=== PATIENT | female | born 1960 | race African-American/Black ===

== ENCOUNTER → 2017-01-06 | Emergency (ER) | payer BC, OTHER ==
[2017-01-06 11:16] VITALS: BP 112/57; PULSE 99; TEMP 98.8; BMI 37.4
== END | disposition left against medical advice (07) ==
LOC: JERFT 10:53
DX: Z53.21 Procedure and treatment not carried out due to patient leaving prior to being seen by health care provider (principal)
CPT/HCPCS: 99281-25

== ENCOUNTER 2017-05-09 23:44 | Observation (INO) | payer BC ==
--- NOTE | 2017-05-09 23:59 | PDOC ---
History of Present Illness - General Stated Complaint: CHEST PAIN Time Seen by Provider: 05/09/17 23:51 History Source: Patient - History of Present Illness Initial Comments: 05/10/17 00:03 Patient had previous stress tests 2 years ago which was positive. Patient was sent to [facility] for stenting but was informed she did not need it at the time. 05/10/17 00:04 56-year-old female biba complaining of left lateral upper arm pain. Patient states while she was sleeping, she was awoke by a 9/10 sore nonradiating discomfort. The pain subsided "when I rubbed my arm with hand" which caused her to fall back asleep. Patient states she was awoke by the pain again approximately one hour later and this seemed occurred when she would fall back to sleep once she rubs her left lateral upper arm until the pain completely subsided. Patient states this occurred approximately 5-6 times this evening. Approximately 2 hours ago, she felt left sided anterior chest discomfort described as 6/10 achy nonradiating intermittent discomfort which worsens on deep inspiration and alleviated at rest. Patient denies headache, dizziness, lightheadedness, facial pains, rhinorrhea, nasal congestion, earaches, sore throat, cough, neck stiffness, back pain, shortness of breath, abdominal pains, flank pains, urinary symptoms, extremity numbness or tingling sensation. The pain at this time is 2/10 achy nonradiating discomfort. Patient states she just has to rest for the pain to subside completely. Patient reports that similar symptoms which resolved at rest. Past History - Past Medical History Allergies/Adverse Reactions: Allergies Allergy/AdvReac Type Severity Reaction Status Date / Time No Known Allergies Allergy Verified 05/10/17 00:13 Home Medications: Ambulatory Orders NK [No Known Home Medication] 05/10/17 Asthma: Yes Cardiac Disorders: Yes COPD: No Diabetes: Yes - Surgical History Orthopedic Surgery: Yes (right foot/ankle broken ) - Immunization History Immunization Up to Date: Yes - Suicide/Smoking/Psychosocial Hx Smoking Status: Yes Smoking History: Unknown if ever smoked Have you smoked in the past 12 months: No Number of Cigarettes Smoked Daily: 2 If you are a former smoker, when did you quit?: 03/09/14 'Breaking Loose' booklet given: 08/21/14 Hx Alcohol Use: No Drug/Substance Use Hx: No Substance Use Type: None Hx Substance Use Treatment: Yes (detox, rehab, [facility]) Review of Systems - Review of Systems Able to Perform ROS?: Yes Comments:: 05/10/17 00:04 CONSTITUTIONAL: Absent: fever, chills, diaphoresis, generalized weakness, malaise, loss of appetite HEENT: Absent: rhinorrhea, nasal congestion, throat pain, throat swelling, difficulty swallowing, mouth swelling, ear pain, eye pain, visual Changes CARDIOVASCULAR: +chest pain Absent: loss of consciousness, palpitations, irregular heart rate, peripheral edema RESPIRATORY: Absent: cough, shortness of breath, dyspnea with exertion, orthopnea, wheezing, stridor, hemoptysis GASTROINTESTINAL: Absent: abdominal pain, abdominal distension, nausea, vomiting, diarrhea, constipation, melena, hematochezia GENITOURINARY: Absent: dysuria, frequency, urgency, hesitancy, hematuria, flank pain, genital pain MUSCULOSKELETAL: Absent: myalgia, arthralgia, joint swelling SKIN: Absent: rash, itching, pallor HEMATOLOGIC/IMMUNOLOGIC: Absent: easy bleeding, easy bruising, lymphadenopathy, frequent infections ENDOCRINE: Absent: unexplained weight gain, unexplained weight loss, heat intolerance, cold intolerance NEUROLOGIC: Absent: headache, focal weakness or paresthesias, dizziness, unsteady gait, seizure, mental status changes, bladder or bowel incontinence PSYCHIATRIC: Absent: anxiety, depression, suicidal or homicidal ideation, hallucinations. Is the patient limited Maltese proficient: No *Physical Exam - Vital Signs Last Vital Signs Temp Pulse Resp BP Pulse Ox 98.3 F 81 16 114/62 94 L 05/10/17 00:00 05/10/17 00:00 05/10/17 00:00 05/10/17 00:00 05/10/17 00:00 - Physical Exam Comments: 05/10/17 00:04 GENERAL: Well developed, well nourished. Awake and alert. No acute distress. HEENT: Normocephalic, atraumatic. PERRLA, EOMI. No conjunctival pallor. Sclera are non- icteric. Moist mucous membranes. Oropharynx is clear. NECK: Supple. Full ROM. No JVD. Carotid pulses 2+ and symmetric, without bruits. No thyromegaly. No lymphadenopathy. CARDIOVASCULAR: Regular rate and rhythm. No murmurs, rubs, or gallops. Distal pulses are 2+ and symmetric. PULMONARY: No evidence of respiratory distress. Lungs clear to auscultation bilaterally. No wheezing, rales or rhonchi. ABDOMINAL: Soft. Non-tender. Non-distended. No rebound or guarding. No organomegaly. Normoactive bowel sounds. MUSCULOSKELETAL Normal range of motion at all joints. No bony deformities or tenderness. No CVA tenderness. EXTREMITIES: No cyanosis. No clubbing. No edema. No calf tenderness. SKIN: Warm and dry. Normal capillary refill. No rashes. No jaundice. NEUROLOGICAL: Alert, awake, appropriate. Cranial nerves 2-12 intact. No deficits to light touch and temperature in face, upper extremities and lower extremities. No motor deficits in the in face, upper extremities and lower extremities. Normoreflexic in the upper and lower extremities. Normal speech. Toes are down- going bilaterally. Gait is normal without ataxia. PSYCHIATRIC: Cooperative. Good eye contact. Appropriate mood and affect. *DC/Admit/Observation/Transfer Diagnosis at time of Disposition: Chest pain Qualifiers: Chest pain type: chest pain due to myocardial ischemia Ischemic chest pain type : stable angina pectoris Qualified Code(s): I20.8 - Other forms of angina pectoris - Discharge Dispostion Admit: Yes - Referrals - Patient Instructions - Post Discharge Activity
--- NOTE | 2017-05-10 00:05 | PDOC ---
Medical Decision Making - Medical Decision Making 05/10/17 00:05 56 yo F who presents to the ER with a complaint of left arm pain Pt had labs sent Trop 0.18 Pt decided to leave against out medical advice Pt refused to sign consent for treatment OR AMA form Pt was called re: her concerning blood tests Pt was asked to come back to the ER Will place on observation Pt seen by Midlevel Provider under my direct supervision Pt interviewed and examined Ancillary studies reviewed I agree with plan as outlined by Midlevel Provider *DC/Admit/Observation/Transfer Diagnosis at time of Disposition: Chest pain Qualifiers: Chest pain type: chest pain due to myocardial ischemia Ischemic chest pain type : stable angina pectoris Qualified Code(s): I20.8 - Other forms of angina pectoris - Referrals - Patient Instructions - Post Discharge Activity
[2017-05-10 00:13] VITALS: BMI 37.8
--- NOTE | 2017-05-10 01:28 | HP ---
CHIEF COMPLAINT: left arm pain PCP: none currently, formerly Dr. Carrasco (on [address]) HISTORY OF PRESENT ILLNESS: 56F w/ hx of asthma, spinal stenosis, obesity, NEERU on CPAP, HLD, depression, anxiety, and chronic joint pain who presents with acute left arm pain. Pt states that it began while she was lying in bed in the morning. It developed on the lateral part of her upper arm, radiated down her arm and to her left chest, 9/10 pain, associated with lightheadedness and mild SOB. Pt states that rubbing her arm relieved some of the pain. She states that this pain has been intermittent for the past few months, but worst this most recent episode. She denies n/v/d/c, fevers, chills, recent travel, sick contacts. Per pt, she is non -adherent to her medications, and she does not know the names of them. Of note, pt reports that she came to [facility] about 2 years ago with similar symptoms, had a positive stress test, and was sent to [facility] for cath. Pt states that she left the hospital after an hour and never received the cath, but there is documentation stating that pt received a cath at some point showing <30% stenosis in pRCA and L Cx arteries. ER course was notable for: (1) leukocytosis (2) troponin (3) EKG Recent Travel: denies PAST MEDICAL HISTORY: asthma, spinal stenosis, obesity, NEERU on CPAP, HLD, depression, anxiety, and chronic joint pain PAST SURGICAL HISTORY: R foot R knee Social History: Smoking: currently 5 cigarettes a day x 35 years Alcohol: denies Drugs: former, currently on methadone Family History: mother- heart disease, DM Allergies No Known Allergies Allergy (Verified 05/10/17 00:13) HOME MEDICATIONS: Home Medications Medication Instructions Recorded NK [No Known Home Medication] 05/10/17 REVIEW OF SYSTEMS CONSTITUTIONAL: Absent: fever, chills, diaphoresis, generalized weakness, malaise, weight change present: loss of appetite HEENT: Absent: rhinorrhea, nasal congestion, throat pain, throat swelling, difficulty swallowing, mouth swelling, ear pain, eye pain, visual changes CARDIOVASCULAR: Absent: syncope, palpitations, irregular heart rate, peripheral edema present: chest pain, lightheadedness RESPIRATORY: Absent: cough, wheezing, stridor, hemoptysis present: SOB GASTROINTESTINAL: Absent: abdominal pain, abdominal distension, nausea, vomiting, diarrhea, constipation, melena, hematochezia GENITOURINARY: Absent: dysuria, frequency, urgency, hesitancy, hematuria, flank pain, genital pain MUSCULOSKELETAL: Absent: myalgia, arthralgia, joint swelling, back pain, neck pain SKIN: Absent: rash, itching, pallor HEMATOLOGIC/IMMUNOLOGIC: Absent: easy bleeding, easy bruising, lymphadenopathy, frequent infections ENDOCRINE: Absent: unexplained weight gain, unexplained weight loss, heat intolerance, cold intolerance NEUROLOGIC: Absent: headache, focal weakness or paresthesias, dizziness, unsteady gait, seizure, mental status changes, bladder or bowel incontinence PSYCHIATRIC: Absent: suicidal or homicidal ideation, hallucinations present: anxiety, depression PHYSICAL EXAMINATION Vital Signs - 24 hr 05/10/17 00:00 Temperature 98.3 F Pulse Rate 81 Respiratory 16 Rate Blood Pressure 114/62 O2 Sat by Pulse 94 L Oximetry (%) GENERAL: obese middle aged female, awake, alert, and fully oriented, in no acute distress. HEENT: NC, AT LUNGS: Breath sounds equal, clear to auscultation bilaterally. No wheezes, and no crackles. No accessory muscle use. HEART: Regular rate and rhythm, normal S1 and S2 without murmur, rub or gallop. ABDOMEN: obese, soft, normoactive BS, mildly tender in RUQ and LLQ MUSCULOSKELETAL: no LE edema NEUROLOGICAL: Cranial nerves II-XII intact. Normal speech. PSYCHIATRIC: Cooperative. Good eye contact. Appropriate mood and affect. SKIN: Warm, dry, normal turgor, no rashes or lesions noted, normal capillary refill. ASSESSMENT/PLAN: 56F w/ hx of smoking, asthma, spinal stenosis, obesity, NEERU on CPAP, HLD, depression, anxiety, and chronic joint pain who presents with acute left arm pain. #left arm pain -possibly 2/2 NSTEMI -trop of 0.14 -EKG: NSR, QTc of 447, Q waves in lead 3, TWI in leads V1 and V2, no ST elevations or depressions -cardio consult, f/u recs -serial trops q6h -repeat EKG q6h -f/u echo -pain control with SL nitro and morphine PRN -supplemental O2 -ASA 325, plavix load, lovenox 100mg, high potency statin #polysubstance use -methadone 70mg -confirm with program at [facility] -f/u Utox -nicotine patch #NEERU -CPAP 20 HS #asthma -duonebs PRN #FEN/ppx -po fluids -electrolytes wnl -diabetic diet -no GI ppx indicated -lovenox Case discussed with attending. -Nii Srinivasan MD PGY1 Visit type - Emergency Visit Emergency Visit: Yes Care time: The patient presented to the Emergency Department on the above date and was hospitalized for further evaluation of their emergent condition. - New Patient This patient is new to me today: Yes Date on this admission: 05/10/17 - Critical Care Critical Care patient: No Hospitalist Screening - Colonoscopy Questionnaire Colonoscopy Questionnaire: Colonoscopy Questionnaire - Patient: 50 - 75 years old and never had a screening colonoscopy: Unknown History of colon or rectal polyps, or CA: Unknown History of IBD, Crohn's disease or UC: Unknown History of abdominal radiation therapy as a child: Unknown - Relative: 1 with colon or rectal CA, or polyps at age 60 or younger: Unknown Colon or rectal CA diagnosed at age 45 or younger: Unknown Multiple relatives with colon or rectal CA: Unknown - Outcome: Screening Result: Negative Screen
[2017-05-10] MEDS ORDERED: MORPHINE SULFATE 10 MG/1 ML *VIAL IVPUSH PRN (01:40)
[2017-05-10] MEDS ORDERED: CLOPIDOGREL BISULFATE 300 MG TABLET PO ONE (01:40)
[2017-05-10] MEDS ORDERED: NITROGLYCERIN SUBLINGUAL 1/150 0.4 MG TAB SL PRN (01:40)
[2017-05-10] MEDS ORDERED: ACETAMINOPHEN 325 MG TABLET (FP) PO PRN (01:40)
--- NOTE | 2017-05-10 01:44 | PN ---
Teaching Attending Note Name of Resident: Nii Srinivasan ATTENDING PHYSICIAN STATEMENT I saw and evaluated the patient. I reviewed the resident's note and discussed the case with the resident. I agree with the resident's findings and plan as documented. SUBJECTIVE: 56F pmh NEERU ?DM, HLD, smoking, NEERU, former opiate use now on methadone program comes in for chest pain, substernal, tightness, started at rest at 430pm and was worse with minimal exertion. She is currently having chest pain. possibly had cath previously at [facility] OBJECTIVE: obese, not in acute distress CV: RRR no m/r/g Lungs: CTA abdomen, soft NTND Ext: no edema EKG: sinus rhythm 07/2015 Nuclear negative troponin 0.16 ASSESSMENT AND PLAN: 56F with typpical chest pain, elevated troponi, no ekg changes, treat for NSTEMI Cardiology consult trend troponins and EKGs aspirin 325 mg followed by 81mg daily plavix 300mg followed by 75mg daily lovenox 1mg/kg ECHO SL Nitro x3 now, if no effect morphine admit to telemetry CPAP at 20mmhg confirm methadone dose (70mg) at program prior to restarting check A1C, lipid profile
[2017-05-10] MEDS ORDERED: ATORVASTATIN CA 80 MG TABLET (FP) PO SCH (01:45)
[2017-05-10] MEDS ORDERED: ASPIRIN 325 MG ENTERIC COATED TABLET (FP) PO SCH (01:45)
[2017-05-10] MEDS ORDERED: ALBUTEROL SO4 2.5/IPRATROPIUM 0.5 INH SOL 3 ML VIAL.NEB. NEB PRN (01:59)
[2017-05-10] MEDS ORDERED: ENOXAPARIN NA (PORCINE) 100 MG/1 ML DISP.SYRIN SQ ONE (02:15)
[2017-05-10] MEDS ORDERED: ASPIRIN 325 MG ENTERIC COATED TABLET (FP) PO ONE (02:22)
[2017-05-10] MEDS ORDERED: ATORVASTATIN CA 80 MG TABLET (FP) PO ONE (02:29)
[2017-05-10 08:27] LABS: BASO % 1.1 % (0-2.0); EOS % 6.1 % (0-4.5); HEMATOCRIT 41.1 % (32.4-45.2); HEMOGLOBIN 13.6 GM/dL (10.7-15.3); LYMPH % 38.7 % (8-40); MCH 30.3 pg (25.7-33.7); MCHC 33.1 g/dl (32.0-36.0); MEAN CELL VOLUME 91.6 fl (80-96); MEAN PLT VOLUME 8.3 fl (7.5-11.1); MONO % 6.9 % (3.8-10.2); NEUT % 47.2 % (42.8-82.8); PLATELET COUNT 185 K/MM3 (134-434); RBC 4.49 M/mm3 (3.60-5.2); RDW 13.8 % (11.6-15.6); WHITE BLOOD COUNT 8.3 K/mm3 (4.0-10.0)
[2017-05-10 08:57] LABS: CHLORIDE 103 mmol/L (98-107); POTASSIUM 3.8 mmol/L (3.5-5.1); SODIUM 140 mmol/L (136-145)
[2017-05-10 09:09] LABS: ALBUMIN 3.5 g/dl (3.4-5.0); ALK PHOS 103 U/L (45-117); ANION GAP 8 (8-16); BILIRUBIN,TOTAL 0.6 mg/dL (0.2-1.0); BLOOD UREA NITROGEN 11 mg/dL (7-18); CALCIUM 8.7 mg/dL (8.5-10.1); CHOLESTEROL 212 mg/dL (50-200); CO2 29 mmol/L (21-32); CREATININE 0.5 mg/dL (0.55-1.02); GLUCOSE,RANDOM 83 mg/dL (74-106); HDL CHOLESTEROL 34 mg/dL (40-60); LDL CHOLESTEROL (ONLY SJRH) 148 mg/dL (5-100); MAGNESIUM 2.1 mg/dL (1.8-2.4); PHOSPHOROUS 2.8 mg/dL (2.5-4.9); SGOT/AST 13 U/L (15-37); SGPT/ALT 15 U/L (12-78); TOT PROT 6.6 g/dl (6.4-8.2); TRIGLYCERIDES 160 mg/dL (35-160)
[2017-05-10] MEDS ORDERED: ENOXAPARIN NA (PORCINE) 100 MG/1 ML DISP.SYRIN SQ SCH (10:00)
[2017-05-10] MEDS: NICOTINE 7 MG/24 HOURS TOPICAL PATCH TD SCH (11:05)
[2017-05-10] MEDS: ENOXAPARIN NA (PORCINE) 100 MG/1 ML DISP.SYRIN SQ SCH ×2 (11:05→21:08)
[2017-05-10] MEDS ORDERED: METHADONE HCL 10 MG TABLET PO ONE (13:00)
--- NOTE | 2017-05-10 13:00 | CON.CARD ---
Consult Consult Specialty:: Cardiology Referred by:: Hospitalist Reason for Consultation:: Chest pain, elevated troponin - History of Present Illness Chief Complaint: L arm pain, L chest pain History of Present Illness: 56 year old woman with a history of NEERU, Asthma, spinal stenosis, RA, HLD, heavy smoking, prior admission in 2013 for chest pain at which time nuclear stress test showed inferior ischemia, cardiac cath was done at [facility] during that admission and showed minimal non-obstructive CAD, admitted with L arm pain , L chest pain. Pt states that L arm pain is chronic for several months on and off, L chest pain has been more recent. When discussed the cardiac cath in 2013 pt states that it was never done, and that they just discharged her however this seems to be incorrect as there is a report of it. denies any other complaints. - History Source History Provided By: Patient, Medical Record Limitations to Obtaining History: No Limitations - Past Medical History Cardio/Vascular: Yes: CAD, Hyperlipdemia Pulmonary: Yes: Asthma, COPD, Sleep Apnea - Alcohol/Substance Use Hx Alcohol Use: No - Smoking History Smoking history: Unknown if ever smoked Have you smoked in the past 12 months: No Aproximately how many cigarettes per day: 2 If you are a former smoker, when did you quit?: 03/09/14 - Social History Usual Living Arrangement: With Child ADL: Independent History of Recent Travel: No Home Medications - Allergies Allergies/Adverse Reactions: Allergies Allergy/AdvReac Type Severity Reaction Status Date / Time No Known Allergies Allergy Verified 05/10/17 00:13 - Home Medications Home Medications: Ambulatory Orders Alprazolam [Xanax] 2 mg PO BID 05/10/17 Aspirin [ASA -] 81 mg PO DAILY 05/10/17 Ezetimibe [Zetia] 10 mg PO DAILY 05/10/17 Family Disease History - Family Disease History Family Disease History: Diabetes: Mother, Heart Disease: Father Review of Systems - Review of Systems Constitutional: denies: No Symptoms, Chills, Diaphoresis, Fever, Lethargy, Loss of Appetite, Malaise, Night Sweats, Unintentional Wgt. Loss, Weakness, Other Eyes: denies: No Symptoms, Blind Spots, Blurred Vision, Double Vision, Eye Pain , Floaters, Photophobia, Recent Change in Vision, Other HENT: denies: No Symptoms, Difficult Swallowing, Ear Discharge, Ear Pain, Epistaxis, Gingival Bleeding, Hearing Loss, Mouth Swelling, Nasal Congestion, Ocular Prosthesis, Throat Pain, Toothache, Ringing in Ears, Other Neck: denies: No Symptoms, Decreased ROM, Lumps, Pain on Movement, Stiffness, Swollen Glands, Tenderness, Other Cardiovascular: reports: Chest Pain. denies: No Symptoms, Edema, Palpitations, Shortness of Breath, Other Respiratory: denies: No Symptoms, Cough, Exercise Intolerance, Hemoptysis, Orthopnea, PND, Snoring, SOB, SOB on Exertion, Wheezing, Other Gastrointestinal: denies: No Symptoms, Abdominal Pain, Bloating, Constipation, Diarrhea, Dysphagia, Indigestion, Melena, Nausea, Rectal Bleeding, Vomiting, Vomiting Blood, Other Genitourinary: denies: No Symptoms, Burning, Discharge, Dysuria, Flank Pain, Frequency, Hematuria, Incontinence, Lesions, Menses, Pain, Testicular Mass, Testicular Pain, Testicular Swelling, Urgency, Vaginal Bleeding, Other Breasts: denies: No Symptoms Reported, See HPI, Breast Implants, Discharge from Nipple, Lumps, Pain, Skin Changes, Other Musculoskeletal: reports: Extremity Pain. denies: No Symptoms, Back Pain, Crepitus, Decreased ROM, Joint Pain, Joint Swelling, Muscle Pain, Muscle Cramps , Muscle Weakness, Other Integumentary: denies: No Symptoms, Blister, Bruising, Change in Color, Eczema, Erythema, Incision, Lesions, Lump, Pallor, Pruritis, Rash, Wound, Other Neurological: denies: No Symptoms, Change in LOC, Change in Speech, Confusion, Dizziness, Headache, Incoordination, Numbness, Parasthesia, Pre-Existing Deficit , Seizure, Syncope, Tremors, Unsteady Gait, Weakness, Other Endocrine: denies: No Symptoms, Excessive Sweating, Flushing, Increased Hunger, Increased Thirst, Intolerance to Cold, Intolerance to Heat, Unexplained Weight Gain, Unexplained Weight Loss, Other Hematology/Lymphatic: denies: No Symptoms, Easily Bruised, Excessive Bleeding, Swollen Glands, Other Psychiatric: denies: No Symptoms, Altered Sleep Pattern, Anxiety, Depression, Hallucinations, Panic, Paranoia, Suicidal, Other - Risk Factors Known Risk Factors: Yes: Hypercholesterolemia, Hypertension, Smoking Vital Signs: Vital Signs Temperature 98.3 F 05/10/17 05:00 Pulse Rate 71 05/10/17 05:00 Respiratory Rate 16 05/10/17 05:00 Blood Pressure 124/59 05/10/17 05:00 O2 Sat by Pulse Oximetry (%) 94 L 05/10/17 11:49 Constitutional: Yes: Well Nourished, No Distress, Calm Eyes: Yes: WNL, Conjunctiva Clear, EOM Intact, PERRL HENT: Yes: WNL, Atraumatic, Normocephalic Neck: Yes: WNL, Supple, Trachea Midline Respiratory: Yes: Regular, Wheezes. No: Rales, Rhonchi Gastrointestinal: Yes: WNL, Normal Bowel Sounds, Soft. No: Distention, Tenderness Renal/: Yes: WNL Cardiovascular: Yes: WNL, Regular Rate and Rhythm. No: Bradycardia, Tachycardia , Pulse Irregular, Gallop, Rub, Varicosities JVD: No Carotid Bruit: No PMI: Non-Displaced Heart Sounds: Yes: S1, S2. No: Split S2, S3, S4, Clicks, Gallop, Rub, Bruit Murmur: No: Systolic Murmur, Diastolic Murmur Musculoskeletal: Yes: WNL Extremities: Yes: WNL Edema: No Peripheral Pulses WNL: Yes Peripheral Pulses: 2+ Left Doralis Pedis, 2+ Right Dorsalis Pedis Integumentary: Yes: WNL Neurological: Yes: Alert, Oriented Psychiatric: Yes: Alert, Oriented - Other Data Labs, Other Data: CBC, BMP 05/10/17 07:50 05/10/17 07:50 Troponin, BNP 05/10/17 05/10/17 05/10/17 03:00 07:50 08:14 Troponin I 0.14 H 0.09 H Cancelled Troponin, BNP 05/10/17 05/10/17 05/10/17 03:00 07:50 08:14 Troponin I 0.14 H 0.09 H Cancelled ekg-NSR 70bpm, nonspecific ST abnl Echo: Report Reviewed Prior Cardiac Procedures: Cardiac Catheterization Imaging - Results Chest X-ray: Report Reviewed, Image Reviewed EKG: Report Reviewed, Image Reviewed Other: Report Reviewed, Image Reviewed (tele-nsr, no arrhythmias) Assessment/Plan 56 year old woman with a history of NEERU, Asthma, spinal stenosis, RA, HLD, heavy smoking, prior admission in 2013 for chest pain at which time nuclear stress test showed inferior ischemia, cardiac cath was done at [facility] during that admission and showed minimal non-obstructive CAD, admitted with L arm pain , L chest pain. Pt states that L arm pain is chronic for several months on and off, L chest pain has been more recent. When discussed the cardiac cath in 2014 pt states that it was never done, and that they just discharged her however this seems to be incorrect as there is a report of it. Chest pain-atypical, unlikely ACS -troponin is minimally above upper limit of normal, with normal CK level, and troponin did not trend up -chest pain is atypical -no sig ekg abnl -no arrhythmias on telemetry -as per report cardiac cath showed very minimal non-obs cad in 2013 -will monitor on telemetry overnight -plan for nuclear stress test and echo tomorrow -cont ASA, Plavix, statin, Lovenox tomorrow -of note pt is a smoker and is currently wheezing, may be acute bronchitis leading to chest pain, denies sig sob.
[2017-05-10 13:08] LABS: COCAINE, UR NEGATIVE ng/ml (CUTOFF=300); PHENCYCLIDINE,URINE NEGATIVE ng/ml (CUTOFF=25); URINE AMPHETAMINES NEGATIVE ng/ml (CUTOFF=500); URINE BARBITURATES NEGATIVE ng/ml (CUTOFF=200)
[2017-05-10 13:09] LABS: METHADONE, UR POSITIVE ng/ml (CUTOFF=300); OPIATES, URI POSITIVE ng/ml (CUTOFF=300); URINE BENZODIAZEPINES POSITIVE ng/ml (CUTOFF=200)
--- NOTE | 2017-05-10 14:21 | EKG ---
Test Reason : Blood Pressure : / mmHG Vent. Rate : 072 BPM Atrial Rate : 072 BPM P-R Int : 148 ms QRS Dur : 086 ms QT Int : 396 ms P-R-T Axes : 063 045 059 degrees QTc Int : 433 ms NORMAL SINUS RHYTHM NONSPECIFIC T WAVE ABNORMALITY Confirmed by MD ALICJA, MARIMAR ([id number]) on 05/10/2017 2:20:44 PM Referred By: Confirmed By:MARIMAR HELM MD
--- NOTE | 2017-05-10 15:22 | PN ---
Teaching Attending Note Name of Resident: Milly Morillo Time of evaluation: 8:45 AM SUBJECTIVE: Patient seen and examined, sleeping comfortably, when woken up started reporting right groin pain and then stated 'its chronic, oh that's not what I'm here for'. Denied any chest pain currently. OBJECTIVE: Vital Signs Period Temp Pulse Resp BP Sys/Jones Pulse Ox Last 24 Hr 98.2 F-98.3 F 71-97 16-19 114-124/59-82 94-99 Intake & Output 05/07/17 05/08/17 05/09/17 05/10/17 23:59 23:59 23:59 23:59 Intake Total 440 Balance 440 Weight 220 lb General: sleeping comfortably CVS;S1S2 regular Chest: No rales or wheezing abdomen: soft, obese, NT extremities: no edema Home Medication List Medication Instructions Recorded Confirmed Type Alprazolam [Xanax] 2 mg PO BID 05/10/17 05/10/17 History Aspirin [ASA -] 81 mg PO DAILY 05/10/17 05/10/17 History Ezetimibe [Zetia] 10 mg PO DAILY 05/10/17 05/10/17 History Active Medications Generic Name Dose Route Start Last Admin Trade Name Freq PRN Reason Stop Dose Admin Acetaminophen 650 mg 05/10/17 01:40 Tylenol - PO Q4H PRN pain 1-6 Albuterol/Ipratropium 1 amp 05/10/17 01:59 Duoneb - NEB Q6H PRN SHORT OF BREATH/WHEEZING Aspirin 81 mg 05/11/17 10:00 Asa - PO DAILY RE[facility] Atorvastatin Calcium 80 mg 05/10/17 22:00 Lipitor - PO HS REGI Clopidogrel Bisulfate 75 mg 05/11/17 10:00 Plavix - PO DAILY REGI Ezetimibe 10 mg 05/11/17 10:00 Zetia - PO DAILY RE[facility] Enoxaparin Sodium 100 mg 05/10/17 10:00 05/10/17 11:05 Lovenox - SQ 100 mg BID REGI Administration Nicotine 7 mg 05/10/17 10:00 05/10/17 11:05 Nicoderm Patch - TD Not Given DAILY [facility] Nitroglycerin 0.4 mg 05/10/17 01:40 Nitrostat - SL Q5M PRN FOR CHEST PAIN Laboratory Results - last 24 hr 05/10/17 05/10/17 05/10/17 03:00 07:50 07:50 WBC 8.3 RBC 4.49 Hgb 13.6 Hct 41.1 MCV 91.6 MCH 30.3 MCHC 33.1 RDW 13.8 Plt Count 185 MPV 8.3 Neutrophils % 47.2 Lymphocytes % 38.7 D Monocytes % 6.9 Eosinophils % 6.1 H D Basophils % 1.1 Sodium 140 Potassium 3.8 Chloride 103 Carbon Dioxide 29 Anion Gap 8 BUN 11 Creatinine 0.5 L Creat Clearance w eGFR > 60 Random Glucose 83 Hemoglobin A1c % Calcium 8.7 Phosphorus 2.8 Magnesium 2.1 Total Bilirubin 0.6 D AST 13 L ALT 15 Alkaline Phosphatase 103 Troponin I 0.14 H 0.09 H Total Protein 6.6 Albumin 3.5 Triglycerides 160 Cholesterol 212 H Total LDL Cholesterol 148 H HDL Cholesterol 34 L Opiates Screen Methadone Screen Barbiturate Screen Phencyclidine Screen Ur Amphetamines Screen MDMA (Ecstasy) Screen Benzodiazepines Screen Cocaine Screen U Marijuana (THC) Screen 05/10/17 05/10/17 05/10/17 07:50 08:14 11:25 WBC RBC Hgb Hct MCV MCH MCHC RDW Plt Count MPV Neutrophils % Lymphocytes % Monocytes % Eosinophils % Basophils % Sodium Potassium Chloride Carbon Dioxide Anion Gap BUN Creatinine Creat Clearance w eGFR Random Glucose Hemoglobin A1c % 5.5 Calcium Phosphorus Magnesium Total Bilirubin AST ALT Alkaline Phosphatase Troponin I Cancelled Total Protein Albumin Triglycerides Cholesterol Total LDL Cholesterol HDL Cholesterol Opiates Screen Positive Methadone Screen Positive Barbiturate Screen Negative Phencyclidine Screen Negative Ur Amphetamines Screen Negative MDMA (Ecstasy) Screen Negative Benzodiazepines Screen Positive Cocaine Screen Negative U Marijuana (THC) Screen Negative ASSESSMENT AND PLAN: 56F w/ hx of asthma, spinal stenosis, obesity, NEERU on CPAP, HLD, depression, anxiety, and chronic joint pain admitted with atypical chest pain and mild troponin elevation. -Atypical chest pain -Mild troponin elevation, low suspicion for NSTEMi -Opioid dependence -Asthma/COPD, smoker -Obesity -HLD -Depression/anxiety -Chronic pains Plan: cardiology input appreciated. Continue ASA/plavix/statin/lovenox. Plan for stress test/echo in AM. Telemetry. Troponin trended down. [facility] closed today. Will call in AM, methadone 70 mg X1 for now. D/c morphine, avoid additional opioids. Dispo pending cardiology testing tomorrow and clinical course. Plan discussed with patient in detail, all questions answered.
[2017-05-10] MEDS ORDERED: ALPRAZolam 2 MG TABLET PO ONE (18:53)
[2017-05-10] MEDS: ATORVASTATIN CA 80 MG TABLET (FP) PO SCH (21:08)
[2017-05-11 07:05] LABS: BASO % 1.3 % (0-2.0); EOS % 8.2 % (0-4.5); HEMATOCRIT 38.9 % (32.4-45.2); HEMOGLOBIN 13.2 GM/dL (10.7-15.3); LYMPH % 43.3 % (8-40); MCHC 33.8 g/dl (32.0-36.0); MEAN CELL VOLUME 91.5 fl (80-96); MEAN PLT VOLUME 8.2 fl (7.5-11.1); NEUT % 39.2 % (42.8-82.8); PLATELET COUNT 170 K/MM3 (134-434); RBC 4.25 M/mm3 (3.60-5.2); RDW 13.7 % (11.6-15.6)
[2017-05-11] MEDS ORDERED: ALPRAZolam 2 MG TABLET PO PRN (07:29)
[2017-05-11 07:45] LABS: ANION GAP 9 (8-16); BLOOD UREA NITROGEN 14 mg/dL (7-18); CALCIUM 8.6 mg/dL (8.5-10.1); CHLORIDE 103 mmol/L (98-107); CO2 30 mmol/L (21-32); CREATININE 0.6 mg/dL (0.55-1.02); GLUCOSE,RANDOM 87 mg/dL (74-106); MAGNESIUM 2.2 mg/dL (1.8-2.4); PHOSPHOROUS 4.4 mg/dL (2.5-4.9); SODIUM 142 mmol/L (136-145)
[2017-05-11] MEDS ORDERED: METHADONE HCL 10 MG TABLET PO SCH (08:45)
--- NOTE | 2017-05-11 08:51 | PN ---
Teaching Attending Note Name of Resident: Nii Srinivasan ATTENDING PHYSICIAN STATEMENT I saw and evaluated the patient. I reviewed the resident's note and discussed the case with the resident. I agree with the resident's findings and plan as documented with exceptions mentioned below. SUBJECTIVE: Patient seen and examined. no chest pain currently, got back from stress test. OBJECTIVE: Vital Signs Period Temp Pulse Resp BP Sys/Jones Pulse Ox Last 24 Hr 97.5 F-98.6 F 67-97 18-20 99-119/54-82 93-97 Intake & Output 05/08/17 05/09/17 05/10/17 05/11/17 23:59 23:59 23:59 23:59 Intake Total 800 0 Balance 800 0 Weight 220 lb General: sitting in bed in no acute distress CVS: S1S2 regular Chest: CTAB, no rales or wheezing Abdomen: soft, obese, NT extremities: no edema Home Medication List Medication Instructions Recorded Confirmed Type Alprazolam [Xanax] 2 mg PO BID 05/10/17 05/10/17 History Aspirin [ASA -] 81 mg PO DAILY 05/10/17 05/10/17 History Ezetimibe [Zetia] 10 mg PO DAILY 05/10/17 05/10/17 History Active Medications Generic Name Dose Route Start Last Admin Trade Name Freq PRN Reason Stop Dose Admin Acetaminophen 650 mg 05/10/17 01:40 Tylenol - PO Q4H PRN pain 1-6 Albuterol/Ipratropium 1 amp 05/10/17 01:59 Duoneb - NEB Q6H PRN SHORT OF BREATH/WHEEZING Alprazolam 2 mg 05/11/17 07:29 Xanax - PO Q12H PRN ANXIETY Aspirin 81 mg 05/11/17 10:00 Asa - PO DAILY REGI Atorvastatin Calcium 80 mg 05/10/17 22:00 05/10/17 21:08 Lipitor - PO 80 mg HS REGI Administration Clopidogrel Bisulfate 75 mg 05/11/17 10:00 Plavix - PO DAILY REGI Enoxaparin Sodium 100 mg 05/10/17 10:00 05/10/17 21:08 Lovenox - SQ 100 mg BID REGI Administration Methadone HCl 40 mg/ Methadone 70 mg 05/11/17 09:00 HCl 30 mg PO DAILY@0600 REGI Nicotine 7 mg 05/10/17 10:00 05/10/17 11:05 Nicoderm Patch - TD Not Given DAILY REGI Laboratory Results - last 24 hr 05/10/17 05/10/17 05/10/17 07:50 07:50 08:14 WBC RBC Hgb Hct MCV MCH MCHC RDW Plt Count MPV Neutrophils % Lymphocytes % Monocytes % Eosinophils % Basophils % Sodium 140 Potassium 3.8 Chloride 103 Carbon Dioxide 29 Anion Gap 8 BUN 11 Creatinine 0.5 L Creat Clearance w eGFR > 60 Random Glucose 83 Hemoglobin A1c % 5.5 Calcium 8.7 Phosphorus 2.8 Magnesium 2.1 Total Bilirubin 0.6 D AST 13 L ALT 15 Alkaline Phosphatase 103 Troponin I 0.09 H Cancelled Total Protein 6.6 Albumin 3.5 Triglycerides 160 Cholesterol 212 H Total LDL Cholesterol 148 H HDL Cholesterol 34 L Opiates Screen Methadone Screen Barbiturate Screen Phencyclidine Screen Ur Amphetamines Screen MDMA (Ecstasy) Screen Benzodiazepines Screen Cocaine Screen U Marijuana (THC) Screen 05/10/17 05/11/17 05/11/17 11:25 06:45 06:45 WBC 7.0 RBC 4.25 Hgb 13.2 Hct 38.9 MCV 91.5 MCH 31.0 MCHC 33.8 RDW 13.7 Plt Count 170 MPV 8.2 Neutrophils % 39.2 L Lymphocytes % 43.3 H Monocytes % 8.0 Eosinophils % 8.2 H Basophils % 1.3 Sodium 142 Potassium 4.0 Chloride 103 Carbon Dioxide 30 Anion Gap 9 BUN 14 Creatinine 0.6 Creat Clearance w eGFR Random Glucose 87 Hemoglobin A1c % Calcium 8.6 Phosphorus 4.4 Magnesium 2.2 Total Bilirubin AST ALT Alkaline Phosphatase Troponin I Total Protein Albumin Triglycerides Cholesterol Total LDL Cholesterol HDL Cholesterol Opiates Screen Positive Methadone Screen Positive Barbiturate Screen Negative Phencyclidine Screen Negative Ur Amphetamines Screen Negative MDMA (Ecstasy) Screen Negative Benzodiazepines Screen Positive Cocaine Screen Negative U Marijuana (THC) Screen Negative ASSESSMENT AND PLAN: 56F w/ hx of asthma, spinal stenosis, obesity, NEERU on CPAP, HLD, depression, anxiety, and chronic joint pain admitted with atypical chest pain and mild troponin elevation. -Atypical chest pain -Mild troponin elevation, low suspicion for NSTEMi -Opioid dependence -Asthma/COPD, smoker -Obesity -HLD -Depression/anxiety -Chronic pains Plan: cardiology input appreciated. 2D echo reviewed. Stress test positive. Discussed with Dr. Summers, plan transfer for cardiac cath tomorrow. Continue ASA/statin/plavix. Telemetry. Troponin trended down. [facility] reivewed (reference# [id number]), patient on standing xanax 2 mg prescriptions ( 60 tablets every 30 days). resume. Resume methadone Dispo plan for transfer tomorrow for cardiac cath. Plan discussed with patient in detail, all questions answered.
[2017-05-11] MEDS ORDERED: CLOPIDOGREL BISULFATE 75 MG TABLET (FP) PO ONE (10:00)
[2017-05-11] MEDS ORDERED: EZETIMIBE 10 MG TABLET (FP) PO SCH (10:00)
[2017-05-11] MEDS ORDERED: REGADENOSON 0.4 MG/5 ML PRE-FILLED SYRINGE IVPUSH ONE ×2 (10:20→10:45)
--- NOTE | 2017-05-11 10:53 | PN ---
Progress Note, Physician History of Present Illness: seen and examined today in nad. wheezing this am. no overnight events. no further chest pain. - Current Medication List Current Medications: Active Medications Acetaminophen (Tylenol -) 650 mg PO Q4H PRN PRN Reason: pain 1-6 Albuterol/Ipratropium (Duoneb -) 1 amp NEB Q6H PRN PRN Reason: SHORT OF BREATH/WHEEZING Alprazolam (Xanax -) 2 mg PO Q12H PRN PRN Reason: ANXIETY Aspirin (Asa -) 81 mg PO DAILY [facility] Atorvastatin Calcium (Lipitor -) 80 mg PO HS [facility] Last Admin: 05/10/17 21:08 Dose: 80 mg Clopidogrel Bisulfate (Plavix -) 75 mg PO DAILY [facility] Enoxaparin Sodium (Lovenox -) 100 mg SQ BID [facility] Last Admin: 05/10/17 21:08 Dose: 100 mg Methadone HCl 40 mg/ Methadone (HCl 30 mg) 70 mg PO DAILY@0600 [facility] Nicotine (Nicoderm Patch -) 7 mg TD DAILY [facility] Last Admin: 05/10/17 11:05 Dose: Not Given - Objective Vital Signs: Vital Signs Temperature 97.8 F 05/11/17 08:57 Pulse Rate 66 05/11/17 08:57 Respiratory Rate 18 05/11/17 08:57 Blood Pressure 112/78 05/11/17 08:57 O2 Sat by Pulse Oximetry (%) 95 05/11/17 08:51 Constitutional: Yes: No Distress, Calm Eyes: Yes: Conjunctiva Clear, EOM Intact, PERRL HENT: Yes: Atraumatic, Normocephalic Neck: Yes: Supple, Trachea Midline Cardiovascular: Yes: Regular Rate and Rhythm, S1, S2. No: Bradycardia, Tachycardia, Pulse Irregular, Bruit, JVD, Gallop, Murmur, Rub, S3, S4, Varicosities, Other Respiratory: Yes: Regular, Diminished, Wheezes. No: Rales, Rhonchi, SOB Gastrointestinal: Yes: Normal Bowel Sounds, Soft. No: Distention, Tenderness Musculoskeletal: Yes: WNL Extremities: Yes: WNL Edema: No Peripheral Pulses WNL: Yes Peripheral Pulses: Left Doralis Pedis: 2+, Right Dorsalis Pedis: 2+ Neurological: Yes: Alert, Oriented Psychiatric: Yes: Alert, Oriented Labs: CBC, BMP 05/11/17 06:45 05/11/17 06:45 - ....Imaging Chest X-ray: Report Reviewed, Image Reviewed EKG: Report Reviewed, Image Reviewed Other: Report Reviewed, Image Reviewed (tele-NSR, no arrhythmias) Assessment/Plan 56 year old woman with a history of NEERU, Asthma, spinal stenosis, RA, HLD, heavy smoking, prior admission in 2013 for chest pain at which time nuclear stress test showed inferior ischemia, cardiac cath was done at [facility] during that admission and showed minimal non-obstructive CAD, admitted with L arm pain , L chest pain. Pt states that L arm pain is chronic for several months on and off, L chest pain has been more recent. When discussed the cardiac cath in 2013 pt states that it was never done, and that they just discharged her however this seems to be incorrect as there is a report of it. Chest pain-atypical, unlikely ACS -troponin did not trend up significantly -chest pain is atypical -no sig ekg abnl -no arrhythmias on telemetry -as per report cardiac cath showed very minimal non-obs cad in 2013 -no events on telemetry -plan for nuclear stress test and echo tomorrow -cont ASA, Plavix, statin for now -can stop full dose Lovenox today -if nuclear stress test shows no significant ischemia and echo shows no sig structural heart disease, pt would be acceptable for discharge from a cardiac standpoint. If significant ischemia will need to be transferred for cardiac cath. -if no sig ischemia can stop Plavix and cont ASA 81mg daily
[2017-05-11] MEDS ORDERED: METHADONE HCL 40 MG DISPERSABLE TABLET ONE (13:45)
[2017-05-11] MEDS ORDERED: METHADONE HCL 10 MG TABLET ONE (13:45)
[2017-05-11] MEDS: METHADONE 40 MG, METHADONE 30 MG PO SCH (14:05)
[2017-05-11] MEDS: ASPIRIN 81 MG CHEWABLE TABLETS PO SCH (14:08)
[2017-05-11] MEDS: CLOPIDOGREL BISULFATE 75 MG TABLET (FP) PO SCH (14:09)
[2017-05-11] MEDS: NICOTINE 7 MG/24 HOURS TOPICAL PATCH TD SCH (14:09)
--- NOTE | 2017-05-11 16:49 | PN ---
Physical Exam: SUBJECTIVE: Patient seen and examined No acute events overnight. Pt complaining of similar chest discomfort. She denies SOB, diaphoresis, nausea, and lightheadedness. OBJECTIVE: Vital Signs Period Temp Pulse Resp BP Sys/Jones Pulse Ox Last 24 Hr 97.5 F-98.5 F 66-82 18-20 99-127/54-84 94-97 GENERAL: obese middle aged female, awake, alert, and fully oriented, in no acute distress. HEENT: NC, AT LUNGS: Breath sounds equal, clear to auscultation bilaterally. No wheezes, and no crackles. No accessory muscle use. HEART: Regular rate and rhythm, normal S1 and S2 without murmur, rub or gallop. ABDOMEN: obese, soft, normoactive BS, mildly tender in RUQ and LLQ MUSCULOSKELETAL: no LE edema NEUROLOGICAL: Cranial nerves II-XII intact. Normal speech. Laboratory Results - last 24 hr 05/11/17 05/11/17 05/11/17 06:45 06:45 10:56 WBC 7.0 RBC 4.25 Hgb 13.2 Hct 38.9 MCV 91.5 MCH 31.0 MCHC 33.8 RDW 13.7 Plt Count 170 MPV 8.2 Neutrophils % 39.2 L Lymphocytes % 43.3 H Monocytes % 8.0 Eosinophils % 8.2 H Basophils % 1.3 Sodium 142 Potassium 4.0 Chloride 103 Carbon Dioxide 30 Anion Gap 9 BUN 14 Creatinine 0.6 POC Glucometer 100 Random Glucose 87 Calcium 8.6 Phosphorus 4.4 Magnesium 2.2 Active Medications Generic Name Dose Route Start Last Admin Trade Name Freq PRN Reason Stop Dose Admin Acetaminophen 650 mg 05/10/17 01:40 Tylenol - PO Q4H PRN pain 1-6 Albuterol/Ipratropium 1 amp 05/10/17 01:59 05/11/17 15:49 Duoneb - NEB 1 amp Q6H PRN Administration SHORT OF BREATH/WHEEZING Alprazolam 2 mg 05/11/17 16:27 Xanax - PO Q12H PRN ANXIETY Aspirin 81 mg 05/11/17 10:00 05/11/17 14:08 Asa - PO 81 mg DAILY REGI Administration Atorvastatin Calcium 80 mg 05/10/17 22:00 05/10/17 21:08 Lipitor - PO 80 mg HS REGI Administration Clopidogrel Bisulfate 75 mg 05/11/17 10:00 05/11/17 14:09 Plavix - PO 75 mg DAILY REGI Administration Enoxaparin Sodium 40 mg 05/12/17 10:00 Lovenox - SQ DAILY REGI Methadone HCl 40 mg/ Methadone 70 mg 05/11/17 09:00 05/11/17 14:05 HCl 30 mg PO 70 mg DAILY@0600 REGI Administration Nicotine 7 mg 05/10/17 10:00 05/11/17 14:09 Nicoderm Patch - TD Not Given DAILY [facility] ASSESSMENT/PLAN: 56F w/ hx of smoking, asthma, spinal stenosis, obesity, NEERU on CPAP, HLD, depression, anxiety, and chronic joint pain who presented with acute left arm pain. #left arm pain -unlikely 2/2 NSTEMI. trops peaked at 0.14 -EKG: NSR, QTc of 447, Q waves in lead 3, TWI in leads V1 and V2, no ST elevations or depressions -echo: EF of greater than 70%, no significant change from prior echo -pain control with APAP -supplemental O2 -nuclear scan: mild intensity ischemia in inferior and anteroapical areas -cardio consult, recs appreciated. pt to be transferred [facility] for cath #polysubstance use -methadone 70mg, confirmed -Utox: positive for opiates and benzos -nicotine patch #NEERU -CPAP 20 HS #asthma -duonebs PRN #FEN/ppx -po fluids -electrolytes wnl -diabetic diet -no GI ppx indicated -lovenox #Dispo -will transfer [facility] for cath Case discussed with attending, Dr. Morillo. -Nii Srinivasan MD PGY1 Visit type - Emergency Visit Emergency Visit: Yes ED Registration Date: 05/10/17 Care time: The patient presented to the Emergency Department on the above date and was hospitalized for further evaluation of their emergent condition. - New Patient This patient is new to me today: No - Critical Care Critical Care patient: No
[2017-05-11] MEDS: ALPRAZolam 2 MG TABLET PO PRN (21:24)
[2017-05-11] MEDS: ATORVASTATIN CA 80 MG TABLET (FP) PO SCH (21:26)
[2017-05-12] MEDS ORDERED: METHADONE HCL 10 MG TABLET ONE (05:20)
[2017-05-12] MEDS ORDERED: METHADONE HCL 40 MG DISPERSABLE TABLET ONE (05:20)
[2017-05-12] MEDS: METHADONE 40 MG, METHADONE 30 MG PO SCH (05:35)
[2017-05-12 07:14] LABS: BASO % 0.6 % (0-2.0); HEMATOCRIT 39.5 % (32.4-45.2); HEMOGLOBIN 13.2 GM/dL (10.7-15.3); LYMPH % 35.9 % (8-40); MCH 30.5 pg (25.7-33.7); MCHC 33.4 g/dl (32.0-36.0); MEAN CELL VOLUME 91.6 fl (80-96); MEAN PLT VOLUME 8.2 fl (7.5-11.1); NEUT % 50.5 % (42.8-82.8); PLATELET COUNT 180 K/MM3 (134-434); RBC 4.32 M/mm3 (3.60-5.2); RDW 13.6 % (11.6-15.6); WHITE BLOOD COUNT 7.7 K/mm3 (4.0-10.0)
[2017-05-12 07:35] LABS: ALBUMIN 3.1 g/dl (3.4-5.0); ANION GAP 10 (8-16); BLOOD UREA NITROGEN 14 mg/dL (7-18); CALCIUM 8.6 mg/dL (8.5-10.1); CHLORIDE 103 mmol/L (98-107); CO2 29 mmol/L (21-32); CREATININE 0.6 mg/dL (0.55-1.02); GLUCOSE,RANDOM 83 mg/dL (74-106); POTASSIUM 4.3 mmol/L (3.5-5.1); SGOT/AST 12 U/L (15-37); SGPT/ALT 15 U/L (12-78); SODIUM 142 mmol/L (136-145)
[2017-05-12 07:36] LABS: ALK PHOS 92 U/L (45-117); BILIRUBIN,TOTAL 0.3 mg/dL (0.2-1.0); TOT PROT 6.4 g/dl (6.4-8.2)
[2017-05-12 08:14] VITALS: BP 128/85; PULSE 69; TEMP 98.1
[2017-05-12] MEDS: ASPIRIN 81 MG CHEWABLE TABLETS PO SCH (09:15)
[2017-05-12] MEDS: NICOTINE 7 MG/24 HOURS TOPICAL PATCH TD SCH ×2 (09:15→09:30)
[2017-05-12] MEDS: CLOPIDOGREL BISULFATE 75 MG TABLET (FP) PO SCH (09:15)
[2017-05-12] MEDS: ALPRAZolam 2 MG TABLET PO PRN (09:21)
--- NOTE | 2017-05-12 09:32 | PN ---
Progress Note, Physician Chief Complaint: Nuclear stress reviewed, 2 territories of ischemia - Current Medication List Current Medications: Active Medications Acetaminophen (Tylenol -) 650 mg PO Q4H PRN PRN Reason: pain 1-6 Albuterol/Ipratropium (Duoneb -) 1 amp NEB Q6H PRN PRN Reason: SHORT OF BREATH/WHEEZING Last Admin: 05/11/17 15:49 Dose: 1 amp Alprazolam (Xanax -) 2 mg PO Q12H PRN PRN Reason: ANXIETY Last Admin: 05/12/17 09:21 Dose: 2 mg Aspirin (Asa -) 81 mg PO DAILY [facility] Last Admin: 05/12/17 09:15 Dose: 81 mg Atorvastatin Calcium (Lipitor -) 80 mg PO HS [facility] Last Admin: 05/11/17 21:26 Dose: 80 mg Clopidogrel Bisulfate (Plavix -) 75 mg PO DAILY [facility] Last Admin: 05/12/17 09:15 Dose: 75 mg Enoxaparin Sodium (Lovenox -) 40 mg SQ DAILY [facility] Last Admin: 05/12/17 09:15 Dose: 40 mg Methadone HCl 40 mg/ Methadone (HCl 30 mg) 70 mg PO DAILY@0600 [facility] Last Admin: 05/12/17 05:35 Dose: 70 mg Nicotine (Nicoderm Patch -) 7 mg TD DAILY [facility] Last Admin: 05/12/17 09:30 Dose: Not Given - Objective Vital Signs: Vital Signs Temperature 98.1 F 05/12/17 08:13 Pulse Rate 69 05/12/17 08:13 Respiratory Rate 18 05/12/17 08:13 Blood Pressure 128/85 05/12/17 08:13 O2 Sat by Pulse Oximetry (%) 98 05/11/17 23:00 Constitutional: Yes: No Distress, Calm Eyes: Yes: Conjunctiva Clear Cardiovascular: Yes: Regular Rate and Rhythm Respiratory: Yes: CTA Bilaterally Gastrointestinal: Yes: Soft Edema: No Neurological: Yes: Alert, Oriented Labs: CBC, BMP 05/12/17 06:30 05/12/17 06:30 Laboratory Tests 05/10/17 05/12/17 05/12/17 11:25 06:30 06:30 WBC 7.7 Hgb 13.2 Plt Count 180 Sodium 142 Potassium 4.3 BUN 14 Creatinine 0.6 Opiates Screen Positive Methadone Screen Positive Benzodiazepines Screen Positive - ....Imaging EKG: Image Reviewed Other: Other (Echo: normal LV function) Assessment/Plan Assessment/Plan 56 year old woman with a history of NEERU, Asthma, spinal stenosis, RA, HLD, heavy smoking, prior admission in 2013 for chest pain at which time nuclear stress test showed inferior ischemia. Repeat stress now showing multi-territory ischemia. She states she never actually had a cardiac cath, but describes scan which is c/ w Cor CTA several years ago REC: Recommended cardiac cath for definitive assessment of presence and extent of CAD with possible revasc if indicated. Alternatives (rpt cta or med rx) discussed. Risks and benefits of all approaches reviewed. Patient has agreed to cardiac cath which we will arrange. Transfer planned to [facility].
[2017-05-12] MEDS ORDERED: ENOXAPARIN NA (PORCINE) 40 MG/0.4 ML DISP.SYRIN SQ SCH (10:00)
--- NOTE | 2017-05-12 14:00 | DS ---
Physical Exam: SUBJECTIVE: Patient seen and examined No acute events overnight. Pt complaining of mild chest discomfort. She denies SOB, diaphoresis, nausea, and lightheadedness. She endorses chronic back pain. OBJECTIVE: Vital Signs Period Temp Pulse Resp BP Sys/Jones Pulse Ox Last 24 Hr 98.0 F-98.6 F 65-76 16-20 119-128/67-85 93-98 PHYSICAL EXAM GENERAL: obese middle aged female, awake, alert, and fully oriented, in no acute distress. HEENT: NC, AT LUNGS: good air flow, scattered wheezing HEART: Regular rate and rhythm, normal S1 and S2 without murmur, rub or gallop. ABDOMEN: obese, soft, normoactive BS, mildly tender in RUQ and LLQ MUSCULOSKELETAL: no LE edema NEUROLOGICAL: Cranial nerves II-XII intact. Normal speech. LABS Laboratory Results - last 24 hr 05/12/17 05/12/17 06:30 06:30 WBC 7.7 RBC 4.32 Hgb 13.2 Hct 39.5 MCV 91.6 MCH 30.5 MCHC 33.4 RDW 13.6 Plt Count 180 MPV 8.2 Neutrophils % 50.5 D Lymphocytes % 35.9 Monocytes % 7.0 Eosinophils % 6.0 H Basophils % 0.6 Sodium 142 Potassium 4.3 Chloride 103 Carbon Dioxide 29 Anion Gap 10 BUN 14 Creatinine 0.6 Creat Clearance w eGFR > 60 Random Glucose 83 Calcium 8.6 Total Bilirubin 0.3 D AST 12 L ALT 15 Alkaline Phosphatase 92 Total Protein 6.4 Albumin 3.1 L EKG: NSR, non-specific T-wave abnormality, QTc of 433 CXR: mild congestive findings Echo: EF > 70%, no significant change from prior echo Nuclear Scan: mild intensity ischemia in inferior and anteroapical areas HOSPITAL COURSE: Date of Admission:05/10/17 Date of Discharge: 05/12/17 56F w/ hx of smoking, asthma, spinal stenosis, obesity, NEERU on CPAP, HLD, depression, anxiety, and chronic joint pain who presented with acute left arm pain, found to have a troponinemia that peaked at 0.14. Pt seen by cardiology and underwent a nuclear scan which showed multi-territory ischemia. Cardiology recommended cardiac cath for definitive assessment of presence and extent of CAD with possible revascularization if indicated. Alternatives (rpt cta or med rx) were discussed, and risks and benefits of all approaches reviewed with patient. The patient agreed to undergo cardiac cath at [facility]. Today, pt has normal vitals, a benign physical exam, normal labs, and is stable for discharge to [facility] for cardiac cath. Dr. Tate is the accepting physician. Pt instructed to f/u with PCP and cardiology upon discharge. -Nii Srinivasan MD PGY1 Minutes to complete discharge: 36 Discharge Summary Reason For Visit: CHEST PAIN Current Active Problems Chest pain (Acute) Condition: Stable - Instructions Diet, Activity, Other Instructions: You presented with left arm pain and were found to have evidence of ischemia in your heart. You are being transferred to [facility] for a cardiac catheterization. Medications: as per your physicians at [facility] Follow-ups: 1. Please visit your PCP within one week of discharge. If you don't have one, we have referred you to Dr. Melvin. 2. Please visit cardiology, Dr. Summers, within one week of discharge. If you develop any chest pain, shortness of breath, or any other concerning symptoms, return to the ED. Referrals: Roel Melvin MD [Staff Physician] - Reese Summers MD [Staff Physician] - Disposition: TRANSFER ACUTE CARE/OTHER HOSP - Home Medications Comprehensive Discharge Medication List: Ambulatory Orders Alprazolam [Xanax] 2 mg PO BID PRN 05/11/17 Methadone [Dolophine -] 70 mg PO DAILY 05/11/17 Albuterol 2.5/Ipratropium 0.5 [Duoneb -] 1 amp NEB Q6H PRN amp 05/12/17 Aspirin [ASA -] 81 mg PO DAILY tab.chew 05/12/17 Atorvastatin Ca [Lipitor] 80 mg PO HS tablet 05/12/17 Clopidogrel Bisulfate [Plavix -] 75 mg PO DAILY tablet 05/12/17 Ezetimibe [Zetia -] 10 mg PO DAILY tablet 05/12/17 This patient is new to me today: No Emergency Visit: Yes ED Registration Date: 05/10/17 Care time: The patient presented to the Emergency Department on the above date and was hospitalized for further evaluation of their emergent condition. Critical Care patient: No - Discharge Referral Referred to [facility] Med P.C.: No
--- NOTE | 2017-05-12 16:03 | PN ---
Teaching Attending Note Name of Resident: Nii Srinivasan ATTENDING PHYSICIAN STATEMENT I saw and evaluated the patient. I reviewed the resident's note and discussed the case with the resident. I agree with the resident's findings and plan as documented. SUBJECTIVE:no more episodes of CP. deneis Cp, SOB< fever, chills, N/V/C?D OBJECTIVE: Last Vital Signs Temp Pulse Resp BP Pulse Ox 98.1 F 69 18 128/85 96 05/12/17 08:13 05/12/17 08:13 05/12/17 08:13 05/12/17 08:13 05/12/17 08:00 General NAD CV S1 S2 RRR no murmur/rub/gallop no chest wall tenderness Lungs CTA B/L no wheezing/rales/rhonchi ASSESSMENT AND PLAN: 56yo F wtih PMH ashtma, spinal stenosis, hx of IVDA on methadone presented to the ER wtih Cp 1. CP- pain now resolved. +stress test with anteroapical ischemia. plan is for transfer to [facility] for cardiac cath encouraged pt to f/u with PMD 1 week after discharge
== END 2017-05-12 15:00 | disposition short-term general hospital (02) ==
LOC: JER 23:44 → JERBED 05-10 01:41 → INTOOBSV 05-10 02:18 → UNDOADMOB 05-10 02:18 → JERBED 05-10 02:18 → J4W 05-10 07:23 → JERBED 05-10 07:23
PROVIDERS: ADMIT Internal Medicine; ATTEND Internal Medicine
PROC: 3E033GC Introduction of Other Therapeutic Substance into Peripheral Vein, Percutaneous Approach (ICD-10-PCS; principal; 2017-05-10)
PROC: 3E013GC Introduction of Other Therapeutic Substance into Subcutaneous Tissue, Percutaneous Approach (ICD-10-PCS; 2017-05-10)
PROC: 3E0F7GC Introduction of Other Therapeutic Substance into Respiratory Tract, Via Natural or Artificial Opening (ICD-10-PCS; 2017-05-10)
DX: R07.89 Other chest pain (principal); R77.8 Other specified abnormalities of plasma proteins; F11.20 Opioid dependence, uncomplicated; J45.909 Unspecified asthma, uncomplicated; E87.5 Hyperkalemia; E66.9 Obesity, unspecified; Z68.37 Body mass index [BMI] 37.0-37.9, adult; F17.210 Nicotine dependence, cigarettes, uncomplicated; G47.33 Obstructive sleep apnea (adult) (pediatric); Z99.89 Dependence on other enabling machines and devices; F32.9 Major depressive disorder, single episode, unspecified; F41.9 Anxiety disorder, unspecified; M25.50 Pain in unspecified joint; G89.29 Other chronic pain; Z79.82 Long term (current) use of aspirin
CPT/HCPCS: 36415; 71045-TC-FY; 78452-TC; 80048; 80053; 80061; 80307; 82962; 83036; 83721; 83735; 84100; 84484; 85025; 93005; 93010; 93017; 93306-TC; 94640; 94660; 99284-25; A9502; G0378; J2785

== ENCOUNTER → 2017-05-09 | Emergency (ER) | payer BC ==
[~2017-05-09] MED LIST: ASPIRIN 325 MG ENTERIC COATED TABLET (FP) ONE; ATORVASTATIN CA 80 MG TABLET (FP) ONE; CLOPIDOGREL BISULFATE 300 MG TABLET ONE; ENOXAPARIN NA (PORCINE) 100 MG/1 ML DISP.SYRIN SQ ONE; SODIUM CHLORIDE 1,000 ML IV STA
[2017-05-09 20:41] VITALS: BP 128/84; PULSE 93; TEMP 98.1; BMI 36.6
--- NOTE | 2017-05-09 20:43 | PDOC ---
History of Present Illness - General Chief Complaint: Chest Pain Stated Complaint: CHEST PAIN Time Seen by Provider: 05/09/17 20:42 History Source: Patient, EMS - History of Present Illness Initial Comments: 05/09/17 21:01 Best Contact: Pmhx: Sleep apnea, asthma Pshx: 2016: Right TKR Allergies: NKDA 56-year-old female biba complaining of left lateral upper arm pain. Patient states while she was sleeping, she was awoke by a 9/10 sore nonradiating discomfort. The pain subsided "when I rubbed my arm with hand" which caused her to fall back asleep. Patient states she was awoke by the pain again approximately one hour later and this seemed occurred when she would fall back to sleep once she rubs her left lateral upper arm until the pain completely subsided. Patient states this occurred approximately 5-6 times this evening. Approximately 2 hours ago, she felt left sided anterior chest discomfort described as 6/10 achy nonradiating intermittent discomfort which worsens on deep inspiration and alleviated at rest. Patient denies headache, dizziness, lightheadedness, facial pains, rhinorrhea, nasal congestion, earaches, sore throat, cough, neck stiffness, back pain, shortness of breath, abdominal pains, flank pains, urinary symptoms, extremity numbness or tingling sensation. The pain at this time is 2/10 achy nonradiating discomfort. Patient states she just has to rest for the pain to subside completely. Patient reports that similar symptoms which resolved at rest. Past History - Past Medical History Allergies/Adverse Reactions: Allergies Allergy/AdvReac Type Severity Reaction Status Date / Time No Known Allergies Allergy Verified 05/09/17 20:41 Home Medications: Ambulatory Orders Diclofenac Sodium [Voltaren] 300 gm TP BID PRN 01/03/14 Ergocalciferol [Vitamin D2] 50,000 unit PO WEEKLY 01/03/14 Methadone [Dolophine -] 80 mg PO DAILY 01/03/14 Methocarbamol [Robaxin -] 750 mg PO BID PRN 01/03/14 Oxycodone HCl/Acetaminophen [Percocet 10-325 mg Tablet] 1 tab PO TID PRN Albuterol 0.083% Nebulizer Mariya [Ventolin 0.083% Nebulizer Soln -] 1 neb NEB Q4H 02/15/14 Canagliflozin [Invokana] 300 mg PO DAILY 09/18/14 Asthma: Yes Cardiac Disorders: Yes COPD: No Diabetes: Yes - Surgical History Orthopedic Surgery: Yes (right foot/ankle broken ) - Immunization History Immunization Up to Date: Yes - Suicide/Smoking/Psychosocial Hx Smoking Status: Yes Smoking History: Unknown if ever smoked Have you smoked in the past 12 months: No Number of Cigarettes Smoked Daily: 2 If you are a former smoker, when did you quit?: 03/09/14 Information on smoking cessation initiated: No 'Breaking Loose' booklet given: 08/21/14 Hx Alcohol Use: No Drug/Substance Use Hx: No Substance Use Type: None Hx Substance Use Treatment: Yes (detox, rehab, [facility]) Review of Systems - Review of Systems Able to Perform ROS?: Yes Comments:: 05/09/17 22:00 CONSTITUTIONAL: Absent: fever, chills, diaphoresis, generalized weakness, malaise, loss of appetite HEENT: Absent: rhinorrhea, nasal congestion, throat pain, throat swelling, difficulty swallowing, mouth swelling, ear pain, eye pain, visual Changes CARDIOVASCULAR: +left ant chest Absent: loss of consciousness, palpitations, irregular heart rate, peripheral edema RESPIRATORY: Absent: cough, shortness of breath, dyspnea with exertion, orthopnea, wheezing, stridor, hemoptysis GASTROINTESTINAL: Absent: abdominal pain, abdominal distension, nausea, vomiting, diarrhea, constipation, melena, hematochezia GENITOURINARY: Absent: dysuria, frequency, urgency, hesitancy, hematuria, flank pain, genital pain MUSCULOSKELETAL: Absent: myalgia, arthralgia, joint swelling SKIN: Absent: rash, itching, pallor HEMATOLOGIC/IMMUNOLOGIC: Absent: easy bleeding, easy bruising, lymphadenopathy, frequent infections ENDOCRINE: Absent: unexplained weight gain, unexplained weight loss, heat intolerance, cold intolerance NEUROLOGIC: Absent: headache, focal weakness or paresthesias, dizziness, unsteady gait, seizure, mental status changes, bladder or bowel incontinence Is the patient limited Welsh proficient: No *Physical Exam - Vital Signs Last Vital Signs Temp Pulse Resp BP Pulse Ox 98.1 F 93 H 16 128/84 100 05/09/17 20:38 05/09/17 20:38 05/09/17 20:38 05/09/17 20:38 05/09/17 20:38 - Physical Exam Comments: 05/09/17 22:01 GENERAL: Well developed, well nourished. Awake and alert. No acute distress. HEENT: Normocephalic, atraumatic. PERRLA, EOMI. No conjunctival pallor. Sclera are non- icteric. Moist mucous membranes. Oropharynx is clear. NECK: Supple. Full ROM. No JVD. Carotid pulses 2+ and symmetric, without bruits. No thyromegaly. No lymphadenopathy. CARDIOVASCULAR: Regular rate and rhythm. No murmurs, rubs, or gallops. Distal pulses are 2+ and symmetric. PULMONARY: No evidence of respiratory distress. Lungs clear to auscultation bilaterally. No wheezing, rales or rhonchi. ABDOMINAL: Soft. Non-tender. Non-distended. No rebound or guarding. No organomegaly. Normoactive bowel sounds. MUSCULOSKELETAL Normal range of motion at all joints. No bony deformities or tenderness. No CVA tenderness. EXTREMITIES: No cyanosis. No clubbing. No edema. No calf tenderness. SKIN: Warm and dry. Normal capillary refill. No rashes. No jaundice. NEUROLOGICAL: Alert, awake, appropriate. Cranial nerves 2-12 intact. No deficits to light touch and temperature in face, upper extremities and lower extremities. No motor deficits in the in face, upper extremities and lower extremities. Normoreflexic in the upper and lower extremities. Normal speech. Toes are down- going bilaterally. Gait is normal without ataxia. PSYCHIATRIC: Cooperative. Good eye contact. Appropriate mood and affect. ED Treatment Course - LABORATORY CBC & Chemistry Diagram: 05/09/17 21:00 05/09/17 21:00 - ADDITIONAL ORDERS Additional order review: Laboratory Results 05/09/17 05/09/17 21:00 21:00 Sodium 141 Potassium 4.0 Chloride 104 Carbon Dioxide 31 Anion Gap 6 L BUN 10 Creatinine 0.6 Creat Clearance w eGFR > 60 Random Glucose 96 Calcium 8.2 L Total Bilirubin 0.4 AST 10 L ALT 17 Alkaline Phosphatase 109 Creatine Kinase 96 Troponin I 0.14 H Total Protein 6.9 Albumin 3.6 Urine Color Yellow Urine Appearance Slcloudy Urine pH 5.0 Ur Specific Cornish 1.013 Urine Protein Negative Urine Glucose (UA) Negative Urine Ketones Negative Urine Blood Negative Urine Nitrite Negative Urine Bilirubin Negative Urine Urobilinogen Negative Ur Leukocyte Esterase 1+ H Urine WBC (Auto) 14 Urine RBC (Auto) 2 Ur Epithelial Cells Rare Urine Bacteria Few Hyaline Casts 7 Urine Mucus Many 05/09/17 21:00 RBC 4.65 MCV 91.9 MCHC 33.0 RDW 13.8 MPV 8.3 Neutrophils % 58.2 D Lymphocytes % 29.7 D Monocytes % 9.1 Eosinophils % 2.4 Basophils % 0.6 - RADIOLOGY Radiology Studies Ordered: Category Date Time Status CHEST PA & LAT [RAD] Stat Radiology 05/09/17 20:46 Ordered - Medications Given in the ED: ED Medications Discontinued Medications Generic Name Dose Route Start Last Admin Trade Name Freq PRN Reason Stop Dose Admin Sodium Chloride 1,000 mls @ 1,000 mls/hr 05/09/17 20:44 05/09/17 21:16 Normal Saline - IV 05/09/17 21:43 1,000 mls/hr ASDIR STA Administration Progress Note - Progress Note Progress Note: 2132hrs: Patient woke up from her sleep and insists on leaving the emergency department. Patient states she feels better and refuses to answer anymore questions or sign any paperwork. Patient became loud and boisterous and states she refuses to answer anymore questions about her chest pain. *DC/Admit/Observation/Transfer Diagnosis at time of Disposition: Chest pain - Discharge Dispostion Disposition: ELOPED - Referrals - Patient Instructions - Post Discharge Activity
[2017-05-09 21:03] LABS: BASO % 0.6 % (0-2.0); EOS % 2.4 % (0-4.5); HEMATOCRIT 42.7 % (32.4-45.2); HEMOGLOBIN 14.1 GM/dL (10.7-15.3); LYMPH % 29.7 % (8-40); MCH 30.3 pg (25.7-33.7); MEAN CELL VOLUME 91.9 fl (80-96); MEAN PLT VOLUME 8.3 fl (7.5-11.1); MONO % 9.1 % (3.8-10.2); NEUT % 58.2 % (42.8-82.8); PLATELET COUNT 197 K/MM3 (134-434); RBC 4.65 M/mm3 (3.60-5.2); RDW 13.8 % (11.6-15.6); WHITE BLOOD COUNT 11.7 K/mm3 (4.0-10.0)
[2017-05-09 21:12] LABS: URINE APPEARANCE SLCLOUDY; URINE BILIRUBIN NEGATIVE (NEGATIVE); URINE BLOOD NEGATIVE (NEGATIVE); URINE COLOR YELLOW; URINE GLUCOSE (UA) NEGATIVE (NEGATIVE); URINE KETONE NEGATIVE (NEGATIVE); URINE NITRITE NEGATIVE (NEGATIVE); URINE PROTEIN NEGATIVE (NEGATIVE); URINE UROBILINOGEN NEGATIVE mg/dL (0.2-1.0)
[2017-05-09 21:13] LABS: URINE LEUK ESTERASE 1+ (NEGATIVE)
[2017-05-09 21:15] LABS: EPI CELLS RARE /HPF (FEW); URINE BACTERIA FEW /hpf (NONE SEEN); URINE HYALINE CAST 7 /lpf; URINE MUCUS MANY
--- NOTE | 2017-05-09 21:35 | PDOC ---
*Physical Exam - Vital Signs Last Vital Signs Temp Pulse Resp BP Pulse Ox 98.1 F 93 H 16 128/84 100 05/09/17 20:38 05/09/17 20:38 05/09/17 20:38 05/09/17 20:38 05/09/17 20:38 ED Treatment Course - LABORATORY CBC & Chemistry Diagram: 05/09/17 21:00 05/09/17 21:00 - ADDITIONAL ORDERS Additional order review: Laboratory Results 05/09/17 21:00 Urine Color Yellow Urine Appearance Slcloudy Urine pH 5.0 Ur Specific Lamar 1.013 Urine Protein Negative Urine Glucose (UA) Negative Urine Ketones Negative Urine Blood Negative Urine Nitrite Negative Urine Bilirubin Negative Urine Urobilinogen Negative Ur Leukocyte Esterase 1+ H Urine WBC (Auto) 14 Urine RBC (Auto) 2 Ur Epithelial Cells Rare Urine Bacteria Few Hyaline Casts 7 Urine Mucus Many 05/09/17 21:00 RBC 4.65 MCV 91.9 MCHC 33.0 RDW 13.8 MPV 8.3 Neutrophils % 58.2 D Lymphocytes % 29.7 D Monocytes % 9.1 Eosinophils % 2.4 Basophils % 0.6 Medical Decision Making - Medical Decision Making 05/09/17 21:39 Ms Garber is a 56 yo F with a history of Asthma, Spinal stenosis, She presents to the ER with a complaint of left arm pain pt states she has had shortness of breath and intermittent left arm pain which improves either when she rubs her arm or if she falls asleep No pain in the chest Pt is very upset about being in the ER She repeatedly calls staff stupid, she states she always has normal EKGs Pt had an admission to this hospital in 2013 Stress test (+) Pt sent to [facility] for Cardiac cath Found to have minimal non-obstructive CAD with only a <30% stenosis of the pRCA and LCx, otherwise normal coronary arteries. No known family hx of cad. +smoking history Pt is refusing to stay in the hospital, refusing labs, demanding that IV be removed Refusing to sign paperwork for permission to treat, refusing to sign ama form Pt will be leaving AMA Note: The patient insists on leaving the emergency dept and is signing out against medical advice. The patient understands the risks and complications that may result from the refusal of medical care and admission which includes and permanent disability. The patient has the mental capacity of understanding the risks of refusing care and is capable of making an informed decision. The patient was instructed to return to the emergency department should she change her mind regarding medical care or should her condition worsen. The patient refused to sign the Against Medical Advice form. *DC/Admit/Observation/Transfer Diagnosis at time of Disposition: Chest pain - Discharge Dispostion Disposition: ELOPED - Referrals - Patient Instructions - Post Discharge Activity
[2017-05-09 21:39] LABS: ALBUMIN 3.6 g/dl (3.4-5.0); ANION GAP 6 (8-16); BILIRUBIN,TOTAL 0.4 mg/dL (0.2-1.0); BLOOD UREA NITROGEN 10 mg/dL (7-18); CALCIUM 8.2 mg/dL (8.5-10.1); CHLORIDE 104 mmol/L (98-107); CO2 31 mmol/L (21-32); CREATININE 0.6 mg/dL (0.55-1.02); GLUCOSE,RANDOM 96 mg/dL (74-106); SGOT/AST 10 U/L (15-37); SGPT/ALT 17 U/L (12-78); SODIUM 141 mmol/L (136-145); TOT PROT 6.9 g/dl (6.4-8.2)
[2017-05-09 21:42] LABS: ALK PHOS 109 U/L (45-117)
[2017-05-09 22:05] LABS: INR 1.08 (0.82-1.09); PROTHROMBIN TIME (PATIENT) 12.2 SEC (9.98-11.88)
--- NOTE | 2017-05-10 14:23 | EKG ---
Test Reason : Blood Pressure : / mmHG Vent. Rate : 088 BPM Atrial Rate : 088 BPM P-R Int : 142 ms QRS Dur : 080 ms QT Int : 370 ms P-R-T Axes : 066 010 055 degrees QTc Int : 447 ms NORMAL SINUS RHYTHM SEPTAL INFARCT , AGE UNDETERMINED NONSPECIFIC ST ABNORMALITY ABNORMAL ECG Confirmed by MD ALICJA, MARIMAR ([id number]) on 05/10/2017 2:22:58 PM Referred By: Confirmed By:MARIMAR HELM MD
== END | disposition left against medical advice (07) ==
LOC: JER 20:34
PROC: 3E0337Z Introduction of Electrolytic and Water Balance Substance into Peripheral Vein, Percutaneous Approach (ICD-10-PCS; principal; 2017-05-09)
DX: R07.9 Chest pain, unspecified (principal); M79.602 Pain in left arm; J45.909 Unspecified asthma, uncomplicated
CPT/HCPCS: 36415; 80053; 81003; 81015; 82550; 84484; 85025; 85610; 93005; 93010; 99282-25

== ENCOUNTER 2017-11-05 13:30 | Observation (INO) | payer OTHER ==
[2017-11-05 13:34] VITALS: BMI 41.9
[2017-11-05] MEDS ORDERED: ASPIRIN 81 MG CHEWABLE TABLETS PO ONE (14:40)
[2017-11-05] MEDS ORDERED: ASPIRIN 81 MG CHEWABLE TABLETS ONE (14:49)
--- NOTE | 2017-11-05 15:05 | PDOC ---
History of Present Illness <Darrell Rodarte - Last Filed: 11/05/17 16:40> - General History Source: Patient, Old Records Exam Limitations: No Limitations - History of Present Illness Initial Comments: 11/05/17 15:28 The patient is a 57 year old female with past medical history of hypertension, CAD s/p stenting x1 in 05/2017 who presents to the ED with complaints of chest pain and left arm pain that began yesterday. The patient reports a cramping pain in her left arm similar to her cardiac episode in May. She also reports that early this morning she woke up from sleep with a left sided chest pain that has been constant since. She also endorses mild shortness of breath and dizziness when ambulating. She denies any palpitations, lower extremity swelling or syncope. Denies any fevers or chills. PCP: Parth Wilks Stripper Cutter Machine: Dr. Lukasz Fragoso <Yoon Silva - Last Filed: 11/05/17 16:44> - General Chief Complaint: Chest Pain Stated Complaint: CHEST PAIN Time Seen by Provider: 11/05/17 14:40 Past History - Past Medical History Asthma: Yes Cardiac Disorders: Yes COPD: No Diabetes: Yes Hypercholesterolemia: Yes - Surgical History Orthopedic Surgery: Yes (right foot/ankle broken ) - Immunization History Immunization Up to Date: Yes - Suicide/Smoking/Psychosocial Hx Smoking Status: Yes Smoking History: Unknown if ever smoked Have you smoked in the past 12 months: No Number of Cigarettes Smoked Daily: 4 If you are a former smoker, when did you quit?: 03/09/14 Information on smoking cessation initiated: No 'Breaking Loose' booklet given: 08/21/14 Hx Alcohol Use: No Drug/Substance Use Hx: No Substance Use Type: None Hx Substance Use Treatment: Yes (detox, rehab, [facility]) <Darrell Rodarte - Last Filed: 11/05/17 16:40> <Yoon Silva - Last Filed: 11/05/17 16:44> - Past Medical History Allergies/Adverse Reactions: Allergies Allergy/AdvReac Type Severity Reaction Status Date / Time No Known Allergies Allergy Verified 11/05/17 13:33 Home Medications: Ambulatory Orders Alprazolam [Xanax] 2 mg PO BID PRN 05/11/17 Methadone [Dolophine -] 70 mg PO DAILY 05/11/17 Albuterol 2.5/Ipratropium 0.5 [Duoneb -] 1 amp NEB Q6H PRN amp 05/12/17 Aspirin [ASA -] 81 mg PO DAILY tab.chew 05/12/17 Atorvastatin Ca [Lipitor] 80 mg PO HS tablet 05/12/17 Clopidogrel Bisulfate [Plavix -] 75 mg PO DAILY tablet 05/12/17 Ezetimibe [Zetia -] 10 mg PO DAILY tablet 05/12/17 Review of Systems - Review of Systems Constitutional: No: Chills, Fever Respiratory: Yes: Shortness of Breath. No: Cough Cardiac (ROS): Yes: Chest Pain, Lightheadedness ABD/GI: No: Nausea, Vomiting Neurological: No: Headache All Other Systems: Reviewed and Negative <Darrell Rodarte - Last Filed: 11/05/17 16:40> *Physical Exam - Vital Signs Last Vital Signs Temp Pulse Resp BP Pulse Ox 98.3 F 59 L 20 130/80 99 11/05/17 13:31 11/05/17 13:31 11/05/17 13:31 11/05/17 13:31 11/05/17 13:31 <Darrell Rodarte - Last Filed: 11/05/17 16:40> - Vital Signs Last Vital Signs Temp Pulse Resp BP Pulse Ox 98.3 F 59 L 20 130/80 99 11/05/17 13:31 11/05/17 13:31 11/05/17 13:31 11/05/17 13:31 11/05/17 13:31 - Physical Exam Comments: 11/05/17 15:28 GENERAL: The patient is awake, alert, and fully oriented, in no acute distress. HEAD: Normal with no signs of trauma. EYES: Pupils equal, round and reactive to light, extraocular movements intact, sclera anicteric, conjunctiva clear with no pallor. ENT: Ears normal, nares patent, oropharynx clear without exudates. Moist mucous membranes. NECK: Normal range of motion, supple without lymphadenopathy, JVD, or masses. LUNGS: Breath sounds equal, clear to auscultation bilaterally. No wheeze/ crackles. HEART: Regular rate and rhythm, normal S1 and S2 without murmur or rub. ABDOMEN: Soft, obese, lower abdominal discomfort in superpubic region. BS wnl. No guarding or rebound. No palpable masses. No hepatosplenomegaly. EXTREMITIES: Normal range of motion, no edema. No clubbing or cyanosis. No cords, erythema, or tenderness. NEUROLOGICAL: Cranial nerves II through XII grossly intact. Normal speech, normal gait. PSYCH: Normal mood, normal affect. SKIN: Warm, Dry, normal turgor, no rashes or lesions noted. <Yoon Silva - Last Filed: 11/05/17 16:44> Heart Score/ECG Review #1 ECG reviewed & interpreted by me at: 13:30 General ECG Interpretation: Sinus Rhythm, Normal Rate (61), Normal Intervals ( qtc 412), No acute ischemic changes (q wave V1V2) Compared to previous ECG there are: No significant change (05/24) <Darrell Rodarte - Last Filed: 11/05/17 16:40> ED Treatment Course - LABORATORY CBC & Chemistry Diagram: 11/05/17 15:00 11/05/17 15:00 - RADIOLOGY Radiology Studies Ordered: Category Date Time Status CHEST PA & LAT [RAD] Stat Radiology 11/05/17 14:40 Ordered <Darrell Rodarte - Last Filed: 11/05/17 16:40> - LABORATORY CBC & Chemistry Diagram: 11/05/17 15:00 11/05/17 15:00 - Medications Given in the ED: ED Medications Discontinued Medications Generic Name Dose Route Start Last Admin Trade Name Freq PRN Reason Stop Dose Admin Aspirin 162 mg 11/05/17 14:40 11/05/17 15:15 Asa - PO 11/05/17 14:41 162 mg ONCE ONE Administration <[email or web address] - Last Filed: 11/05/17 16:44> Medical Decision Making - Medical Decision Making 11/05/17 15:03 57-year-old female with history of morbid obesity, obstructive sleep apnea, CAD with stents 2 most recently in May after presenting with left chest and arm pain presents now with left chest and arm pain since last night associated with lightheadedness and some shortness of breath. Nonexertional, occurred while she was lying in bed. Reports compliance with her medications, denies any cough or fevers or chills. No preceding exertional symptoms. Vital signs as noted. Well-appearing, obese Heart is regular, lungs are clear No edema or calf tenderness 57-year-old female with known CAD and recent stents presents with left chest and arm pain similar to her past anginal equivalent. EKG shows no acute ST or T- wave changes. Labs, EKG Chest x-ray Aspirin, already her Plavix Will need observation telemetry given moderate to high risk 11/05/17 16:27 Labs within normal limits including negative troponin. Slightly hemolyzed potassium of 5.3 without evidence of EKG changes. We'll proceed with admission, Dr. Fragoso consulted, PCP armed security professional contacted. 11/05/17 16:41 Dr. Isabel, admitting for Dr. Wilks, accepts for obs tele. <Darrell Rodarte - Last Filed: 11/05/17 16:40> - Medical Decision Making 11/05/17 16:31 Phone call placed to Dr. Fragoso, awaiting call back. 11/05/17 16:[address] Fragoso, case was discussed. Call placed to Dr. Isabel, case was discussed and patient will be admitted on behalf of Dr. Wilks. <Yoon Silva - Last Filed: 11/05/17 16:44> *DC/Admit/Observation/Transfer - Discharge Dispostion Decision to Admit order: Yes <Darrell Rodarte - Last Filed: 11/05/17 16:40> - Attestations Scribe Attestion: 11/05/17 15:31 Documentation prepared by Yoon Silva, acting as medical practice assistant for Darrell Rodarte MD. <Yoon Silva - Last Filed: 11/05/17 16:44> Diagnosis at time of Disposition: Chest pain Qualifiers: Chest pain type: unspecified Qualified Code(s): R07.9 - Chest pain, unspecified - Discharge Dispostion Condition at time of disposition: Fair - Referrals Referrals: Parth Wilks [Primary Care Provider] - - Patient Instructions - Post Discharge Activity
[2017-11-05 15:30] LABS: BASO % 0.7 % (0-2.0); EOS % 3.1 % (0-4.5); HEMATOCRIT 42.6 % (32.4-45.2); HEMOGLOBIN 14.2 GM/dL (10.7-15.3); LYMPH % 28.3 % (8-40); MCH 30.3 pg (25.7-33.7); MCHC 33.4 g/dl (32.0-36.0); MEAN CELL VOLUME 90.6 fl (80-96); MONO % 7.6 % (3.8-10.2); NEUT % 60.3 % (42.8-82.8); PLATELET COUNT 241 K/MM3 (134-434); WHITE BLOOD COUNT 8.3 K/mm3 (4.0-10.0)
[2017-11-05 15:59] LABS: ALBUMIN 3.6 g/dl (3.4-5.0); ANION GAP 7 MMOL/L (8-16); BILIRUBIN,TOTAL 0.7 mg/dL (0.2-1.0); BLOOD UREA NITROGEN 9 mg/dL (7-18); CALCIUM 8.9 mg/dL (8.5-10.1); CHLORIDE 105 mmol/L (98-107); CO2 29 mmol/L (21-32); CREATININE 0.5 mg/dL (0.55-1.02); GLUCOSE,RANDOM 68 mg/dL (74-106); SGPT/ALT 25 U/L (12-78); SODIUM 141 mmol/L (136-145); TOT PROT 7.4 g/dl (6.4-8.2)
[2017-11-05 16:02] LABS: ALK PHOS 119 U/L (45-117)
[2017-11-05 16:04] LABS: MAGNESIUM 2.2 mg/dL (1.8-2.4); POTASSIUM 5.3 mmol/L (3.5-5.1); SGOT/AST 36 U/L (15-37)
[2017-11-06 06:42] LABS: BASO % 0.7 % (0-2.0); EOS % 6.8 % (0-4.5); HEMATOCRIT 40.7 % (32.4-45.2); HEMOGLOBIN 13.5 GM/dL (10.7-15.3); LYMPH % 33.7 % (8-40); MCH 30.1 pg (25.7-33.7); MCHC 33.1 g/dl (32.0-36.0); MEAN CELL VOLUME 90.9 fl (80-96); MEAN PLT VOLUME 8.3 fl (7.5-11.1); MONO % 7.8 % (3.8-10.2); PLATELET COUNT 182 K/MM3 (134-434); RBC 4.48 M/mm3 (3.60-5.2); RDW 14.2 % (11.6-15.6); WHITE BLOOD COUNT 7.9 K/mm3 (4.0-10.0)
[2017-11-06 07:25] LABS: ANION GAP 7 MMOL/L (8-16); BLOOD UREA NITROGEN 12 mg/dL (7-18); CALCIUM 8.4 mg/dL (8.5-10.1); CHLORIDE 105 mmol/L (98-107); CO2 30 mmol/L (21-32); CREATININE 0.6 mg/dL (0.55-1.02); GLUCOSE,RANDOM 85 mg/dL (74-106); MAGNESIUM 2.2 mg/dL (1.8-2.4); POTASSIUM 4.1 mmol/L (3.5-5.1); SODIUM 142 mmol/L (136-145)
[2017-11-06 07:29] LABS: ALBUMIN 3.3 g/dl (3.4-5.0); BILIRUBIN,DIRECT < 0.2 mg/dL (0.0-0.2); SGOT/AST 18 U/L (15-37)
[2017-11-06 07:31] LABS: ALK PHOS 109 U/L (45-117); BILIRUBIN,TOTAL 0.5 mg/dL (0.2-1.0); SGPT/ALT 18 U/L (12-78); TOT PROT 6.7 g/dl (6.4-8.2)
--- NOTE | 2017-11-06 08:33 | CON.CARD ---
Consult Consult Specialty:: Cardiology Referred by:: Dr. Isabel Reason for Consultation:: chest pain - History of Present Illness Chief Complaint: chest pain History of Present Illness: 57F with CAD s/p PCI ramus at [facility] several months ago, anxiety presented to ER with left arm tingling/pain that involved left substernal area. No associated N/V or diaphoresis. Denies palpitations. Denies edema. No PND/orthopnea/no fevers or chills. On exertion, she has chronic exertional dyspnea (over last 2 months) but denies chest pain. She has had no prolonged air or car travel. Her cath revealed essentially single vessel disease (ramus) s/p JONATHAN- no sig dz elsewhere. - History Source History Provided By: Patient - Past Medical History Cardio/Vascular: Yes: CAD, Hyperlipdemia Pulmonary: Yes: COPD, Sleep Apnea Gastrointestinal: No: Ascites, Cancer, Constipation, Crohn's Disease, Diverticulitis, Diverticulosis, Esophageal Varices, Gastritis, GERD, GI Bleed, Hemorrhoids, Hiatal Hernia, Inflamatory Bowel Disease, Irritable Bowel Disease, Pancreatitis, Peptic Ulcer Disease, Ulcerative Colitis, Other Hepatobiliary: No: Cirrhosis, Cholelithiasis, Cholecystitis, Choledocholithiasis , Hepatitis A, Hepatitis B, Hepatitis C, Other Renal/: No: Renal Failure, Renal Inusuff, BPH, Cancer, Hematuria, Hemodialysis , Neurogenic Bladder, Renal Calculi, UTI, Other Reproductive: No: Ectopic , Endometriosis, Fibroids, PID, Polycystic Ovary Syndrome, Postmenopausal, Other ...: No Heme/Onc: No: Anemia, B12 Deficiency, Bleeding Disorder, Cancer, Current Chemotherapy, Current Radiation Therapy, Hemochromatosis, Hypercoaguable State, Myeloproliferative Synd, Sickle Cell Disease, Sickle Cell Trait, Thrombocytopenia, Other Infectious Disease: No: AIDS, C-Diff, Herpes Zoster, HIV, MRSA, STD's, Tuberculosis, VREF, Other Psych: No: Addictions, Anxiety, Bipolar, Depression, Panic, Psychosis, Schizophrenia, Other Musculoskeletal: No: Bursitis, Chronic low back pain, Hemiparesis, Hemiplegia, Osteoarthritis, Paraplegia, Other Rheumatology: No: Fibromyalgia, Gout, Lupus, Rheumatoid Arthritis, Sarcoidosis, Vasculitis, Other ENT: No: Allergic Rhinitis, Sinusitis, Other - Alcohol/Substance Use Hx Alcohol Use: No - Smoking History Smoking history: Current some day smoker Have you smoked in the past 12 months: No Aproximately how many cigarettes per day: 4 If you are a former smoker, when did you quit?: 03/09/14 - Social History Usual Living Arrangement: With Child ADL: Independent History of Recent Travel: No Home Medications - Allergies Allergies/Adverse Reactions: Allergies Allergy/AdvReac Type Severity Reaction Status Date / Time No Known Allergies Allergy Verified 11/05/17 13:33 - Home Medications Home Medications: Ambulatory Orders Alprazolam [Xanax] 2 mg PO BID PRN 05/11/17 Methadone [Dolophine -] 70 mg PO DAILY 05/11/17 Albuterol 2.5/Ipratropium 0.5 [Duoneb -] 1 amp NEB Q6H PRN amp 05/12/17 Aspirin [ASA -] 81 mg PO DAILY tab.chew 05/12/17 Atorvastatin Ca [Lipitor] 80 mg PO HS tablet 05/12/17 Clopidogrel Bisulfate [Plavix -] 75 mg PO DAILY tablet 05/12/17 Ezetimibe [Zetia -] 10 mg PO DAILY tablet 05/12/17 Oxycodone HCl/Acetaminophen [Endocet 10-325 mg Tablet] 1 each PO TID PRN Family Disease History - Family Disease History Family Disease History: Diabetes: Mother, Heart Disease: Father Review of Systems Findings/Remarks: see HPI - Review of Systems Constitutional: reports: No Symptoms Eyes: reports: No Symptoms HENT: reports: No Symptoms Neck: reports: No Symptoms Cardiovascular: reports: Chest Pain, Shortness of Breath Respiratory: reports: SOB on Exertion Gastrointestinal: denies: No Symptoms, Abdominal Pain, Bloating, Constipation, Diarrhea, Dysphagia, Indigestion, Melena, Nausea, Rectal Bleeding, Vomiting, Vomiting Blood, Other Genitourinary: denies: No Symptoms, Burning, Discharge, Dysuria, Flank Pain, Frequency, Hematuria, Incontinence, Lesions, Menses, Pain, Testicular Mass, Testicular Pain, Testicular Swelling, Urgency, Vaginal Bleeding, Other Breasts: denies: No Symptoms Reported, See HPI, Breast Implants, Discharge from Nipple, Lumps, Pain, Skin Changes, Other Musculoskeletal: denies: No Symptoms, Back Pain, Crepitus, Decreased ROM, Extremity Pain, Joint Pain, Joint Swelling, Muscle Pain, Muscle Cramps, Muscle Weakness, Other Integumentary: denies: No Symptoms, Blister, Bruising, Change in Color, Eczema, Erythema, Incision, Lesions, Lump, Pallor, Pruritis, Rash, Wound, Other Neurological: denies: No Symptoms, Change in LOC, Change in Speech, Confusion, Dizziness, Headache, Incoordination, Numbness, Parasthesia, Pre-Existing Deficit , Seizure, Syncope, Tremors, Unsteady Gait, Weakness, Other Endocrine: denies: No Symptoms, Excessive Sweating, Flushing, Increased Hunger, Increased Thirst, Intolerance to Cold, Intolerance to Heat, Unexplained Weight Gain, Unexplained Weight Loss, Other Psychiatric: denies: No Symptoms, Altered Sleep Pattern, Anxiety, Depression, Hallucinations, Panic, Paranoia, Suicidal, Other - Risk Factors Known Risk Factors: Yes: Smoking, Other (known CAD) Vital Signs: Vital Signs Temperature 98.2 F 11/06/17 06:00 Pulse Rate 71 11/06/17 06:00 Respiratory Rate 18 11/06/17 06:00 Blood Pressure 127/62 11/06/17 06:00 O2 Sat by Pulse Oximetry (%) 95 11/05/17 23:00 Constitutional: Yes: No Distress Eyes: Yes: Conjunctiva Clear HENT: Yes: Normocephalic Neck: Yes: Trachea Midline Respiratory: Yes: CTA Bilaterally Gastrointestinal: Yes: Soft, Abdomen, Obese (mild diffuse tenderness, no rebound or guarding.) Cardiovascular: Yes: Regular Rate and Rhythm JVD: No Carotid Bruit: No PMI: Non-Displaced Heart Sounds: Yes: S1, S2 (RRR, no m/r/g) Edema: No Neurological: Yes: Alert, Oriented ...Motor Strength: WNL Psychiatric: Yes: WNL - Other Data Labs, Other Data: CBC, BMP 11/06/17 06:05 11/06/17 06:05 INR, PTT INR Cancelled 11/05/17 15:00 Troponin, BNP 11/05/17 11/05/17 11/06/17 15:00 21:20 03:15 Troponin I < 0.02 < 0.02 < 0.02 Troponin, BNP 11/05/17 11/05/17 11/06/17 15:00 21:20 03:15 Troponin I < 0.02 < 0.02 < 0.02 Echo: Pending Ejection Fraction %: LVEF > or = 40 % Imaging - Results Chest X-ray: Report Reviewed, Image Reviewed EKG: Image Reviewed (NSR, cannot r/o old septal MN vs attenuated signal seconday to body habitus vs lead placement (small qs V1,2)) Problem List - Problems (1) CAD (coronary artery disease) Code(s): I25.10 - ATHSCL HEART DISEASE OF [place] CORONARY ARTERY W/O ANG PCTRS Qualifiers: Coronary Disease-Associated Artery/Lesion type: [place] artery [place] vs. transplanted heart: [place] heart Associated angina: with other forms of angina Qualified Code(s): I25.118 - Atherosclerotic heart disease of [place] coronary artery with other forms of angina pectoris (2) Stented coronary artery Assessment/Plan: ramus 05/2017, JONATHAN Code(s): Z95.5 - PRESENCE OF CORONARY ANGIOPLASTY IMPLANT AND GRAFT (3) Atypical chest pain Code(s): R07.89 - OTHER CHEST PAIN (4) Nicotine dependence Code(s): F17.200 - NICOTINE DEPENDENCE, UNSPECIFIED, UNCOMPLICATED Qualifiers: Nicotine product type: cigarettes (5) Patient on methadone maintenance therapy Code(s): F11.20 - OPIOID DEPENDENCE, UNCOMPLICATED Assessment/Plan IMP: Known CAD s/p JONATHAN Ramus approx 5 months ago Atypical CP with negative cardiac enzymes and no acute ECg changes. REC: Plan is for echo today to assess LVEF and r/o pericardial dz followed by stress MPI Further reccs pending above.
[2017-11-06] MEDS ORDERED: REGADENOSON 0.4 MG/5 ML PRE-FILLED SYRINGE IVPUSH ONE ×2 (09:30→11:42)
[2017-11-06] MEDS ORDERED: CLOPIDOGREL BISULFATE 75 MG TABLET (FP) PO SCH (10:00)
--- NOTE | 2017-11-06 10:01 | HP ---
Admitting History and Physical - Admission History of Present Illness: 57F with CAD s/p PCI ramus at [facility] several months ago, anxiety presented to ER with left arm tingling/pain that involved left substernal area. No associated N/V or diaphoresis. Denies palpitations. Denies edema. No PND/orthopnea/no fevers or chills. On exertion, she has chronic exertional dyspnea (over last 2 months) but denies chest pain. She has had no prolonged air or car travel. Her cath revealed essentially single vessel disease (ramus) s/p JONATHAN- no sig dz elsewhere. - Past Medical History Cardiovascular: Yes: CAD, Hyperlipdemia Pulmonary: Yes: COPD, Sleep Apnea Gastrointestinal: No: Ascites, Cancer, Constipation, Crohn's Disease, Diverticulitis, Diverticulosis, Esophageal Varices, Gastritis, GERD, GI Bleed, Hemorrhoids, Hiatal Hernia, Inflamatory Bowel Disease, Irritable Bowel Disease, Pancreatitis, Peptic Ulcer Disease, Ulcerative Colitis, Other Hepatobiliary: No: Cirrhosis, Cholelithiasis, Cholecystitis, Choledocholithiasis , Hepatitis A, Hepatitis B, Hepatitis C, Other Renal/: No: Renal Failure, Renal Inusuff, BPH, Cancer, Hematuria, Hemodialysis , Neurogenic Bladder, Renal Calculi, UTI, Other ...: No Heme/Onc: No: Anemia, B12 Deficiency, Bleeding Disorder, Cancer, Current Chemotherapy, Current Radiation Therapy, Hemochromatosis, Hypercoaguable State, Myeloproliferative Synd, Sickle Cell Disease, Sickle Cell Trait, Thrombocytopenia, Other Infectious Disease: No: AIDS, C-Diff, Herpes Zoster, HIV, MRSA, STD's, Tuberculosis, VREF, Other Psych: No: Addictions, Anxiety, Bipolar, Depression, Panic, Psychosis, Schizophrenia, Other Musculoskeletal: No: Bursitis, Chronic low back pain, Hemiparesis, Hemiplegia, Osteoarthritis, Paraplegia, Other Rheumatology: No: Fibromyalgia, Gout, Lupus, Rheumatoid Arthritis, Sarcoidosis, Vasculitis, Other ENT: No: Allergic Rhinitis, Sinusitis, Other - Smoking History Smoking history: Current some day smoker Have you smoked in the past 12 months: No Aproximately how many cigarettes per day: 4 If you are a former smoker, when did you quit?: 03/09/14 - Alcohol/Substance Use Hx Alcohol Use: No - Social History ADL: Independent History of Recent Travel: No Home Medications - Allergies Allergies/Adverse Reactions: Allergies Allergy/AdvReac Type Severity Reaction Status Date / Time No Known Allergies Allergy Verified 11/05/17 13:33 - Home Medications Home Medications: Ambulatory Orders Alprazolam [Xanax] 2 mg PO BID PRN 05/11/17 Methadone [Dolophine -] 70 mg PO DAILY 05/11/17 Albuterol 2.5/Ipratropium 0.5 [Duoneb -] 1 amp NEB Q6H PRN amp 05/12/17 Aspirin [ASA -] 81 mg PO DAILY tab.chew 05/12/17 Atorvastatin Ca [Lipitor] 80 mg PO HS tablet 05/12/17 Clopidogrel Bisulfate [Plavix -] 75 mg PO DAILY tablet 05/12/17 Ezetimibe [Zetia -] 10 mg PO DAILY tablet 05/12/17 Oxycodone HCl/Acetaminophen [Endocet 10-325 mg Tablet] 1 each PO TID PRN Family Disease History - Family Disease History Family Disease History: Diabetes: Mother, Heart Disease: Father Review of Systems - Review of Systems Cardiovascular: reports: Chest Pain, Shortness of Breath Respiratory: reports: SOB on Exertion Gastrointestinal: reports: Abdominal Pain. denies: Nausea, Vomiting Neurological: reports: No Symptoms Physical Examination Vital Signs: Vital Signs Temperature 98.5 F 11/06/17 08:45 Pulse Rate 61 11/06/17 08:45 Respiratory Rate 18 11/06/17 08:45 Blood Pressure 137/79 11/06/17 08:45 O2 Sat by Pulse Oximetry (%) 95 11/05/17 23:00 Cardiovascular: Yes: Regular Rate and Rhythm Respiratory: Yes: Regular, CTA Bilaterally Gastrointestinal: Yes: Normal Bowel Sounds, Soft, Tenderness Edema: No Neurological: Yes: Alert, Oriented, Cran Nerves II-XII Intact Labs: CBC, BMP 11/06/17 06:05 11/06/17 06:05 Problem List - Problems (1) Abdominal pain Assessment/Plan: -ua and uc -ct abd/pelvis -gi consult Code(s): R10.9 - UNSPECIFIED ABDOMINAL PAIN (2) Atypical chest pain Assessment/Plan: -follow ce -resume meds --cardio Code(s): R07.89 - OTHER CHEST PAIN (3) CAD (coronary artery disease) Assessment/Plan: -as above Code(s): I25.10 - ATHSCL HEART DISEASE OF [place] CORONARY ARTERY W/O ANG PCTRS Qualifiers: Coronary Disease-Associated Artery/Lesion type: [place] artery [place] vs. transplanted heart: [place] heart Associated angina: with other forms of angina Qualified Code(s): I25.118 - Atherosclerotic heart disease of [place] coronary artery with other forms of angina pectoris (4) Patient on methadone maintenance therapy Assessment/Plan: -methadone 70 mg Code(s): F11.20 - OPIOID DEPENDENCE, UNCOMPLICATED
--- NOTE | 2017-11-06 10:22 | CON.GI ---
Consult Consult Specialty:: Gi Reason for Consultation:: abdominal pain - History of Present Illness History of Present Illness: Chart reviewed. Cardiology evalautaion noted. per initial intake: 11/05/17 15:28 The patient is a 57 year old female with past medical history of hypertension, CAD s/p stenting x1 in 05/2017 who presents to the ED with complaints of chest pain and left arm pain that began yesterday. The patient reports a cramping pain in her left arm similar to her cardiac episode in May. She also reports that early this morning she woke up from sleep with a left sided chest pain that has been constant since. She also endorses mild shortness of breath and dizziness when ambulating. She denies any palpitations, lower extremity swelling or syncope. Denies any fevers or chills. Normal CBC, liver chemistry, bili, ALP Per cardiology: "Known CAD s/p JONATHAN Ramus approx 5 months ago. Echo mild to moderate chronic AR, normal EF. No effusion. Nuclear stress w/ diaphragm attenuation, no ischemia. There is borderline TID, but we know from the recent cath that she had only single vessel disease. The TID is likely a processing issue. No further cardiac work up planned at this time." On ASA/Plavix at home. [id number] CT/ABDOMEN & PELVIS CT WITH CONTR HISTORY PROVIDED: Right lower quadrant pain. Sequential axial images were obtained from the domes of the diaphragms through the symphysis pubis following the administration of both oral and intravenous contrast material. The lung bases are clear. The liver, spleen, pancreas, adrenal glands and kidneys demonstrate no significant abnormalities. 3.2 cm right renal cyst. The gallbladder is somewhat distended and does contain a 3 cm calculus. There is dilatation of the common bile duct which measures approximately 13 mm. No obvious obstruction is identified. If clinically indicated, a follow-up MRCP examination may be warranted. There is no evidence of intra-abdominal or retroperitoneal lymphadenopathy or fluid collections. There is a small fat-containing umbilical hernia. There is no evidence of pneumoperitoneum, bowel obstruction or intra-abdominal abscess. There is no CT evidence of acute appendicitis or diverticulitis. Examination of the pelvis demonstrates no evidence of pelvic masses, fluid collections or lymphadenopathy. There is a moderate amount of retained fecal material within the colon. There is no evidence of acute bony abnormalities. Degenerative arthritic changes are most marked at L4-5 and L5-S1. IMPRESSION: 1. Distended gallbladder with 3 cm gallstone and dilated CBD. Clinical correlation and MRCP follow-up recommended. 2. No evidence of appendicitis or acute pathology within the abdomen or pelvis. Please see above discussion. At the time of this encounter, the pt appeared comfortable, not in distress. Reported no melena, hmatochezia, hematemesis, dysphagia, odynophagia, jaundice, weight loss, diarrhea. No history og GERD, PUD, liver, or pancreas involvement. C/o generalized abdominal and r. flank pain. On exam, generalized tenderness appeared to be limited to the abdominal wall. Had colonoscopy 1 y ago (Dr. Godinez's office) with 2 polyps removed. Never had EGD. Has a referral from PCP to see Dr. Godinez. 2 siblings had gastric cancer. - History Source History Provided By: Patient, Medical Record - Past Medical History Cardio/Vascular: Yes: CAD, Hyperlipdemia Pulmonary: Yes: COPD, Sleep Apnea Gastrointestinal: No: Ascites, Cancer, Constipation, Crohn's Disease, Diverticulitis, Diverticulosis, Esophageal Varices, Gastritis, GERD, GI Bleed, Hemorrhoids, Hiatal Hernia, Inflamatory Bowel Disease, Irritable Bowel Disease, Pancreatitis, Peptic Ulcer Disease, Ulcerative Colitis, Other Hepatobiliary: No: Cirrhosis, Cholelithiasis, Cholecystitis, Choledocholithiasis , Hepatitis A, Hepatitis B, Hepatitis C, Other Renal/: No: Renal Failure, Renal Inusuff, BPH, Cancer, Hematuria, Hemodialysis , Neurogenic Bladder, Renal Calculi, UTI, Other ...: No Infectious Disease: No: AIDS, C-Diff, Herpes Zoster, HIV, MRSA, STD's, Tuberculosis, VREF, Other Psych: No: Addictions, Anxiety, Bipolar, Depression, Panic, Psychosis, Schizophrenia, Other Musculoskeletal: No: Bursitis, Chronic low back pain, Hemiparesis, Hemiplegia, Osteoarthritis, Paraplegia, Other Rheumatology: No: Fibromyalgia, Gout, Lupus, Rheumatoid Arthritis, Sarcoidosis, Vasculitis, Other ENT: No: Allergic Rhinitis, Sinusitis, Other - Alcohol/Substance Use Hx Alcohol Use: No - Smoking History Smoking history: Current some day smoker Have you smoked in the past 12 months: No Aproximately how many cigarettes per day: 4 If you are a former smoker, when did you quit?: 03/09/14 - Social History Usual Living Arrangement: With Child ADL: Independent History of Recent Travel: No Home Medications - Allergies Allergies/Adverse Reactions: Allergies Allergy/AdvReac Type Severity Reaction Status Date / Time No Known Allergies Allergy Verified 11/05/17 13:33 - Home Medications Home Medications: Ambulatory Orders Alprazolam [Xanax] 2 mg PO BID PRN 05/11/17 Methadone [Dolophine -] 70 mg PO DAILY 05/11/17 Albuterol 2.5/Ipratropium 0.5 [Duoneb -] 1 amp NEB Q6H PRN amp 05/12/17 Aspirin [ASA -] 81 mg PO DAILY tab.chew 05/12/17 Atorvastatin Ca [Lipitor] 80 mg PO HS tablet 05/12/17 Clopidogrel Bisulfate [Plavix -] 75 mg PO DAILY tablet 05/12/17 Ezetimibe [Zetia -] 10 mg PO DAILY tablet 05/12/17 Oxycodone HCl/Acetaminophen [Endocet 10-325 mg Tablet] 1 each PO TID PRN Family Disease History - Family Disease History Family Disease History: Diabetes: Mother, Heart Disease: Father Review of Systems Findings/Remarks: as per HPI, ED, H&P Physical Exam-GI Vital Signs: Vital Signs Temperature 98.5 F 11/06/17 08:45 Pulse Rate 61 11/06/17 08:45 Respiratory Rate 18 11/06/17 08:45 Blood Pressure 137/79 11/06/17 08:45 O2 Sat by Pulse Oximetry (%) 95 11/05/17 23:00 Constitutional: Yes: Well Nourished, No Distress, Calm Eyes: Yes: Conjunctiva Clear HENT: Yes: Atraumatic Neck: Yes: Supple Cardiovascular: Yes: Regular Rate and Rhythm Respiratory: Yes: Regular Gastrointestinal Inspection: No: Ascites, Distention ...Auscultate: Yes: Normoactive Bowel Sounds ...Palpate: Yes: Guarding, Soft, Tenderness (generalized tenderness on minima pressure, tenderness pesisted with both strait, legs off the bed.). No: Firm/ Rigid, Mass Neurological: Yes: Alert, Oriented Labs: CBC, BMP 11/06/17 06:05 11/06/17 06:05 INR, PTT INR Cancelled 11/05/17 15:00 Laboratory Last Values WBC 7.9 K/mm3 (4.0-10.0) 11/06/17 06:05 RBC 4.48 M/mm3 (3.60-5.2) 11/06/17 06:05 Hgb 13.5 GM/dL (10.7-15.3) 11/06/17 06:05 Hct 40.7 % (32.4-45.2) 11/06/17 06:05 MCV 90.9 fl (80-96) 11/06/17 06:05 MCH 30.1 pg (25.7-33.7) 11/06/17 06:05 MCHC 33.1 g/dl (32.0-36.0) 11/06/17 06:05 RDW 14.2 % (11.6-15.6) 11/06/17 06:05 Plt Count 182 K/MM3 (134-434) D 11/06/17 06:05 MPV 8.3 fl (7.5-11.1) 11/06/17 06:05 Absolute Neuts (auto) 4.0 K/mm3 (1.5-8.0) 11/06/17 06:05 Neutrophils % 51.0 % (42.8-82.8) 11/06/17 06:05 Lymphocytes % 33.7 % (8-40) 11/06/17 06:05 Monocytes % 7.8 % (3.8-10.2) 11/06/17 06:05 Eosinophils % 6.8 % (0-4.5) H D 11/06/17 06:05 Basophils % 0.7 % (0-2.0) 11/06/17 06:05 Nucleated RBC % 0 % (0-0) 11/06/17 06:05 PT with INR Cancelled 11/05/17 15:00 INR Cancelled 11/05/17 15:00 Sodium 142 mmol/L (136-145) 11/06/17 06:05 Potassium 4.1 mmol/L (3.5-5.1) 11/06/17 06:05 Chloride 105 mmol/L (98-107) 11/06/17 06:05 Carbon Dioxide 30 mmol/L (21-32) 11/06/17 06:05 Anion Gap 7 MMOL/L (8-16) L 11/06/17 06:05 BUN 12 mg/dL (7-18) 11/06/17 06:05 Creatinine 0.6 mg/dL (0.55-1.02) 11/06/17 06:05 Creat Clearance w eGFR > 60 (>60) 11/06/17 06:05 Random Glucose 85 mg/dL (74-106) 11/06/17 06:05 Calcium 8.4 mg/dL (8.5-10.1) L 11/06/17 06:05 Magnesium 2.2 mg/dL (1.8-2.4) 11/06/17 06:05 Total Bilirubin 0.5 mg/dL (0.2-1.0) 11/06/17 06:05 Direct Bilirubin < 0.2 mg/dL (0.0-0.2) 11/06/17 06:05 AST 18 U/L (15-37) 11/06/17 06:05 ALT 18 U/L (12-78) 11/06/17 06:05 Alkaline Phosphatase 109 U/L (45-117) D 11/06/17 06:05 Creatine Kinase 100 IU/L (26-192) 11/06/17 03:15 Creatine Kinase Index 0.8 % (0.0-5.0) 11/05/17 15:00 CK-MB (CK-2) 1.64 ng/mL (0.5-3.6) 11/05/17 15:00 Troponin I < 0.02 ng/ml (0.00-0.05) 11/06/17 03:15 Total Protein 6.7 g/dl (6.4-8.2) 11/06/17 06:05 Albumin 3.3 g/dl (3.4-5.0) L 11/06/17 06:05 Imaging - Results Cat Scan: Report Reviewed Problem List - Problems (1) Abdominal pain Code(s): R10.9 - UNSPECIFIED ABDOMINAL PAIN (2) CAD (coronary artery disease) Code(s): I25.10 - ATHSCL HEART DISEASE OF [place] CORONARY ARTERY W/O ANG PCTRS Qualifiers: Coronary Disease-Associated Artery/Lesion type: [place] artery [place] vs. transplanted heart: [place] heart Associated angina: with other forms of angina Qualified Code(s): I25.118 - Atherosclerotic heart disease of [place] coronary artery with other forms of angina pectoris Assessment/Plan A 57F with mild generalized abdominal tenderness, which appears to be localized to the abdominal wall/muscles. Normal blood work including CBC, and liver chem thus far. CT of the A&P with contrast, however, revealed cholelithiais and dilated CBD. MRCP Sx eval Maintain NPO/IVF intil eval by sx daily CMP, direct bili Lipase
--- NOTE | 2017-11-06 12:16 | ECHO ---
Name: DOUG MYERS Exam:Adult Echocardiogram Study Date: 11/06/2017 09:23 AM Age: 57 yrs Reason For Study: cad Height: 65 in Weight: 252 lb BSA: 2.2 m2 MMode/2D Measurements & Calculations IVSd: 0.96 cm Ao root diam: 3.3 cm LVIDd: 5.5 cm LA dimension: 3.6 cm LVIDs: 3.5 cm LVPWd: 0.81 cm LVPWs: 1.8 cm EDV(Teich): 150.3 ml ESV(Teich): 51.5 ml Doppler Measurements & Calculations MV E max titi: 75.0 cm/sec Ao V2 max: 137.9 cm/sec MV A max titi: 79.9 cm/sec Ao max P.7 mmHg MV E/A: 0.94 AI P1/2t: 680.6 msec MV dec time: 0.19 sec AI max titi: 404.7 cm/sec LV V1 max P.9 mmHg AI max P.8 mmHg LV V1 max: 98.2 cm/sec AI dec slope: 174.2 cm/sec2 PA V2 max: 111.3 cm/sec Med Peak E' Titi: 6.8 cm/sec PA max P.0 mmHg Med E/e': 11.0 Lat Peak E' Titi: 11.7 cm/sec Lat E/e': 6.4 Procedure A two-dimensional transthoracic echocardiogram with color flow and Doppler was performed. The study w as technically difficult with many images being suboptimal in quality. Left Ventricle The left ventricular size, thickness and function are normal. The left ventricular ejection fraction is normal. E/A reversal consistent with but not diagnostic of poor LV compliance. Regional wall motion abnormalities cannot be excluded due to limited visualization. Right Ventricle The right ventricle is not well visualized. Atria Normal left and right atrial size and function. Mitral Valve There is mild mitral valve thickening. There is no mitral valve stenosis. There is trace mitral regur gitation. Tricuspid Valve The tricuspid valve is not well visualized. There is no tricuspid stenosis. There was insufficient TR detected to calculate RV systolic pressure. Aortic Valve The aortic valve is not well visualized. No hemodynamically significant valvular aortic stenosis. Mod erate aortic regurgitation. Pulmonic Valve The pulmonic valve is not well visualized. There is no pulmonic valvular stenosis. There is no pulmon ic valvular regurgitation. Great Vessels The aortic root is normal size. Pericardium/Pleura There is no pericardial effusion. Interpretation Summary The left ventricular size, thickness and function are normal The left ventricular ejection fraction is normal. The study was technically difficult with many images being suboptimal in quality. E/A reversal consistent with but not diagnostic of poor LV compliance The right ventricle is not well visualized. Regional wall motion abnormalities cannot be excluded due to limited visualization. Moderate aortic regurgitation. There is trace mitral regurgitation. There was insufficient TR detected to calculate RV systolic pressure. MD Torito Murphy 11/06/2017 11:47 AM
[2017-11-06] MEDS: CLOPIDOGREL BISULFATE 75 MG TABLET (FP) PO SCH (12:37)
[2017-11-06] MEDS: ASPIRIN 81 MG CHEWABLE TABLETS PO SCH (12:38)
[2017-11-06] MEDS: EZETIMIBE 10 MG TABLET (FP) PO SCH (12:38)
[2017-11-06] MEDS: METHADONE HCL 40 MG DISPERSABLE TABLET PO SCH (12:38)
[2017-11-06] MEDS: ALPRAZolam 2 MG TABLET PO PRN (12:39)
[2017-11-06] MEDS: ALBUTEROL SO4 2.5/IPRATROPIUM 0.5 INH SOL 3 ML VIAL.NEB. NEB PRN (13:20)
--- NOTE | 2017-11-06 13:23 | PN ---
Progress Note (short form) - Note Progress Note: Echo mild to moderate chronic AR, normal EF. No effusion. Nuclear stress w/ diaphragm attenuation, no ischemia There is borderline TID, but we know from the recent cath that she had only single vessel disease. The TID is likely a processing issue. No further cardiac work up planned at this time. Ongoing w/u for abdominal pain noted. Problem List - Problems (1) CAD (coronary artery disease) Code(s): I25.10 - ATHSCL HEART DISEASE OF [place] CORONARY ARTERY W/O ANG PCTRS Qualifiers: Coronary Disease-Associated Artery/Lesion type: [place] artery [place] vs. transplanted heart: [place] heart Associated angina: with other forms of angina Qualified Code(s): I25.118 - Atherosclerotic heart disease of [place] coronary artery with other forms of angina pectoris (2) Stented coronary artery Code(s): Z95.5 - PRESENCE OF CORONARY ANGIOPLASTY IMPLANT AND GRAFT (3) Atypical chest pain Code(s): R07.89 - OTHER CHEST PAIN (4) Nicotine dependence Code(s): F17.200 - NICOTINE DEPENDENCE, UNSPECIFIED, UNCOMPLICATED Qualifiers: Nicotine product type: cigarettes (5) Patient on methadone maintenance therapy Code(s): F11.20 - OPIOID DEPENDENCE, UNCOMPLICATED
[2017-11-06 15:59] LABS: URINE APPEARANCE CLOUDY; URINE BILIRUBIN NEGATIVE (<2.0 mg/dL); URINE COLOR AMBER; URINE GLUCOSE (UA) NEGATIVE (NEGATIVE); URINE KETONE NEGATIVE (NEGATIVE); URINE LEUK ESTERASE TRACE (NEGATIVE); URINE NITRITE NEGATIVE (NEGATIVE); URINE PROTEIN NEGATIVE (NEGATIVE); URINE UROBILINOGEN 4.0 E.U/dl mg/dL (0.2-1.0)
[2017-11-06 16:20] LABS: EPI CELLS FEW /HPF (FEW); URINE BACTERIA RARE /hpf (NONE SEEN); URINE MUCUS MODERATE
[2017-11-06 17:18] LABS: BASO % 0.6 % (0-2.0); EOS % 3.3 % (0-4.5); HEMATOCRIT 41.9 % (32.4-45.2); LYMPH % 29.4 % (8-40); MCH 30.2 pg (25.7-33.7); MCHC 33.4 g/dl (32.0-36.0); MEAN CELL VOLUME 90.3 fl (80-96); MEAN PLT VOLUME 8.2 fl (7.5-11.1); NEUT % 59.7 % (42.8-82.8); PLATELET COUNT 189 K/MM3 (134-434); RBC 4.64 M/mm3 (3.60-5.2); RDW 14.3 % (11.6-15.6); WHITE BLOOD COUNT 9.9 K/mm3 (4.0-10.0)
--- NOTE | 2017-11-06 19:23 | CONSULT ---
Consult - text type - Consultation Consultation Note: attempted to see pt - she is off floor for MRI/MRCP will see in am
[2017-11-06] MEDS: POLYETHYLENE GLYCOL 3350 119 GM BTL PO SCH (21:15)
[2017-11-06] MEDS: ATORVASTATIN CA 80 MG TABLET (FP) PO SCH (21:15)
[2017-11-07] MEDS: ALPRAZolam 2 MG TABLET PO PRN ×2 (00:30→11:32)
[2017-11-07] MEDS: METHADONE HCL 40 MG DISPERSABLE TABLET PO SCH (05:16)
[2017-11-07 08:15] LABS: ALBUMIN 3.5 g/dl (3.4-5.0); ANION GAP 5 MMOL/L (8-16); BLOOD UREA NITROGEN 11 mg/dL (7-18); CALCIUM 8.6 mg/dL (8.5-10.1); CHLORIDE 103 mmol/L (98-107); CO2 33 mmol/L (21-32); POTASSIUM 4.2 mmol/L (3.5-5.1); SODIUM 141 mmol/L (136-145)
[2017-11-07 08:21] LABS: ALK PHOS 116 U/L (45-117); BILIRUBIN,DIRECT 0.2 mg/dL (0.0-0.2); BILIRUBIN,TOTAL 0.7 mg/dL (0.2-1.0); CREATININE 0.7 mg/dL (0.55-1.02); GLUCOSE,RANDOM 79 mg/dL (74-106); SGOT/AST 15 U/L (15-37); SGPT/ALT 20 U/L (12-78); TOT PROT 6.9 g/dl (6.4-8.2)
--- NOTE | 2017-11-07 09:29 | PN ---
Progress Note, Physician Chief Complaint: Pt A&Ox3; still with intermittent abdominal tenderness. History of Present Illness: The patient is a 57 year old black female with past medical history of hypertension, CAD s/p stenting x1 in 05/2017, hyperlipidemia, obesity (weighed > 300 lbs; now 259 lbs by changing diet, increasing exercise), former cigarette smoker (quit at time of stent 05/24), who presents to the ED with complaints of chest pain and left arm pain that began yesterday. The patient reports a cramping pain in her left arm similar to her cardiac episode in May. She also reports that early this morning she woke up from sleep with a left sided chest pain and abdominal pain that has been constant since. She also endorses mild shortness of breath and dizziness when ambulating. She denies any palpitations, lower extremity swelling or syncope. Denies any fevers or chills. PCP: Parth Wilks Swing Grinder: Dr. Lukasz Fragoso - Current Medication List Current Medications: Active Medications Albuterol/Ipratropium (Duoneb -) 1 amp NEB Q6H PRN PRN Reason: SHORT OF BREATH/WHEEZING Last Admin: 11/06/17 13:20 Dose: 1 amp Alprazolam (Xanax -) 2 mg PO BID PRN PRN Reason: ANXIETY Last Admin: 11/07/17 00:30 Dose: 2 mg Aspirin (Asa -) 81 mg PO DAILY [facility] Last Admin: 11/06/17 12:38 Dose: 81 mg Atorvastatin Calcium (Lipitor -) 80 mg PO HS [facility] Last Admin: 11/06/17 21:15 Dose: 80 mg Clopidogrel Bisulfate (Plavix -) 75 mg PO DAILY [facility] Last Admin: 11/06/17 12:37 Dose: 75 mg Ezetimibe (Zetia -) 10 mg PO DAILY [facility] Last Admin: 11/06/17 12:38 Dose: 10 mg Methadone HCl (Dolophine -) 70 mg PO DAILY@0600 [facility] Last Admin: 11/07/17 05:16 Dose: 70 mg Polyethylene Glycol (Miralax (For Daily Use) -) 17 gm PO BID [facility] Last Admin: 11/06/17 21:15 Dose: Not Given - Objective Vital Signs: Vital Signs Temperature 98.2 F 11/07/17 06:00 Pulse Rate 65 11/07/17 06:00 Respiratory Rate 20 11/07/17 06:00 Blood Pressure 102/52 11/07/17 06:00 O2 Sat by Pulse Oximetry (%) 96 11/07/17 04:00 Constitutional: Yes: Calm Eyes: Yes: WNL HENT: Yes: WNL Neck: Yes: WNL Cardiovascular: Yes: WNL Respiratory: Yes: WNL Gastrointestinal: Yes: Soft, Tenderness ...Rectal Exam: Yes: Deferred Genitourinary: No: Anuria Musculoskeletal: Yes: WNL Extremities: Yes: WNL Edema: No Peripheral Pulses WNL: Yes Integumentary: Yes: WNL Neurological: Yes: WNL Psychiatric: Yes: WNL Labs: CBC, BMP 11/06/17 15:45 11/07/17 06:15 INR, PTT INR Cancelled 11/05/17 15:00 Abnormal Lab Results 11/06/17 11/07/17 15:00 06:15 Carbon Dioxide 33 H Anion Gap 5 L Urine Urobilinogen 4.0 e.u/dl H Problem List - Problems (1) Abdominal pain Assessment/Plan: gallbladder stone; f/u with surgeon. Pt tends to chew multiple doses of vitamin C "like candy". Code(s): R10.9 - UNSPECIFIED ABDOMINAL PAIN (2) Chest pain Assessment/Plan: TNI < 0.02 x 4. Stress MIBI negative for ischemia. Pt has been working hard to lower cardiac risks: Stopped smoking since 05/24. Decreased significant amount of weight through change in diet: no more junk food. Attended 3 months of cardiac rehab post-stent. She was encouraged to increase daily exercise. On statin and Zetia. Code(s): R07.9 - CHEST PAIN, UNSPECIFIED Qualifiers: Chest pain type: unspecified Qualified Code(s): R07.9 - Chest pain, unspecified (3) Stented coronary artery Code(s): Z95.5 - PRESENCE OF CORONARY ANGIOPLASTY IMPLANT AND GRAFT (4) Depression Code(s): F32.9 - MAJOR DEPRESSIVE DISORDER, SINGLE EPISODE, UNSPECIFIED (5) Nicotine dependence Code(s): F17.200 - NICOTINE DEPENDENCE, UNSPECIFIED, UNCOMPLICATED Qualifiers: Nicotine product type: cigarettes
--- NOTE | 2017-11-07 10:53 | PN ---
Progress Note, Physician Chief Complaint: chest pain, Nausea, abdominal pain History of Present Illness: NAD Abd/pel CT reviewed MRCP done-results pending Seen by Cardiology - Current Medication List Current Medications: Active Medications Albuterol/Ipratropium (Duoneb -) 1 amp NEB Q6H PRN PRN Reason: SHORT OF BREATH/WHEEZING Last Admin: 11/06/17 13:20 Dose: 1 amp Alprazolam (Xanax -) 2 mg PO BID PRN PRN Reason: ANXIETY Last Admin: 11/07/17 00:30 Dose: 2 mg Aspirin (Asa -) 81 mg PO DAILY [facility] Last Admin: 11/06/17 12:38 Dose: 81 mg Atorvastatin Calcium (Lipitor -) 80 mg PO HS [facility] Last Admin: 11/06/17 21:15 Dose: 80 mg Clopidogrel Bisulfate (Plavix -) 75 mg PO DAILY [facility] Last Admin: 11/06/17 12:37 Dose: 75 mg Ezetimibe (Zetia -) 10 mg PO DAILY [facility] Last Admin: 11/06/17 12:38 Dose: 10 mg Methadone HCl (Dolophine -) 70 mg PO DAILY@0600 [facility] Last Admin: 11/07/17 05:16 Dose: 70 mg Polyethylene Glycol (Miralax (For Daily Use) -) 17 gm PO BID [facility] Last Admin: 11/06/17 21:15 Dose: Not Given - Objective Vital Signs: Vital Signs Temperature 98.2 F 11/07/17 09:58 Pulse Rate 56 L 11/07/17 09:58 Respiratory Rate 18 11/07/17 09:58 Blood Pressure 116/58 11/07/17 09:58 O2 Sat by Pulse Oximetry (%) 96 11/07/17 04:00 Constitutional: Yes: Well Nourished, No Distress, Calm Cardiovascular: Yes: Regular Rate and Rhythm Respiratory: Yes: Regular Gastrointestinal: Yes: Normal Bowel Sounds, Soft Labs: CBC, BMP 11/06/17 15:45 11/07/17 06:15 INR, PTT INR Cancelled 11/05/17 15:00 Problem List - Problems (1) Abdominal pain Code(s): R10.9 - UNSPECIFIED ABDOMINAL PAIN (2) Atypical chest pain Code(s): R07.89 - OTHER CHEST PAIN (3) CAD (coronary artery disease) Code(s): I25.10 - ATHSCL HEART DISEASE OF [place] CORONARY ARTERY W/O ANG PCTRS Qualifiers: Coronary Disease-Associated Artery/Lesion type: [place] artery [place] vs. transplanted heart: [place] heart Associated angina: with other forms of angina Qualified Code(s): I25.118 - Atherosclerotic heart disease of [place] coronary artery with other forms of angina pectoris (4) Patient on methadone maintenance therapy Code(s): F11.20 - OPIOID DEPENDENCE, UNCOMPLICATED Assessment/Plan see problem list
--- NOTE | 2017-11-07 10:57 | PN ---
Progress Note (short form) - Note Progress Note: MRCP reviewed, chart reviewed, pt examined at bedside. I do not see any evidence of CBD calculus on MRI. No reading yet from radiologist, however. On exam she has poorly localized abdominal wall tenderness. There is no rebound tenderness, and when distracted, her tenderness is less. She states she has had abdominal pain "for months" without vomiting or fever and now she wants to eat. Will begin low calorie diet.
[2017-11-07] MEDS: CLOPIDOGREL BISULFATE 75 MG TABLET (FP) PO SCH (11:00)
[2017-11-07] MEDS: ASPIRIN 81 MG CHEWABLE TABLETS PO SCH (11:00)
[2017-11-07] MEDS: POLYETHYLENE GLYCOL 3350 119 GM BTL PO SCH ×2 (11:00→21:29)
[2017-11-07] MEDS: EZETIMIBE 10 MG TABLET (FP) PO SCH (11:00)
[2017-11-07] MEDS ORDERED: PT OWN MED DRAWER 7, Y5N ONE (11:24)
[2017-11-07 15:09] LABS: LIPASE 94 U/L (73-393)
--- NOTE | 2017-11-07 17:04 | CONSULT ---
Consult Consult Specialty:: General Surgery Referred by:: Glenn Norris Reason for Consultation:: cholelithiasis - History of Present Illness Chief Complaint: chest pain/L arm pain, tingling (now resolved); abdominal pain and tenderness - upper and lower History of Present Illness: 57yo obese F with HLD, CAD s/p JONATHAN 05/09/17 on ASA, Plavix, presented to ER with chest and left arm pain similar to previous angina, and was admitted to medicine /telemetry for workup. She states when they started pressing on her abdomen, she realized it was tender as well. She does report some abdominal pain on/off over at least a week, but thought maybe she was constipated. Last normal (soft, formed) BM yesterday. No N/V, no F/C. Cardiology workup including EKG and nuclear stress test has ruled out acute coronary event. CT revealed a large (3cm ) gallstone and dilated cbd at 13mm, and MRCP was done yesterday evening. Labs are normal, including LFTs and lipase, though coags have not been checked. MRI confirms cholelithiasis, but shows no ductal dilation or choledocholithiasis, no signs cholecystitis. She has tolerated a diet today. She hurts in both upper and lower abdomen, but it is more tenderness than pain. "It doesn't hurt if you' re not touching me." She also reports chronic low back pain with sciatica and pain a little to the right in her low back. She had a colonoscopy with Dr. Rankin about 8 months ago, and he found a few polyps, but said her prep was not adequate, and they plan to repeat it. She does not think she has had upper endoscopy. Surgery is asked to evaluate. She is seen and examined in bed. She has intentionally lost about 50 pounds with changes in diet and activity level. She cut down smoking in May, but has not completely quit yet. She does not associate her intermittent abdominal pain with any particular food intake or timing. It sometimes happens with no provocation. She states she does not eat fatty/greasy foods in general. - History Source History Provided By: Patient Limitations to Obtaining History: No Limitations - Past Medical History Cardio/Vascular: Yes: CAD, Hyperlipdemia Pulmonary: Yes: COPD, Sleep Apnea (uses CPAP at night) ...: No Psych: Yes: Anxiety, Depression Musculoskeletal: Yes: Chronic low back pain ENT: Yes: Allergic Rhinitis - Past Surgical History Past Surgical History: Yes: Colonoscopy (~8m ago, incomplete prep, plans repeat w/Dr. Rankin), Joint Replacement (right knee), Tubal Ligation (laparoscopic) Additional Surgical History: bilateral foot surgeries - Alcohol/Substance Use Hx Alcohol Use: No History of Substance Use: reports: None - Smoking History Smoking history: Current every day smoker Have you smoked in the past 12 months: No Aproximately how many cigarettes per day: 6 (only 1-2/day in last wk) If you are a former smoker, when did you quit?: cut down May 2017 - Social History Usual Living Arrangement: With Child ADL: Independent History of Recent Travel: No Home Medications - Allergies Allergies/Adverse Reactions: Allergies Allergy/AdvReac Type Severity Reaction Status Date / Time No Known Allergies Allergy Verified 11/05/17 13:33 - Home Medications Home Medications: Ambulatory Orders Alprazolam [Xanax] 2 mg PO BID PRN 05/11/17 Methadone [Dolophine -] 70 mg PO DAILY 05/11/17 Albuterol 2.5/Ipratropium 0.5 [Duoneb -] 1 amp NEB Q6H PRN amp 05/12/17 Aspirin [ASA -] 81 mg PO DAILY tab.chew 05/12/17 Atorvastatin Ca [Lipitor] 80 mg PO HS tablet 05/12/17 Clopidogrel Bisulfate [Plavix -] 75 mg PO DAILY tablet 05/12/17 Ezetimibe [Zetia -] 10 mg PO DAILY tablet 05/12/17 Oxycodone HCl/Acetaminophen [Endocet 10-325 mg Tablet] 1 each PO TID PRN Polyethylene Glycol 3350 [Miralax 119 gm Btl -] 17 gm PO BID #1 bottle 11/07/17 Family Disease History - Family Disease History Family Disease History: Diabetes: Mother (alive at 94), Heart Disease: Father, CA: Brother (1 bro of CA), Sister (3 sisters of CA) Other Family History: 2 stomach, 1 lung, 1 unknown CA in siblings, 3 siblings are alive Review of Systems - Review of Systems Constitutional: denies: Chills, Fever Eyes: reports: Other (reading glasses). denies: Recent Change in Vision HENT: denies: Difficult Swallowing, Throat Pain Neck: denies: Swollen Glands, Tenderness Cardiovascular: reports: Chest Pain. denies: Palpitations Respiratory: reports: Cough (smoker's cough chronic), SOB on Exertion (walking or walking up stairs, winded easily) Gastrointestinal: reports: Abdominal Pain. denies: Constipation, Diarrhea, Nausea, Vomiting Genitourinary: denies: Burning, Dysuria Musculoskeletal: reports: Back Pain (chronic w/sciatica). denies: Joint Pain, Muscle Pain Integumentary: denies: Change in Color, Rash Neurological: reports: Dizziness. denies: Headache Psychiatric: reports: Anxiety, Depression Physical Exam Vital Signs: Vital Signs Temperature 98.3 F 11/07/17 15:37 Pulse Rate 60 11/07/17 15:37 Respiratory Rate 20 11/07/17 15:37 Blood Pressure 114/56 11/07/17 15:37 O2 Sat by Pulse Oximetry (%) 95 11/07/17 12:00 Constitutional: Yes: No Distress, Calm, Obese Eyes: Yes: Conjunctiva Clear, EOM Intact. No: Sclera Icterus HENT: Yes: Atraumatic, Normocephalic Neck: Yes: Supple, Trachea Midline Cardiovascular: Yes: Regular Rate and Rhythm. No: Murmur Respiratory: Yes: Regular, CTA Bilaterally, Rhonchi (few, clears with cough) Gastrointestinal: Yes: Normal Bowel Sounds, Soft, Abdomen, Obese, Hernia (small umbilical palpable), Tenderness (mild diffuse, distractible with no significant tenderness while talking about other things). No: Distention, Tenderness, Rebound (no R/G) ...Rectal Exam: Yes: Deferred Renal/: Yes: CVA Tenderness - Right. No: CVA Tenderness - Left Musculoskeletal: Yes: Back Pain (mild tenderness lower lumbar). No: Joint Stiffness, Joint Swelling Extremities: Yes: Deformity (right first metatarsal with bump/underlying hardware per pt). No: Cool, Cyanosis Edema: No Peripheral Pulses WNL: Yes Integumentary: No: Jaundice, Rash Neurological: Yes: Alert, Oriented Psychiatric: Yes: Alert, Oriented Labs: CBC, BMP 11/06/17 15:45 11/07/17 06:15 CMP Sodium 141 mmol/L (136-145) 11/07/17 06:15 Potassium 4.2 mmol/L (3.5-5.1) 11/07/17 06:15 Chloride 103 mmol/L (98-107) 11/07/17 06:15 Carbon Dioxide 33 mmol/L (21-32) H 11/07/17 06:15 Anion Gap 5 MMOL/L (8-16) L 11/07/17 06:15 BUN 11 mg/dL (7-18) 11/07/17 06:15 Creatinine 0.7 mg/dL (0.55-1.02) 11/07/17 06:15 Creat Clearance w eGFR > 60 (>60) 11/07/17 06:15 Random Glucose 79 mg/dL (74-106) 11/07/17 06:15 Calcium 8.6 mg/dL (8.5-10.1) 11/07/17 06:15 Magnesium 2.2 mg/dL (1.8-2.4) 11/06/17 06:05 Total Bilirubin 0.7 mg/dL (0.2-1.0) 11/07/17 06:15 Direct Bilirubin 0.2 mg/dL (0.0-0.2) 11/07/17 06:15 AST 15 U/L (15-37) 11/07/17 06:15 ALT 20 U/L (12-78) 11/07/17 06:15 Alkaline Phosphatase 116 U/L (45-117) 11/07/17 06:15 Creatine Kinase 100 IU/L (26-192) 11/06/17 03:15 Creatine Kinase Index 0.8 % (0.0-5.0) 11/05/17 15:00 CK-MB (CK-2) 1.64 ng/mL (0.5-3.6) 11/05/17 15:00 Troponin I < 0.02 ng/ml (0.00-0.05) 11/06/17 03:15 Total Protein 6.9 g/dl (6.4-8.2) 11/07/17 06:15 Albumin 3.5 g/dl (3.4-5.0) 11/07/17 06:15 Lipase 94 U/L (73-393) 11/07/17 06:15 INR, PTT INR Cancelled 11/05/17 15:00 not repeated Urine Test Results Urine Color Pam 11/06/17 15:00 Urine Appearance Cloudy 11/06/17 15:00 Urine pH 7.0 (5.0-8.0) D 11/06/17 15:00 Ur Specific [place] 1.026 (1.001-1.035) 11/06/17 15:00 Urine Protein Negative (NEGATIVE) 11/06/17 15:00 Urine Glucose (UA) Negative (NEGATIVE) 11/06/17 15:00 Urine Ketones Negative (NEGATIVE) 11/06/17 15:00 Urine Blood Negative (NEGATIVE) 11/06/17 15:00 Urine Nitrite Negative (NEGATIVE) 11/06/17 15:00 Urine Bilirubin Negative (<2.0 mg/dL) 11/06/17 15:00 Ur Leukocyte Esterase Trace (NEGATIVE) 11/06/17 15:00 Ur Epithelial Cells Few /HPF (FEW) 11/06/17 15:00 Urine Bacteria Rare /hpf (NONE SEEN) 11/06/17 15:00 Urine Mucus Moderate 11/06/17 15:00 Imaging - Results Cat Scan: Report Reviewed, Image Reviewed (images personally reviewed - 3cm gallstone, dilated CBD, no surrounding fluid or inflammatory changes) MRI: Report Reviewed (no ductal dilation or intraductal stones noted, large gallstone confirmed, no s/s cholecystitis), Image Reviewed Problem List - Problems (1) Calculus of gallbladder without cholecystitis without obstruction Assessment/Plan: large gallstone, but no signs cholecystitis no choledocholithiasis or ductal dilation noted by MRCP abdominal tenderness minimal on distraction and diffuse, not localized to RUQ/ epigastric only also tender to percussion over R CVA with c/o pain in that region tolerating diet, no n/v given <6 mos from coronary stenting on asa, plavix - would not pursue elective cholecystectomy at this time symptoms may or may not be related to presence of gallstone advised pt that once cardiology allows her to be off asa/plavix for at least a week, would follow up with GI (known to Dr. Rankin outpt) first for EGD and repeat colonoscopy to r/o PUD or other lesions gave her my card to f/u in office if she wants to discuss elective cholecystectomy after that counseled regarding complete smoking cessation and importance of doing so prior to any elective operation pt understands and agrees with plan Thank you for the opportunity to participate in the care of this patient. Code(s): K80.20 - CALCULUS OF GALLBLADDER W/O CHOLECYSTITIS W/O OBSTRUCTION (2) CAD S/P percutaneous coronary angioplasty Code(s): I25.10 - ATHSCL HEART DISEASE OF [place] CORONARY ARTERY W/O ANG PCTRS; Z98.61 - CORONARY ANGIOPLASTY STATUS (3) S/P drug eluting coronary stent placement Assessment/Plan: on asa/plavix sees Dr. Fragoso Code(s): Z95.5 - PRESENCE OF CORONARY ANGIOPLASTY IMPLANT AND GRAFT (4) Morbid (severe) obesity with alveolar hypoventilation Code(s): E66.2 - MORBID (SEVERE) OBESITY WITH ALVEOLAR HYPOVENTILATION (5) Sleep related hypoventilation in conditions classified elsewhere Assessment/Plan: uses CPAP at night Code(s): G47.36 - SLEEP RELATED HYPOVENTILATION IN CONDITIONS CLASSD ELSWHR (6) Tobacco dependence due to cigarettes Assessment/Plan: counseled on cessation pt to discuss with PMD Dr. Wilks Code(s): F17.210 - NICOTINE DEPENDENCE, CIGARETTES, UNCOMPLICATED
[2017-11-07] MEDS: HEPARIN NA (PORCINE) 5,000 UNITS/ML 1ML VIAL SQ SCH (21:29)
[2017-11-07] MEDS: ATORVASTATIN CA 80 MG TABLET (FP) PO SCH (21:29)
[2017-11-08] MEDS: ALPRAZolam 2 MG TABLET PO PRN ×2 (04:29→20:19)
[2017-11-08] MEDS: METHADONE HCL 40 MG DISPERSABLE TABLET PO SCH (05:08)
[2017-11-08 08:39] LABS: ALBUMIN 3.4 g/dl (3.4-5.0); ANION GAP 9 MMOL/L (8-16); BILIRUBIN,DIRECT 0.2 mg/dL (0.0-0.2); BLOOD UREA NITROGEN 16 mg/dL (7-18); CALCIUM 8.5 mg/dL (8.5-10.1); CHLORIDE 104 mmol/L (98-107); CO2 29 mmol/L (21-32); CREATININE 0.6 mg/dL (0.55-1.02); GLUCOSE,RANDOM 94 mg/dL (74-106); POTASSIUM 4.3 mmol/L (3.5-5.1); SGOT/AST 16 U/L (15-37); SGPT/ALT 19 U/L (12-78); SODIUM 142 mmol/L (136-145)
[2017-11-08 08:41] LABS: ALK PHOS 111 U/L (45-117); BILIRUBIN,TOTAL 0.5 mg/dL (0.2-1.0); TOT PROT 6.6 g/dl (6.4-8.2)
[2017-11-08] MEDS ORDERED: PT OWN MED DRAWER 7, Y5N ONE (08:44)
[2017-11-08] MEDS: EZETIMIBE 10 MG TABLET (FP) PO SCH (09:03)
[2017-11-08] MEDS: HEPARIN NA (PORCINE) 5,000 UNITS/ML 1ML VIAL SQ SCH ×2 (09:04→22:30)
[2017-11-08] MEDS: ASPIRIN 81 MG CHEWABLE TABLETS PO SCH (09:04)
[2017-11-08] MEDS: CLOPIDOGREL BISULFATE 75 MG TABLET (FP) PO SCH (09:04)
[2017-11-08] MEDS: POLYETHYLENE GLYCOL 3350 119 GM BTL PO SCH (09:17)
--- NOTE | 2017-11-08 11:27 | DS ---
Physical Examination Vital Signs: Vital Signs Temperature 98.3 F 11/08/17 10:00 Pulse Rate 72 11/08/17 10:00 Respiratory Rate 20 11/08/17 10:00 Blood Pressure 118/67 11/08/17 10:00 O2 Sat by Pulse Oximetry (%) 96 11/07/17 20:15 Findings/Remarks: 57F with CAD s/p PCI ramus at [facility] several months ago, anxiety presented to ER with left arm tingling/pain that involved left substernal area. No associated N/V or diaphoresis. Denies palpitations. Denies edema. No PND/orthopnea/no fevers or chills. On exertion, she has chronic exertional dyspnea (over last 2 months) but denies chest pain. She has had no prolonged air or car travel. Her cath revealed essentially single vessel disease (ramus) s/p JONATHAN- no sig dz elsewhere. Constitutional: Yes: Well Nourished, No Distress, Calm Cardiovascular: Yes: Regular Rate and Rhythm Respiratory: Yes: Regular Gastrointestinal: Yes: Normal Bowel Sounds, Soft, Abdomen, Obese Neurological: Yes: Alert, Oriented Psychiatric: Yes: Alert, Oriented Labs: CBC, BMP 11/06/17 15:45 11/08/17 06:15 Discharge Summary Reason For Visit: CHEST PAIN Current Active Problems Abdominal pain (Acute) Atypical chest pain (Acute) CAD (coronary artery disease) (Acute) CAD S/P percutaneous coronary angioplasty (Acute) Calculus of gallbladder without cholecystitis without obstruction (Acute) Chest pain (Acute) Morbid (severe) obesity with alveolar hypoventilation (Acute) S/P drug eluting coronary stent placement (Acute) Sleep related hypoventilation in conditions classified elsewhere (Acute) Stented coronary artery (Acute) Tobacco dependence due to cigarettes (Acute) Condition: Stable - Instructions Referrals: Parth Wilks [Primary Care Provider] - Disposition: HOME - Home Medications Comprehensive Discharge Medication List: Ambulatory Orders Alprazolam [Xanax] 2 mg PO BID PRN 05/11/17 Methadone [Dolophine -] 70 mg PO DAILY 05/11/17 Albuterol 2.5/Ipratropium 0.5 [Duoneb -] 1 amp NEB Q6H PRN amp 05/12/17 Aspirin [ASA -] 81 mg PO DAILY tab.chew 05/12/17 Atorvastatin Ca [Lipitor] 80 mg PO HS tablet 05/12/17 Clopidogrel Bisulfate [Plavix -] 75 mg PO DAILY tablet 05/12/17 Ezetimibe [Zetia -] 10 mg PO DAILY tablet 05/12/17 Oxycodone HCl/Acetaminophen [Endocet 10-325 mg Tablet] 1 each PO TID PRN Polyethylene Glycol 3350 [Miralax 119 gm Btl -] 17 gm PO BID #1 bottle 11/07/17
--- NOTE | 2017-11-08 20:11 | PN ---
Progress Note, Physician Chief Complaint: Pt A&Ox3; no abdominal pain. History of Present Illness: The patient is a 57 year old black female with past medical history of hypertension, CAD s/p stenting x1 in 05/2017, hyperlipidemia, obesity (weighed > 300 lbs; now 259 lbs by changing diet, increasing exercise), former cigarette smoker (quit at time of stent 05/24), who presents to the ED with complaints of chest pain and left arm pain that began yesterday. The patient reports a cramping pain in her left arm similar to her cardiac episode in May. She also reports that early this morning she woke up from sleep with a left sided chest pain and abdominal pain that has been constant since. She also endorses mild shortness of breath and dizziness when ambulating. She denies any palpitations, lower extremity swelling or syncope. Denies any fevers or chills. PCP: Parth Wilks Behavioral Analyst: Dr. Lukasz Fragoso - Current Medication List Current Medications: Active Medications Albuterol/Ipratropium (Duoneb -) 1 amp NEB Q6H PRN PRN Reason: SHORT OF BREATH/WHEEZING Last Admin: 11/06/17 13:20 Dose: 1 amp Alprazolam (Xanax -) 2 mg PO BID PRN PRN Reason: ANXIETY Last Admin: 11/08/17 04:29 Dose: 2 mg Aspirin (Asa -) 81 mg PO DAILY [facility] Last Admin: 11/08/17 09:04 Dose: 81 mg Atorvastatin Calcium (Lipitor -) 80 mg PO HS [facility] Last Admin: 11/07/17 21:29 Dose: 80 mg Clopidogrel Bisulfate (Plavix -) 75 mg PO DAILY [facility] Last Admin: 11/08/17 09:04 Dose: 75 mg Ezetimibe (Zetia -) 10 mg PO DAILY [facility] Last Admin: 11/08/17 09:03 Dose: 10 mg Heparin Sodium (Porcine) (Heparin -) 5,000 unit SQ BID [facility] Last Admin: 11/08/17 09:04 Dose: 5,000 unit Methadone HCl (Dolophine -) 70 mg PO DAILY@0600 [facility] Last Admin: 11/08/17 05:08 Dose: 70 mg Polyethylene Glycol (Miralax (For Daily Use) -) 17 gm PO BID [facility] Last Admin: 11/08/17 09:17 Dose: 17 gm - Objective Vital Signs: Vital Signs Temperature 97.6 F 11/08/17 17:44 Pulse Rate 113 H 11/08/17 17:44 Respiratory Rate 20 11/08/17 17:44 Blood Pressure 134/77 11/08/17 17:44 O2 Sat by Pulse Oximetry (%) 96 11/07/17 20:15 Labs: CBC, BMP 11/06/17 15:45 11/08/17 06:15 INR, PTT INR Cancelled 11/05/17 15:00 Problem List - Problems (1) Abdominal pain Assessment/Plan: gallbladder stone; f/u with surgeon. Pt tends to chew multiple doses of vitamin C "like candy". Code(s): R10.9 - UNSPECIFIED ABDOMINAL PAIN (2) Chest pain Assessment/Plan: TNI < 0.02 x 4. Stress MIBI negative for ischemia. Pt has been working hard to lower cardiac risks: Stopped smoking since 05/24. Decreased significant amount of weight through change in diet: no more junk food. Attended 3 months of cardiac rehab post-stent. She was encouraged to increase daily exercise. On statin and Zetia. Code(s): R07.9 - CHEST PAIN, UNSPECIFIED Qualifiers: Chest pain type: unspecified Qualified Code(s): R07.9 - Chest pain, unspecified (3) Stented coronary artery Code(s): Z95.5 - PRESENCE OF CORONARY ANGIOPLASTY IMPLANT AND GRAFT (4) Depression Code(s): F32.9 - MAJOR DEPRESSIVE DISORDER, SINGLE EPISODE, UNSPECIFIED (5) Nicotine dependence Code(s): F17.200 - NICOTINE DEPENDENCE, UNSPECIFIED, UNCOMPLICATED Qualifiers: Nicotine product type: cigarettes
[2017-11-08] MEDS: ATORVASTATIN CA 80 MG TABLET (FP) PO SCH (22:26)
[2017-11-09] MEDS: POLYETHYLENE GLYCOL 3350 119 GM BTL PO SCH ×2 (02:31→09:29)
[2017-11-09 05:28] VITALS: PULSE 51; TEMP 98
[2017-11-09] MEDS: METHADONE HCL 40 MG DISPERSABLE TABLET PO SCH (05:59)
[2017-11-09 07:02] LABS: ALBUMIN 3.3 g/dl (3.4-5.0); ALK PHOS 111 U/L (45-117); ANION GAP 7 MMOL/L (8-16); BILIRUBIN,DIRECT < 0.2 mg/dL (0.0-0.2); BILIRUBIN,TOTAL 0.6 mg/dL (0.2-1.0); BLOOD UREA NITROGEN 13 mg/dL (7-18); CALCIUM 8.5 mg/dL (8.5-10.1); CHLORIDE 104 mmol/L (98-107); CO2 31 mmol/L (21-32); CREATININE 0.5 mg/dL (0.55-1.02); GLUCOSE,RANDOM 84 mg/dL (74-106); POTASSIUM 4.3 mmol/L (3.5-5.1); SGOT/AST 14 U/L (15-37); SGPT/ALT 18 U/L (12-78); SODIUM 142 mmol/L (136-145); TOT PROT 6.3 g/dl (6.4-8.2)
[2017-11-09 08:48] VITALS: BP 115/72
[2017-11-09] MEDS: ASPIRIN 81 MG CHEWABLE TABLETS PO SCH (09:29)
[2017-11-09] MEDS: CLOPIDOGREL BISULFATE 75 MG TABLET (FP) PO SCH (09:29)
[2017-11-09] MEDS: ALPRAZolam 2 MG TABLET PO PRN (09:29)
[2017-11-09] MEDS: HEPARIN NA (PORCINE) 5,000 UNITS/ML 1ML VIAL SQ SCH (09:30)
[2017-11-09] MEDS: EZETIMIBE 10 MG TABLET (FP) PO SCH (09:30)
[2017-11-09] MEDS: ALBUTEROL SO4 2.5/IPRATROPIUM 0.5 INH SOL 3 ML VIAL.NEB. NEB PRN (09:55)
--- NOTE | 2017-11-09 14:12 | EKG ---
Test Reason : Blood Pressure : / mmHG Vent. Rate : 061 BPM Atrial Rate : 061 BPM P-R Int : 168 ms QRS Dur : 084 ms QT Int : 410 ms P-R-T Axes : 002 025 052 degrees QTc Int : 412 ms NORMAL SINUS RHYTHM SEPTAL INFARCT , AGE UNDETERMINED ABNORMAL ECG WHEN COMPARED WITH ECG OF 10-MAY-2017 02:42, SEPTAL INFARCT IS NOW PRESENT Confirmed by CHRISTINA HARDY MD ([id number]) on 11/09/2017 2:11:48 PM Referred By: Confirmed By:CHRISTINA HARDY MD
== END 2017-11-09 13:00 | disposition home or self-care (01) ==
LOC: JER 13:30 → JERBED 16:41 → J4S 19:12
PROVIDERS: ADMIT Family Medicine; ATTEND Family Medicine
PROC: 3E033GC Introduction of Other Therapeutic Substance into Peripheral Vein, Percutaneous Approach (ICD-10-PCS; principal; 2017-11-05)
PROC: 3E0F7GC Introduction of Other Therapeutic Substance into Respiratory Tract, Via Natural or Artificial Opening (ICD-10-PCS; 2017-11-05)
DX: R07.89 Other chest pain (principal); I25.118 Atherosclerotic heart disease of native coronary artery with other forms of angina pectoris; F17.210 Nicotine dependence, cigarettes, uncomplicated; I10 Essential (primary) hypertension; I25.10 Atherosclerotic heart disease of native coronary artery without angina pectoris; E11.9 Type 2 diabetes mellitus without complications; E78.5 Hyperlipidemia, unspecified; F11.20 Opioid dependence, uncomplicated; F41.9 Anxiety disorder, unspecified; F32.9 Major depressive disorder, single episode, unspecified; J45.909 Unspecified asthma, uncomplicated; R10.9 Unspecified abdominal pain; G47.30 Sleep apnea, unspecified; G47.36 Sleep related hypoventilation in conditions classified elsewhere; K80.20 Calculus of gallbladder without cholecystitis without obstruction; E66.2 Morbid (severe) obesity with alveolar hypoventilation; Z68.41 Body mass index [BMI] 40.0-44.9, adult; Z79.82 Long term (current) use of aspirin; Z95.5 Presence of coronary angioplasty implant and graft; Z99.89 Dependence on other enabling machines and devices; Z79.01 Long term (current) use of anticoagulants
CPT/HCPCS: 36415; 71046-TC-FY; 74177-TC; 74182-TC; 78452-TC; 80048; 80053; 80076; 81003; 81015; 82248; 82550; 82553; 83690; 83735; 84484; 85025; 87086; 93005; 93010; 93017; 93306-TC; 94640; 94660; 96374; 99281-25; A9502; G0378; J1644; J2785; J7620

== ENCOUNTER 2018-01-08 14:44 | Inpatient (IN) | payer OTHER ==
[2018-01-08] MEDS ORDERED: ASPIRIN 81 MG CHEWABLE TABLETS PO ONE (15:41)
--- NOTE | 2018-01-08 15:42 | PDOC ---
Rapid Medical Evaluation Chief Complaint: Chest Pain Time Seen by Provider: 01/08/18 15:38 Medical Evaluation: Allergies Allergy/AdvReac Type Severity Reaction Status Date / Time No Known Allergies Allergy Verified 11/05/17 13:33 01/08/18 15:38 c/o shortness of breath, dizziness and chest pain x 2 days. s/p cardiac stent placement in [facility] on 05/2017 PE; patient alert ox3. breath sounds clear A: chest pain labs, chest xray ekg doen in triage patient to the ER for further management of care Discharge Disposition - Diagnosis Chest pain Qualifiers: Chest pain type: unspecified Qualified Code(s): R07.9 - Chest pain, unspecified - Referrals Referrals: Yvon Isabel MD [Primary Care Provider] - - Patient Instructions - Post Discharge Activity
[2018-01-08 15:43] VITALS: BMI 39.2
[2018-01-08] MEDS ORDERED: ASPIRIN 81 MG CHEWABLE TABLETS ONE (16:13)
[2018-01-08 16:37] LABS: BASO % 0.5 % (0-2.0); EOS % 0.8 % (0-4.5); HEMATOCRIT 45.2 % (32.4-45.2); HEMOGLOBIN 15.1 GM/dL (10.7-15.3); LYMPH % 22.3 % (8-40); MCH 30.3 pg (25.7-33.7); MCHC 33.5 g/dl (32.0-36.0); MEAN CELL VOLUME 90.4 fl (80-96); MEAN PLT VOLUME 8.5 fl (7.5-11.1); MONO % 6.8 % (3.8-10.2); NEUT % 69.6 % (42.8-82.8); PLATELET COUNT 224 K/MM3 (134-434); RDW 13.4 % (11.6-15.6); WHITE BLOOD COUNT 11.7 K/mm3 (4.0-10.0)
--- NOTE | 2018-01-08 16:37 | PDOC ---
*Physical Exam - Vital Signs Last Vital Signs Temp Pulse Resp BP Pulse Ox 99.1 F 69 16 117/71 99 01/08/18 15:40 01/08/18 15:40 01/08/18 15:40 01/08/18 15:40 01/08/18 15:40 - Physical Exam Comments: 01/08/18 18:09 The patient was examined by MARIAMA Serrano[] under my direct supervision. I personally evaluated the patient. I concur with the above findings and the plan of care. ED Treatment Course - LABORATORY CBC & Chemistry Diagram: 01/08/18 16:09 01/08/18 16:09 - Medications Given in the ED: ED Medications Discontinued Medications Generic Name Dose Route Start Last Admin Trade Name Freq PRN Reason Stop Dose Admin Aspirin 162 mg 01/08/18 15:41 01/08/18 16:15 Asa - PO 01/08/18 15:42 162 mg ONCE ONE Administration *DC/Admit/Observation/Transfer Diagnosis at time of Disposition: Abnormal EKG Chest pain Qualifiers: Chest pain type: unspecified Qualified Code(s): R07.9 - Chest pain, unspecified - Discharge Dispostion Condition at time of disposition: Fair - Referrals Referrals: Yvon Isabel MD [Primary Care Provider] - - Patient Instructions - Post Discharge Activity
--- NOTE | 2018-01-08 16:40 | PDOC ---
History of Present Illness - General Chief Complaint: Chest Pain Stated Complaint: CHEST PAIN Time Seen by Provider: 01/08/18 15:38 History Source: Patient - History of Present Illness Presenting Symptoms: Chest Pain Timing/Duration: reports: other (yesterday) Past History - Past Medical History Allergies/Adverse Reactions: Allergies Allergy/AdvReac Type Severity Reaction Status Date / Time No Known Allergies Allergy Verified 01/08/18 15:40 Home Medications: Ambulatory Orders Alprazolam [Xanax] 2 mg PO BID PRN 05/11/17 Methadone [Dolophine -] 70 mg PO DAILY 05/11/17 Albuterol 2.5/Ipratropium 0.5 [Duoneb -] 1 amp NEB Q6H PRN amp 05/12/17 Aspirin [ASA -] 81 mg PO DAILY tab.chew 05/12/17 Atorvastatin Ca [Lipitor] 80 mg PO HS tablet 05/12/17 Clopidogrel Bisulfate [Plavix -] 75 mg PO DAILY tablet 05/12/17 Oxycodone HCl/Acetaminophen [Endocet 10-325 mg Tablet] 1 each PO TID PRN Polyethylene Glycol 3350 [Miralax 119 gm Btl -] 17 gm PO BID #1 bottle 11/07/17 Anemia: No Asthma: Yes Cancer: No Cardiac Disorders: Yes CVA: No COPD: No CHF: No Dementia: No Diabetes: Yes GI Disorders: No Disorders: No HTN: No Hypercholesterolemia: Yes Liver Disease: No Seizures: No Thyroid Disease: No - Surgical History Abdominal Surgery: No Appendectomy: No Cardiac Surgery: No Cholecystectomy: No Lung Surgery: No Neurologic Surgery: No Orthopedic Surgery: Yes (right foot/ankle broken ) - Immunization History Immunization Up to Date: Yes - Suicide/Smoking/Psychosocial Hx Smoking Status: Yes Smoking History: Current some day smoker Have you smoked in the past 12 months: No Number of Cigarettes Smoked Daily: 6 (only 1-2/day in last wk) If you are a former smoker, when did you quit?: 12/30/2017 Information on smoking cessation initiated: No 'Breaking Loose' booklet given: 08/21/14 Hx Alcohol Use: No Drug/Substance Use Hx: No Substance Use Type: None Hx Substance Use Treatment: Yes (detox, rehab, [facility]) Cardiac Specific PMH - Complaint Specific PMHX Pacemaker: No Review of Systems - Review of Systems Constitutional: No: Chills, Fever Respiratory: No: Shortness of Breath Cardiac (ROS): Yes: Chest Pain. No: Lightheadedness, Palpitations, Syncope *Physical Exam - Vital Signs Last Vital Signs Temp Pulse Resp BP Pulse Ox 98.6 F 69 16 150/99 98 01/08/18 17:42 01/08/18 17:42 01/08/18 17:42 01/08/18 17:42 01/08/18 17:42 - Physical Exam General Appearance: Yes: Appropriately Dressed. No: Apparent Distress HEENT: positive: Normal Voice Neck: positive: Supple Respiratory/Chest: positive: Chest Tender (to L chest), Lungs Clear, Normal Breath Sounds. negative: Respiratory Distress Cardiovascular: positive: Regular Rate, S1, S2 Gastrointestinal/Abdominal: positive: Soft. negative: Tender Integumentary: positive: Dry, Warm Neurologic: positive: Fully Oriented, Alert, Normal Mood/Affect Heart Score/ECG Review - History History: Slightly suspicious - Electrocardiogram EKG: Non specific repolarization disturbance - Age Age: 45-65 - Risk Factors Risk Factors Heart Score: Yes Hx Hypercholesterolemia, Yes Smoking History Based on the list above the patient has:: >/=3 risk factors or Hx atherosclerotic disease - Troponin Troponin: </= normal limit - Score Heart Score - Total: 4 ED Treatment Course - LABORATORY CBC & Chemistry Diagram: 01/08/18 16:09 01/08/18 16:09 - ADDITIONAL ORDERS Additional order review: Laboratory Results 01/08/18 01/08/18 01/08/18 16:09 16:09 16:09 PT with INR 12.60 INR 1.07 Sodium 139 Potassium 3.6 Chloride 104 Carbon Dioxide 26 Anion Gap 9 BUN 13 Creatinine 0.6 Creat Clearance w eGFR > 60 Random Glucose 101 Calcium 9.4 Magnesium 2.4 Total Bilirubin 0.5 AST 22 ALT 27 Alkaline Phosphatase 122 H Creatine Kinase 338 H Troponin I < 0.02 B-Natriuretic Peptide 35.6 Total Protein 7.6 Albumin 4.0 01/08/18 16:09 RBC 5.00 MCV 90.4 MCHC 33.5 RDW 13.4 MPV 8.5 Neutrophils % 69.6 Lymphocytes % 22.3 D Monocytes % 6.8 Eosinophils % 0.8 Basophils % 0.5 - Medications Given in the ED: ED Medications Discontinued Medications Generic Name Dose Route Start Last Admin Trade Name Paula PRN Reason Stop Dose Admin Aspirin 162 mg 01/08/18 15:41 01/08/18 16:15 Asa - PO 01/08/18 15:42 162 mg ONCE ONE Administration Nitroglycerin 1 inch 01/08/18 17:34 01/08/18 17:48 Nitro-Bid 2% Paste - TD 01/08/18 17:35 1 inch ONCE ONE Administration Medical Decision Making - Medical Decision Making 01/08/18 16:34 57-year-old female, history of asthma, HLD, smoker, opiod dependence, anxiety, CAD s/p stent x 1 placed 05/24 at [facility], f/u with Dr Fragoso of cards at [facility], here w/ CP. Patient reporting non-radiating left-sided chest pain that started yesterday morning, mostly sharp, intermittent, lasts for seconds to minutes with no exacerbating or alleviating factors. ? SOB. No diaphoresis, n/v, palpitations, leg pain/swelling. States current pain similar tp pain prior to cath. Took 2 baby asa this am and has since been given 2 additional asa in ED. Of note, patient was admitted about 3 months ago for chest pain and had negative stress and echo. See exam Atypical CP Similar to pain prior to cath Neg stress and echo 10/24 Stable w/ reproducible ttp on exam R/o ACS , less likely PE or dissection Given asa in ED -ekg -cards -labs -cards c/s -anticipate admission 01/08/18 17:13 EKG w/ TWI in lateral leads, new since EKG 10/24. Trop neg. Nitropaste and a dose of plavix in progress. Will admit at this time and consult w/ cards *DC/Admit/Observation/Transfer Diagnosis at time of Disposition: Abnormal EKG Chest pain Qualifiers: Chest pain type: unspecified Qualified Code(s): R07.9 - Chest pain, unspecified - Discharge Dispostion Condition at time of disposition: Fair Decision to Admit order: Yes Decision to Admit order Date/Time: Decision to Admit Order Category Date Time Status Decision to Admit to Hospital Routine Admission 01/08/18 17:21 Active - Referrals Referrals: Yvon Isabel MD [Primary Care Provider] - - Patient Instructions - Post Discharge Activity
[2018-01-08 17:13] LABS: ALK PHOS 122 U/L (45-117); ANION GAP 9 MMOL/L (8-16); BILIRUBIN,TOTAL 0.5 mg/dL (0.2-1); BLOOD UREA NITROGEN 13 mg/dL (7-18); CALCIUM 9.4 mg/dL (8.5-10.1); CHLORIDE 104 mmol/L (98-107); CO2 26 mmol/L (21-32); CREATININE 0.6 mg/dL (0.55-1.3); GLUCOSE,RANDOM 101 mg/dL (74-106); MAGNESIUM 2.4 mg/dL (1.8-2.4); POTASSIUM 3.6 mmol/L (3.5-5.1); SGOT/AST 22 U/L (15-37); SGPT/ALT 27 U/L (13-61); SODIUM 139 mmol/L (136-145); TOT PROT 7.6 g/dl (6.4-8.2)
[2018-01-08 17:28] LABS: INR 1.07 (0.83-1.09); PROTHROMBIN TIME (PATIENT) 12.6 SEC (9.7-13.0)
[2018-01-08] MEDS ORDERED: NITROGLYCERIN 2% OINTMENT - 1GM PACKET TD ONE ×2 (17:34→17:44)
[2018-01-08] MEDS ORDERED: CLOPIDOGREL BISULFATE 75 MG TABLET (FP) PO ONE (18:05)
[2018-01-08] MEDS ORDERED: CLOPIDOGREL BISULFATE 75 MG TABLET (FP) ONE (18:12)
[2018-01-08] MEDS ORDERED: ALBUTEROL SO4 2.5/IPRATROPIUM 0.5 INH SOL 3 ML VIAL.NEB. NEB PRN (18:32)
--- NOTE | 2018-01-08 18:46 | HP ---
CHIEF COMPLAINT: Chest pain PCP: Dr. Isabel HISTORY OF PRESENT ILLNESS: 57 year old female with a PMH significant for CAD s/p stent, asthma, HLD, smoker , opiod dependence, anxiety presented to the ED today with chest pain. She reports chest pain started last night as a sharp pulsating pain in her heart, it would sometimes radiate up the left side of her neck. Over the past few days she has noticed SOB when walking. Patient was admitted to [facility] 3 months ago for chest pain, but stress test and echo were negative. She had a cardiac stent placed at [facility] in May. She is followed by shovel operator Dr. Fragoso whom she last saw in October. She has also been having upper stomach pain after she eats. She was told by her PCP Dr. Isabel that she has a large gallstone. She has been trying not to eat too much over the past few weeks because of this pain. Denies fever, chills, syncope, palpitations SOB at rest, no diaphoresis, edema, no n/v/d. Upon admission to the ED, VSS, Labs notible for slightly elevated WBC of 11.7, Alk phos 122, Cr Kinase 338. EKG with new T-wave changes inversions in lateral leads. She was given Nitro paste x 1, ASA, and Plavix to good effect. She reports her chest pain is improved since admission, but still present. Recent Travel: [place] in October PAST MEDICAL HISTORY: Spinal stenosis NEERU on CPAP asthma HLD anxiety CAD s/p stent PAST SURGICAL HISTORY: stent x 1 placed 05/24 at [facility] 2 foot surgeries Social History: Smoking: former, quit in october, smoked for 40 years Alcohol: Denies Drugs: Denies Family History: Mother: Alive, age 94, DM Pacemaker Brother: Lung cancer, age 59 Brother: Colon cancer, age 61 2 sisters: of cancer, unknown kind Allergies No Known Allergies Allergy (Verified 01/08/18 15:40) HOME MEDICATIONS: Home Medications Medication Instructions Recorded Alprazolam [Xanax] 2 mg PO BID PRN 05/11/17 Methadone [Dolophine -] 70 mg PO DAILY 05/11/17 Albuterol 2.5/Ipratropium 0.5 1 amp NEB Q6H PRN amp 05/12/17 [Duoneb -] Aspirin [ASA -] 81 mg PO DAILY tab.chew 05/12/17 Atorvastatin Ca [Lipitor] 80 mg PO HS tablet 05/12/17 Clopidogrel Bisulfate [Plavix -] 75 mg PO DAILY tablet 05/12/17 Oxycodone HCl/Acetaminophen 1 each PO TID PRN 11/05/17 [Endocet 10-325 mg Tablet] Polyethylene Glycol 3350 [Miralax 17 gm PO BID #1 bottle 11/07/17 119 gm Btl -] REVIEW OF SYSTEMS CONSTITUTIONAL: Absent: fever, chills, diaphoresis, generalized weakness, malaise, loss of appetite, weight change HEENT: Absent: rhinorrhea, nasal congestion, throat pain, throat swelling, difficulty swallowing, mouth swelling, ear pain, eye pain, visual changes CARDIOVASCULAR: (+) chest pain, (+) lightheadedness Absent: syncope, palpitations, irregular heart rate, peripheral edema RESPIRATORY: (+) Intermittent shortness of breath, dyspnea with exertion Absent: cough, orthopnea, wheezing, stridor, hemoptysis GASTROINTESTINAL: (+) abdominal pain Absent: abdominal distension, nausea, vomiting, diarrhea, constipation, melena, hematochezia GENITOURINARY: Absent: dysuria, frequency, urgency, hesitancy, hematuria, flank pain, genital pain MUSCULOSKELETAL: Absent: myalgia, arthralgia, joint swelling, back pain, neck pain SKIN: Absent: rash, itching, pallor HEMATOLOGIC/IMMUNOLOGIC: Absent: easy bleeding, easy bruising, lymphadenopathy, frequent infections ENDOCRINE: Absent: unexplained weight gain, unexplained weight loss, heat intolerance, cold intolerance NEUROLOGIC: Absent: headache, focal weakness or paresthesias, dizziness, unsteady gait, seizure, mental status changes, bladder or bowel incontinence PSYCHIATRIC: (+) Anxiety Absent: depression, suicidal or homicidal ideation, hallucinations. PHYSICAL EXAMINATION Vital Signs - 24 hr 01/08/18 01/08/18 01/08/18 15:40 16:52 17:42 Temperature 99.1 F 98.6 F Pulse Rate 69 Pulse Rate [ 63 69 Left Apical] Respiratory 16 16 16 Rate Blood Pressure 117/71 Blood Pressure 115/67 150/99 [Left Arm] O2 Sat by Pulse 99 98 98 Oximetry (%) GENERAL: Awake, alert, and fully oriented, in no acute distress. Just finished full dinner. HEAD: Normal with no signs of trauma. EYES: injected conjunctiva, pupils equal, round and reactive to light, extraocular movements intact, sclera anicteric. No lid lag. EARS, NOSE, THROAT: Nares patent, oropharynx clear without exudates. Moist mucous membranes. NECK: Normal range of motion, supple without lymphadenopathy, JVD, or masses. LUNGS: Breath sounds equal, clear to auscultation bilaterally. No wheezes, and no crackles. No accessory muscle use. HEART: pain to palpation on left chest, regular rate and rhythm, normal S1 and S2 without murmur, rub or gallop. ABDOMEN: Obese, soft, tenderness to substernal area, normoactive bowel sounds, no guarding, no rebound, no masses. No hepatomegaly or splenomegaly. MUSCULOSKELETAL: Normal range of motion at all joints. bony prominence on mid dorsal surface of right foot, no CVA tenderness. UPPER EXTREMITIES: 2+ pulses, warm, well-perfused. No cyanosis. No clubbing. No peripheral edema. LOWER EXTREMITIES: 2+ pulses, warm, well-perfused. No calf tenderness. No peripheral edema. NEUROLOGICAL: No facial droop, tongue midline. Normal speech. Gait not observed. PSYCHIATRIC: Cooperative. Good eye contact. Appropriate mood and affect. SKIN: Warm, dry, normal turgor, no rashes or lesions noted, normal capillary refill. Laboratory Results - last 24 hr 01/08/18 01/08/18 01/08/18 16:09 16:09 16:09 WBC 11.7 H RBC 5.00 Hgb 15.1 Hct 45.2 MCV 90.4 MCH 30.3 MCHC 33.5 RDW 13.4 Plt Count 224 MPV 8.5 Absolute Neuts (auto) 8.1 H Neutrophils % 69.6 Lymphocytes % 22.3 D Monocytes % 6.8 Eosinophils % 0.8 Basophils % 0.5 Nucleated RBC % 0 PT with INR 12.60 INR 1.07 Sodium 139 Potassium 3.6 Chloride 104 Carbon Dioxide 26 Anion Gap 9 BUN 13 Creatinine 0.6 Creat Clearance w eGFR > 60 Random Glucose 101 Calcium 9.4 Magnesium 2.4 Total Bilirubin 0.5 AST 22 ALT 27 Alkaline Phosphatase 122 H Creatine Kinase 338 H Creatine Kinase Index 1.0 CK-MB (CK-2) 3.5 Troponin I < 0.02 B-Natriuretic Peptide Total Protein 7.6 Albumin 4.0 01/08/18 16:09 WBC RBC Hgb Hct MCV MCH MCHC RDW Plt Count MPV Absolute Neuts (auto) Neutrophils % Lymphocytes % Monocytes % Eosinophils % Basophils % Nucleated RBC % PT with INR INR Sodium Potassium Chloride Carbon Dioxide Anion Gap BUN Creatinine Creat Clearance w eGFR Random Glucose Calcium Magnesium Total Bilirubin AST ALT Alkaline Phosphatase Creatine Kinase Creatine Kinase Index CK-MB (CK-2) Troponin I B-Natriuretic Peptide 35.6 Total Protein Albumin EKG Vent rate 68 bmp QTc 399 T wave inversions in lateral leads, new since 10/24 EKG CXR Final read pending ASSESSMENT/PLAN: 57 year old female with a PMH significant for CAD s/p stent, asthma, HLD, smoker , opiod dependence, anxiety presented to the ED today with chest pain. EKG with new T-wave changes, admitted to the telemetry floor for cardiac monitoring. CAD -New t-wave inversions in lateral leads, new since October -Troponin #1 negative, #2 and #3 pending -On ASA 81 mg -Plavix 75 mg qday -Telemetry monitoring -Cardiology consult ordered with Dr. Fragoso Opiod Dependence -Methadone 60 mg qday ?Gallstones -Amylase level ordered Asthma -Nebs PRN NEERU -On C-PAP HLD -Atorvastatin 80 mg QHS Anxiety -Xanax 2 mg BID FEN -PO intake adequate -Replete electrolytes as indicated -Low cholesterol diet DVT Prophylaxis -On Plavix and ASA Dispo: pt currently requires further inpatient care. FULL CODE Visit type - Emergency Visit Emergency Visit: Yes Care time: The patient presented to the Emergency Department on the above date and was hospitalized for further evaluation of their emergent condition. - New Patient This patient is new to me today: Yes Date on this admission: 01/08/18 - Critical Care Critical Care patient: No
[2018-01-08] MEDS ORDERED: ALPRAZolam 2 MG TABLET ONE (21:54)
[2018-01-08] MEDS: ALPRAZolam 2 MG TABLET PO PRN (22:00)
[2018-01-08] MEDS: ATORVASTATIN CA 80 MG TABLET (FP) PO SCH (22:14)
[2018-01-09] MEDS ORDERED: METHADONE HCL 40 MG DISPERSABLE TABLET ONE (08:33)
[2018-01-09] MEDS ORDERED: METHADONE HCL 10 MG TABLET ONE (08:33)
[2018-01-09] MEDS ORDERED: ASPIRIN 81 MG CHEWABLE TABLETS ONE (08:34)
[2018-01-09] MEDS ORDERED: CLOPIDOGREL BISULFATE 75 MG TABLET (FP) ONE (08:34)
[2018-01-09] MEDS: METHADONE 20 MG, METHADONE 40 MG PO SCH ×2 (08:36→08:45)
--- NOTE | 2018-01-09 08:51 | CON.CARD ---
Cardiology Consult (text) - Consultation Consultation Note: Cardiology consult dictated IMP: CAD s/p PCI Atypical CP and concomitant abdominal pain: musculoskeletal, r/o cholecystitis, Doubt ischemic REC: 1. Serial cardiac enzymes 2. Echo 3. Telemetry 4. Abd US 5. To consider repeat stress test prior to D/c pending clinical course and abd US
[2018-01-09 09:20] LABS: BASO % 0.9 % (0-2.0); EOS % 2.4 % (0-4.5); HEMATOCRIT 42.8 % (32.4-45.2); HEMOGLOBIN 14.8 GM/dL (10.7-15.3); LYMPH % 25.9 % (8-40); MCH 31.4 pg (25.7-33.7); MCHC 34.5 g/dl (32.0-36.0); MEAN CELL VOLUME 90.8 fl (80-96); MEAN PLT VOLUME 8.1 fl (7.5-11.1); MONO % 6.9 % (3.8-10.2); NEUT % 63.9 % (42.8-82.8); PLATELET COUNT 192 K/MM3 (134-434); RBC 4.72 M/mm3 (3.60-5.2); RDW 13.6 % (11.6-15.6); WHITE BLOOD COUNT 8.3 K/mm3 (4.0-10.0)
--- NOTE | 2018-01-09 09:28 | CONS ---
CARDIOLOGY CONSULTATION DATE OF CONSULTATION: 01/09/2018 REASON FOR CONSULTATION: The consultation is requested by Yvon Isabel MD, for chest pain. HISTORY OF PRESENT ILLNESS: The patient is a 57-year-old female with a past medical history of coronary artery disease, status post PCI several months ago at [facility], chronic asthma, on methadone. She presented to the emergency room for evaluation of left-sided, positional chest discomfort which began Thursday. She describes sharp chest pain in and round the shoulder, worse with positional change. She does have chronic exertional dyspnea which she attributes to her asthma. She is also complaining of chronic abdominal discomfort, particularly after eating, and generalized tenderness in the epigastrium and in the right upper quadrant. She denies nausea, vomiting or diarrhea. No edema, PND, orthopnea. PAST MEDICAL HISTORY: Is as above and includes: 1. Coronary artery disease with a PCI procedure performed several months ago at [facility]. 2. Chronic asthma. 3. Methadone dependence. 4. Chronic anxiety. ALLERGIES: None. HOME MEDICATIONS: Include methadone 70 mg p.o. daily, Plavix 75 mg p.o. daily, atorvastatin 80 mg p.o. nightly, aspirin 81 mg p.o. daily, albuterol nebulizers, Endocet 1 tablet p.o. t.i.d. p.r.n., and Xanax 2 mg p.o. b.i.d. p.r.n. FAMILY HISTORY: No early CAD or sudden cardiac . SOCIAL HISTORY: She is in a detox/methadone maintenance program. She continues to smoke less than 1 pack per day. PHYSICAL EXAMINATION: Vital signs: Afebrile, temperature 98.3, pulse 76, blood pressure 117/67, O2 saturation is 98 on room air. Eyes: She is anicteric. Neck: There are no carotid bruits, no JVD. Heart: Regular. No murmurs. Chest: Clear bilaterally. Abdomen: With mild tenderness in the right upper quadrant and in the epigastrium. No rebound or guarding. Extremities: No edema. Her ECG showed normal sinus rhythm, at 68 beats per minute, with no acute ST changes. White count was mildly elevated at 11.7. CBC was otherwise normal. INR was normal. Basic metabolic panel was normal. LFTs were significant for an alkaline phosphatase of 122. Cardiac enzymes are now negative x2 sets. Chest x-ray showed no acute pathology. IMPRESSION: 1. Coronary disease, status post percutaneous coronary intervention. 2. Atypical chest pain and concomitant abdominal pain: Musculoskeletal, rule out cholecystitis - doubt ischemic. RECOMMENDATIONS: 1. Serial cardiac enzymes to be completed. 2. Echocardiogram for evaluation of LV function, rule out pericardial disease. 3. Telemetry. 4. Abdominal ultrasound to evaluate the gallbladder. 5. Consider a repeat stress prior to discharge, pending her clinical course and abdominal ultrasound findings. VIRI MCQUEEN M.D. [id number]
[2018-01-09 09:39] LABS: ANION GAP 9 MMOL/L (8-16); BLOOD UREA NITROGEN 14 mg/dL (7-18); CALCIUM 8.8 mg/dL (8.5-10.1); CHLORIDE 103 mmol/L (98-107); CO2 28 mmol/L (21-32); CREATININE 0.7 mg/dL (0.55-1.3); GLUCOSE,RANDOM 139 mg/dL (74-106); MAGNESIUM 2.2 mg/dL (1.8-2.4); POTASSIUM 3.8 mmol/L (3.5-5.1); SODIUM 140 mmol/L (136-145)
[2018-01-09 09:40] LABS: CHOLESTEROL 129 mg/dL (50-200); HDL CHOLESTEROL 35 mg/dL (40-60); TRIGLYCERIDES 87 mg/dL (0-150)
[2018-01-09 09:44] LABS: AMYLASE 36 U/L (25-115)
[2018-01-09] MEDS: ASPIRIN 81 MG CHEWABLE TABLETS PO SCH (09:59)
[2018-01-09] MEDS: CLOPIDOGREL BISULFATE 75 MG TABLET (FP) PO SCH (09:59)
[2018-01-09] MEDS ORDERED: METHADONE HCL 40 MG DISPERSABLE TABLET PO SCH (10:00)
--- NOTE | 2018-01-09 10:02 | PN ---
Progress Note, Physician - Current Medication List Current Medications: Active Medications Albuterol/Ipratropium (Duoneb -) 1 amp NEB Q6H PRN PRN Reason: SHORT OF BREATH/WHEEZING Alprazolam (Xanax -) 2 mg PO Q12H PRN PRN Reason: ANXIETY Last Admin: 01/08/18 22:00 Dose: 2 mg Aspirin (Asa -) 81 mg PO DAILY [facility] Last Admin: 01/09/18 09:59 Dose: 81 mg Atorvastatin Calcium (Lipitor -) 80 mg PO HS [facility] Last Admin: 01/08/18 22:14 Dose: 80 mg Clopidogrel Bisulfate (Plavix -) 75 mg PO DAILY [facility] Last Admin: 01/09/18 09:59 Dose: 75 mg Methadone HCl 20 mg/ Methadone (HCl 40 mg) 60 mg PO DAILY@0600 [facility] Last Admin: 01/09/18 08:45 Dose: Not Given - Objective Vital Signs: Vital Signs Temperature 98.7 F 01/09/18 09:26 Pulse Rate 73 01/09/18 09:26 Respiratory Rate 18 01/09/18 09:26 Blood Pressure 127/87 01/09/18 09:26 O2 Sat by Pulse Oximetry (%) 98 01/09/18 09:26 Cardiovascular: Yes: S1, S2 Respiratory: Yes: Regular, CTA Bilaterally Gastrointestinal: Yes: Normal Bowel Sounds, Soft Labs: CBC, BMP 01/09/18 09:00 01/09/18 09:00 INR, PTT INR 1.07 (0.83-1.09) 01/08/18 16:09 Problem List - Problems (1) Chest pain Assessment/Plan: -New t-wave inversions in lateral leads, new since October -Troponin #1 negative, #2 and #3 pending -On ASA 81 mg -Plavix 75 mg qday -Telemetry monitoring -Cardiology consult ordered with Dr. Fragoso Code(s): R07.9 - CHEST PAIN, UNSPECIFIED Qualifiers: Chest pain type: unspecified Qualified Code(s): R07.9 - Chest pain, unspecified (2) Abnormal EKG Assessment/Plan: ABOVE Code(s): R94.31 - ABNORMAL ELECTROCARDIOGRAM [ECG] [EKG] (3) CAD (coronary artery disease) Code(s): I25.10 - ATHSCL HEART DISEASE OF [place] CORONARY ARTERY W/O ANG PCTRS Qualifiers: Coronary Disease-Associated Artery/Lesion type: [place] artery [place] vs. transplanted heart: [place] heart Associated angina: with other forms of angina Qualified Code(s): I25.118 - Atherosclerotic heart disease of [place] coronary artery with other forms of angina pectoris
[2018-01-09] MEDS ORDERED: ALPRAZolam 2 MG TABLET ONE (10:11)
[2018-01-09] MEDS: ALPRAZolam 2 MG TABLET PO PRN ×2 (10:17→21:58)
--- NOTE | 2018-01-09 12:43 | EKG ---
Test Reason : Blood Pressure : / mmHG Vent. Rate : 068 BPM Atrial Rate : 068 BPM P-R Int : 142 ms QRS Dur : 088 ms QT Int : 376 ms P-R-T Axes : 068 031 094 degrees QTc Int : 399 ms NORMAL SINUS RHYTHM NONSPECIFIC ST AND T WAVE ABNORMALITY ABNORMAL ECG WHEN COMPARED WITH ECG OF 05-NOV-2017 13:30, NONSPECIFIC T WAVE ABNORMALITY NOW EVIDENT IN INFERIOR LEADS NONSPECIFIC T WAVE ABNORMALITY NOW EVIDENT IN LATERAL LEADS Confirmed by VIRI MCQUEEN MD ([id number]) on 01/09/2018 12:43:30 PM Referred By: Confirmed By:VIRI MCQUEEN MD
[2018-01-09] MEDS: oxyCODONE HCL 5 MG TABLET PO PRN (16:17)
[2018-01-09] MEDS: ATORVASTATIN CA 80 MG TABLET (FP) PO SCH (21:57)
[2018-01-10] MEDS ORDERED: METHADONE HCL 40 MG DISPERSABLE TABLET ONE (06:44)
[2018-01-10] MEDS ORDERED: METHADONE HCL 10 MG TABLET ONE (06:45)
[2018-01-10] MEDS: METHADONE 20 MG, METHADONE 40 MG PO SCH (06:59)
[2018-01-10] MEDS: ASPIRIN 81 MG CHEWABLE TABLETS PO SCH (09:49)
[2018-01-10] MEDS: oxyCODONE HCL 5 MG TABLET PO PRN ×2 (09:49→16:58)
[2018-01-10] MEDS: CLOPIDOGREL BISULFATE 75 MG TABLET (FP) PO SCH (09:49)
[2018-01-10] MEDS: ACETAMINOPHEN 325 MG TABLET (FP) PO PRN ×2 (09:50→16:59)
--- NOTE | 2018-01-10 09:51 | PN ---
Progress Note, Physician Chief Complaint: Abd US with gallstone, but no evidence acute cholecystitis. TELE: NSR - Current Medication List Current Medications: Active Medications Acetaminophen (Tylenol -) 325 mg PO Q6H PRN PRN Reason: PAIN LEVEL 6-10 Last Admin: 01/10/18 09:50 Dose: 325 mg Albuterol/Ipratropium (Duoneb -) 1 amp NEB Q6H PRN PRN Reason: SHORT OF BREATH/WHEEZING Alprazolam (Xanax -) 2 mg PO Q12H PRN PRN Reason: ANXIETY Last Admin: 01/09/18 21:58 Dose: 2 mg Aspirin (Asa -) 81 mg PO DAILY [facility] Last Admin: 01/10/18 09:49 Dose: 81 mg Atorvastatin Calcium (Lipitor -) 80 mg PO HS [facility] Last Admin: 01/09/18 21:57 Dose: 80 mg Clopidogrel Bisulfate (Plavix -) 75 mg PO DAILY [facility] Last Admin: 01/10/18 09:49 Dose: 75 mg Methadone HCl 20 mg/ Methadone (HCl 40 mg) 60 mg PO DAILY@0600 [facility] Last Admin: 01/10/18 06:59 Dose: 60 mg Oxycodone HCl (Roxicodone -) 10 mg PO Q6H PRN PRN Reason: PAIN LEVEL 6-10 Last Admin: 01/10/18 09:49 Dose: 10 mg - Objective Vital Signs: Vital Signs Temperature 97.4 F L 01/10/18 01:00 EDT Pulse Rate 60 01/10/18 05:00 Respiratory Rate 20 01/10/18 05:00 Blood Pressure 111/62 01/10/18 05:00 O2 Sat by Pulse Oximetry (%) 94 L 01/09/18 21:00 Constitutional: Yes: No Distress, Calm Cardiovascular: Yes: Regular Rate and Rhythm Respiratory: Yes: CTA Bilaterally Gastrointestinal: Yes: Soft Edema: No Neurological: Yes: Alert, Oriented Labs: CBC, BMP 01/09/18 09:00 01/09/18 09:00 INR, PTT INR 1.07 (0.83-1.09) 01/08/18 16:09 - ....Imaging EKG: Image Reviewed Assessment/Plan IMP: CAD s/p PCI Atypical CP REC: 1. Serial cardiac enzymes negatie 2. Echo 3. Telemetry 4. Abd US without evidence of acute cholecystitis. 5. Stress MPI prior in AM: Lexiscan as patient cannot walk on treadmill.
[2018-01-10] MEDS: ALPRAZolam 2 MG TABLET PO PRN ×2 (09:57→22:11)
--- NOTE | 2018-01-10 12:37 | PN ---
Progress Note, Physician - Current Medication List Current Medications: Active Medications Acetaminophen (Tylenol -) 325 mg PO Q6H PRN PRN Reason: PAIN LEVEL 6-10 Last Admin: 01/10/18 09:50 Dose: 325 mg Albuterol/Ipratropium (Duoneb -) 1 amp NEB Q6H PRN PRN Reason: SHORT OF BREATH/WHEEZING Alprazolam (Xanax -) 2 mg PO Q12H PRN PRN Reason: ANXIETY Last Admin: 01/10/18 09:57 Dose: 2 mg Aspirin (Asa -) 81 mg PO DAILY [facility] Last Admin: 01/10/18 09:49 Dose: 81 mg Atorvastatin Calcium (Lipitor -) 80 mg PO HS [facility] Last Admin: 01/09/18 21:57 Dose: 80 mg Clopidogrel Bisulfate (Plavix -) 75 mg PO DAILY [facility] Last Admin: 01/10/18 09:49 Dose: 75 mg Methadone HCl 20 mg/ Methadone (HCl 40 mg) 60 mg PO DAILY@0600 [facility] Last Admin: 01/10/18 06:59 Dose: 60 mg Oxycodone HCl (Roxicodone -) 10 mg PO Q6H PRN PRN Reason: PAIN LEVEL 6-10 Last Admin: 01/10/18 09:49 Dose: 10 mg - Objective Vital Signs: Vital Signs Temperature 97.1 F L 01/10/18 10:00 Pulse Rate 69 01/10/18 10:00 Respiratory Rate 20 01/10/18 10:00 Blood Pressure 127/71 01/10/18 10:00 O2 Sat by Pulse Oximetry (%) 96 01/10/18 09:00 Cardiovascular: Yes: S1, S2 Respiratory: Yes: Regular, CTA Bilaterally Gastrointestinal: Yes: Normal Bowel Sounds, Soft, Tenderness Labs: CBC, BMP 01/09/18 09:00 01/09/18 09:00 INR, PTT INR 1.07 (0.83-1.09) 01/08/18 16:09 Problem List - Problems (1) Chest pain Assessment/Plan: -New t-wave inversions in lateral leads, new since October -Troponin #1 negative, #2 and #3 Neg -On ASA 81 mg -Plavix 75 mg qday -Telemetry monitoring -Cardiology consult Dr. Fragoso --Stress Test AM Code(s): R07.9 - CHEST PAIN, UNSPECIFIED Qualifiers: Chest pain type: unspecified Qualified Code(s): R07.9 - Chest pain, unspecified (2) Abnormal EKG Assessment/Plan: ABOVE Code(s): R94.31 - ABNORMAL ELECTROCARDIOGRAM [ECG] [EKG] (3) CAD (coronary artery disease) Code(s): I25.10 - ATHSCL HEART DISEASE OF [place] CORONARY ARTERY W/O ANG PCTRS Qualifiers: Coronary Disease-Associated Artery/Lesion type: [place] artery [place] vs. transplanted heart: [place] heart Associated angina: with other forms of angina Qualified Code(s): I25.118 - Atherosclerotic heart disease of [place] coronary artery with other forms of angina pectoris (4) Abdominal pain Assessment/Plan: -US NOTED -GI CONSULT Hepatic Panel Total Bilirubin 0.5 mg/dL (0.2-1) 01/08/18 16:09 AST 22 U/L (15-37) 01/08/18 16:09 ALT 27 U/L (13-61) 01/08/18 16:09 Alkaline Phosphatase 122 U/L (45-117) H 01/08/18 16:09 Albumin 4.0 g/dl (3.4-5.0) 01/08/18 16:09 Code(s): R10.9 - UNSPECIFIED ABDOMINAL PAIN
--- NOTE | 2018-01-10 13:36 | CON.GI ---
Consult Consult Specialty:: Gastroenterology ( covering Dr Elder) Referred by:: Dr Fuchs covering Dr Isabel Reason for Consultation:: Abdominal pain - History of Present Illness Chief Complaint: Chest pain and upper abdominal pain History of Present Illness: 57F is admitted for chest pain and awaits an EST. She had a JONATHAN placed at [facility] in 05/24. She also had a recurring epigastric pain aggravated by eating greasy food. She was seen by Dr. Norris for this pain on 11/06/17 when a gallstone was found. MRCP did not reveal CBD stones. She has never had a EGD but did have a colonoscopy with Dr. Rankin who removed stones earlier this year and advised a repeat colonoscopy due to a suboptimal prep. His office no longer accepted her insurance so she never had this done. Her half-brother developed colon cancer in his 50s and of it at age 61. The pain is sharp and associated with nausea and vomiting but does not radiate. She does get occasional heartburn as well. - History Source History Provided By: Patient Limitations to Obtaining History: No Limitations - Past Medical History Cardio/Vascular: Yes: CAD (05/19 JONATHAN placed [facility]), Hyperlipdemia Pulmonary: Yes: COPD, Sleep Apnea (uses CPAP at night) Gastrointestinal: Yes: Constipation, Other (colon polyps removed 2018 Dr Rankin ) Hepatobiliary: Yes: Cholelithiasis ...: No Psych: Yes: Anxiety, Depression Musculoskeletal: Yes: Chronic low back pain ENT: Yes: Allergic Rhinitis - Past Surgical History Past Surgical History: Yes: Colonoscopy (~8m ago, incomplete prep, plans repeat w/Dr. Rankin), Joint Replacement (right knee), Tubal Ligation (laparoscopic) Additional Surgical History: right foot escalator injury required multiple surgeries and led to one inadvertant right foot surgery - Alcohol/Substance Use Hx Alcohol Use: No History of Substance Use: reports: None - Smoking History Smoking history: Current some day smoker Have you smoked in the past 12 months: No Aproximately how many cigarettes per day: 6 If you are a former smoker, when did you quit?: 12/30/2017 - Social History Usual Living Arrangement: With Child ADL: Independent Occupation: disabled by right foor escalator injury Place of : [facility] History of Recent Travel: No Home Medications - Allergies Allergies/Adverse Reactions: Allergies Allergy/AdvReac Type Severity Reaction Status Date / Time No Known Allergies Allergy Verified 01/08/18 15:40 - Home Medications Home Medications: Ambulatory Orders Alprazolam [Xanax] 2 mg PO BID PRN 05/11/17 Methadone [Dolophine -] 70 mg PO DAILY 05/11/17 Albuterol 2.5/Ipratropium 0.5 [Duoneb -] 1 amp NEB Q6H PRN amp 05/12/17 Aspirin [ASA -] 81 mg PO DAILY tab.chew 05/12/17 Atorvastatin Ca [Lipitor] 80 mg PO HS tablet 05/12/17 Clopidogrel Bisulfate [Plavix -] 75 mg PO DAILY tablet 05/12/17 Oxycodone HCl/Acetaminophen [Endocet 10-325 mg Tablet] 1 each PO TID PRN Polyethylene Glycol 3350 [Miralax 119 gm Btl -] 17 gm PO BID #1 bottle 11/07/17 Family Disease History - Family Disease History Family Disease History: Diabetes: Mother (alive at 94), Heart Disease: Father ( young), CA: Brother (1 bro of colon cancer, 2 have lung cancer), Sister (3 sisters of CA) Review of Systems - Review of Systems Constitutional: reports: Malaise Eyes: reports: No Symptoms HENT: reports: No Symptoms Neck: reports: No Symptoms Cardiovascular: reports: Chest Pain, Palpitations, Shortness of Breath Respiratory: reports: Exercise Intolerance, SOB on Exertion Gastrointestinal: reports: Abdominal Pain, Constipation, Nausea, Vomiting Genitourinary: reports: No Symptoms Musculoskeletal: reports: Joint Pain Physical Exam-GI Vital Signs: Vital Signs Temperature 97.1 F L 01/10/18 10:00 Pulse Rate 69 01/10/18 10:00 Respiratory Rate 20 01/10/18 10:00 Blood Pressure 127/71 01/10/18 10:00 O2 Sat by Pulse Oximetry (%) 96 01/10/18 09:00 CBC,CMP WBC 8.3 K/mm3 (4.0-10.0) 01/09/18 09:00 RBC 4.72 M/mm3 (3.60-5.2) 01/09/18 09:00 Hgb 14.8 GM/dL (10.7-15.3) 01/09/18 09:00 Hct 42.8 % (32.4-45.2) 01/09/18 09:00 MCV 90.8 fl (80-96) 01/09/18 09:00 MCH 31.4 pg (25.7-33.7) 01/09/18 09:00 MCHC 34.5 g/dl (32.0-36.0) 01/09/18 09:00 RDW 13.6 % (11.6-15.6) 01/09/18 09:00 Plt Count 192 K/MM3 (134-434) 01/09/18 09:00 MPV 8.1 fl (7.5-11.1) 01/09/18 09:00 Absolute Neuts (auto) 5.3 K/mm3 (1.5-8.0) 01/09/18 09:00 Neutrophils % 63.9 % (42.8-82.8) 01/09/18 09:00 Lymphocytes % 25.9 % (8-40) 01/09/18 09:00 Monocytes % 6.9 % (3.8-10.2) 01/09/18 09:00 Eosinophils % 2.4 % (0-4.5) D 01/09/18 09:00 Basophils % 0.9 % (0-2.0) 01/09/18 09:00 Nucleated RBC % 0 % (0-0) 01/09/18 09:00 Sodium 140 mmol/L (136-145) 01/09/18 09:00 Potassium 3.8 mmol/L (3.5-5.1) 01/09/18 09:00 Chloride 103 mmol/L (98-107) 01/09/18 09:00 Carbon Dioxide 28 mmol/L (21-32) 01/09/18 09:00 Anion Gap 9 MMOL/L (8-16) 01/09/18 09:00 BUN 14 mg/dL (7-18) 01/09/18 09:00 Creatinine 0.7 mg/dL (0.55-1.3) 01/09/18 09:00 Creat Clearance w eGFR > 60 (>60) 01/09/18 09:00 Random Glucose 139 mg/dL (74-106) H 01/09/18 09:00 Calcium 8.8 mg/dL (8.5-10.1) 01/09/18 09:00 Magnesium 2.2 mg/dL (1.8-2.4) 01/09/18 09:00 Total Bilirubin 0.5 mg/dL (0.2-1) 01/08/18 16:09 AST 22 U/L (15-37) 01/08/18 16:09 ALT 27 U/L (13-61) 01/08/18 16:09 Alkaline Phosphatase 122 U/L (45-117) H 01/08/18 16:09 Creatine Kinase 233 IU/L (26-192) H 01/09/18 09:00 Creatine Kinase Index 0.9 % (0.0-5.0) 01/09/18 09:00 CK-MB (CK-2) 2.3 ng/mL (0.5-3.6) 01/09/18 09:00 Troponin I < 0.02 ng/ml (0.00-0.05) 01/09/18 09:00 B-Natriuretic Peptide 35.6 pg/ml (5-125) 01/08/18 16:09 Total Protein 7.6 g/dl (6.4-8.2) 01/08/18 16:09 Albumin 4.0 g/dl (3.4-5.0) 01/08/18 16:09 Triglycerides 87 mg/dL (0-150) 01/09/18 09:00 Cholesterol 129 mg/dL (50-200) 01/09/18 09:00 Total LDL Cholesterol 81 mg/dL (5-100) 01/09/18 09:00 HDL Cholesterol 35 mg/dL (40-60) L 01/09/18 09:00 Total Amylase 36 U/L (25-115) 01/09/18 09:00 Current Medications Generic Name Dose Route Start Last Admin Trade Name Freq PRN Reason Stop Dose Admin Acetaminophen 325 mg 01/09/18 16:14 01/10/18 09:50 Tylenol - PO 325 mg Q6H PRN Administration PAIN LEVEL 6-10 Albuterol/Ipratropium 1 amp 01/08/18 18:32 Duoneb - NEB Q6H PRN SHORT OF BREATH/WHEEZING Alprazolam 2 mg 01/08/18 18:32 01/10/18 09:57 Xanax - PO 2 mg Q12H PRN Administration ANXIETY Aspirin 81 mg 01/09/18 10:00 01/10/18 09:49 Asa - PO 81 mg DAILY [facility] Administration Atorvastatin Calcium 80 mg 01/08/18 22:00 01/09/18 21:57 Lipitor - PO 80 mg HS [facility] Administration Clopidogrel Bisulfate 75 mg 01/09/18 10:00 01/10/18 09:49 Plavix - PO 75 mg DAILY [facility] Administration Methadone HCl 20 mg/ Methadone 60 mg 01/09/18 08:45 01/10/18 06:59 HCl 40 mg PO 60 mg DAILY@0600 [facility] Administration Oxycodone HCl 10 mg 01/09/18 16:13 01/10/18 09:49 Roxicodone - PO 10 mg Q6H PRN Administration PAIN LEVEL 6-10 Constitutional: Yes: Calm Eyes: Yes: Conjunctiva Clear HENT: Yes: Atraumatic Neck: Yes: Supple Cardiovascular: Yes: Regular Rate and Rhythm Respiratory: Yes: CTA Bilaterally Gastrointestinal Inspection: Yes: Distention (obesity), Scars (laparoscopic BTL) ...Auscultate: Yes: Normoactive Bowel Sounds ...Palpate: Yes: Soft, Other (nontender) ...Rectal Exam: Yes: Guaiac Negative (no masss, brown g neg stool) Edema: No Labs: CBC, BMP 01/09/18 09:00 01/09/18 09:00 INR, PTT INR 1.07 (0.83-1.09) 01/08/18 16:09 Imaging - Results Ultrasound: Image Reviewed (large gallstone and 11mm CBD but no GB wall thickening) Problem List - Problems (1) Abdominal pain Assessment/Plan: Given her normal LFTs and the imaging I do not believe that this pain is due to biliary colic. I have advised an EGD tp exclude an ulcer, gastritis or large hiatal hernia with GERD among other possibilities. I have discussed EGD in detail including it's potential complications including perforation and hemorrhage so that she is in a position to make an informed consent. This cannot be done until she is cardiologically cleared. Dr Winston will be back tomorrow. Continue PPI in the interim. Code(s): R10.9 - UNSPECIFIED ABDOMINAL PAIN Qualifiers: Abdominal location: epigastric Qualified Code(s): R10.13 - Epigastric pain (2) Constipation Code(s): K59.00 - CONSTIPATION, UNSPECIFIED (3) Colon polyps Assessment/Plan: Will need to defer repeat colonoscopy until plavix can be interrupted Code(s): K63.5 - POLYP OF COLON (4) Family history of malignant neoplasm of colon in first degree relative diagnosed when younger than 60 years of age Code(s): Z80.0 - FAMILY HISTORY OF MALIGNANT NEOPLASM OF DIGESTIVE ORGANS (5) Calculus of gallbladder without cholecystitis without obstruction Code(s): K80.20 - CALCULUS OF GALLBLADDER W/O CHOLECYSTITIS W/O OBSTRUCTION (6) Morbid (severe) obesity with alveolar hypoventilation Code(s): E66.2 - MORBID (SEVERE) OBESITY WITH ALVEOLAR HYPOVENTILATION (7) S/P drug eluting coronary stent placement Code(s): Z95.5 - PRESENCE OF CORONARY ANGIOPLASTY IMPLANT AND GRAFT Assessment/Plan Epigastric pain does not appear to be related to gallstone EGD if cardiologically cleared Dr. Winston will return tomorrow. PPI empirically
[2018-01-10] MEDS ORDERED: MAG HYDROX/AL HYDROX/SIMETH 30 ML UNIT-DOSE CUP PO PRN (13:55)
[2018-01-10] MEDS ORDERED: POLYETHYLENE GLYCOL 3350 119 GM BTL PO ONE (22:06)
[2018-01-10] MEDS: ATORVASTATIN CA 80 MG TABLET (FP) PO SCH (22:08)
[2018-01-10] MEDS: PANTOPRAZOLE 40 MG TABLET (FP) PO SCH (22:08)
[2018-01-11] MEDS ORDERED: METHADONE HCL 40 MG DISPERSABLE TABLET ONE (05:39)
[2018-01-11] MEDS ORDERED: METHADONE HCL 10 MG TABLET ONE (05:40)
[2018-01-11] MEDS: METHADONE 20 MG, METHADONE 40 MG PO SCH (05:43)
[2018-01-11 06:25] LABS: EOS % 5.6 % (0-4.5); HEMATOCRIT 41.8 % (32.4-45.2); HEMOGLOBIN 14.4 GM/dL (10.7-15.3); LYMPH % 44.6 % (8-40); MCH 31.3 pg (25.7-33.7); MCHC 34.4 g/dl (32.0-36.0); MEAN PLT VOLUME 8.2 fl (7.5-11.1); MONO % 7.8 % (3.8-10.2); PLATELET COUNT 179 K/MM3 (134-434); RBC 4.59 M/mm3 (3.60-5.2); RDW 13.4 % (11.6-15.6); WHITE BLOOD COUNT 7.8 K/mm3 (4.0-10.0)
[2018-01-11 07:12] LABS: ALBUMIN 3.5 g/dl (3.4-5.0); ALK PHOS 123 U/L (45-117); ANION GAP 6 MMOL/L (8-16); BILIRUBIN,TOTAL 0.3 mg/dL (0.2-1); BLOOD UREA NITROGEN 14 mg/dL (7-18); CALCIUM 8.4 mg/dL (8.5-10.1); CHLORIDE 104 mmol/L (98-107); CO2 32 mmol/L (21-32); CREATININE 0.6 mg/dL (0.55-1.3); GLUCOSE,RANDOM 88 mg/dL (74-106); POTASSIUM 4.9 mmol/L (3.5-5.1); SGOT/AST 15 U/L (15-37); SGPT/ALT 29 U/L (13-61); SODIUM 142 mmol/L (136-145); TOT PROT 6.5 g/dl (6.4-8.2)
[2018-01-11] MEDS: oxyCODONE HCL 5 MG TABLET PO PRN ×2 (08:46→19:53)
--- NOTE | 2018-01-11 09:17 | PN ---
Progress Note, Physician Chief Complaint: ate this morning, will try to have nuclear stress later in day TELE: NSR. Appreciate GI input. - Current Medication List Current Medications: Active Medications Acetaminophen (Tylenol -) 325 mg PO Q6H PRN PRN Reason: PAIN LEVEL 6-10 Last Admin: 01/10/18 16:59 Dose: 325 mg Al Hydroxide/Mg Hydroxide (Mylanta Oral Suspension -) 30 ml PO Q6H PRN PRN Reason: DYSPEPSIA Albuterol/Ipratropium (Duoneb -) 1 amp NEB Q6H PRN PRN Reason: SHORT OF BREATH/WHEEZING Alprazolam (Xanax -) 2 mg PO Q12H PRN PRN Reason: ANXIETY Last Admin: 01/10/18 22:11 Dose: 2 mg Aspirin (Asa -) 81 mg PO DAILY [facility] Last Admin: 01/10/18 09:49 Dose: 81 mg Atorvastatin Calcium (Lipitor -) 80 mg PO HS [facility] Last Admin: 01/10/18 22:08 Dose: 80 mg Clopidogrel Bisulfate (Plavix -) 75 mg PO DAILY [facility] Last Admin: 01/10/18 09:49 Dose: 75 mg Methadone HCl 20 mg/ Methadone (HCl 40 mg) 60 mg PO DAILY@0600 [facility] Last Admin: 01/11/18 05:43 Dose: 60 mg Oxycodone HCl (Roxicodone -) 10 mg PO Q6H PRN PRN Reason: PAIN LEVEL 6-10 Last Admin: 01/11/18 08:46 Dose: 10 mg Pantoprazole Sodium (Protonix -) 40 mg PO BID [facility] Last Admin: 01/10/18 22:08 Dose: 40 mg - Objective Vital Signs: Vital Signs Temperature 98.5 F 01/11/18 05:00 Pulse Rate 61 01/11/18 05:00 Respiratory Rate 18 01/11/18 05:00 Blood Pressure 104/63 01/11/18 05:00 O2 Sat by Pulse Oximetry (%) 98 01/10/18 21:00 Constitutional: Yes: No Distress, Calm Cardiovascular: Yes: Regular Rate and Rhythm Respiratory: Yes: CTA Bilaterally Gastrointestinal: Yes: Soft (no acute rebound or guarding) Edema: No Neurological: Yes: Alert, Oriented Labs: CBC, BMP 01/11/18 05:30 01/11/18 05:30 INR, PTT INR 1.07 (0.83-1.09) 01/08/18 16:09 Selected Entries 11/05/17 13:31 O2 Sat by Pulse 99 Oximetry (%) Laboratory Tests 11/05/17 11/05/17 11/06/17 15:00 21:20 03:15 WBC Hgb Hct Plt Count Sodium Potassium BUN Creatinine Magnesium Creatine Kinase 188 121 100 Troponin I < 0.02 < 0.02 < 0.02 TSH 11/06/17 11/06/17 01/09/18 06:05 06:05 09:00 WBC 7.9 Hgb 13.5 Hct Plt Count 182 D Sodium Potassium 4.1 BUN Creatinine Magnesium 2.2 Creatine Kinase Troponin I < 0.02 TSH 01/09/18 01/11/18 01/11/18 09:00 05:30 05:30 WBC 7.8 Hgb 14.4 Hct 41.8 Plt Count 179 Sodium 142 Potassium 4.9 BUN 14 Creatinine 0.6 Magnesium Creatine Kinase 233 H Troponin I < 0.02 < 0.02 TSH 0.90 - ....Imaging EKG: Image Reviewed Assessment/Plan IMP: CAD s/p PCI Atypical CP REC: 1. Serial cardiac enzymes negative 2. Echo today 3. Telemetry 4. Abd US without evidence of acute cholecystitis. 5. Stress MPI prior in AM: Lexiscan as patient cannot walk on treadmill- planned for later in morning. Further CV reccs pending above.
[2018-01-11] MEDS: ALPRAZolam 2 MG TABLET PO PRN ×2 (09:35→21:17)
[2018-01-11] MEDS ORDERED: REGADENOSON 0.4 MG/5 ML PRE-FILLED SYRINGE IVPUSH ONE ×2 (10:43→14:15)
--- NOTE | 2018-01-11 11:51 | PN ---
Progress Note, Physician Chief Complaint: Atypical chest pain History of Present Illness: NAD Seen by Cardiology for chest pain Seen by GI to r/o biliary colic Stress test pending - Current Medication List Current Medications: Active Medications Acetaminophen (Tylenol -) 325 mg PO Q6H PRN PRN Reason: PAIN LEVEL 6-10 Last Admin: 01/10/18 16:59 Dose: 325 mg Al Hydroxide/Mg Hydroxide ([place] Oral Suspension -) 30 ml PO Q6H PRN PRN Reason: DYSPEPSIA Albuterol/Ipratropium (Duoneb -) 1 amp NEB Q6H PRN PRN Reason: SHORT OF BREATH/WHEEZING Alprazolam (Xanax -) 2 mg PO Q12H PRN PRN Reason: ANXIETY Last Admin: 01/11/18 09:35 Dose: 2 mg Aspirin (Asa -) 81 mg PO DAILY [facility] Last Admin: 01/10/18 09:49 Dose: 81 mg Atorvastatin Calcium (Lipitor -) 80 mg PO HS [facility] Last Admin: 01/10/18 22:08 Dose: 80 mg Clopidogrel Bisulfate (Plavix -) 75 mg PO DAILY [facility] Last Admin: 01/10/18 09:49 Dose: 75 mg Methadone HCl 20 mg/ Methadone (HCl 40 mg) 60 mg PO DAILY@0600 [facility] Last Admin: 01/11/18 05:43 Dose: 60 mg Oxycodone HCl (Roxicodone -) 10 mg PO Q6H PRN PRN Reason: PAIN LEVEL 6-10 Last Admin: 01/11/18 08:46 Dose: 10 mg Pantoprazole Sodium (Protonix -) 40 mg PO BID [facility] Last Admin: 01/10/18 22:08 Dose: 40 mg - Objective Vital Signs: Vital Signs Temperature 98.5 F 01/11/18 05:00 Pulse Rate 61 01/11/18 05:00 Respiratory Rate 18 01/11/18 05:00 Blood Pressure 104/63 01/11/18 05:00 O2 Sat by Pulse Oximetry (%) 98 01/10/18 21:00 Constitutional: Yes: Well Nourished, No Distress, Calm, Obese Cardiovascular: Yes: Regular Rate and Rhythm Respiratory: Yes: Regular Gastrointestinal: Yes: Normal Bowel Sounds, Soft, Abdomen, Obese Musculoskeletal: Yes: WNL Extremities: Yes: WNL Edema: No Peripheral Pulses WNL: Yes Neurological: Yes: Alert, Oriented Psychiatric: Yes: Alert, Oriented Labs: CBC, BMP 01/11/18 05:30 01/11/18 05:30 INR, PTT INR 1.07 (0.83-1.09) 01/08/18 16:09 Problem List - Problems (1) Chest pain Assessment/Plan: -Cardiology on board -Serial trops x 3 negative -Telemonitor-NSR on monitor -Last echo in 10/2017-with normal LVEF -Stress test pending Code(s): R07.9 - CHEST PAIN, UNSPECIFIED Qualifiers: Chest pain type: unspecified Qualified Code(s): R07.9 - Chest pain, unspecified (2) Family history of malignant neoplasm of colon in first degree relative diagnosed when younger than 60 years of age Assessment/Plan: -Seen by GI -U/S abdomen unremarkable -May be EGD if cleared by cardiology -PPI BID Code(s): Z80.0 - FAMILY HISTORY OF MALIGNANT NEOPLASM OF DIGESTIVE ORGANS (3) CAD S/P percutaneous coronary angioplasty Assessment/Plan: -cardiology on board -On Plavix and high intensity statin Code(s): I25.10 - ATHSCL HEART DISEASE OF [place] CORONARY ARTERY W/O ANG PCTRS; Z98.61 - CORONARY ANGIOPLASTY STATUS Assessment/Plan see problem list Physical therapy
--- NOTE | 2018-01-11 12:39 | ECHO ---
Name: DOUG MYERS Exam:Adult Echocardiogram Study Date: 01/11/2018 10:57 AM Age: 57 yrs Reason For Study: chest pain Height: 65 in Weight: 236 lb BSA: 2.1 m2 MMode/2D Measurements & Calculations IVSd: 0.78 cm Ao root diam: 3.4 cm LVIDd: 5.4 cm LA dimension: 4.1 cm LVIDs: 4.1 cm LVPWd: 0.81 cm EDV(Teich): 141.6 ml LVOT diam: 2.3 cm ESV(Teich): 74.6 ml TAPSE: 2.1 cm RV S Titi: 9.5 cm/sec Doppler Measurements & Calculations AI P1/2t: 530.1 msec AI max titi: 279.1 cm/sec AI max P.2 mmHg AI dec slope: 154.2 cm/sec2 Med Peak E' Titi: 3.0 cm/sec Lat Peak E' Titi: 3.6 cm/sec Procedure A complete two-dimensional transthoracic echocardiogram was performed (2D, M-mode, Doppler and color flow Doppler). Technically limited study. Left Ventricle The left ventricle is normal in size. Left ventricular systolic function is low normal. Ejection Frac tion = 50-55%. No regional wall motion abnormalities noted. Right Ventricle The right ventricle is normal size. The right ventricular systolic function is normal. Atria The left atrial size is normal. Right atrial size is normal. Mitral Valve The mitral valve is normal in structure and function. There is no mitral regurgitation noted. Tricuspid Valve The tricuspid valve is normal in structure and function. No tricuspid regurgitation. Aortic Valve The aortic valve is normal in structure and function. Mild to moderate aortic regurgitation. Pulmonic Valve The pulmonic valve is not well visualized. Great Vessels The aortic root is normal size. Pericardium/Pleura There is no pericardial effusion. Interpretation Summary Technically limited study The left ventricle is normal in size. Left ventricular systolic function is low normal. No regional wall motion abnormalities noted. Ejection Fraction = 50-55%. The right ventricular systolic function is normal. The left atrial size is normal. Right atrial size is normal. Mild to moderate aortic regurgitation. There is no pericardial effusion. When compared to study dated 11/06/17, likely no significant changes Spencer Garcia MD 01/11/2018 12:39 PM
[2018-01-11] MEDS: HEPARIN NA (PORCINE) 5,000 UNITS/ML 1ML VIAL SQ SCH ×2 (14:10→21:15)
[2018-01-11] MEDS: PANTOPRAZOLE 40 MG TABLET (FP) PO SCH ×2 (14:10→21:16)
[2018-01-11] MEDS: ASPIRIN 81 MG CHEWABLE TABLETS PO SCH (14:10)
[2018-01-11] MEDS: CLOPIDOGREL BISULFATE 75 MG TABLET (FP) PO SCH (14:10)
--- NOTE | 2018-01-11 16:56 | PN ---
GI Progress Note Subjective: Had stress test today States abdomen "just sore" Describes her pain at home as occurring 15 minutes after eating - Objective Vital Signs: Vital Signs Temperature 97.7 F 01/11/18 13:00 Pulse Rate 89 01/11/18 13:00 Respiratory Rate 20 01/11/18 13:00 Blood Pressure 117/51 L 01/11/18 13:00 O2 Sat by Pulse Oximetry (%) 97 01/11/18 09:00 Constitutional: Calm Eyes: No: Sclera Icterus Cardiovascular: Yes: Regular Rate and Rhythm Respiratory: Yes: CTA Bilaterally Gastrointestinal Inspection: No: Distention ...Auscultate: Yes: Normoactive Bowel Sounds ...Palpate: Yes: Soft, Tenderness (tenderness diffusely). No: Guarding, Tenderness, Rebound ...Percussion: No: Tympanitic Neurological: Yes: Alert, Oriented Labs: CBC, BMP 01/11/18 05:30 01/11/18 05:30 INR, PTT INR 1.07 (0.83-1.09) 01/08/18 16:09 Hepatic Panel Total Bilirubin 0.3 mg/dL (0.2-1) 01/11/18 05:30 AST 15 U/L (15-37) 01/11/18 05:30 ALT 29 U/L (13-61) 01/11/18 05:30 Alkaline Phosphatase 123 U/L (45-117) H 01/11/18 05:30 Albumin 3.5 g/dl (3.4-5.0) 01/11/18 05:30 Problem List - Problems (1) Abdominal pain Assessment/Plan: Seems to have a few patterns of pain. Post prandial pain as well as her current complaint of upper abdominal pain and more diffuse abdominal pain Suspect that she may have episodes of biliary colic. Current Abd US reveals a dilated CBD. The radiologist suggested correlating with prior MRI findings that failed to reveal dilated ducts. Repeat MRCP to evaluatye CBD Surgical evaluation however I suspect that elective interventions will need to wait given recent stent placement Discussed diagnostic EGD to exclude alternate pathology. Discussed potential risks of the procedure like but not limited to bleeding, perforation requiring surgery to repair, infection and sedation medication effects all of which could be potentially life threatening. She has agreed to the procedure. NPO after midnight Code(s): R10.9 - UNSPECIFIED ABDOMINAL PAIN Qualifiers: Abdominal location: epigastric Qualified Code(s): R10.13 - Epigastric pain
[2018-01-11] MEDS: ATORVASTATIN CA 80 MG TABLET (FP) PO SCH (21:17)
[2018-01-12] MEDS ORDERED: METHADONE HCL 40 MG DISPERSABLE TABLET ONE (06:08)
[2018-01-12] MEDS ORDERED: METHADONE HCL 10 MG TABLET ONE (06:08)
[2018-01-12] MEDS: METHADONE 20 MG, METHADONE 40 MG PO SCH (06:32)
[2018-01-12] MEDS: oxyCODONE HCL 5 MG TABLET PO PRN ×2 (07:21→17:42)
--- NOTE | 2018-01-12 09:15 | PN ---
Progress Note, Physician Chief Complaint: feels better Chest discomfort now resolved Ambulating TELE:NSR - Current Medication List Current Medications: Active Medications Acetaminophen (Tylenol -) 325 mg PO Q6H PRN PRN Reason: PAIN LEVEL 6-10 Last Admin: 01/10/18 16:59 Dose: 325 mg Al Hydroxide/Mg Hydroxide (Mylanta Oral Suspension -) 30 ml PO Q6H PRN PRN Reason: DYSPEPSIA Albuterol/Ipratropium (Duoneb -) 1 amp NEB Q6H PRN PRN Reason: SHORT OF BREATH/WHEEZING Alprazolam (Xanax -) 2 mg PO Q12H PRN PRN Reason: ANXIETY Last Admin: 01/11/18 21:17 Dose: 2 mg Aspirin (Asa -) 81 mg PO DAILY [facility] Last Admin: 01/11/18 14:10 Dose: 81 mg Atorvastatin Calcium (Lipitor -) 80 mg PO HS [facility] Last Admin: 01/11/18 21:17 Dose: 80 mg Clopidogrel Bisulfate (Plavix -) 75 mg PO DAILY [facility] Last Admin: 01/11/18 14:10 Dose: 75 mg Heparin Sodium (Porcine) (Heparin -) 5,000 unit SQ BID [facility] Last Admin: 01/11/18 21:15 Dose: 5,000 unit Methadone HCl 20 mg/ Methadone (HCl 40 mg) 60 mg PO DAILY@0600 [facility] Last Admin: 01/12/18 06:32 Dose: 60 mg Oxycodone HCl (Roxicodone -) 10 mg PO Q6H PRN PRN Reason: PAIN LEVEL 6-10 Last Admin: 01/12/18 07:21 Dose: 10 mg Pantoprazole Sodium (Protonix -) 40 mg PO BID [facility] Last Admin: 01/11/18 21:16 Dose: 40 mg - Objective Vital Signs: Vital Signs Temperature 98.3 F 01/12/18 05:00 Pulse Rate 64 01/12/18 05:00 Respiratory Rate 18 01/12/18 05:00 Blood Pressure 93/55 L 01/12/18 05:00 O2 Sat by Pulse Oximetry (%) 97 01/11/18 21:00 Constitutional: Yes: Calm Cardiovascular: Yes: Regular Rate and Rhythm Respiratory: Yes: CTA Bilaterally Gastrointestinal: Yes: Soft Edema: No Neurological: Yes: Alert, Oriented ...Motor Strength: WNL Labs: CBC, BMP 01/11/18 05:30 01/11/18 05:30 INR, PTT INR 1.07 (0.83-1.09) 01/08/18 16:09 - ....Imaging EKG: Image Reviewed Assessment/Plan IMP: CAD s/p PCI Atypical CP REC: 1. Serial cardiac enzymes negative, stress MPI w/out ischemia 2. Echo overall preserved LV fx with mild AR 3. Telemetry unremarkable 4. Abd US without evidence of acute cholecystitis. 5. No cardiac contraindication to diagnostic endoscopy. D/C telemetry. No further cardiac work up planned.
[2018-01-12] MEDS: HEPARIN NA (PORCINE) 5,000 UNITS/ML 1ML VIAL SQ SCH ×2 (10:08→21:29)
[2018-01-12] MEDS: CLOPIDOGREL BISULFATE 75 MG TABLET (FP) PO SCH (10:09)
[2018-01-12] MEDS: PANTOPRAZOLE 40 MG TABLET (FP) PO SCH (10:09)
[2018-01-12] MEDS: ASPIRIN 81 MG CHEWABLE TABLETS PO SCH (10:09)
[2018-01-12] MEDS: ALPRAZolam 2 MG TABLET PO PRN ×2 (10:10→21:29)
--- NOTE | 2018-01-12 10:51 | PN ---
Progress Note, Physician Chief Complaint: Atypical chest pain Biliary colic History of Present Illness: NAD Seen by Cardiology for chest pain Seen by GI for biliary colic Stress test reviewed in OR for EGD - Current Medication List Current Medications: Active Medications Acetaminophen (Tylenol -) 325 mg PO Q6H PRN PRN Reason: PAIN LEVEL 6-10 Last Admin: 01/10/18 16:59 Dose: 325 mg Al Hydroxide/Mg Hydroxide (Mylanta Oral Suspension -) 30 ml PO Q6H PRN PRN Reason: DYSPEPSIA Albuterol/Ipratropium (Duoneb -) 1 amp NEB Q6H PRN PRN Reason: SHORT OF BREATH/WHEEZING Alprazolam (Xanax -) 2 mg PO Q12H PRN PRN Reason: ANXIETY Last Admin: 01/12/18 10:10 Dose: 2 mg Aspirin (Asa -) 81 mg PO DAILY [facility] Last Admin: 01/12/18 10:09 Dose: 81 mg Atorvastatin Calcium (Lipitor -) 80 mg PO HS [facility] Last Admin: 01/11/18 21:17 Dose: 80 mg Clopidogrel Bisulfate (Plavix -) 75 mg PO DAILY [facility] Last Admin: 01/12/18 10:09 Dose: 75 mg Heparin Sodium (Porcine) (Heparin -) 5,000 unit SQ BID [facility] Last Admin: 01/12/18 10:08 Dose: 5,000 unit Methadone HCl 20 mg/ Methadone (HCl 40 mg) 60 mg PO DAILY@0600 [facility] Last Admin: 01/12/18 06:32 Dose: 60 mg Oxycodone HCl (Roxicodone -) 10 mg PO Q6H PRN PRN Reason: PAIN LEVEL 6-10 Last Admin: 01/12/18 07:21 Dose: 10 mg Pantoprazole Sodium (Protonix -) 40 mg PO BID [facility] Last Admin: 01/12/18 10:09 Dose: 40 mg - Objective Vital Signs: Vital Signs Temperature 97.6 F 01/12/18 09:00 Pulse Rate 64 01/12/18 09:00 Respiratory Rate 18 01/12/18 09:00 Blood Pressure 116/66 01/12/18 09:00 O2 Sat by Pulse Oximetry (%) 96 01/12/18 09:00 Labs: CBC, BMP 01/11/18 05:30 01/11/18 05:30 INR, PTT INR 1.07 (0.83-1.09) 01/08/18 16:09 Problem List - Problems (1) Chest pain Code(s): R07.9 - CHEST PAIN, UNSPECIFIED Qualifiers: Chest pain type: unspecified Qualified Code(s): R07.9 - Chest pain, unspecified (2) Family history of malignant neoplasm of colon in first degree relative diagnosed when younger than 60 years of age Code(s): Z80.0 - FAMILY HISTORY OF MALIGNANT NEOPLASM OF DIGESTIVE ORGANS (3) CAD S/P percutaneous coronary angioplasty Code(s): I25.10 - ATHSCL HEART DISEASE OF [place] CORONARY ARTERY W/O ANG PCTRS; Z98.61 - CORONARY ANGIOPLASTY STATUS
--- NOTE | 2018-01-12 11:44 | PN ---
Progress Note (short form) - Note Progress Note: EGD complete. Procedure report left in procedural section of physical chart and to be scanned into [employer] Problem List - Problems (1) Abdominal pain Code(s): R10.9 - UNSPECIFIED ABDOMINAL PAIN Qualifiers: Abdominal location: epigastric Qualified Code(s): R10.13 - Epigastric pain
[2018-01-12] MEDS: ATORVASTATIN CA 80 MG TABLET (FP) PO SCH (21:29)
[2018-01-13] MEDS ORDERED: METHADONE HCL 10 MG TABLET ONE (05:53)
[2018-01-13] MEDS ORDERED: METHADONE HCL 40 MG DISPERSABLE TABLET ONE (05:53)
[2018-01-13] MEDS: METHADONE 20 MG, METHADONE 40 MG PO SCH (05:58)
[2018-01-13] MEDS: ALPRAZolam 2 MG TABLET PO PRN (08:56)
--- NOTE | 2018-01-13 08:58 | CONSULT ---
- Consultation REQUESTING PROVIDER: CONSULT REQUEST: We have been asked to surgically evaluate this patient for ( specify). PCP:Yvon Isabel HISTORY OF PRESENT ILLNESS: PMHx: PSHx: Home Medications Medication Instructions Recorded Alprazolam [Xanax] 2 mg PO BID PRN 05/11/17 Methadone [Dolophine -] 70 mg PO DAILY 05/11/17 Albuterol 2.5/Ipratropium 0.5 1 amp NEB Q6H PRN amp 05/12/17 [Duoneb -] Aspirin [ASA -] 81 mg PO DAILY tab.chew 05/12/17 Atorvastatin Ca [Lipitor] 80 mg PO HS tablet 05/12/17 Clopidogrel Bisulfate [Plavix -] 75 mg PO DAILY tablet 05/12/17 Oxycodone HCl/Acetaminophen 1 each PO TID PRN 11/05/17 [Endocet 10-325 mg Tablet] Polyethylene Glycol 3350 [Miralax 17 gm PO BID #1 bottle 11/07/17 119 gm Btl -] Allergies Allergy/AdvReac Type Severity Reaction Status Date / Time No Known Allergies Allergy Verified 01/08/18 15:40 REVIEW OF SYSTEMS: CONSTITUTIONAL: Absent: fever, chills, diaphoresis, generalized weakness, malaise, loss of appetite, weight change CARDIOVASCULAR: Absent: chest pain, syncope, palpitations, irregular heart rate, lightheadedness , peripheral edema RESPIRATORY: Absent: cough, shortness of breath, dyspnea with exertion, wheezing, stridor, hemoptysis GASTROINTESTINAL: Absent: abdominal pain, abdominal distension, nausea, vomiting, diarrhea, constipation, melena, hematochezia GENITOURINARY: Absent: dysuria, frequency, urgency, hesitancy, hematuria, flank pain, genital pain MUSCULOSKELETAL: Absent: myalgia, arthralgia, joint swelling, back pain, neck pain SKIN: Absent: rash, itching, pallor HEMATOLOGIC/IMMUNOLOGIC: Absent: easy bleeding, easy bruising, lymphadenopathy NEUROLOGIC: Absent: headache, focal weakness, paresthesias, dizziness, unsteady gait, seizure, mental status changes, bladder or bowel incontinence PSYCHIATRIC: Absent: anxiety, depression, suicidal or homicidal ideation, hallucinations. PHYSICAL EXAM: GENERAL: Awake, alert, and fully oriented, in no acute distress. HEAD: Normal with no signs of trauma. EYES: PERRL, sclera anicteric, conjunctiva clear. NECK: Normal ROM, supple without lymphadenopathy, JVD, or masses. LUNGS: Clear to auscultation bilat anteriorly. No wheezes, and no crackles. No accessory muscle use. HEART: Regular rate and rhythm. No murmurs ABDOMEN: Soft, nontender, not distended, normoactive bowel sounds, no guarding, no rebound, no masses. No organomegaly. MUSCULOSKELETAL: Normal ROM at all joints. No bony deformities or tenderness. No CVA tenderness. UPPER EXTREMITIES: 2+ pulses, warm, well-perfused. No cyanosis. Cap refill <2 seconds. No peripheral edema. LOWER EXTREMITIES: 2+ pulses, warm, well-perfused. No calf tenderness. No peripheral edema. NEUROLOGICAL: Normal speech, gait not observed. PSYCH: Cooperative. Good eye contact. Appropriate mood and affect. SKIN: Warm, dry, normal turgor, no rashes or lesions noted. Vital Signs Temperature 98.1 F 01/13/18 05:00 Pulse Rate 73 01/13/18 05:00 Respiratory Rate 18 01/13/18 05:00 Blood Pressure 99/64 01/13/18 05:00 O2 Sat by Pulse Oximetry (%) 95 01/12/18 21:00 Lab Results WBC 7.8 K/mm3 (4.0-10.0) 01/11/18 05:30 RBC 4.59 M/mm3 (3.60-5.2) 01/11/18 05:30 Hgb 14.4 GM/dL (10.7-15.3) 01/11/18 05:30 Hct 41.8 % (32.4-45.2) 01/11/18 05:30 MCV 91.0 fl (80-96) 01/11/18 05:30 MCHC 34.4 g/dl (32.0-36.0) 01/11/18 05:30 RDW 13.4 % (11.6-15.6) 01/11/18 05:30 Plt Count 179 K/MM3 (134-434) 01/11/18 05:30 Sodium 142 mmol/L (136-145) 01/11/18 05:30 Potassium 4.9 mmol/L (3.5-5.1) 01/11/18 05:30 Chloride 104 mmol/L (98-107) 01/11/18 05:30 Carbon Dioxide 32 mmol/L (21-32) 01/11/18 05:30 Anion Gap 6 MMOL/L (8-16) L 01/11/18 05:30 BUN 14 mg/dL (7-18) 01/11/18 05:30 Creatinine 0.6 mg/dL (0.55-1.3) 01/11/18 05:30 Random Glucose 88 mg/dL (74-106) 01/11/18 05:30 Calcium 8.4 mg/dL (8.5-10.1) L 01/11/18 05:30 IMPINR 1.07 (0.83-1.09) 01/08/18 16:09 IMP: biliary colic w/o evidenece of acute cholecystitis PLAN: Elective lap erin once patient can be off ASA and Plavix; we discussed the s's and s's of acute cholecystitis and what to do should that occur prior to any elective procedure
--- NOTE | 2018-01-13 09:01 | PN ---
Progress Note, Physician Chief Complaint: EGD- mild inflammation gastric antrum TELE: NSR History of Present Illness: feeling better, no further CP Ambulating - Current Medication List Current Medications: Active Medications Acetaminophen (Tylenol -) 325 mg PO Q6H PRN PRN Reason: PAIN LEVEL 6-10 Last Admin: 01/10/18 16:59 Dose: 325 mg Al Hydroxide/Mg Hydroxide (Mylanta Oral Suspension -) 30 ml PO Q6H PRN PRN Reason: DYSPEPSIA Albuterol/Ipratropium (Duoneb -) 1 amp NEB Q6H PRN PRN Reason: SHORT OF BREATH/WHEEZING Alprazolam (Xanax -) 2 mg PO Q12H PRN PRN Reason: ANXIETY Last Admin: 01/13/18 08:56 Dose: 2 mg Aspirin (Asa -) 81 mg PO DAILY [facility] Last Admin: 01/12/18 10:09 Dose: 81 mg Atorvastatin Calcium (Lipitor -) 80 mg PO HS [facility] Last Admin: 01/12/18 21:29 Dose: 80 mg Clopidogrel Bisulfate (Plavix -) 75 mg PO DAILY [facility] Last Admin: 01/12/18 10:09 Dose: 75 mg Heparin Sodium (Porcine) (Heparin -) 5,000 unit SQ BID [facility] Last Admin: 01/12/18 21:29 Dose: 5,000 unit Methadone HCl 20 mg/ Methadone (HCl 40 mg) 60 mg PO DAILY@0600 [facility] Last Admin: 01/13/18 05:58 Dose: 60 mg Oxycodone HCl (Roxicodone -) 10 mg PO Q6H PRN PRN Reason: PAIN LEVEL 6-10 Last Admin: 01/12/18 17:42 Dose: 10 mg Pantoprazole Sodium (Protonix -) 20 mg PO DAILY [facility] - Objective Vital Signs: Vital Signs Temperature 98.1 F 01/13/18 05:00 Pulse Rate 73 01/13/18 05:00 Respiratory Rate 18 01/13/18 05:00 Blood Pressure 99/64 01/13/18 05:00 O2 Sat by Pulse Oximetry (%) 95 01/12/18 21:00 Constitutional: Yes: No Distress, Calm Eyes: Yes: Conjunctiva Clear Cardiovascular: Yes: Regular Rate and Rhythm Respiratory: Yes: CTA Bilaterally Gastrointestinal: Yes: Soft Neurological: Yes: Alert ...Motor Strength: WNL Labs: CBC, BMP 01/11/18 05:30 01/11/18 05:30 INR, PTT INR 1.07 (0.83-1.09) 01/08/18 16:09 - ....Imaging EKG: Image Reviewed Assessment/Plan IMP: CAD s/p PCI Atypical CP REC: 1. Serial cardiac enzymes negative, stress MPI w/out ischemia 2. Echo overall preserved LV fx with mild AR 3. Telemetry unremarkable 4. Abd US without evidence of acute cholecystitis. EGD no sig findings, F/u GI 5. Would hold on elective cholecystectomy until 1 year post PCI at which time Plavix can be d/c'd
--- NOTE | 2018-01-13 09:04 | DS ---
Physical Examination Vital Signs: Vital Signs Temperature 98.1 F 01/13/18 05:00 Pulse Rate 73 01/13/18 05:00 Respiratory Rate 18 01/13/18 05:00 Blood Pressure 99/64 01/13/18 05:00 O2 Sat by Pulse Oximetry (%) 95 01/12/18 21:00 Findings/Remarks: feels better no cp wants to go home Cardiovascular: Yes: Regular Rate and Rhythm Respiratory: Yes: Regular, CTA Bilaterally Gastrointestinal: Yes: Normal Bowel Sounds, Soft Labs: CBC, BMP 01/11/18 05:30 01/11/18 05:30 Discharge Summary Reason For Visit: CHEST PAIN Current Active Problems Abnormal EKG (Acute) Chest pain (Acute) Colon polyps (Acute) Constipation (Acute) Family history of malignant neoplasm of colon in first degree relative diagnosed when younger than 60 years of age (Acute) Hospital Course: - Problems (1) Chest pain Assessment/Plan: -Cardiology on board -Serial trops x 3 negative -Telemonitor-NSR on monitor -Last echo in 10/2017-with normal LVEF -Stress test no ischemia--cleared by cardio Code(s): R07.9 - CHEST PAIN, UNSPECIFIED Qualifiers: Chest pain type: unspecified Qualified Code(s): R07.9 - Chest pain, unspecified (2) Family history of malignant neoplasm of colon in first degree relative diagnosed when younger than 60 years of age Assessment/Plan: -Seen by GI -U/S abdomen unremarkable -EGD --Gastritis--Gi follow up as outpatient -PPI BID Code(s): Z80.0 - FAMILY HISTORY OF MALIGNANT NEOPLASM OF DIGESTIVE ORGANS (3) CAD S/P percutaneous coronary angioplasty Assessment/Plan: -cardiology on board -On Plavix and high intensity statin Code(s): I25.10 - ATHSCL HEART DISEASE OF [place] CORONARY ARTERY W/O ANG PCTRS; Z98.61 - CORONARY ANGIOPLASTY STATUS Condition: Improved - Instructions Referrals: Yvon Isabel MD [Primary Care Provider] - 1 Week Juan Miguel Winston DO [Staff Physician] - 2 Weeks Disposition: HOME - Home Medications Comprehensive Discharge Medication List: Ambulatory Orders Alprazolam [Xanax] 2 mg PO BID PRN 05/11/17 Methadone [Dolophine -] 70 mg PO DAILY 05/11/17 Albuterol 2.5/Ipratropium 0.5 [Duoneb -] 1 amp NEB Q6H PRN amp 05/12/17 Aspirin [ASA -] 81 mg PO DAILY tab.chew 05/12/17 Atorvastatin Ca [Lipitor] 80 mg PO HS tablet 05/12/17 Clopidogrel Bisulfate [Plavix -] 75 mg PO DAILY tablet 05/12/17 Oxycodone HCl/Acetaminophen [Endocet 10-325 mg Tablet] 1 each PO TID PRN Polyethylene Glycol 3350 [Miralax 119 gm Btl -] 17 gm PO BID #1 bottle 11/07/17 Pantoprazole Sodium [Protonix -] 40 mg PO BID #60 tablet.ec 01/13/18
[2018-01-13 09:21] VITALS: BP 114/73; PULSE 81; TEMP 98.3
[2018-01-13] MEDS: ASPIRIN 81 MG CHEWABLE TABLETS PO SCH (09:35)
[2018-01-13] MEDS: CLOPIDOGREL BISULFATE 75 MG TABLET (FP) PO SCH (09:35)
[2018-01-13] MEDS: HEPARIN NA (PORCINE) 5,000 UNITS/ML 1ML VIAL SQ SCH (09:37)
[2018-01-13] MEDS ORDERED: PANTOPRAZOLE 20 MG TABLET (FP) PO SCH (10:00)
== END 2018-01-13 09:54 | disposition home or self-care (01) | DRG 445 ==
LOC: JER 14:44 → JERBED 17:21 → J4W 01-09 15:32
PROVIDERS: ADMIT Internal Medicine; ATTEND Family Medicine
PROC: 0DJ08ZZ Inspection of Upper Intestinal Tract, Via Natural or Artificial Opening Endoscopic (ICD-10-PCS; principal; 2018-01-12 10:00)
DX: K80.50 Calculus of bile duct without cholangitis or cholecystitis without obstruction (principal); F11.20 Opioid dependence, uncomplicated; R07.89 Other chest pain; I25.10 Atherosclerotic heart disease of native coronary artery without angina pectoris; J45.909 Unspecified asthma, uncomplicated; K29.70 Gastritis, unspecified, without bleeding; E78.5 Hyperlipidemia, unspecified; G47.33 Obstructive sleep apnea (adult) (pediatric); M48.00 Spinal stenosis, site unspecified; R94.31 Abnormal electrocardiogram [ECG] [EKG]; R10.13 Epigastric pain; J44.9 Chronic obstructive pulmonary disease, unspecified; F41.8 Other specified anxiety disorders; K59.00 Constipation, unspecified; M54.5 Low back pain; J30.9 Allergic rhinitis, unspecified; F17.210 Nicotine dependence, cigarettes, uncomplicated; E66.9 Obesity, unspecified; Z68.39 Body mass index [BMI] 39.0-39.9, adult; K80.80 Other cholelithiasis without obstruction; K63.5 Polyp of colon; Z95.5 Presence of coronary angioplasty implant and graft; Z96.651 Presence of right artificial knee joint; Z80.0 Family history of malignant neoplasm of digestive organs
CPT/HCPCS: 36415; 71046-TC-FY; 76705-TC; 78452-TC; 80048; 80053; 80061; 82150; 82550; 82553; 83036; 83721; 83735; 83880; 84443; 84484; 85025; 85610; 93005; 93010; 93017; 93306-TC; 99285-25; A9502; J1644; J2785

== ENCOUNTER 2018-04-30 02:15 | Inpatient (IN) | payer OTHER ==
[2018-04-30] MEDS ORDERED: ASPIRIN 81 MG CHEWABLE TABLETS PO ONE ×2 (02:48→03:53)
[2018-04-30] MEDS ORDERED: ASPIRIN 81 MG CHEWABLE TABLETS ONE (02:53)
--- NOTE | 2018-04-30 03:23 | PDOC ---
History of Present Illness - General Chief Complaint: Chest Pain Stated Complaint: CHEST PAIN Time Seen by Provider: 04/30/18 02:47 - History of Present Illness Initial Comments: 57 year old female with PMH of HTN, HLD, anxiety, and CAD (s/p stent placement 12/2017) presenting with sudden onset right sided chest pain at 16:30 which gradually worsened. She describes the pain as exertional, non-radiating, non- pleuritic and did not co-present with nausea, vomiting, and diarrhea. She originally believed that it was due to some indigestion but did not improve so she came to the ED to be evaluated. She took her aspirin 81 MG. 04/30/18 05:33 Past History - Past Medical History Allergies/Adverse Reactions: Allergies Allergy/AdvReac Type Severity Reaction Status Date / Time No Known Allergies Allergy Verified 04/30/18 02:30 Home Medications: Ambulatory Orders Alprazolam [Xanax] 2 mg PO BID PRN 05/11/17 Methadone [Dolophine -] 40 mg PO DAILY 05/11/17 Albuterol 2.5/Ipratropium 0.5 [Duoneb -] 1 amp NEB Q6H PRN amp 05/12/17 Aspirin [ASA -] 81 mg PO DAILY tab.chew 05/12/17 Atorvastatin Ca [Lipitor] 80 mg PO HS tablet 05/12/17 Clopidogrel Bisulfate [Plavix -] 75 mg PO DAILY tablet 05/12/17 Oxycodone HCl/Acetaminophen [Endocet 10-325 mg Tablet] 1 each PO QID PRN Polyethylene Glycol 3350 [Miralax 119 gm Btl -] 17 gm PO BID #1 bottle 11/07/17 Pantoprazole Sodium [Protonix -] 40 mg PO BID #60 tablet.ec 01/13/18 Venlafaxine HCl [Effexor -] 25 mg PO BID 03/30/18 Anemia: No Asthma: Yes Cancer: No Cardiac Disorders: Yes (CAD, has stent) CVA: No COPD: No CHF: No Dementia: No Diabetes: No GI Disorders: No Disorders: No HTN: No Hypercholesterolemia: Yes (on meds) Liver Disease: No Seizures: No Thyroid Disease: No - Surgical History Abdominal Surgery: No Appendectomy: No Cardiac Surgery: Yes (stent) Cholecystectomy: No Lung Surgery: No Neurologic Surgery: No Orthopedic Surgery: Yes (right ankle) - Immunization History Immunization Up to Date: Yes - Suicide/Smoking/Psychosocial Hx Smoking Status: Yes Smoking History: Unknown if ever smoked Have you smoked in the past 12 months: No Number of Cigarettes Smoked Daily: 6 If you are a former smoker, when did you quit?: 12/30/2017 Information on smoking cessation initiated: No 'Breaking Loose' booklet given: 08/21/14 Hx Alcohol Use: No Drug/Substance Use Hx: No Substance Use Type: Cocaine, Heroin Hx Substance Use Treatment: Yes ([facility]) Review of Systems - Review of Systems Constitutional: No: Chills, Diaphoresis, Fever HEENTM: No: Eye Pain, Blurred Vision, Tearing, Cataracts Respiratory: No: Cough, Orthopnea, Shortness of Breath Cardiac (ROS): No: Chest Pain, Edema ABD/GI: No: Constipated, Diarrhea, Nausea, Vomiting : No: Burning, Dysuria, Discharge Musculoskeletal: No: Back Pain, Joint Pain, Muscle Weakness Integumentary: No: Bruising, Erythema, Flushing, Lesions Neurological: No: Headache, Numbness, Paresthesia Psychiatric: Yes: Anxiety. No: Depression, Stressors Hematologic/Lymphatic: No: Anemia, Blood Clots, Easy Bleeding *Physical Exam - Vital Signs Last Vital Signs Temp Pulse Resp BP Pulse Ox 98.2 F 72 18 108/57 L 96 04/30/18 02:30 04/30/18 02:30 04/30/18 02:30 04/30/18 02:30 04/30/18 03:08 - Physical Exam General Appearance: Yes: Nourished, Appropriately Dressed. No: Apparent Distress HEENT: positive: EOMI, ODETTE, Normal ENT Inspection, Normal Voice Neck: positive: Trachea midline, Normal Thyroid, Supple. negative: Tender, Rigid Respiratory/Chest: positive: Lungs Clear, Normal Breath Sounds. negative: Chest Tender, Respiratory Distress Cardiovascular: positive: Regular Rhythm, Regular Rate Gastrointestinal/Abdominal: positive: Normal Bowel Sounds, Flat, Soft. negative : Tender Lymphatic: negative: Adenopathy, Tenderness Musculoskeletal: positive: Normal Inspection. negative: Decreased Range of Motion Extremity: positive: Normal Capillary Refill, Normal Inspection, Normal Range of Motion. negative: Tender Integumentary: positive: Normal Color, Dry, Warm Neurologic: positive: Fully Oriented, Alert, Normal Mood/Affect, Normal Response , Motor Strength 5/5 Moderate Sedation - Procedure Monitoring Vital Signs: Procedure Monitoring Vital Signs Temperature 98.2 F 04/30/18 02:30 Pulse Rate 72 04/30/18 02:30 Respiratory Rate 18 04/30/18 02:30 Blood Pressure 108/57 L 04/30/18 02:30 O2 Sat by Pulse Oximetry (%) 96 04/30/18 03:08 Heart Score/ECG Review - History History: Moderately suspicious - Electrocardiogram EKG: Normal - Age Age: 45-65 - Risk Factors Risk Factors Heart Score: Yes Hx Hypercholesterolemia, Yes Hx Hypertension, Yes Hx Obesity Based on the list above the patient has:: >/=3 risk factors or Hx atherosclerotic disease - Troponin Troponin: </= normal limit - Score Heart Score - Total: 4 ED Treatment Course - LABORATORY CBC & Chemistry Diagram: 04/30/18 02:59 04/30/18 02:59 - RADIOLOGY Radiology Studies Ordered: Category Date Time Status CHEST X-RAY PORTABLE* [RAD] Stat Radiology 04/30/18 02:48 Ordered Medical Decision Making - Medical Decision Making 57 year old with cardiac history and heart score of 4 with recent stent placement. Patient given aspirin 243 and Tylenol. Patient currently symptom free. Troponin negative and EKG demonstrating rate 71, PA interval 152, QRS 82, QTc 382, normal axis and unchanged from previous, Patient signed out to [facility] for tele obs chest pain rule out. 04/30/18 05:48 *DC/Admit/Observation/Transfer Diagnosis at time of Disposition: Chest pain Qualifiers: Chest pain type: other chest pain Qualified Code(s): R07.89 - Other chest pain ; R07.8 - Other chest pain - Discharge Dispostion Condition at time of disposition: Stable Decision to Admit order: Yes - Referrals - Patient Instructions - Post Discharge Activity
[2018-04-30 03:30] LABS: BASO % 0.9 % (0-2.0); HEMATOCRIT 43.2 % (32.4-45.2); HEMOGLOBIN 14.7 GM/dL (10.7-15.3); LYMPH % 31.4 % (8-40); MCH 31.3 pg (25.7-33.7); MCHC 34.1 g/dl (32.0-36.0); MEAN CELL VOLUME 91.7 fl (80-96); MEAN PLT VOLUME 8.1 fl (7.5-11.1); MONO % 7.9 % (3.8-10.2); NEUT % 55.8 % (42.8-82.8); PLATELET COUNT 224 K/MM3 (134-434); RBC 4.71 M/mm3 (3.60-5.2); RDW 14.2 % (11.6-15.6); WHITE BLOOD COUNT 12.4 K/mm3 (4.0-10.0)
[2018-04-30] MEDS ORDERED: ACETAMINOPHEN 500 MG TABLET (FP) PO ONE (03:48)
[2018-04-30] MEDS ORDERED: ACETAMINOPHEN INJECTION 100 ML IVPB ONE (03:52)
[2018-04-30 04:01] LABS: ALBUMIN 3.5 g/dl (3.4-5.0); ALK PHOS 114 U/L (45-117); ANION GAP 5 MMOL/L (8-16); BILIRUBIN,TOTAL 0.3 mg/dL (0.2-1); BLOOD UREA NITROGEN 19 mg/dL (7-18); CALCIUM 8.6 mg/dL (8.5-10.1); CHLORIDE 104 mmol/L (98-107); CO2 29 mmol/L (21-32); CREATININE 0.7 mg/dL (0.55-1.3); GLUCOSE,RANDOM 99 mg/dL (74-106); POTASSIUM 4.3 mmol/L (3.5-5.1); SGOT/AST 18 U/L (15-37); SGPT/ALT 23 U/L (13-61); SODIUM 138 mmol/L (136-145); TOT PROT 6.8 g/dl (6.4-8.2)
--- NOTE | 2018-04-30 04:04 | PDOC ---
Attending Attestation - Resident Resident Name: NatyFeli - ED Attending Attestation I have performed the following: I have examined & evaluated the patient, The case was reviewed & discussed with the resident, I agree w/resident's findings & plan, Exceptions are as noted - HPI HPI: 04/30/18 04:01 57-year-old female history of hypertension, hyperlipidemia, coronary disease status post stent presents with chest pain. The patient reports that she woke up in her usual state health. Proxy for pain, the patient developed a squeezing midsternal chest pain with no radiation or shortness of breath. Denies shortness of breath. Denies nausea, vomiting, diaphoresis. Denies fevers. Does not think is related to food. Initially she thought that this was related to indigestion but the pain persisted. The patient was concerned because this felt like her chest pain when she got a cardiac stent for before. Patient does have some mild reproducible anterior chest pain. - Physicial Exam PE: 04/30/18 04:01 GENERAL: Awake, alert, and fully oriented, in no acute distress HEAD: No signs of trauma EYES: EOMI, sclera anicteric, conjunctiva clear ENT: Auricles normal inspection, hearing grossly normal, nares patent,Moist mucosa NECK: Normal ROM, supple, LUNGS: Breath sounds equal, clear to auscultation bilaterally. No wheezes, and no crackles HEART: Regular rate and rhythm, normal S1 and S2, no murmurs, rubs or gallops. Mild TTP mid sternal anterior chest ABDOMEN: Soft, nontender, No guarding, no rebound. No masses EXTREMITIES: Normal range of motion, no edema. No clubbing or cyanosis. No cords, erythema, or tenderness NEUROLOGICAL: Cranial nerves II through XII grossly intact. Normal speech SKIN: Warm, Dry, normal turgor, no rashes or lesions noted. - Medical Decision Making 04/30/18 04:02 Vital Signs Temp Pulse Resp BP Pulse Ox 98.2 F 72 18 108/57 L 96 04/30/18 02:30 04/30/18 02:30 04/30/18 02:30 04/30/18 02:30 04/30/18 03:08 57-year-old female presents with chest pain. Though there may be some atypical components with the reproducible chest pain, the patient does endorse chest pain that seems similar to her prior chest pain that led to a cardiac stent. We' ll give aspirin. Rule out myocardial infarction. Chest x-ray, labs including troponin and admit to the hospital. Heart Score/ECG Review - History History: Moderately suspicious - Electrocardiogram EKG: Non specific repolarization disturbance - Age Age: 45-65 - Risk Factors Risk Factors Heart Score: Yes Hx Hypercholesterolemia, Yes Hx Hypertension Based on the list above the patient has:: >/=3 risk factors or Hx atherosclerotic disease - Troponin Troponin: </= normal limit - Score Heart Score - Total: 5 #1 ECG reviewed & interpreted by me at: 03:10 04/30/18 04:03 NSR 71, no std/chuck, T wave flat I, AVL, V6, normal axis, normal intervals, QTC 382 msec
--- NOTE | 2018-04-30 06:27 | HP ---
Admitting History and Physical - Primary Care Physician PCP: Yvon Isabel - Admission Chief Complaint: Chest Pain History of Present Illness: This is a 57 y/o woman with a PMHx of CAD, [place] s/p Stent 05/2017 ([facility]), COPD, HLD, Chronic Back Pain, Anxiety. Who presents to the ED with R- sided chest pain x yesterday. Patient reports having left arm pain x several weeks resolves with ASA. Patient reports that the chest pain started at rest which she attributed to heartburn after eating a chicken cutlet. However, she states" the pain would not go away, so I took my Asa at home". Patient denies diaphoresis, SOB, palpitations. Patient denies fever, chills, cough, dizziness, AP/N/V/D, constipation, dysuria History Source: Patient Limitations to Obtaining History: No Limitations - Past Medical History Cardiovascular: Yes: CAD (05/19 JONATHAN placed [facility]), Hyperlipdemia Pulmonary: Yes: COPD, Sleep Apnea (uses CPAP at night) Gastrointestinal: Yes: Constipation, Other (colon polyps removed 2018 Dr Rankin ) Hepatobiliary: Yes: Cholelithiasis Psych: Yes: Anxiety, Depression Musculoskeletal: Yes: Chronic low back pain ENT: Yes: Allergic Rhinitis - Past Surgical History Past Surgical History: Yes: Colonoscopy (~8m ago, incomplete prep, plans repeat w/Dr. Rankin), Joint Replacement (right knee), Stent, Tubal Ligation ( laparoscopic) - Smoking History Smoking history: Current some day smoker Have you smoked in the past 12 months: No Aproximately how many cigarettes per day: 5 - Alcohol/Substance Use Hx Alcohol Use: No History of Substance Use: reports: None - Social History Usual Living Arrangement: Yes: With Child ADL: Independent Occupation: disabled by right foor escalator injury History of Recent Travel: No Home Medications - Allergies Allergies/Adverse Reactions: Allergies Allergy/AdvReac Type Severity Reaction Status Date / Time No Known Allergies Allergy Verified 04/30/18 02:30 - Home Medications Home Medications: Ambulatory Orders Alprazolam [Xanax] 2 mg PO BID PRN 05/11/17 Methadone [Dolophine -] 40 mg PO DAILY 05/11/17 Albuterol 2.5/Ipratropium 0.5 [Duoneb -] 1 amp NEB Q6H PRN amp 05/12/17 Aspirin [ASA -] 81 mg PO DAILY tab.chew 05/12/17 Atorvastatin Ca [Lipitor] 80 mg PO HS tablet 05/12/17 Clopidogrel Bisulfate [Plavix -] 75 mg PO DAILY tablet 05/12/17 Oxycodone HCl/Acetaminophen [Endocet 10-325 mg Tablet] 1 each PO QID PRN Polyethylene Glycol 3350 [Miralax 119 gm Btl -] 17 gm PO BID #1 bottle 11/07/17 Pantoprazole Sodium [Protonix -] 40 mg PO BID #60 tablet.ec 01/13/18 Venlafaxine HCl [Effexor -] 25 mg PO BID 03/30/18 Family Disease History - Family Disease History Family Disease History: Diabetes: Mother (alive at 94), Heart Disease: Father ( young), CA: Brother (1 bro of colon cancer, 2 have lung cancer), Sister (3 sisters of CA), Other: Son, Daughter Review of Systems - Review of Systems Constitutional: reports: No Symptoms Eyes: reports: No Symptoms HENT: reports: No Symptoms Neck: reports: No Symptoms Cardiovascular: reports: Chest Pain Respiratory: reports: No Symptoms Gastrointestinal: reports: Indigestion Genitourinary: reports: No Symptoms Breasts: reports: No Symptoms Reported Musculoskeletal: reports: Extremity Pain Integumentary: reports: No Symptoms Neurological: reports: No Symptoms Endocrine: reports: No Symptoms Hematology/Lymphatic: reports: No Symptoms Psychiatric: reports: No Symptoms Physical Examination Vital Signs: Vital Signs Temperature 98.4 F 04/30/18 06:15 Pulse Rate 66 04/30/18 06:15 Respiratory Rate 18 04/30/18 06:15 Blood Pressure 108/67 04/30/18 06:15 O2 Sat by Pulse Oximetry (%) 96 04/30/18 06:15 Constitutional: Yes: Well Nourished, No Distress, Calm, Obese Eyes: Yes: WNL, Conjunctiva Clear, EOM Intact, PERRL HENT: Yes: WNL, Atraumatic, Normocephalic Neck: Yes: WNL, Supple, Trachea Midline Cardiovascular: Yes: WNL, Regular Rate and Rhythm, S1, S2 Respiratory: Yes: WNL, Regular, CTA Bilaterally Gastrointestinal: Yes: WNL, Normal Bowel Sounds, Soft, Abdomen, Obese ...Rectal Exam: Yes: Deferred Renal/: Yes: WNL Breast(s): Yes: WNL Extremities: Yes: WNL Edema: No Peripheral Pulses WNL: Yes Neurological: Yes: WNL, Alert, Oriented, Cran Nerves II-XII Intact ...Motor Strength: WNL Psychiatric: Yes: WNL, Alert, Oriented Labs: CBC, BMP 04/30/18 02:59 04/30/18 02:59 Laboratory Results - last 24 hr 04/30/18 04/30/18 02:59 02:59 WBC 12.4 H RBC 4.71 Hgb 14.7 Hct 43.2 MCV 91.7 MCH 31.3 MCHC 34.1 RDW 14.2 Plt Count 224 MPV 8.1 Absolute Neuts (auto) 6.9 Neutrophils % 55.8 D Lymphocytes % 31.4 D Monocytes % 7.9 Eosinophils % 4.0 Basophils % 0.9 Nucleated RBC % 0 Sodium 138 Potassium 4.3 Chloride 104 Carbon Dioxide 29 Anion Gap 5 L BUN 19 H Creatinine 0.7 Creat Clearance w eGFR > 60 Random Glucose 99 Calcium 8.6 Total Bilirubin 0.3 AST 18 ALT 23 Alkaline Phosphatase 114 Troponin I < 0.02 Total Protein 6.8 Albumin 3.5 Intake & Output 04/27/18 04/28/18 04/29/18 04/30/18 23:59 23:59 23:59 23:59 Weight 81.647 kg Confidential Drug Utilization ReportOthers' Prescriptions Patient Name: Danielle Amador Date: 1960 Address: [address] [place] [address] Sex: Female Rx Written Rx Dispensed Drug Quantity Days Supply Prescriber Name 04/15/2018 04/15/2018 alprazolam 2 mg tablet 60 30 Thee Nunes MD 03/19/2018 03/19/2018 alprazolam 2 mg tablet 60 30 Thee Nunes MD 02/19/2018 02/19/2018 alprazolam 2 mg tablet 60 30 Thee Nunes MD 01/21/2018 01/21/2018 alprazolam 2 mg tablet 60 30 Thee Nunes MD 12/23/2017 12/23/2017 alprazolam 2 mg tablet 60 30 Thee Nunes MD 11/25/2017 11/25/2017 alprazolam 2 mg tablet 60 30 Thee Nunes MD Current Medications Generic Name Dose Route Start Last Admin Trade Name Freq PRN Reason Stop Dose Admin Alprazolam 2 mg 04/30/18 06:49 Xanax - PO BID PRN ANXIETY Aspirin 81 mg 05/01/18 10:00 Asa - PO DAILY [facility] Atorvastatin Calcium 80 mg 04/30/18 22:00 Lipitor - PO HS [facility] Clopidogrel Bisulfate 75 mg 04/30/18 10:00 Plavix - PO DAILY [facility] Methadone HCl 70 mg 04/30/18 07:00 Dolophine - PO DAILY@0600 [facility] Pantoprazole Sodium 40 mg 04/30/18 10:00 Protonix - PO BID RE[facility] Venlafaxine HCl 25 mg 04/30/18 10:00 Effexor - PO BID REGI Imaging - Results Chest X-ray: Image Reviewed EKG: Image Reviewed Problem List - Problems (1) Chest pain Code(s): R07.9 - CHEST PAIN, UNSPECIFIED Qualifiers: Chest pain type: other chest pain Qualified Code(s): R07.89 - Other chest pain; R07.8 - Other chest pain (2) Shoulder pain Code(s): M25.519 - PAIN IN UNSPECIFIED SHOULDER (3) CAD S/P percutaneous coronary angioplasty Code(s): I25.10 - ATHSCL HEART DISEASE OF [place] CORONARY ARTERY W/O ANG PCTRS; Z98.61 - CORONARY ANGIOPLASTY STATUS (4) S/P drug eluting coronary stent placement Code(s): Z95.5 - PRESENCE OF CORONARY ANGIOPLASTY IMPLANT AND GRAFT (5) HLD (hyperlipidemia) Code(s): E78.5 - HYPERLIPIDEMIA, UNSPECIFIED (6) Back pain, chronic Code(s): M54.9 - DORSALGIA, UNSPECIFIED; G89.29 - OTHER CHRONIC PAIN (7) Anxiety Code(s): F41.9 - ANXIETY DISORDER, UNSPECIFIED (8) Depression Code(s): F32.9 - MAJOR DEPRESSIVE DISORDER, SINGLE EPISODE, UNSPECIFIED (9) Nicotine dependence Code(s): F17.200 - NICOTINE DEPENDENCE, UNSPECIFIED, UNCOMPLICATED Qualifiers: Nicotine product type: cigarettes (10) Patient on methadone maintenance therapy Code(s): F11.20 - OPIOID DEPENDENCE, UNCOMPLICATED Assessment/Plan This is a 57 y/o woman placed in Tele Observation for Chest Pain r/o [place] for further evaluation of their emergent condition. Plan: 1. Chest Pain r/o [place] s/p Stent Heart Score 4 Cardiac Monitoring Serial Enzymes neg x1, trend EKG reviewed no acute ischemic changes appreciated Chest Xray-reviewed Appreciate Cardiology consult Echo Continue Asa Continue Lipitor, Plavix 2. Hyperlipidemia Continue Lipitor Monitor LFTs 3. COPD stable No acute flare Continue home meds 4. Anxiety Continue Xanax 5. Chronic Back Pain Continue Methadone Verified Methadone dosage with [facility] Methadone program [phone], confirmed by Maile Lackey RN (Staff Nurse at the facility) Tylenol prn 6. Tobacco Dependence Patient counseled on smoking cessation, not amendable FEN PO fluids as tolerated Replete lytes prn Low Na Low Cholesterol Diet DVT ppx OOB SCDs Continue Plavix Dispo: Observation Visit type - Emergency Visit Emergency Visit: Yes ED Registration Date: 04/30/18 Care time: The patient presented to the Emergency Department on the above date and was hospitalized for further evaluation of their emergent condition. - New Patient This patient is new to me today: Yes Date on this admission: 04/30/18 - Critical Care Critical Care patient: No
[2018-04-30] MEDS ORDERED: METHADONE HCL 40 MG DISPERSABLE TABLET PO SCH (07:00)
[2018-04-30] MEDS ORDERED: METHADONE HCL 10 MG TABLET ONE (07:45)
--- NOTE | 2018-04-30 08:54 | PN ---
Progress Note, Physician Chief Complaint: Recent admission in January 2018 with similar sx: 57 Well known to me w CAD s/p PCI 05/2017, cholelithiasis, obesity presents for evaluation of epigastric and sternal CP starting yesterday after eating around 4 pm and persisted until 2 AM. She describes epigastric pressure radiating up to center of chest at rest. 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 Admitted in 01/2018 for similar sx: thought to be due to biliary colic. Repeat nuclear stress was negative for ischemia at that time. Denies edema, PND, orthopnea. No fever or chills. No cough, no pleuritic pain. History of Present Illness: PMH: As above Methadone dependance GERD Depression - Current Medication List Current Medications: Active Medications Alprazolam (Xanax -) 2 mg PO BID PRN PRN Reason: ANXIETY Aspirin (Asa -) 81 mg PO DAILY [facility] Atorvastatin Calcium (Lipitor -) 80 mg PO HS [facility] Clopidogrel Bisulfate (Plavix -) 75 mg PO DAILY [facility] Methadone HCl (Dolophine -) 70 mg PO DAILY@0600 [facility] Last Admin: 04/30/18 07:45 Dose: 70 mg Pantoprazole Sodium (Protonix -) 40 mg PO BID [facility] Venlafaxine HCl (Effexor -) 25 mg PO BID [facility] - Objective Vital Signs: Vital Signs Temperature 98.4 F 04/30/18 06:15 Pulse Rate 66 04/30/18 06:15 Respiratory Rate 18 04/30/18 06:15 Blood Pressure 108/67 04/30/18 06:15 O2 Sat by Pulse Oximetry (%) 96 04/30/18 06:15 Constitutional: Yes: No Distress Eyes: Yes: Conjunctiva Clear Cardiovascular: Yes: Regular Rate and Rhythm Respiratory: Yes: CTA Bilaterally (no wheezing or rales) Gastrointestinal: Yes: Soft (there is tenderness to palpation over epigastric region and RUQ No rebound or guarding) Edema: No Peripheral Pulses WNL: Yes Neurological: Yes: Alert, Oriented Labs: CBC, BMP 04/30/18 02:59 04/30/18 02:59 Laboratory Tests 04/30/18 04/30/18 02:59 02:59 WBC 12.4 H Hgb 14.7 Plt Count 224 Sodium 138 Potassium 4.3 BUN 19 H Creatinine 0.7 Calcium 8.6 Total Bilirubin 0.3 AST 18 ALT 23 Alkaline Phosphatase 114 Troponin I < 0.02 - ....Imaging Chest X-ray: Image Reviewed EKG: Image Reviewed (NSR 71 bpm, NSST changes, no acute changes.) Problem List - Problems (1) Atypical chest pain Code(s): R07.89 - OTHER CHEST PAIN (2) CAD S/P percutaneous coronary angioplasty Code(s): I25.10 - ATHSCL HEART DISEASE OF [place] CORONARY ARTERY W/O ANG PCTRS; Z98.61 - CORONARY ANGIOPLASTY STATUS (3) Calculus of gallbladder without cholecystitis without obstruction Code(s): K80.20 - CALCULUS OF GALLBLADDER W/O CHOLECYSTITIS W/O OBSTRUCTION (4) Morbid (severe) obesity with alveolar hypoventilation Code(s): E66.2 - MORBID (SEVERE) OBESITY WITH ALVEOLAR HYPOVENTILATION (5) Patient on methadone maintenance therapy Code(s): F11.20 - OPIOID DEPENDENCE, UNCOMPLICATED Assessment/Plan IMP: CAD s/p PCI 05/2017 Atypical CP Cholelithiasis, possible biliary colic *Lexican nuclear stress 01/2018 with no ischemia REC: 1. Serial cardiac enzymes and ECGs 2. Echo to r/o pericardial disease, EF assessment 3. To continue home cardiac meds including ASA and Plavix 4. Would repeat Abdominal US and consider GI evaluation. Will follow Thank you.
--- NOTE | 2018-04-30 10:00 | ECHO ---
Name: DOUG MYERS Exam:Adult Echocardiogram Study Date: 04/30/2018 08:42 AM Age: 57 yrs Reason For Study: Chest pain Height: 64 in Weight: 180 lb BSA: 1.9 m2 MMode/2D Measurements & Calculations IVSd: 1.00 cm Ao root diam: 3.0 cm LVIDd: 5.1 cm LA dimension: 3.1 cm LVIDs: 3.6 cm LVPWd: 0.94 cm EDV(Teich): 124.3 ml LAV (MOD-bp): 52.7 ml ESV(Teich): 56.0 ml Doppler Measurements & Calculations MV E max titi: 62.6 cm/sec MV A max titi: 51.4 cm/sec MV dec slope: 392.3 cm/sec2 MV E/A: 1.2 AI P1/2t: 648.9 msec AI max titi: 390.1 cm/sec AI max P.9 mmHg AI dec slope: 176.1 cm/sec2 TR max titi: 224.0 cm/sec Med Peak E' Titi: 5.5 cm/sec TR max P.1 mmHg Med E/e': 11.3 Lat Peak E' Titi: 11.4 cm/sec Lat E/e': 5.5 PI Vmax: 137.1 cm/sec Procedure The study was technically difficult with many images being suboptimal in quality. Left Ventricle Left ventricular systolic function is normal. Regional wall motion abnormalities cannot be excluded d ue to limited visualization. Right Ventricle The right ventricle is normal in size and function. Atria The left atrium is borderline dilated. Mitral Valve The mitral valve is normal in structure and function. There is no mitral valve stenosis. There is tra ce to mild mitral regurgitation. Tricuspid Valve The tricuspid valve is not well visualized, but is grossly normal. There is mild tricuspid regurgitat ion. Aortic Valve There is mild aortic sclerosis.;. No hemodynamically significant valvular aortic stenosis. Mild aorti c regurgitation. Pulmonic Valve The pulmonic valve is not well seen, but is grossly normal. There is no pulmonic valvular stenosis. T here is no pulmonic valvular regurgitation. Great Vessels The aortic root is normal size. Pericardium/Pleura There is no pericardial effusion. Interpretation Summary The study was technically difficult with many images being suboptimal in quality. Left ventricular systolic function is normal. Regional wall motion abnormalities cannot be excluded due to limited visualization. The right ventricle is normal in size and function. There is trace to mild mitral regurgitation. There is mild tricuspid regurgitation. There is mild aortic sclerosis.; Mild aortic regurgitation. There is no pericardial effusion. MD Lal *[place] 04/30/2018 09:59 AM
[2018-04-30] MEDS: VENLAFAXINE HCL 25 MG TABLET PO SCH ×2 (10:15→21:49)
[2018-04-30] MEDS: CLOPIDOGREL BISULFATE 75 MG TABLET (FP) PO SCH (10:15)
[2018-04-30] MEDS: PANTOPRAZOLE 40 MG TABLET (FP) PO SCH ×2 (10:20→21:50)
[2018-04-30] MEDS ORDERED: ALPRAZolam 2 MG TABLET ONE (10:32)
[2018-04-30] MEDS ORDERED: PANTOPRAZOLE 40 MG TABLET (FP) ONE (10:32)
[2018-04-30 10:39] LABS: MAGNESIUM 2.1 mg/dL (1.8-2.4)
--- NOTE | 2018-04-30 10:57 | PN ---
Progress Note, Physician Chief Complaint: patient seen in ER no chest pain complaining of itchy rash on her back and abdomen also has abdominal pain when eating certain foods - Current Medication List Current Medications: Active Medications Alprazolam (Xanax -) 2 mg PO BID PRN PRN Reason: ANXIETY Aspirin (Asa -) 81 mg PO DAILY [facility] Atorvastatin Calcium (Lipitor -) 80 mg PO HS [facility] Clopidogrel Bisulfate (Plavix -) 75 mg PO DAILY [facility] Methadone HCl (Dolophine -) 70 mg PO DAILY@0600 [facility] Last Admin: 04/30/18 07:45 Dose: 70 mg Pantoprazole Sodium (Protonix -) 40 mg PO BID [facility] Triamcinolone Acetonide (Aristocort 0.5% Cream -) 1 applic TP TID [facility] Venlafaxine HCl (Effexor -) 25 mg PO BID [facility] Zinc Acetate/Diphenhydramine (Benadryl 2% Cream) 1 applic TP TID [facility] - Objective Vital Signs: Vital Signs Temperature 98.4 F 04/30/18 06:15 Pulse Rate 66 04/30/18 06:15 Respiratory Rate 18 04/30/18 06:15 Blood Pressure 108/67 04/30/18 06:15 O2 Sat by Pulse Oximetry (%) 96 04/30/18 06:15 Constitutional: Yes: Mild Distress Cardiovascular: Yes: Regular Rate and Rhythm, S1, S2 Respiratory: Yes: CTA Bilaterally Gastrointestinal: Yes: Normal Bowel Sounds, Tenderness (RUQ) Edema: No Integumentary: Yes: Rash (hyperpugmented spots noted on back and abdomen, pruritic) Neurological: Yes: Alert, Oriented Labs: CBC, BMP 04/30/18 02:59 04/30/18 02:59 Problem List - Problems (1) Rash Assessment/Plan: triamcinolone and bendaryl cream check lipid profile Code(s): R21 - RASH AND OTHER NONSPECIFIC SKIN ERUPTION (2) Anxiety Assessment/Plan: xanax Code(s): F41.9 - ANXIETY DISORDER, UNSPECIFIED (3) Chest pain Assessment/Plan: echo normal LV systolic function CE 2 sets negative appreicate cardiology consult CAD s/p stents on aspirin plavix, statin Code(s): R07.9 - CHEST PAIN, UNSPECIFIED Qualifiers: Chest pain type: other chest pain Qualified Code(s): R07.89 - Other chest pain; R07.8 - Other chest pain (4) HLD (hyperlipidemia) Assessment/Plan: statin check lipid profile Code(s): E78.5 - HYPERLIPIDEMIA, UNSPECIFIED (5) Patient on methadone maintenance therapy Assessment/Plan: metrhadone Code(s): F11.20 - OPIOID DEPENDENCE, UNCOMPLICATED (6) Abdominal pain Assessment/Plan: liver sono GI consult look for GB slugde vs biliary stones PPI Code(s): R10.9 - UNSPECIFIED ABDOMINAL PAIN Qualifiers: Abdominal location: epigastric Qualified Code(s): R10.13 - Epigastric pain
--- NOTE | 2018-04-30 11:32 | EKG ---
Test Reason : Blood Pressure : / mmHG Vent. Rate : 071 BPM Atrial Rate : 071 BPM P-R Int : 152 ms QRS Dur : 082 ms QT Int : 352 ms P-R-T Axes : -19 039 070 degrees QTc Int : 382 ms NORMAL SINUS RHYTHM NONSPECIFIC T WAVE ABNORMALITY ABNORMAL ECG Confirmed by VIRI MCQUEEN MD ([id number]) on 04/30/2018 11:31:46 AM Referred By: Confirmed By:VIRI MCQUEEN MD
[2018-04-30 12:27] LABS: CHOLESTEROL 213 mg/dL (50-200); HDL CHOLESTEROL 40 mg/dL (40-60); TRIGLYCERIDES 94 mg/dL (0-150)
--- NOTE | 2018-04-30 15:41 | PN ---
Progress Note (short form) - Note Progress Note: spoke to mohanloreta about sono results will get surgery to see patient per her request start on lovaza based on lipid profile Problem List - Problems (1) Rash Code(s): R21 - RASH AND OTHER NONSPECIFIC SKIN ERUPTION (2) Anxiety Code(s): F41.9 - ANXIETY DISORDER, UNSPECIFIED (3) Chest pain Code(s): R07.9 - CHEST PAIN, UNSPECIFIED Qualifiers: Chest pain type: other chest pain Qualified Code(s): R07.89 - Other chest pain; R07.8 - Other chest pain (4) HLD (hyperlipidemia) Code(s): E78.5 - HYPERLIPIDEMIA, UNSPECIFIED (5) Patient on methadone maintenance therapy Code(s): F11.20 - OPIOID DEPENDENCE, UNCOMPLICATED (6) Abdominal pain Code(s): R10.9 - UNSPECIFIED ABDOMINAL PAIN Qualifiers: Abdominal location: epigastric Qualified Code(s): R10.13 - Epigastric pain
[2018-04-30] MEDS: TRIAMCINOLONE ACET 0.5% CREAM 15 GM TUBE TP SCH ×2 (16:25→21:48)
[2018-04-30] MEDS: OMEGA-3 ACID ETHYL ESTERS (FATTY-ACIDS) 1 GM CAPSULE (FP) PO SCH (21:50)
[2018-04-30] MEDS: ATORVASTATIN CA 80 MG TABLET (FP) PO SCH (21:50)
[2018-04-30] MEDS: ALPRAZolam 2 MG TABLET PO PRN (21:53)
[2018-05-01 04:17] VITALS: BMI 44.6
[2018-05-01] MEDS: TRIAMCINOLONE ACET 0.5% CREAM 15 GM TUBE TP SCH (06:26)
[2018-05-01] MEDS ORDERED: METHADONE HCL 10 MG TABLET ONE (08:33)
[2018-05-01] MEDS ORDERED: METHADONE HCL 40 MG DISPERSABLE TABLET ONE (08:33)
[2018-05-01] MEDS: METHADONE 40 MG, METHADONE 30 MG PO SCH (08:35)
--- NOTE | 2018-05-01 09:24 | PN ---
Progress Note, Physician Chief Complaint: Epigastric pain History of Present Illness: NAD CT abd showed distended gallbladder awaiting surgical consult - Current Medication List Current Medications: Active Medications Alprazolam (Xanax -) 2 mg PO BID PRN PRN Reason: ANXIETY Last Admin: 04/30/18 21:53 Dose: 2 mg Aspirin (Asa -) 81 mg PO DAILY [facility] Atorvastatin Calcium (Lipitor -) 80 mg PO HS [facility] Last Admin: 04/30/18 21:50 Dose: 80 mg Clopidogrel Bisulfate (Plavix -) 75 mg PO DAILY [facility] Last Admin: 04/30/18 10:15 Dose: 75 mg Methadone HCl 40 mg/ Methadone (HCl 30 mg) 70 mg PO DAILY@0600 [facility] Last Admin: 05/01/18 08:35 Dose: 70 mg [id number] Ethyl Esters (Lovaza -) 2 gm PO BID [facility] Last Admin: 04/30/18 21:50 Dose: 2 gm Pantoprazole Sodium (Protonix -) 40 mg PO BID [facility] Last Admin: 04/30/18 21:50 Dose: 40 mg Triamcinolone Acetonide (Aristocort 0.5% Cream -) 1 applic TP TID [facility] Last Admin: 05/01/18 06:26 Dose: 1 applic Venlafaxine HCl (Effexor -) 25 mg PO BID [facility] Last Admin: 04/30/18 21:49 Dose: 25 mg Zinc Acetate/Diphenhydramine (Benadryl 2% Cream) 1 applic TP TID [facility] Last Admin: 05/01/18 06:27 Dose: 1 applic - Objective Vital Signs: Vital Signs Temperature 97.8 F 05/01/18 06:00 Pulse Rate 64 05/01/18 06:00 Respiratory Rate 18 05/01/18 06:00 Blood Pressure 122/57 L 05/01/18 06:00 O2 Sat by Pulse Oximetry (%) 95 05/01/18 06:00 Constitutional: Yes: Well Nourished, No Distress, Calm Cardiovascular: Yes: Regular Rate and Rhythm Respiratory: Yes: Regular Gastrointestinal: Yes: Normal Bowel Sounds, Soft, Abdomen, Obese Musculoskeletal: Yes: WNL Extremities: Yes: WNL Edema: No Peripheral Pulses WNL: Yes Neurological: Yes: Alert, Oriented Psychiatric: Yes: Alert, Oriented Labs: CBC, BMP 04/30/18 02:59 04/30/18 02:59 Problem List - Problems (1) Abdominal pain Assessment/Plan: -CT abd distended gallbladder -Pain improved -Awaiting surgical consult Code(s): R10.9 - UNSPECIFIED ABDOMINAL PAIN Qualifiers: Abdominal location: epigastric Qualified Code(s): R10.13 - Epigastric pain (2) Atypical chest pain Assessment/Plan: -Seen by cardiology -trops negative Code(s): R07.89 - OTHER CHEST PAIN (3) Calculus of gallbladder without cholecystitis without obstruction Assessment/Plan: -Surgical consult -Hida scan ordered Code(s): K80.20 - CALCULUS OF GALLBLADDER W/O CHOLECYSTITIS W/O OBSTRUCTION Assessment/Plan see problem list Self ambulatory DVT prophylaxis
[2018-05-01] MEDS: ASPIRIN 81 MG CHEWABLE TABLETS PO SCH (09:44)
[2018-05-01] MEDS: CLOPIDOGREL BISULFATE 75 MG TABLET (FP) PO SCH (09:45)
[2018-05-01] MEDS: VENLAFAXINE HCL 25 MG TABLET PO SCH ×2 (09:45→22:27)
[2018-05-01] MEDS: HEPARIN NA (PORCINE) 5,000 UNITS/ML 1ML VIAL SQ SCH ×2 (09:45→22:27)
[2018-05-01] MEDS: OMEGA-3 ACID ETHYL ESTERS (FATTY-ACIDS) 1 GM CAPSULE (FP) PO SCH ×2 (09:45→22:27)
[2018-05-01] MEDS: PANTOPRAZOLE 40 MG TABLET (FP) PO SCH ×2 (09:45→22:27)
[2018-05-01] MEDS: ALPRAZolam 2 MG TABLET PO PRN ×2 (09:49→22:37)
[2018-05-01] MEDS ORDERED: hydrOXYzine HCL 25 MG TABLET (FP) PO PRN (10:12)
[2018-05-01] MEDS ORDERED: TRIAMCINOLONE ACET 0.1% 60 ML LOTION TP PRN (10:12)
[2018-05-01 11:13] LABS: BASO % 0.9 % (0-2.0); EOS % 4.2 % (0-4.5); HEMATOCRIT 40.1 % (32.4-45.2); HEMOGLOBIN 13.6 GM/dL (10.7-15.3); LYMPH % 37.7 % (8-40); MCH 31.2 pg (25.7-33.7); MCHC 33.8 g/dl (32.0-36.0); MEAN CELL VOLUME 92.2 fl (80-96); MEAN PLT VOLUME 8.2 fl (7.5-11.1); MONO % 9.2 % (3.8-10.2); PLATELET COUNT 204 K/MM3 (134-434); RBC 4.35 M/mm3 (3.60-5.2); RDW 14.2 % (11.6-15.6); WHITE BLOOD COUNT 7.9 K/mm3 (4.0-10.0)
--- NOTE | 2018-05-01 11:29 | CONSULT ---
Consult Consult Specialty:: General Surgery Reason for Consultation:: Cholecystitis? - History of Present Illness Chief Complaint: abdominal pain History of Present Illness: 57 yo female PMH CAD, [place] s/p Stent 05/2017 ([facility]), COPD, obesity, HLD, Chronic Back Pain, Anxiety, current smoker presents to the ED with R-sided chest pain x 1day. Patient reports having left arm pain x several weeks resolves with ASA. Patient reports that the chest pain started at rest which she attributed to heartburn after eating a chicken cutlet. However, she states" the pain would not go away, so I took my Asa at home". Patient denies diaphoresis, SOB, palpitations. Patient denies fever, chills, cough, dizziness, AP/N/V/D, constipation, dysuria. we were asked to assess. - History Source History Provided By: Patient, Medical Record Limitations to Obtaining History: No Limitations - Past Medical History Cardio/Vascular: Yes: CAD (05/19 JONATHAN placed [facility]), Hyperlipdemia Pulmonary: Yes: COPD, Sleep Apnea (uses CPAP at night) Gastrointestinal: Yes: Constipation, Other (colon polyps removed 2018 Dr Rankin ) Hepatobiliary: Yes: Cholelithiasis ...: No Psych: Yes: Anxiety, Depression Musculoskeletal: Yes: Chronic low back pain ENT: Yes: Allergic Rhinitis - Past Surgical History Past Surgical History: Yes: Colonoscopy (~8m ago, incomplete prep, plans repeat w/Dr. Rankin), Joint Replacement (right knee), Stent, Tubal Ligation ( laparoscopic) - Alcohol/Substance Use Hx Alcohol Use: No History of Substance Use: reports: None - Smoking History Smoking history: Current every day smoker Have you smoked in the past 12 months: No Aproximately how many cigarettes per day: 5 If you are a former smoker, when did you quit?: 12/30/2017 - Social History Usual Living Arrangement: With Child ADL: Independent Occupation: disabled by right foor escalator injury Place of : [facility] History of Recent Travel: No Home Medications - Allergies Allergies/Adverse Reactions: Allergies Allergy/AdvReac Type Severity Reaction Status Date / Time No Known Allergies Allergy Verified 04/30/18 02:30 - Home Medications Home Medications: Ambulatory Orders Alprazolam [Xanax] 2 mg PO BID PRN 05/11/17 Methadone [Dolophine -] 40 mg PO DAILY 05/11/17 Albuterol 2.5/Ipratropium 0.5 [Duoneb -] 1 amp NEB Q6H PRN amp 05/12/17 Aspirin [ASA -] 81 mg PO DAILY tab.chew 05/12/17 Atorvastatin Ca [Lipitor] 80 mg PO HS tablet 05/12/17 Clopidogrel Bisulfate [Plavix -] 75 mg PO DAILY tablet 05/12/17 Oxycodone HCl/Acetaminophen [Endocet 10-325 mg Tablet] 1 each PO QID PRN Polyethylene Glycol 3350 [Miralax 119 gm Btl -] 17 gm PO BID #1 bottle 11/07/17 Pantoprazole Sodium [Protonix -] 40 mg PO BID #60 tablet.ec 01/13/18 Venlafaxine HCl [Effexor -] 25 mg PO BID 03/30/18 Family Disease History - Family Disease History Family Disease History: Diabetes: Mother (alive at 94), Heart Disease: Father ( young), CA: Brother (1 bro of colon cancer, 2 have lung cancer), Sister (3 sisters of CA), Other: Son, Daughter Review of Systems - Review of Systems Constitutional: denies: Chills, Fever, Unintentional Wgt. Loss Eyes: denies: Blind Spots, Blurred Vision HENT: denies: Difficult Swallowing, Throat Pain Neck: denies: Pain on Movement, Stiffness, Tenderness Cardiovascular: reports: Chest Pain. denies: Palpitations Respiratory: denies: Cough, SOB Gastrointestinal: reports: Abdominal Pain, Indigestion. denies: Constipation, Diarrhea Genitourinary: denies: Burning, Discharge Breasts: reports: No Symptoms Reported. denies: Pain Musculoskeletal: denies: Muscle Cramps, Muscle Weakness Integumentary: denies: Pruritis, Rash Neurological: denies: Seizure, Syncope Endocrine: denies: Unexplained Weight Gain, Unexplained Weight Loss Hematology/Lymphatic: denies: Easily Bruised, Excessive Bleeding Psychiatric: denies: Anxiety, Depression Physical Exam Vital Signs: Vital Signs Temperature 98 F 05/01/18 09:59 Pulse Rate 76 05/01/18 09:59 Respiratory Rate 18 05/01/18 09:59 Blood Pressure 128/62 05/01/18 09:59 O2 Sat by Pulse Oximetry (%) 95 05/01/18 06:00 Constitutional: Yes: Well Nourished, No Distress, Calm, Obese Eyes: Yes: Conjunctiva Clear, EOM Intact HENT: Yes: Atraumatic, Normocephalic Neck: Yes: Supple, Trachea Midline Cardiovascular: Yes: Regular Rate and Rhythm, S1, S2 Respiratory: Yes: Regular, CTA Bilaterally Gastrointestinal: Yes: Normal Bowel Sounds, Soft, Abdomen, Obese. No: Tenderness, Tenderness, Epigastrium, Tenderness, Rebound ...Rectal Exam: Yes: Deferred Renal/: No: CVA Tenderness - Left, CVA Tenderness - Right Breast(s): No: Gynecomastia Musculoskeletal: No: Muscle Pain, Muscle Weakness Extremities: No: Cool, Cyanosis Edema: No Peripheral Pulses WNL: Yes Integumentary: No: Jaundice, Pressure Ulcer, Rash Neurological: Yes: Alert, Oriented Psychiatric: Yes: Alert, Oriented Labs: CBC, BMP 05/01/18 10:45 Imaging - Results Ultrasound: Report Reviewed, Image Reviewed (Large stone in the body of gallbladder) Problem List - Problems (1) Calculus of gallbladder without cholecystitis without obstruction Assessment/Plan: 57 yo with MMP including CAD s/p PCI with chronic biliary colic and cholecystitis HIDA scan hold plavix plan for laparoscopic cholecytectomy 05/03/18 Discussed with patient risks, benefits and alternatives of laparoscopic possible open cholecystectomy, including but not limited to bleeding, infection , injury to adjacent structures, leak or injury, intraabdominal abscess, incisional hernia, need for further procedures, ; alternatives include antibiotics, delayed or no surgery - risks of this include failure of nonoperative therapy, perforation, sepsis, recurrence, . Patient desires to proceed with operation - will take to OR for above. Informed consent signed for same. Thank you for the opportunity to participate in the care of this patient. Code(s): K80.20 - CALCULUS OF GALLBLADDER W/O CHOLECYSTITIS W/O OBSTRUCTION (2) Anxiety Code(s): F41.9 - ANXIETY DISORDER, UNSPECIFIED (3) HLD (hyperlipidemia) Code(s): E78.5 - HYPERLIPIDEMIA, UNSPECIFIED Qualifiers: Hyperlipidemia type: pure hypercholesterolemia Qualified Code(s): E78.00 - Pure hypercholesterolemia, unspecified; E78.0 - Pure hypercholesterolemia (4) S/P drug eluting coronary stent placement Code(s): Z95.5 - PRESENCE OF CORONARY ANGIOPLASTY IMPLANT AND GRAFT (5) CAD (coronary artery disease) Code(s): I25.10 - ATHSCL HEART DISEASE OF [place] CORONARY ARTERY W/O ANG PCTRS Qualifiers: Coronary Disease-Associated Artery/Lesion type: [place] artery [place] vs. transplanted heart: [place] heart Associated angina: with other forms of angina Qualified Code(s): I25.118 - Atherosclerotic heart disease of [place] coronary artery with other forms of angina pectoris (6) Chronic use of opiate drugs therapeutic purposes Code(s): Z79.899 - OTHER POWDERER (CURRENT) DRUG THERAPY (7) Depression Code(s): F32.9 - MAJOR DEPRESSIVE DISORDER, SINGLE EPISODE, UNSPECIFIED (8) Nicotine dependence Code(s): F17.200 - NICOTINE DEPENDENCE, UNSPECIFIED, UNCOMPLICATED Qualifiers: Nicotine product type: cigarettes
[2018-05-01 11:39] LABS: ALBUMIN 3.4 g/dl (3.4-5.0); ALK PHOS 110 U/L (45-117); AMYLASE 56 U/L (25-115); ANION GAP 3 MMOL/L (8-16); BILIRUBIN,TOTAL 0.5 mg/dL (0.2-1); BLOOD UREA NITROGEN 17 mg/dL (7-18); CALCIUM 8.6 mg/dL (8.5-10.1); CHLORIDE 105 mmol/L (98-107); CO2 30 mmol/L (21-32); CREATININE 0.7 mg/dL (0.55-1.3); GLUCOSE,RANDOM 85 mg/dL (74-106); LIPASE 259 U/L (73-393); PHOSPHOROUS 3.5 mg/dL (2.5-4.9); POTASSIUM 4.2 mmol/L (3.5-5.1); SGOT/AST 9 U/L (15-37); SGPT/ALT 20 U/L (13-61); SODIUM 137 mmol/L (136-145); TOT PROT 6.4 g/dl (6.4-8.2)
[2018-05-01] MEDS: NICOTINE 14 MG/24 HOURS TOPICAL PATCH TD SCH (13:33)
--- NOTE | 2018-05-01 13:40 | PN ---
Progress Note, Physician Chief Complaint: Pt sitting up; asymptomatic (no chest or abdominal pain). History of Present Illness: 57-year-old black female history of hypertension, hyperlipidemia, coronary disease status post stent, now presents with chest pain. The patient reports that she woke up in her usual state health. Proxy for pain, the patient developed a squeezing midsternal chest pain with no radiation or shortness of breath. Denies shortness of breath. Denies nausea, vomiting, diaphoresis. Denies fevers. Does not think is related to food. Initially she thought that this was related to indigestion but the pain persisted. The patient was concerned because this felt like her chest pain when she got a cardiac stent for before. Patient does have some mild reproducible anterior chest pain. - Current Medication List Current Medications: Active Medications Alprazolam (Xanax -) 2 mg PO BID PRN PRN Reason: ANXIETY Last Admin: 05/01/18 09:49 Dose: 2 mg Aspirin (Asa -) 81 mg PO DAILY [facility] Last Admin: 05/01/18 09:44 Dose: 81 mg Atorvastatin Calcium (Lipitor -) 80 mg PO HS [facility] Last Admin: 04/30/18 21:50 Dose: 80 mg Clopidogrel Bisulfate (Plavix -) 75 mg PO DAILY [facility] Last Admin: 05/01/18 09:45 Dose: 75 mg Heparin Sodium (Porcine) (Heparin -) 5,000 unit SQ BID [facility] Last Admin: 05/01/18 09:45 Dose: 5,000 unit Hydroxyzine HCl (Atarax -) 25 mg PO Q6H PRN PRN Reason: FOR ITCHING Methadone HCl 40 mg/ Methadone (HCl 30 mg) 70 mg PO DAILY@0600 [facility] Last Admin: 05/01/18 08:35 Dose: 70 mg Nicotine (Nicoderm Patch -) 14 mg TD DAILY [facility] Last Admin: 05/01/18 13:33 Dose: 14 mg [id number] Ethyl Esters (Lovaza -) 2 gm PO BID [facility] Last Admin: 05/01/18 09:45 Dose: 2 gm Pantoprazole Sodium (Protonix -) 40 mg PO BID [facility] Last Admin: 05/01/18 09:45 Dose: 40 mg Triamcinolone Acetonide (Aristocort 0.1% Lotion -) 1 applic TP QID PRN PRN Reason: itching Venlafaxine HCl (Effexor -) 25 mg PO BID [facility] Last Admin: 05/01/18 09:45 Dose: 25 mg Zinc Acetate/Diphenhydramine (Benadryl 2% Cream) 1 applic TP TID [facility] Last Admin: 05/01/18 06:27 Dose: 1 applic - Objective Vital Signs: Vital Signs Temperature 98 F 05/01/18 09:59 Pulse Rate 76 05/01/18 09:59 Respiratory Rate 18 05/01/18 09:59 Blood Pressure 128/62 05/01/18 09:59 O2 Sat by Pulse Oximetry (%) 95 05/01/18 06:00 Constitutional: Yes: No Distress Eyes: Yes: WNL HENT: Yes: WNL Cardiovascular: Yes: S1, S2 Respiratory: Yes: WNL Gastrointestinal: Yes: Soft. No: Tenderness ...Rectal Exam: Yes: Deferred Genitourinary: No: Anuria Musculoskeletal: Yes: WNL Extremities: Yes: WNL Edema: No Peripheral Pulses WNL: Yes Integumentary: Yes: WNL Neurological: Yes: WNL Psychiatric: Yes: WNL Labs: CBC, BMP 05/01/18 10:45 05/01/18 10:45 - ....Imaging EKG: Image Reviewed Problem List - Problems (1) Gallstone Assessment/Plan: Clopidogrel held in anticipation of possible cholecystectomy. From a cardiac standpoint, there are no absolute contraindiations for pt to undergo cholecystecomy; to be scheduled by surgeon with understanding that pt had clopidogrel as recently as yesterday, 04/30/2018. Code(s): K80.20 - CALCULUS OF GALLBLADDER W/O CHOLECYSTITIS W/O OBSTRUCTION (2) Anxiety Code(s): F41.9 - ANXIETY DISORDER, UNSPECIFIED (3) HLD (hyperlipidemia) Assessment/Plan: f/u lipid panel Code(s): E78.5 - HYPERLIPIDEMIA, UNSPECIFIED Qualifiers: Hyperlipidemia type: pure hypercholesterolemia Qualified Code(s): E78.00 - Pure hypercholesterolemia, unspecified; E78.0 - Pure hypercholesterolemia (4) Atypical chest pain Assessment/Plan: TNI < 0.02; f/u seriallly. Stress MIBI 01/24: no ischemia. ECHO: normal LVEF. Code(s): R07.89 - OTHER CHEST PAIN
--- NOTE | 2018-05-01 15:12 | CON.GI ---
Consult Consult Specialty:: Gastroenterology ( covering the [facility] GI service) Referred by:: Dr. Rachael Garcia Reason for Consultation:: abdominal pain - History of Present Illness Chief Complaint: Recurring epigastric pain History of Present Illness: 57F has recurring epigastric pain that led to admissions in 10/24 and 01/24. The pain is felt to be biliary colic but surgery had to be deferred as she had a JONATHAN stent inserted in 05/24. This time she describes colicky pain that radiates into her chest but not into the back. No dyspnea. It is aggravated by eating fatty rich foods. She had an EGD by Dr Winston on 01/12/18 that revealed mild antral erythema but no ulcers or cause for her pain. She had a colonoscopy with Dr Rankin in 2017 which led to the removal of polyps. A repeat colonoscopy was advised in 1 year due to a suboptimal prep. Her half-brother developed colon cancer in his 50 and of it at age 61. Her sonogram reveals GB distension with a stone and progressive dilation of her CBD. Her LFTs are WNL. Hida scan is negative. - History Source History Provided By: Patient Limitations to Obtaining History: No Limitations - Past Medical History Cardio/Vascular: Yes: CAD (05/24 JONATHAN placed ), Hyperlipdemia Pulmonary: Yes: COPD, Sleep Apnea (uses CPAP at night) Gastrointestinal: Yes: Constipation, Gastritis (mild on 01/24 EGD), Other ( colon polyps removed 2018 Dr Rankin) Hepatobiliary: Yes: Cholelithiasis, Other (fatty liver) ...: No Psych: Yes: Anxiety, Depression Musculoskeletal: Yes: Chronic low back pain ENT: Yes: Allergic Rhinitis - Past Surgical History Past Surgical History: Yes: Colonoscopy (early 2017 polyps removed, incomplete prep, repeat advised by Dr. Rankin), Joint Replacement (right knee), Stent, Tubal Ligation (laparoscopic), Upper Endoscopy - Alcohol/Substance Use Hx Alcohol Use: No History of Substance Use: reports: None - Smoking History Smoking history: Current every day smoker Have you smoked in the past 12 months: No Aproximately how many cigarettes per day: 5 If you are a former smoker, when did you quit?: 12/30/2017 - Social History Usual Living Arrangement: With Child ADL: Independent Occupation: disabled by right foot escalator injury Place of : [facility] History of Recent Travel: No Home Medications - Allergies Allergies/Adverse Reactions: Allergies Allergy/AdvReac Type Severity Reaction Status Date / Time No Known Allergies Allergy Verified 04/30/18 02:30 - Home Medications Home Medications: Ambulatory Orders Alprazolam [Xanax] 2 mg PO BID PRN 05/11/17 Methadone [Dolophine -] 40 mg PO DAILY 05/11/17 Albuterol 2.5/Ipratropium 0.5 [Duoneb -] 1 amp NEB Q6H PRN amp 05/12/17 Aspirin [ASA -] 81 mg PO DAILY tab.chew 05/12/17 Atorvastatin Ca [Lipitor] 80 mg PO HS tablet 05/12/17 Clopidogrel Bisulfate [Plavix -] 75 mg PO DAILY tablet 05/12/17 Oxycodone HCl/Acetaminophen [Endocet 10-325 mg Tablet] 1 each PO QID PRN Polyethylene Glycol 3350 [Miralax 119 gm Btl -] 17 gm PO BID #1 bottle 11/07/17 Pantoprazole Sodium [Protonix -] 40 mg PO BID #60 tablet.ec 01/13/18 Venlafaxine HCl [Effexor -] 25 mg PO BID 03/30/18 Family Disease History - Family Disease History Family Disease History: Diabetes: Mother (alive at 94), Heart Disease: Father ( young), CA: Brother (1 bro of colon cancer, 2 have lung cancer), Sister (3 sisters of CA), Other: Son, Daughter Review of Systems - Review of Systems Constitutional: reports: Chills Eyes: reports: No Symptoms HENT: reports: No Symptoms Neck: reports: No Symptoms Cardiovascular: reports: Chest Pain Respiratory: reports: No Symptoms Gastrointestinal: reports: Abdominal Pain Genitourinary: reports: No Symptoms Physical Exam-GI Vital Signs: Vital Signs Temperature 98 F 05/01/18 09:59 Pulse Rate 76 05/01/18 09:59 Respiratory Rate 18 05/01/18 09:59 Blood Pressure 128/62 05/01/18 09:59 O2 Sat by Pulse Oximetry (%) 95 05/01/18 06:00 CBC,CMP WBC 7.9 K/mm3 (4.0-10.0) 05/01/18 10:45 RBC 4.35 M/mm3 (3.60-5.2) 05/01/18 10:45 Hgb 13.6 GM/dL (10.7-15.3) 05/01/18 10:45 Hct 40.1 % (32.4-45.2) 05/01/18 10:45 MCV 92.2 fl (80-96) 05/01/18 10:45 MCH 31.2 pg (25.7-33.7) 05/01/18 10:45 MCHC 33.8 g/dl (32.0-36.0) 05/01/18 10:45 RDW 14.2 % (11.6-15.6) 05/01/18 10:45 Plt Count 204 K/MM3 (134-434) 05/01/18 10:45 MPV 8.2 fl (7.5-11.1) 05/01/18 10:45 Absolute Neuts (auto) 3.8 K/mm3 (1.5-8.0) 05/01/18 10:45 Neutrophils % 48.0 % (42.8-82.8) 05/01/18 10:45 Lymphocytes % 37.7 % (8-40) D 05/01/18 10:45 Monocytes % 9.2 % (3.8-10.2) 05/01/18 10:45 Eosinophils % 4.2 % (0-4.5) 05/01/18 10:45 Basophils % 0.9 % (0-2.0) 05/01/18 10:45 Nucleated RBC % 0 % (0-0) 05/01/18 10:45 Sodium 137 mmol/L (136-145) 05/01/18 10:45 Potassium 4.2 mmol/L (3.5-5.1) 05/01/18 10:45 Chloride 105 mmol/L (98-107) 05/01/18 10:45 Carbon Dioxide 30 mmol/L (21-32) 05/01/18 10:45 Anion Gap 3 MMOL/L (8-16) L 05/01/18 10:45 BUN 17 mg/dL (7-18) 05/01/18 10:45 Creatinine 0.7 mg/dL (0.55-1.3) 05/01/18 10:45 Creat Clearance w eGFR > 60 (>60) 05/01/18 10:45 Random Glucose 85 mg/dL (74-106) 05/01/18 10:45 Calcium 8.6 mg/dL (8.5-10.1) 05/01/18 10:45 Phosphorus 3.5 mg/dL (2.5-4.9) 05/01/18 10:45 Magnesium 2.1 mg/dL (1.8-2.4) 04/30/18 09:18 Total Bilirubin 0.5 mg/dL (0.2-1) 05/01/18 10:45 AST 9 U/L (15-37) L 05/01/18 10:45 ALT 20 U/L (13-61) 05/01/18 10:45 Alkaline Phosphatase 110 U/L (45-117) 05/01/18 10:45 Troponin I < 0.02 ng/ml (0.00-0.05) 04/30/18 14:45 C-Reactive Protein < 0.3 MG/DL (0.00-0.3) 05/01/18 10:45 Total Protein 6.4 g/dl (6.4-8.2) 05/01/18 10:45 Albumin 3.4 g/dl (3.4-5.0) 05/01/18 10:45 Triglycerides 94 mg/dL (0-150) 04/30/18 09:18 Cholesterol 213 mg/dL (50-200) H 04/30/18 09:18 Total LDL Cholesterol 156 mg/dL (5-100) H 04/30/18 09:18 HDL Cholesterol 40 mg/dL (40-60) 04/30/18 09:18 Total Amylase 56 U/L (25-115) 05/01/18 10:45 Lipase 259 U/L (73-393) 05/01/18 10:45 Current Medications Generic Name Dose Route Start Last Admin Trade Name Freq PRN Reason Stop Dose Admin Alprazolam 2 mg 04/30/18 06:49 05/01/18 09:49 Xanax - PO 2 mg BID PRN Administration ANXIETY Aspirin 81 mg 05/01/18 10:00 05/01/18 09:44 Asa - PO 81 mg DAILY REGI Administration Atorvastatin Calcium 80 mg 04/30/18 22:00 04/30/18 21:50 Lipitor - PO 80 mg HS REGI Administration Clopidogrel Bisulfate 75 mg 04/30/18 10:00 05/01/18 09:45 Plavix - PO 75 mg DAILY REGI Administration Heparin Sodium (Porcine) 5,000 unit 05/01/18 10:00 05/01/18 09:45 Heparin - SQ 5,000 unit BID REGI Administration Hydroxyzine HCl 25 mg 05/01/18 10:12 Atarax - PO Q6H PRN FOR ITCHING Methadone HCl 40 mg/ Methadone 70 mg 05/01/18 08:00 05/01/18 08:35 HCl 30 mg PO 70 mg DAILY@0600 REGI Administration Nicotine 14 mg 05/01/18 12:45 05/01/18 13:33 Nicoderm Patch - TD 14 mg DAILY REGI Administration [id number] Ethyl Esters 2 gm 04/30/18 22:00 05/01/18 09:45 Lovaza - PO 2 gm BID REGI Administration Pantoprazole Sodium 40 mg 04/30/18 10:00 05/01/18 09:45 Protonix - PO 40 mg BID REGI Administration Triamcinolone Acetonide 1 applic 05/01/18 10:12 Aristocort 0.1% Lotion - TP QID PRN itching Venlafaxine HCl 25 mg 04/30/18 10:00 05/01/18 09:45 Effexor - PO 25 mg BID REGI Administration Zinc Acetate/Diphenhydramine 1 applic 04/30/18 14:00 05/01/18 06:27 Benadryl 2% Cream TP 1 applic TID REGI Administration Constitutional: Yes: Calm Eyes: Yes: Conjunctiva Clear HENT: Yes: Atraumatic Neck: Yes: Supple Cardiovascular: Yes: Regular Rate and Rhythm Respiratory: Yes: CTA Bilaterally Gastrointestinal Inspection: Yes: Scars (healed laparoscopic incisions) ...Auscultate: Yes: Normoactive Bowel Sounds ...Palpate: Yes: Soft, Tenderness (right epigastric/RUQ mild tenderness, no rebound) ...Percussion: Yes: Tympanitic ...Rectal Exam: Yes: Guaiac Negative (no masses, brown guaiac negative stool) Edema: No Peripheral Pulses WNL: Yes Neurological: Yes: Alert, Oriented Labs: CBC, BMP 05/01/18 10:45 05/01/18 10:45 Imaging - Results Ultrasound: Report Reviewed ([facility] Name: [facility] Phys: Rachael Garcia MD : 1960 Age: 57 Sex: F [facility] Acct: [id number] Loc: [facility] [address] [facility] Exam Date: 04/30/18 Status: [place] [address] Unit Number: [id number] EXAM#: TYPE/EXAM : RESULT: US/ABDOMEN US -LIMITED Gallstones and sludge. Right upper quadrant pain Right upper abdomen ultrasound. Compared to prior upper abdomen ultrasound dated 01/09/2018. The liver measures 16.9 cm in sagittal length with a slightly dense and coarse echotexture. Gallbladder is over distended measuring 12.4 cm in sagittal length with an intraluminal stone measuring 3.2 cm. There is no thickening of the gallbladder wall or pericholecystic free fluid. No gross intrahepatic bile duct dilatation is seen. Dilated common bile duct measuring 1.3 cm in AP dimension. The right kidney measures 11.5 cm sagittal length with a simple cyst in its midportion measuring 3.2 x 2.6 cm. There is also suggestion of mild hydronephrosis. Nonvisualization of the pancreas, likely due to overlying bowel gas Visualized portion of the proximal abdominal aorta and inferior vena cava appear unremarkable. Normal flow in the main portal vein. IMPRESSION: Over distended gallbladder with a large stone measuring 3.2 cm and without wall thickening or pericholecystic free fluid. Interval slight increase dilatation of the common bile duct now measuring 1.3 cm in diameter. On prior examination it measured 1.1 cm. Mild fatty infiltration of the liver versus hepatocellular disease. Please correlate with liver enzymes. Left mid renal simple cyst measuring 3.2 x 2.6 cm with questionable interval mild left renal hydronephrosis. Reported By: Shaniqua Mota MD 04/30/18 1215 Technologist: Daniella Corley Transcribed Date/Time: 04/30/181214 Gender Studies Professor: Shaniqua Mota Printed Date/Time: By: Signed by: Shaniqua Mota Signed on: 30-Apr-2018 12:17) Problem List - Problems (1) Biliary colic Assessment/Plan: Despite negative Hida I believe that Doug's GB is the source of her pain. I suspect that her stone intermittently occludes the proximal cystic duct but is too large to enter it. I have explained this to Leesa and support Dr Woodard's decision to proceed with a cholecystectomy. I communicated with Clau De La Fuente NP. Code(s): K80.50 - CALCULUS OF BILE DUCT W/O CHOLANGITIS OR CHOLECYST W/O OBST (2) Colon polyps Assessment/Plan: I have reminded Doug that she needs to arrange a repeat colonoscopy either with me or Dr Winston. Code(s): K63.5 - POLYP OF COLON (3) Chest pain Code(s): R07.9 - CHEST PAIN, UNSPECIFIED Qualifiers: Chest pain type: other chest pain Qualified Code(s): R07.89 - Other chest pain; R07.8 - Other chest pain (4) Gallstone Code(s): K80.20 - CALCULUS OF GALLBLADDER W/O CHOLECYSTITIS W/O OBSTRUCTION (5) CAD S/P percutaneous coronary angioplasty Code(s): I25.10 - ATHSCL HEART DISEASE OF [place] CORONARY ARTERY W/O ANG PCTRS; Z98.61 - CORONARY ANGIOPLASTY STATUS (6) Family history of malignant neoplasm of colon in first degree relative diagnosed when younger than 60 years of age Code(s): Z80.0 - FAMILY HISTORY OF MALIGNANT NEOPLASM OF DIGESTIVE ORGANS (7) Morbid (severe) obesity with alveolar hypoventilation Code(s): E66.2 - MORBID (SEVERE) OBESITY WITH ALVEOLAR HYPOVENTILATION (8) S/P drug eluting coronary stent placement Code(s): Z95.5 - PRESENCE OF CORONARY ANGIOPLASTY IMPLANT AND GRAFT (9) Sleep related hypoventilation in conditions classified elsewhere Code(s): G47.36 - SLEEP RELATED HYPOVENTILATION IN CONDITIONS CLASSD [id number] Assessment/Plan Impression: Biliary colic due to large gallstone Personal h/o colon polyps and FH of colon cancer and due for a repeat colonoscopy Plan: Proceed with lap choly when Plavix wears off Doug agrees to make a followup appointment for a colonoscopy
[2018-05-01] MEDS: ATORVASTATIN CA 80 MG TABLET (FP) PO SCH (22:27)
[2018-05-02] MEDS ORDERED: METHADONE HCL 40 MG DISPERSABLE TABLET ONE (05:58)
[2018-05-02] MEDS ORDERED: METHADONE HCL 10 MG TABLET ONE (05:58)
[2018-05-02] MEDS: METHADONE 40 MG, METHADONE 30 MG PO SCH (06:02)
[2018-05-02] MEDS: OMEGA-3 ACID ETHYL ESTERS (FATTY-ACIDS) 1 GM CAPSULE (FP) PO SCH ×2 (09:34→22:36)
[2018-05-02] MEDS: ASPIRIN 81 MG CHEWABLE TABLETS PO SCH (09:35)
[2018-05-02] MEDS: PANTOPRAZOLE 40 MG TABLET (FP) PO SCH ×2 (09:35→22:09)
[2018-05-02] MEDS: NICOTINE 14 MG/24 HOURS TOPICAL PATCH TD SCH (09:35)
[2018-05-02] MEDS: VENLAFAXINE HCL 25 MG TABLET PO SCH ×2 (09:36→22:08)
[2018-05-02] MEDS: ALPRAZolam 2 MG TABLET PO PRN ×2 (09:48→22:09)
[2018-05-02] MEDS: CLOPIDOGREL BISULFATE 75 MG TABLET (FP) PO SCH (10:00)
[2018-05-02] MEDS: HEPARIN NA (PORCINE) 5,000 UNITS/ML 1ML VIAL SQ SCH ×2 (10:00→22:09)
--- NOTE | 2018-05-02 12:56 | PN ---
Progress Note, Physician Chief Complaint: Epigastric pain History of Present Illness: NAD CT abd showed distended gallbladder Seen by surgery plavix on hold, plan for sx on thursday Also seen by GIANNA CARD reviewed - Current Medication List Current Medications: Active Medications Alprazolam (Xanax -) 2 mg PO BID PRN PRN Reason: ANXIETY Last Admin: 05/02/18 09:48 Dose: 2 mg Aspirin (Asa -) 81 mg PO DAILY [facility] Last Admin: 05/02/18 09:35 Dose: 81 mg Atorvastatin Calcium (Lipitor -) 80 mg PO HS [facility] Last Admin: 05/01/18 22:27 Dose: 80 mg Clopidogrel Bisulfate (Plavix -) 75 mg PO DAILY [facility] Last Admin: 05/01/18 09:45 Dose: 75 mg Heparin Sodium (Porcine) (Heparin -) 5,000 unit SQ BID [facility] Last Admin: 05/01/18 22:27 Dose: 5,000 unit Hydroxyzine HCl (Atarax -) 25 mg PO Q6H PRN PRN Reason: FOR ITCHING Methadone HCl 40 mg/ Methadone (HCl 30 mg) 70 mg PO DAILY@0600 [facility] Last Admin: 05/02/18 06:02 Dose: 70 mg Nicotine (Nicoderm Patch -) 14 mg TD DAILY [facility] Last Admin: 05/02/18 09:35 Dose: 14 mg Krxtx-7-Qlld Ethyl Esters (Lovaza -) 2 gm PO BID [facility] Last Admin: 05/02/18 09:34 Dose: 2 gm Pantoprazole Sodium (Protonix -) 40 mg PO BID [facility] Last Admin: 05/02/18 09:35 Dose: 40 mg Triamcinolone Acetonide (Aristocort 0.1% Lotion -) 1 applic TP QID PRN PRN Reason: itching Venlafaxine HCl (Effexor -) 25 mg PO BID [facility] Last Admin: 05/02/18 09:36 Dose: 25 mg Zinc Acetate/Diphenhydramine (Benadryl 2% Cream) 1 applic TP TID [facility] Last Admin: 05/02/18 06:04 Dose: 1 applic - Objective Vital Signs: Vital Signs Temperature 97.8 F 05/02/18 05:00 Pulse Rate 64 05/02/18 05:00 Respiratory Rate 18 05/02/18 05:00 Blood Pressure 113/57 L 05/02/18 05:00 O2 Sat by Pulse Oximetry (%) 98 05/02/18 06:00 Constitutional: Yes: Well Nourished, No Distress, Calm Cardiovascular: Yes: Regular Rate and Rhythm Respiratory: Yes: Regular Gastrointestinal: Yes: Soft, Abdomen, Obese, Hypoactive Bowel Sounds, Tenderness (RUQ) Musculoskeletal: Yes: WNL Extremities: Yes: WNL Edema: No Peripheral Pulses WNL: Yes Neurological: Yes: Alert, Oriented Psychiatric: Yes: Alert, Oriented Labs: CBC, BMP 05/01/18 10:45 05/01/18 10:45 Problem List - Problems (1) Abdominal pain Assessment/Plan: -CT abd distended gallbladder -surgical consult -HIDA reviewed -GI consult -clear liquid diet Code(s): R10.9 - UNSPECIFIED ABDOMINAL PAIN Qualifiers: Abdominal location: epigastric Qualified Code(s): R10.13 - Epigastric pain (2) Atypical chest pain Assessment/Plan: -Seen by cardiology -trops negative Code(s): R07.89 - OTHER CHEST PAIN (3) Calculus of gallbladder without cholecystitis without obstruction Assessment/Plan: -Surgical consult -Hida scan ordered Code(s): K80.20 - CALCULUS OF GALLBLADDER W/O CHOLECYSTITIS W/O OBSTRUCTION Assessment/Plan see problem list Self ambulatory DVT prophylaxis
[2018-05-02] MEDS ORDERED: PT OWN MED DRAWER 7, Y5N ONE (18:13)
[2018-05-02] MEDS ORDERED: LACTATED RINGERS SOLUTION 1,000 ML/1,000 ML INFUS.BAG IV SCH (21:00)
[2018-05-02] MEDS: ATORVASTATIN CA 80 MG TABLET (FP) PO SCH (22:09)
[2018-05-03] MEDS: METHADONE 40 MG, METHADONE 30 MG PO SCH (06:07)
--- NOTE | 2018-05-03 07:02 | PN ---
Progress Note, Physician Chief Complaint: Pt A&Ox3; no chest pain, dyspnea, or abdominal pain. History of Present Illness: 57-year-old black female history of hypertension, hyperlipidemia, coronary disease status post stent, now presents with chest pain. The patient reports that she woke up in her usual state health. Proxy for pain, the patient developed a squeezing midsternal chest pain with no radiation or shortness of breath. Denies shortness of breath. Denies nausea, vomiting, diaphoresis. Denies fevers. Does not think is related to food. Initially she thought that this was related to indigestion but the pain persisted. The patient was concerned because this felt like her chest pain when she got a cardiac stent for before. Patient does have some mild reproducible anterior chest pain. - Current Medication List Current Medications: Active Medications Aspirin (Asa -) 81 mg PO DAILY [facility] Last Admin: 05/02/18 09:35 Dose: 81 mg Atorvastatin Calcium (Lipitor -) 80 mg PO HS [facility] Last Admin: 05/02/18 22:09 Dose: 80 mg Clopidogrel Bisulfate (Plavix -) 75 mg PO DAILY [facility] Last Admin: 05/02/18 10:00 Dose: Not Given Heparin Sodium (Porcine) (Heparin -) 5,000 unit SQ BID [facility] Last Admin: 05/02/18 22:09 Dose: Not Given Hydroxyzine HCl (Atarax -) 25 mg PO Q6H PRN PRN Reason: FOR ITCHING Lactated Ringer's (Lactated Ringers Solution) 1,000 ml in 1,000 mls @ 100 mls/ hr IV ASDIR [facility] Last Admin: 05/02/18 22:45 Dose: 100 mls/hr Methadone HCl 40 mg/ Methadone (HCl 30 mg) 70 mg PO DAILY@0600 [facility] Last Admin: 05/03/18 06:07 Dose: Not Given Nicotine (Nicoderm Patch -) 14 mg TD DAILY [facility] Last Admin: 05/02/18 09:35 Dose: 14 mg Ugqzy-9-[id number] Ethyl Esters (Lovaza -) 2 gm PO BID [facility] Last Admin: 05/02/18 22:36 Dose: 2 gm Pantoprazole Sodium (Protonix -) 40 mg PO BID [facility] Last Admin: 05/02/18 22:09 Dose: 40 mg Triamcinolone Acetonide (Aristocort 0.1% Lotion -) 1 applic TP QID PRN PRN Reason: itching Last Admin: 05/02/18 18:20 Dose: 1 applic Venlafaxine HCl (Effexor -) 25 mg PO BID [facility] Last Admin: 05/02/18 22:08 Dose: 25 mg Zinc Acetate/Diphenhydramine (Benadryl 2% Cream) 1 applic TP TID [facility] Last Admin: 05/03/18 06:07 Dose: Not Given - Objective Vital Signs: Vital Signs Temperature 98 F 05/03/18 05:15 Pulse Rate 67 05/03/18 05:15 Respiratory Rate 20 05/03/18 05:15 Blood Pressure 102/54 L 05/03/18 05:15 O2 Sat by Pulse Oximetry (%) 97 05/03/18 05:00 Labs: CBC, BMP 05/01/18 10:45 05/01/18 10:45 Problem List - Problems (1) Gallstone Assessment/Plan: Clopidogrel held in anticipation of possible cholecystectomy. From a cardiac standpoint, there are no absolute contraindications for pt to undergo cholecystecomy; to be scheduled by surgeon with understanding that pt had clopidogrel as recently as yesterday, 04/30/2018. Code(s): K80.20 - CALCULUS OF GALLBLADDER W/O CHOLECYSTITIS W/O OBSTRUCTION (2) Anxiety Code(s): F41.9 - ANXIETY DISORDER, UNSPECIFIED (3) HLD (hyperlipidemia) Assessment/Plan: f/u lipid panel Code(s): E78.5 - HYPERLIPIDEMIA, UNSPECIFIED Qualifiers: Hyperlipidemia type: pure hypercholesterolemia Qualified Code(s): E78.00 - Pure hypercholesterolemia, unspecified; E78.0 - Pure hypercholesterolemia (4) Atypical chest pain Assessment/Plan: TNI < 0.02 x 3. Stress MIBI 01/24: no ischemia. ECHO: normal LVEF. GI w/u in progress; +gallstone. Code(s): R07.89 - OTHER CHEST PAIN
--- NOTE | 2018-05-03 09:05 | PN ---
Progress Note, Physician Chief Complaint: Seen and examined. TELE: NSR, no sig arrhythmias. History of Present Illness: BP well controlled. - Current Medication List Current Medications: Active Medications Aspirin (Asa -) 81 mg PO DAILY [facility] Last Admin: 05/02/18 09:35 Dose: 81 mg Atorvastatin Calcium (Lipitor -) 80 mg PO HS [facility] Last Admin: 05/02/18 22:09 Dose: 80 mg Clopidogrel Bisulfate (Plavix -) 75 mg PO DAILY [facility] Last Admin: 05/02/18 10:00 Dose: Not Given Heparin Sodium (Porcine) (Heparin -) 5,000 unit SQ BID [facility] Last Admin: 05/02/18 22:09 Dose: Not Given Hydroxyzine HCl (Atarax -) 25 mg PO Q6H PRN PRN Reason: FOR ITCHING Lactated Ringer's (Lactated Ringers Solution) 1,000 ml in 1,000 mls @ 100 mls/ hr IV ASDIR [facility] Last Admin: 05/02/18 22:45 Dose: 100 mls/hr Methadone HCl 40 mg/ Methadone (HCl 30 mg) 70 mg PO DAILY@0600 [facility] Last Admin: 05/03/18 06:07 Dose: Not Given Nicotine (Nicoderm Patch -) 14 mg TD DAILY [facility] Last Admin: 05/02/18 09:35 Dose: 14 mg [id number]-3-Kfxb Ethyl Esters (Lovaza -) 2 gm PO BID [facility] Last Admin: 05/02/18 22:36 Dose: 2 gm Pantoprazole Sodium (Protonix -) 40 mg PO BID [facility] Last Admin: 05/02/18 22:09 Dose: 40 mg Triamcinolone Acetonide (Aristocort 0.1% Lotion -) 1 applic TP QID PRN PRN Reason: itching Last Admin: 05/02/18 18:20 Dose: 1 applic Venlafaxine HCl (Effexor -) 25 mg PO BID [facility] Last Admin: 05/02/18 22:08 Dose: 25 mg Zinc Acetate/Diphenhydramine (Benadryl 2% Cream) 1 applic TP TID [facility] Last Admin: 05/03/18 06:07 Dose: Not Given - Objective Vital Signs: Vital Signs Temperature 98 F 05/03/18 07:33 Pulse Rate 70 05/03/18 07:33 Respiratory Rate 20 05/03/18 07:33 Blood Pressure 108/56 L 05/03/18 07:33 O2 Sat by Pulse Oximetry (%) 97 05/03/18 07:33 Constitutional: Yes: No Distress, Calm Eyes: Yes: Conjunctiva Clear Cardiovascular: Yes: Regular Rate and Rhythm Respiratory: Yes: CTA Bilaterally (no wheezing or rales) Gastrointestinal: Yes: Soft (NT, no rebound or guarding), Abdomen, Obese Edema: No Neurological: Yes: Alert, Oriented ...Motor Strength: WNL Labs: CBC, BMP 05/01/18 10:45 05/01/18 10:45 Laboratory Tests 04/30/18 04/30/18 04/30/18 02:59 09:18 14:45 WBC Hgb Plt Count Potassium Creatinine Troponin I < 0.02 < 0.02 < 0.02 Lipase 05/01/18 05/01/18 05/01/18 10:45 10:45 10:45 WBC 7.9 Hgb 13.6 Plt Count 204 Potassium 4.2 Creatinine 0.7 Troponin I Lipase 259 - ....Imaging EKG: Image Reviewed Problem List - Problems (1) Atypical chest pain Code(s): R07.89 - OTHER CHEST PAIN (2) CAD S/P percutaneous coronary angioplasty Code(s): I25.10 - ATHSCL HEART DISEASE OF [place] CORONARY ARTERY W/O ANG PCTRS; Z98.61 - CORONARY ANGIOPLASTY STATUS (3) Calculus of gallbladder without cholecystitis without obstruction Code(s): K80.20 - CALCULUS OF GALLBLADDER W/O CHOLECYSTITIS W/O OBSTRUCTION (4) Morbid (severe) obesity with alveolar hypoventilation Code(s): E66.2 - MORBID (SEVERE) OBESITY WITH ALVEOLAR HYPOVENTILATION (5) Patient on methadone maintenance therapy Code(s): F11.20 - OPIOID DEPENDENCE, UNCOMPLICATED Assessment/Plan IMP: CAD s/p PCI 05/2017 Atypical CP Cholelithiasis, biliary colic *Lexican nuclear stress 01/2018 with no ischemia REC: There are no absolute cardiac contraindications to cholecystectomy. BP is well controlled and she is in NSR. LV function is overall preserved. There is no aortic stenosis. She is euvolemic, cardiac enzymes are WNL. Patient had been on Plavix until 05/01, discussed with Dr. Moss. This may increase risk of periop bleeding/ oozing. Timing of surgery deferred to Surgery. Will follow.
[2018-05-03] MEDS ORDERED: MIDAZOLAM HCL 2 MG/2 ML SINGLE DOSE VIAL ONE (10:37)
[2018-05-03] MEDS ORDERED: CEFOXITIN SODIUM 2 GM IVPB ONE (10:43)
[2018-05-03] MEDS ORDERED: BUPIVACAINE HCL/PF 0.5% (5MG/ML) 10 ML VIAL ONE (10:44)
[2018-05-03] MEDS ORDERED: DEXAMETHASONE SOD PHOSPHATE 4 MG/1 ML VIAL ONE (11:03)
[2018-05-03] MEDS ORDERED: LIDOCAINE HCL/PF 2% SDV 5ML VIAL ONE (11:03)
[2018-05-03] MEDS ORDERED: PROPOFOL 20 ML ONE (11:06)
[2018-05-03] MEDS ORDERED: ROCURONIUM BROMIDE 50 MG/5 ML VIAL ONE (11:07)
[2018-05-03] MEDS ORDERED: cefOXitin SODIUM 1 GM VIAL (RESTRICTED TO ID) IVPB ONE (11:15)
[2018-05-03] MEDS: CLOPIDOGREL BISULFATE 75 MG TABLET (FP) PO SCH (11:29)
[2018-05-03] MEDS: OMEGA-3 ACID ETHYL ESTERS (FATTY-ACIDS) 1 GM CAPSULE (FP) PO SCH ×3 (11:29→23:13)
[2018-05-03] MEDS: VENLAFAXINE HCL 25 MG TABLET PO SCH ×3 (11:29→23:13)
[2018-05-03] MEDS: PANTOPRAZOLE 40 MG TABLET (FP) PO SCH ×2 (11:29→23:12)
[2018-05-03] MEDS: HEPARIN NA (PORCINE) 5,000 UNITS/ML 1ML VIAL SQ SCH ×2 (11:29→23:13)
[2018-05-03] MEDS: NICOTINE 14 MG/24 HOURS TOPICAL PATCH TD SCH ×2 (11:30→16:35)
[2018-05-03] MEDS ORDERED: BUPIVACAINE HCL/PF (5 MG/ML) 30 ML VIAL IJ ONE (11:36)
[2018-05-03] MEDS ORDERED: NEOSTIGMINE METHYLSULFATE 0.5 MG/ML - 10 ML MDV ONE (11:53)
[2018-05-03] MEDS ORDERED: GLYCOPYRROLATE 0.2 MG/1 ML VIAL ONE (11:53)
[2018-05-03] MEDS ORDERED: BENZOIN TINCTURE SWABSTICK TP ONE (12:08)
--- NOTE | 2018-05-03 12:25 | OP ---
Operative Note - Note: Operative Date: 05/03/18 Pre-Operative Diagnosis: symptomatic cholelithiasis/ intractable pain biliary colic Operation: laparoscopic cholecystectomy Findings: distened tyhin walled gallbladder with a large stone Post-Operative Diagnosis: Same as Pre-op Surgeon: Ari Moss Cook Ice Cream: Keenan Fair Anesthesiologist/COSMETICIAN APPRENTICE: Arvind Cage Anesthesia: General, Local (0.5% marcaine 20ml) Specimens Removed: gallbladder with stone Estimated Blood Loss (mls): 5 Fluid Volume Replaced (mls): 1,000 Operative Report Dictated: Yes
[2018-05-03] MEDS ORDERED: hydrOXYzine HCL 25 MG TABLET (FP) PO PRN (13:18)
[2018-05-03] MEDS ORDERED: TRIAMCINOLONE ACET 0.1% 60 ML LOTION TP PRN (13:18)
[2018-05-03] MEDS: LACTATED RINGERS SOLUTION 1,000 ML/1,000 ML INFUS.BAG IV SCH (13:25)
[2018-05-03] MEDS: ASPIRIN 81 MG CHEWABLE TABLETS PO SCH (14:22)
--- NOTE | 2018-05-03 16:00 | PN ---
Progress Note, Physician Chief Complaint: patient back from OR waNTS TO go to bathroom - Current Medication List Current Medications: Active Medications Aspirin (Asa -) 81 mg PO DAILY [facility] Atorvastatin Calcium (Lipitor -) 80 mg PO HS [facility] Clopidogrel Bisulfate (Plavix -) 75 mg PO DAILY [facility] Heparin Sodium (Porcine) (Heparin -) 5,000 unit SQ BID [facility] Hydroxyzine HCl (Atarax -) 25 mg PO Q6H PRN PRN Reason: FOR ITCHING Lactated Ringer's (Lactated Ringers Solution) 1,000 ml in 1,000 mls @ 100 mls/ hr IV ASDIR [facility] Last Admin: 05/03/18 13:25 Dose: 400 mls Methadone HCl 40 mg/ Methadone (HCl 30 mg) 70 mg PO DAILY@0600 [facility] Nicotine (Nicoderm Patch -) 14 mg TD DAILY [facility] [id number]-8-[id number] Ethyl Esters (Lovaza -) 2 gm PO BID [facility] Pantoprazole Sodium (Protonix -) 40 mg PO BID [facility] Triamcinolone Acetonide (Aristocort 0.1% Lotion -) 1 applic TP QID PRN PRN Reason: itching Venlafaxine HCl (Effexor -) 25 mg PO BID [facility] Zinc Acetate/Diphenhydramine (Benadryl 2% Cream) 1 applic TP TID [facility] Last Admin: 05/03/18 14:22 Dose: Not Given - Objective Vital Signs: Vital Signs Temperature 92 F L 05/03/18 14:00 Pulse Rate 92 H 05/03/18 14:00 Respiratory Rate 18 05/03/18 14:00 Blood Pressure 135/72 05/03/18 14:00 O2 Sat by Pulse Oximetry (%) 98 05/03/18 13:50 Constitutional: Yes: Calm Cardiovascular: Yes: Regular Rate and Rhythm, S1, S2 Respiratory: Yes: CTA Bilaterally Gastrointestinal: Yes: Soft, Other (3 small dressings) Labs: CBC, BMP 05/01/18 10:45 05/01/18 10:45 Problem List - Problems (1) Abdominal pain Assessment/Plan: Note: Operative Date: 05/03/18 Pre-Operative Diagnosis: symptomatic cholelithiasis/ intractable pain biliary colic Operation: laparoscopic cholecystectomy Findings: distened tyhin walled gallbladder with a large stone Post-Operative Diagnosis: Same as Pre-op Surgeon: Ari Moss [employer] Supervisor: Keenan Fair Anesthesiologist/DATABASE SOFTWARE TECHNICIAN: Arvind Cage Anesthesia: General, Local (0.5% marcaine 20ml) Specimens Removed: gallbladder with stone Estimated Blood Loss (mls): 5 Fluid Volume Replaced (mls): 1,000 Operative Report Dictated: Yes Code(s): R10.9 - UNSPECIFIED ABDOMINAL PAIN Qualifiers: Abdominal location: epigastric Qualified Code(s): R10.13 - Epigastric pain (2) Rash Assessment/Plan: triamcinolone and bendaryl cream lipid profile TG is elevated Code(s): R21 - RASH AND OTHER NONSPECIFIC SKIN ERUPTION (3) Anxiety Assessment/Plan: xanax Code(s): F41.9 - ANXIETY DISORDER, UNSPECIFIED (4) Chest pain Assessment/Plan: echo normal LV systolic function CE 2 sets negative appreicate cardiology consult CAD s/p stents on aspirin statin plavix on hold for surgery-restart once ok with surgery Code(s): R07.9 - CHEST PAIN, UNSPECIFIED Qualifiers: Chest pain type: other chest pain Qualified Code(s): R07.89 - Other chest pain; R07.8 - Other chest pain (5) HLD (hyperlipidemia) Assessment/Plan: statin fish oil Code(s): E78.5 - HYPERLIPIDEMIA, UNSPECIFIED Qualifiers: Hyperlipidemia type: pure hypercholesterolemia Qualified Code(s): E78.00 - Pure hypercholesterolemia, unspecified; E78.0 - Pure hypercholesterolemia (6) Patient on methadone maintenance therapy Assessment/Plan: metrhadone Code(s): F11.20 - OPIOID DEPENDENCE, UNCOMPLICATED
[2018-05-03] MEDS ORDERED: METHADONE 40 MG, METHADONE 30 MG PO ONE (16:30)
[2018-05-03] MEDS ORDERED: METHADONE HCL 40 MG DISPERSABLE TABLET ONE (16:31)
[2018-05-03] MEDS ORDERED: METHADONE HCL 10 MG TABLET ONE (16:32)
[2018-05-03] MEDS: ALPRAZolam 2 MG TABLET PO PRN (18:19)
[2018-05-03] MEDS ORDERED: VANCOMYCIN 1 GRAM (PRE-DOCKED) 1,000 MG/250 ML BAG IVPB ONE (20:48)
--- NOTE | 2018-05-03 21:09 | HOSP ---
Physical Examination Vital Signs: Vital Signs Temperature 98.0 F 05/03/18 18:00 Pulse Rate 85 05/03/18 18:00 Respiratory Rate 18 05/03/18 18:00 Blood Pressure 134/78 05/03/18 18:00 O2 Sat by Pulse Oximetry (%) 98 05/03/18 15:00 Labs: CBC, BMP 05/01/18 10:45 05/01/18 10:45 Hospitalist Encounter Assessment: Patient s/p cholecystectomy with fever of 100.8F with left antecubital erythema where IV was placed. +phlebitis. IV was removed, ordered blood cultures x2, cxr , vancomycin 1 time dose, upper ext duplex to check for clot.
--- NOTE | 2018-05-03 21:16 | OP ---
DATE OF OPERATION: 05/03/2018 PREOPERATIVE DIAGNOSIS: Symptomatic cholelithiasis and retractable pain due to biliary colic. POSTOPERATIVE DIAGNOSIS: Symptomatic cholelithiasis and retractable pain due to biliary colic. PROCEDURE: Laparoscopic cholecystectomy. ATTENDING SURGEON: Ari Moss MD FINANCE AND ADMINISTRATION MANAGER: Keenan Fair MD ANESTHESIA: Arvind Cage MD. ANESTHESIA TYPE: General with local. Local consists of 0.5% Marcaine a total of 10 mL given in area block fashion at the port sites. ESTIMATED BLOOD LOSS: 5 mL. IV FLUID: 1000 mL. SPECIMEN: Gallbladder with stone. BRIEF FINDINGS: The patient had a distended, thin walled gallbladder with large stone. Critical view was identified. All counts were correct postoperatively. INDICATIONS: The patient is a 57-year-old female with major medical problems including intractable right upper quadrant pain due to biliary colic. She was screened with ultrasound and noted to have a large stone. She was counseled regarding risks, benefits, and alternatives to surgical cholecystectomy, signed informed consent, and was taken to the procedure. DESCRIPTION OF PROCEDURE: The patient was brought to the operating room. She was placed in supine position on the operating room table. Lower extremities had SCDs placed to compression. The patient had 2 g of intravenous ceftriaxone administered. She was induced with general anesthesia and endotracheally intubated without incident by Anesthesia. We began first with an anterior prep of the abdominal wall, sterile prepped and draped in a standard fashion and formal time-out identifying the operative site and procedure. We began first with a supraumbilical Rd approach. It was opened with a 15-blade scalpel then deepened and widened through subcutaneous tissue. Care was taken to dissect to the anterior abdominal fascia, which was elevated into the surgical wound. Once blunt entry had been made into the abdomen and abdominal viscera was cleared with a finger, the fascia had 0 Vicryl laid in figure of eight at which point we began first then with insufflation of a pneumoperitoneum. A 12-mm Bedoya port was introduced to the abdomen, and pneumoperitoneum was established to 15 mmHg at which point we began first with placement of the subxiphoid port as well as 2 right-sided abdominal operating ports all 5 mm all placed under direct visualization. With this done, the patient was placed into reverse Trendelenburg, and the hepatic flexure was cleared along with the gastrocolic ligament from the gallbladder stone. The gallbladder was retracted cranially and to the left shoulder exposing the infundibulum and the cystic structures. They were grasped, and planes were created behind the cystic duct and cystic artery discriminating them from the surrounding connective tissue. This was done with a combination of Bovie cautery and blunt dissection. Once the critical view had been identified, we began isolating the cystic structures with Endoclips. Endoclips 5 mm were placed on the cystic duct, 1 proximal and 2 distal, as well as the cystic artery. Once the structures were controlled, they were transected with Endoshear at which point we began then elevating the gallbladder from the gallbladder bed using Bovie cautery. Cautery was carried through toward the dome of the gallbladder. Once completely transected from the base, the gallbladder was retrieved from the umbilicus port after resetting the camera to the subxiphoid position with an EndoCatch bag 10 mm from the umbilical port. After retrieving the gallbladder, it was passed off the field for pathologic diagnosis. There appeared to be a large palpable stone. The gallbladder was also thin walled in appearance. The remainder of the abdominal exploration was negative. There were no other pathologies identified. At which time we began first and irrigation of the site. A small amount of irrigation was used to suction from the abdomen in totality. The trocars were removed under direct visualization and then the pneumoperitoneum was relieved and we closed the umbilical port with the 0 Vicryl. Once completely, skin was cleaned. After closure with 4-0 Vicryl in subcuticular fashion, sterile dressings were placed. The patient was awoken from general anesthesia having tolerated the procedure well. All counts were correct. MD ATILIO Rodriguez/[id number]
[2018-05-03] MEDS: ATORVASTATIN CA 80 MG TABLET (FP) PO SCH (23:13)
[2018-05-04] MEDS ORDERED: METHADONE HCL 10 MG TABLET ONE (05:58)
[2018-05-04] MEDS ORDERED: METHADONE HCL 40 MG DISPERSABLE TABLET ONE (05:58)
[2018-05-04] MEDS: METHADONE 40 MG, METHADONE 30 MG PO SCH (06:00)
[2018-05-04] MEDS: ALPRAZolam 2 MG TABLET PO PRN ×2 (06:12→22:36)
[2018-05-04] MEDS: CLOPIDOGREL BISULFATE 75 MG TABLET (FP) PO SCH (09:53)
[2018-05-04] MEDS: PANTOPRAZOLE 40 MG TABLET (FP) PO SCH ×2 (09:53→22:36)
[2018-05-04] MEDS: ASPIRIN 81 MG CHEWABLE TABLETS PO SCH (09:53)
[2018-05-04] MEDS: OMEGA-3 ACID ETHYL ESTERS (FATTY-ACIDS) 1 GM CAPSULE (FP) PO SCH ×2 (09:53→22:36)
[2018-05-04] MEDS: NICOTINE 14 MG/24 HOURS TOPICAL PATCH TD SCH (09:53)
[2018-05-04] MEDS: VENLAFAXINE HCL 25 MG TABLET PO SCH ×2 (09:55→22:37)
[2018-05-04] MEDS: HEPARIN NA (PORCINE) 5,000 UNITS/ML 1ML VIAL SQ SCH ×2 (09:56→22:36)
--- NOTE | 2018-05-04 11:50 | PN ---
Progress Note, Physician Chief Complaint: gallstone History of Present Illness: 57 yo female PMH CAD, [place] s/p Stent 05/2017 ([facility]), COPD, obesity, HLD, Chronic Back Pain, Anxiety, current smoker presents to the ED with R-sided chest pain x 1day. stable post operativley. - Current Medication List Current Medications: Active Medications Alprazolam (Xanax -) 2 mg PO Q12H PRN PRN Reason: ANXIETY Last Admin: 05/04/18 06:12 Dose: 2 mg Aspirin (Asa -) 81 mg PO DAILY [facility] Last Admin: 05/04/18 09:53 Dose: 81 mg Atorvastatin Calcium (Lipitor -) 80 mg PO HS [facility] Last Admin: 05/03/18 23:13 Dose: 80 mg Clopidogrel Bisulfate (Plavix -) 75 mg PO DAILY [facility] Last Admin: 05/04/18 09:53 Dose: 75 mg Heparin Sodium (Porcine) (Heparin -) 5,000 unit SQ BID [facility] Last Admin: 05/04/18 09:56 Dose: 5,000 unit Hydroxyzine HCl (Atarax -) 25 mg PO Q6H PRN PRN Reason: FOR ITCHING Last Admin: 05/03/18 16:37 Dose: 25 mg Lactated Ringer's (Lactated Ringers Solution) 1,000 ml in 1,000 mls @ 100 mls/ hr IV ASDIR [facility] Last Admin: 05/03/18 13:25 Dose: 400 mls Methadone HCl 40 mg/ Methadone (HCl 30 mg) 70 mg PO DAILY@0600 [facility] Last Admin: 05/04/18 06:00 Dose: 70 mg Nicotine (Nicoderm Patch -) 14 mg TD DAILY [facility] Last Admin: 05/04/18 09:53 Dose: 14 mg Qvyxo-0-Pews Ethyl Esters (Lovaza -) 2 gm PO BID [facility] Last Admin: 05/04/18 09:53 Dose: 2 gm Pantoprazole Sodium (Protonix -) 40 mg PO BID [facility] Last Admin: 05/04/18 09:53 Dose: 40 mg Triamcinolone Acetonide (Aristocort 0.1% Lotion -) 1 applic TP QID PRN PRN Reason: itching Venlafaxine HCl (Effexor -) 25 mg PO BID [facility] Last Admin: 05/04/18 09:55 Dose: 25 mg Zinc Acetate/Diphenhydramine (Benadryl 2% Cream) 1 applic TP TID [facility] Last Admin: 05/04/18 06:01 Dose: Not Given - Objective Vital Signs: Vital Signs Temperature 98.8 F 05/04/18 07:34 Pulse Rate 89 05/04/18 07:34 Respiratory Rate 20 05/04/18 07:37 Blood Pressure 112/65 05/04/18 07:34 O2 Sat by Pulse Oximetry (%) 93 L 05/04/18 07:37 Constitutional: Yes: Well Nourished, No Distress, Calm, Obese Eyes: Yes: Conjunctiva Clear, EOM Intact HENT: Yes: Atraumatic, Normocephalic Neck: Yes: Supple, Trachea Midline Cardiovascular: Yes: Regular Rate and Rhythm, S1, S2 Respiratory: Yes: Regular, CTA Bilaterally, Wheezes Gastrointestinal: Yes: Normal Bowel Sounds, Soft, Abdomen, Obese, Tenderness ( incsional) Genitourinary: No: CVA Tenderness - Left, CVA Tenderness - Right Breast(s): No: Mass, Nipple Inversion Musculoskeletal: No: Back Pain, Muscle Pain Extremities: No: Cool, Cyanosis Edema: No Peripheral Pulses WNL: Yes Peripheral Pulses: Left Radial: 2+, Right Radial: 2+, Left Doralis Pedis: 2+, Right Dorsalis Pedis: 2+, Left Femoral: 2+, Right Femoral: 2+ Integumentary: Yes: Incision. No: Jaundice, Rash, Skin Tear Wound/Incision: Yes: Clean/Dry, Well Approximated, Dressing Dry and Intact Neurological: Yes: Alert, Oriented Psychiatric: Yes: Alert, Oriented Labs: CBC, BMP 05/01/18 10:45 05/01/18 10:45 Problem List - Problems (1) Calculus of gallbladder without cholecystitis without obstruction Assessment/Plan: 57 yo with MMP including CAD s/p PCI with chronic biliary colic and cholecystitis POD#1 s/p lap Cholecystectomy Advance diet as tolerted OOB and ambulate resume anticoagulation adequate analgesia Remove surface dressings tomorrow Discharge at the discretion of the primary team Code(s): K80.20 - CALCULUS OF GALLBLADDER W/O CHOLECYSTITIS W/O OBSTRUCTION (2) Anxiety Code(s): F41.9 - ANXIETY DISORDER, UNSPECIFIED (3) HLD (hyperlipidemia) Code(s): E78.5 - HYPERLIPIDEMIA, UNSPECIFIED Qualifiers: Hyperlipidemia type: pure hypercholesterolemia Qualified Code(s): E78.00 - Pure hypercholesterolemia, unspecified; E78.0 - Pure hypercholesterolemia (4) S/P drug eluting coronary stent placement Code(s): Z95.5 - PRESENCE OF CORONARY ANGIOPLASTY IMPLANT AND GRAFT (5) CAD (coronary artery disease) Code(s): I25.10 - ATHSCL HEART DISEASE OF [place] CORONARY ARTERY W/O ANG PCTRS Qualifiers: Coronary Disease-Associated Artery/Lesion type: [place] artery [place] vs. transplanted heart: [place] heart Associated angina: with other forms of angina Qualified Code(s): I25.118 - Atherosclerotic heart disease of [place] coronary artery with other forms of angina pectoris (6) Chronic use of opiate drugs therapeutic purposes Code(s): Z79.899 - OTHER LONG-TERM (CURRENT) DRUG THERAPY (7) Depression Code(s): F32.9 - MAJOR DEPRESSIVE DISORDER, SINGLE EPISODE, UNSPECIFIED (8) Nicotine dependence Code(s): F17.200 - NICOTINE DEPENDENCE, UNSPECIFIED, UNCOMPLICATED Qualifiers: Nicotine product type: cigarettes
--- NOTE | 2018-05-04 12:05 | PN ---
Progress Note, Physician Chief Complaint: Seen and examined Denies cp or SOB TELE: Sinus tach, likely due to expected post op pain. Low grade fever noted, seen by Hospitalist/ superficial phlebitis suspected. History of Present Illness: BP stable. - Current Medication List Current Medications: Active Medications Alprazolam (Xanax -) 2 mg PO Q12H PRN PRN Reason: ANXIETY Last Admin: 05/04/18 06:12 Dose: 2 mg Aspirin (Asa -) 81 mg PO DAILY [facility] Last Admin: 05/04/18 09:53 Dose: 81 mg Atorvastatin Calcium (Lipitor -) 80 mg PO HS [facility] Last Admin: 05/03/18 23:13 Dose: 80 mg Clopidogrel Bisulfate (Plavix -) 75 mg PO DAILY [facility] Last Admin: 05/04/18 09:53 Dose: 75 mg Heparin Sodium (Porcine) (Heparin -) 5,000 unit SQ BID [facility] Last Admin: 05/04/18 09:56 Dose: 5,000 unit Hydroxyzine HCl (Atarax -) 25 mg PO Q6H PRN PRN Reason: FOR ITCHING Last Admin: 05/03/18 16:37 Dose: 25 mg Lactated Ringer's (Lactated Ringers Solution) 1,000 ml in 1,000 mls @ 100 mls/ hr IV ASDIR [facility] Last Admin: 05/03/18 13:25 Dose: 400 mls Methadone HCl 40 mg/ Methadone (HCl 30 mg) 70 mg PO DAILY@0600 [facility] Last Admin: 05/04/18 06:00 Dose: 70 mg Nicotine (Nicoderm Patch -) 14 mg TD DAILY [facility] Last Admin: 05/04/18 09:53 Dose: 14 mg Fpyip-6-[id number] Ethyl Esters (Lovaza -) 2 gm PO BID [facility] Last Admin: 05/04/18 09:53 Dose: 2 gm Pantoprazole Sodium (Protonix -) 40 mg PO BID [facility] Last Admin: 05/04/18 09:53 Dose: 40 mg Triamcinolone Acetonide (Aristocort 0.1% Lotion -) 1 applic TP QID PRN PRN Reason: itching Venlafaxine HCl (Effexor -) 25 mg PO BID [facility] Last Admin: 05/04/18 09:55 Dose: 25 mg Zinc Acetate/Diphenhydramine (Benadryl 2% Cream) 1 applic TP TID [facility] Last Admin: 05/04/18 06:01 Dose: Not Given - Objective Vital Signs: Vital Signs Temperature 98.8 F 05/04/18 07:34 Pulse Rate 89 05/04/18 07:34 Respiratory Rate 20 05/04/18 07:37 Blood Pressure 112/65 05/04/18 07:34 O2 Sat by Pulse Oximetry (%) 93 L 05/04/18 07:37 Constitutional: Yes: No Distress Eyes: Yes: Conjunctiva Clear Cardiovascular: Yes: Regular Rate and Rhythm Respiratory: Yes: CTA Bilaterally (no wheezing or rales) Gastrointestinal: Yes: Abdomen, Obese (no rebound or guarding, mild diffuse tenderness to palpation) Edema: No Neurological: Yes: Alert, Oriented ...Motor Strength: WNL Labs: CBC, BMP 05/01/18 10:45 05/01/18 10:45 Microbiology Selected Entries 05/03/18 21:08 Temperature 100.8 F H - ....Imaging EKG: Image Reviewed Problem List - Problems (1) Atypical chest pain Code(s): R07.89 - OTHER CHEST PAIN (2) CAD S/P percutaneous coronary angioplasty Code(s): I25.10 - ATHSCL HEART DISEASE OF [place] CORONARY ARTERY W/O ANG PCTRS; Z98.61 - CORONARY ANGIOPLASTY STATUS (3) Calculus of gallbladder without cholecystitis without obstruction Code(s): K80.20 - CALCULUS OF GALLBLADDER W/O CHOLECYSTITIS W/O OBSTRUCTION (4) Morbid (severe) obesity with alveolar hypoventilation Code(s): E66.2 - MORBID (SEVERE) OBESITY WITH ALVEOLAR HYPOVENTILATION (5) Patient on methadone maintenance therapy Code(s): F11.20 - OPIOID DEPENDENCE, UNCOMPLICATED Assessment/Plan IMP: CAD s/p PCI 05/2017 Atypical CP Cholelithiasis, biliary colic POD #1 lap erin *Lexican nuclear stress 01/2018 with no ischemia REC: 1. Tolerated surgery well thus far. 2. Check CBC and BMP today 3. Work up of suspected superficial phlebitis upper extremity as per PMD; cultures pending. 4. To resume antiplatelet therapy when feasible from surgical standpoint. 5. DVT prophylaxis/ diet advancement as per PMD and Gen Surg. Will follow.
--- NOTE | 2018-05-04 13:10 | PN ---
Progress Note, Physician Chief Complaint: pateint is POD 1 tolerating diet - Current Medication List Current Medications: Active Medications Alprazolam (Xanax -) 2 mg PO Q12H PRN PRN Reason: ANXIETY Last Admin: 05/04/18 06:12 Dose: 2 mg Aspirin (Asa -) 81 mg PO DAILY [facility] Last Admin: 05/04/18 09:53 Dose: 81 mg Atorvastatin Calcium (Lipitor -) 80 mg PO HS [facility] Last Admin: 05/03/18 23:13 Dose: 80 mg Clopidogrel Bisulfate (Plavix -) 75 mg PO DAILY [facility] Last Admin: 05/04/18 09:53 Dose: 75 mg Heparin Sodium (Porcine) (Heparin -) 5,000 unit SQ BID [facility] Last Admin: 05/04/18 09:56 Dose: 5,000 unit Hydroxyzine HCl (Atarax -) 25 mg PO Q6H PRN PRN Reason: FOR ITCHING Last Admin: 05/03/18 16:37 Dose: 25 mg Lactated Ringer's (Lactated Ringers Solution) 1,000 ml in 1,000 mls @ 100 mls/ hr IV ASDIR [facility] Last Admin: 05/03/18 13:25 Dose: 400 mls Methadone HCl 40 mg/ Methadone (HCl 30 mg) 70 mg PO DAILY@0600 [facility] Last Admin: 05/04/18 06:00 Dose: 70 mg Nicotine (Nicoderm Patch -) 14 mg TD DAILY [facility] Last Admin: 05/04/18 09:53 Dose: 14 mg Dvydk-[id number] Ethyl Esters (Lovaza -) 2 gm PO BID [facility] Last Admin: 05/04/18 09:53 Dose: 2 gm Pantoprazole Sodium (Protonix -) 40 mg PO BID [facility] Last Admin: 05/04/18 09:53 Dose: 40 mg Triamcinolone Acetonide (Aristocort 0.1% Lotion -) 1 applic TP QID PRN PRN Reason: itching Venlafaxine HCl (Effexor -) 25 mg PO BID [facility] Last Admin: 05/04/18 09:55 Dose: 25 mg Zinc Acetate/Diphenhydramine (Benadryl 2% Cream) 1 applic TP TID [facility] Last Admin: 05/04/18 06:01 Dose: Not Given - Objective Vital Signs: Vital Signs Temperature 98.8 F 05/04/18 07:34 Pulse Rate 89 05/04/18 07:34 Respiratory Rate 20 05/04/18 07:37 Blood Pressure 112/65 05/04/18 07:34 O2 Sat by Pulse Oximetry (%) 93 L 05/04/18 07:37 Constitutional: Yes: Calm Cardiovascular: Yes: Regular Rate and Rhythm, S1, S2 Respiratory: Yes: CTA Bilaterally Gastrointestinal: Yes: Soft, Other (surgical incision) Neurological: Yes: Alert Problem List - Problems (1) Rash Code(s): R21 - RASH AND OTHER NONSPECIFIC SKIN ERUPTION (2) Abdominal pain Assessment/Plan: Note: Operative Date: 05/03/18 Pre-Operative Diagnosis: symptomatic cholelithiasis/ intractable pain biliary colic Operation: laparoscopic cholecystectomy Findings: distened tyhin walled gallbladder with a large stone Post-Operative Diagnosis: Same as Pre-op Surgeon: Ari Moss Slot Technician: Keenan Fair Anesthesiologist/WEBSP[employer] ARCHITECT: Arvind Cage Anesthesia: General, Local (0.5% marcaine 20ml) Specimens Removed: gallbladder with stone Estimated Blood Loss (mls): 5 Fluid Volume Replaced (mls): 1,000 Operative Report Dictated: Yes Code(s): R10.9 - UNSPECIFIED ABDOMINAL PAIN Qualifiers: Abdominal location: epigastric Qualified Code(s): R10.13 - Epigastric pain (3) Anxiety Assessment/Plan: xanax Code(s): F41.9 - ANXIETY DISORDER, UNSPECIFIED (4) Chest pain Assessment/Plan: echo normal LV systolic function CE 2 sets negative appreicate cardiology consult CAD s/p stents on aspirin statin plavix on hold for surgery-restart once ok with surgery Code(s): R07.9 - CHEST PAIN, UNSPECIFIED Qualifiers: Chest pain type: other chest pain Qualified Code(s): R07.89 - Other chest pain; R07.8 - Other chest pain (5) HLD (hyperlipidemia) Assessment/Plan: statin fish oil Code(s): E78.5 - HYPERLIPIDEMIA, UNSPECIFIED Qualifiers: Hyperlipidemia type: pure hypercholesterolemia Qualified Code(s): E78.00 - Pure hypercholesterolemia, unspecified; E78.0 - Pure hypercholesterolemia (6) Patient on methadone maintenance therapy Assessment/Plan: metrhadone Code(s): F11.20 - OPIOID DEPENDENCE, UNCOMPLICATED Assessment/Plan plavix on hold until cleared by surgery to restart it
[2018-05-04 13:11] LABS: BASO % 0.4 % (0-2.0); EOS % 0.8 % (0-4.5); HEMATOCRIT 37.6 % (32.4-45.2); HEMOGLOBIN 12.7 GM/dL (10.7-15.3); LYMPH % 12.3 % (8-40); MCH 31.3 pg (25.7-33.7); MCHC 33.8 g/dl (32.0-36.0); MEAN CELL VOLUME 92.6 fl (80-96); MEAN PLT VOLUME 8.6 fl (7.5-11.1); MONO % 4.9 % (3.8-10.2); NEUT % 81.6 % (42.8-82.8); PLATELET COUNT 173 K/MM3 (134-434); RBC 4.06 M/mm3 (3.60-5.2); RDW 14.1 % (11.6-15.6)
[2018-05-04 13:29] LABS: ANION GAP 3 MMOL/L (8-16); BLOOD UREA NITROGEN 11 mg/dL (7-18); CALCIUM 8.3 mg/dL (8.5-10.1); CHLORIDE 103 mmol/L (98-107); CO2 31 mmol/L (21-32); CREATININE 0.6 mg/dL (0.55-1.3); GLUCOSE,RANDOM 135 mg/dL (74-106); POTASSIUM 4.1 mmol/L (3.5-5.1); SODIUM 137 mmol/L (136-145)
[2018-05-04] MEDS: LACTATED RINGERS SOLUTION 1,000 ML/1,000 ML INFUS.BAG IV SCH (14:51)
[2018-05-04] MEDS ORDERED: PT OWN MED DRAWER 7, Y5N ONE (22:33)
[2018-05-04] MEDS: ATORVASTATIN CA 80 MG TABLET (FP) PO SCH (22:36)
--- NOTE | 2018-05-04 23:01 | PN ---
Progress Note (short form) - Note Progress Note: Anesthesia postop note 57 y/o F s/p GA for laparoscopic cholecystectomy POD#1, vss, aaox3 no complaints No anesthesia complications
[2018-05-05] MEDS ORDERED: METHADONE HCL 40 MG DISPERSABLE TABLET ONE (05:15)
[2018-05-05] MEDS ORDERED: METHADONE HCL 10 MG TABLET ONE (05:15)
[2018-05-05] MEDS: METHADONE 40 MG, METHADONE 30 MG PO SCH (06:04)
--- NOTE | 2018-05-05 09:01 | PN ---
Progress Note, Physician Chief Complaint: walking around room Feeling better - Current Medication List Current Medications: Active Medications Alprazolam (Xanax -) 2 mg PO Q12H PRN PRN Reason: ANXIETY Last Admin: 05/04/18 22:36 Dose: 2 mg Aspirin (Asa -) 81 mg PO DAILY [facility] Last Admin: 05/04/18 09:53 Dose: 81 mg Atorvastatin Calcium (Lipitor -) 80 mg PO HS [facility] Last Admin: 05/04/18 22:36 Dose: 80 mg Clopidogrel Bisulfate (Plavix -) 75 mg PO DAILY [facility] Last Admin: 05/04/18 09:53 Dose: 75 mg Heparin Sodium (Porcine) (Heparin -) 5,000 unit SQ BID [facility] Last Admin: 05/04/18 22:36 Dose: 5,000 unit Hydroxyzine HCl (Atarax -) 25 mg PO Q6H PRN PRN Reason: FOR ITCHING Last Admin: 05/03/18 16:37 Dose: 25 mg Lactated Ringer's (Lactated Ringers Solution) 1,000 ml in 1,000 mls @ 100 mls/ hr IV ASDIR [facility] Last Admin: 05/04/18 14:51 Dose: 100 mls/hr Methadone HCl 40 mg/ Methadone (HCl 30 mg) 70 mg PO DAILY@0600 [facility] Last Admin: 05/05/18 06:04 Dose: 70 mg Nicotine (Nicoderm Patch -) 14 mg TD DAILY [facility] Last Admin: 05/04/18 09:53 Dose: 14 mg Uhwnp-1-Crkh Ethyl Esters (Lovaza -) 2 gm PO BID [facility] Last Admin: 05/04/18 22:36 Dose: 2 gm Pantoprazole Sodium (Protonix -) 40 mg PO BID [facility] Last Admin: 05/04/18 22:36 Dose: 40 mg Triamcinolone Acetonide (Aristocort 0.1% Lotion -) 1 applic TP QID PRN PRN Reason: itching Venlafaxine HCl (Effexor -) 25 mg PO BID [facility] Last Admin: 05/04/18 22:37 Dose: 25 mg Zinc Acetate/Diphenhydramine (Benadryl 2% Cream) 1 applic TP TID [facility] Last Admin: 05/05/18 05:59 Dose: Not Given - Objective Vital Signs: Vital Signs Temperature 98.1 F 05/05/18 05:57 Pulse Rate 78 05/05/18 05:57 Respiratory Rate 20 05/05/18 05:57 Blood Pressure 114/62 05/05/18 05:57 O2 Sat by Pulse Oximetry (%) 95 05/04/18 20:43 Constitutional: Yes: No Distress Cardiovascular: Yes: Regular Rate and Rhythm Respiratory: Yes: CTA Bilaterally (no rales or wheezing) Gastrointestinal: Yes: Abdomen, Obese (no rebound or guarding) Edema: No Neurological: Yes: Alert, Oriented Labs: CBC, BMP 05/04/18 12:53 05/04/18 12:53 Microbiology 05/03/18 21:10 Blood - Arterial Blood Culture - Preliminary NO GROWTH OBTAINED AFTER 24 HOURS, INCUBATION TO CONTINUE FOR 4 DAYS. 05/03/18 21:10 Blood - Arterial Blood Culture - Preliminary NO GROWTH OBTAINED AFTER 24 HOURS, INCUBATION TO CONTINUE FOR 4 DAYS. Laboratory Tests 05/04/18 05/04/18 12:53 12:53 WBC 19.0 H Hgb 12.7 Plt Count 173 Sodium 137 BUN 11 Creatinine 0.6 Problem List - Problems (1) Atypical chest pain Code(s): R07.89 - OTHER CHEST PAIN (2) CAD S/P percutaneous coronary angioplasty Code(s): I25.10 - ATHSCL HEART DISEASE OF [place] CORONARY ARTERY W/O ANG PCTRS; Z98.61 - CORONARY ANGIOPLASTY STATUS (3) Calculus of gallbladder without cholecystitis without obstruction Code(s): K80.20 - CALCULUS OF GALLBLADDER W/O CHOLECYSTITIS W/O OBSTRUCTION (4) Morbid (severe) obesity with alveolar hypoventilation Code(s): E66.2 - MORBID (SEVERE) OBESITY WITH ALVEOLAR HYPOVENTILATION (5) Patient on methadone maintenance therapy Code(s): F11.20 - OPIOID DEPENDENCE, UNCOMPLICATED Assessment/Plan IMP: CAD s/p PCI 05/2017 Atypical CP Cholelithiasis, biliary colic POD #2 lap erin *Lexican nuclear stress 01/2018 with no ischemia REC: 1. Tolerated surgery well 2. Work up of suspected superficial phlebitis upper extremity as per PMD; cultures pending. 3. DVT prophylaxis, diet advancement as per PMD and Gen surgery Dispo planning
--- NOTE | 2018-05-05 10:03 | PN ---
Progress Note, Physician Chief Complaint: gallstone History of Present Illness: 57 yo female PMH CAD, [place] s/p Stent 05/2017 ([facility]), COPD, obesity, HLD, Chronic Back Pain, Anxiety, current smoker presents to the ED with R-sided chest pain x 1day. stable post operativley. - Current Medication List Current Medications: Active Medications Alprazolam (Xanax -) 2 mg PO Q12H PRN PRN Reason: ANXIETY Last Admin: 05/04/18 22:36 Dose: 2 mg Aspirin (Asa -) 81 mg PO DAILY [facility] Last Admin: 05/04/18 09:53 Dose: 81 mg Atorvastatin Calcium (Lipitor -) 80 mg PO HS [facility] Last Admin: 05/04/18 22:36 Dose: 80 mg Clopidogrel Bisulfate (Plavix -) 75 mg PO DAILY [facility] Last Admin: 05/04/18 09:53 Dose: 75 mg Heparin Sodium (Porcine) (Heparin -) 5,000 unit SQ BID [facility] Last Admin: 05/04/18 22:36 Dose: 5,000 unit Hydroxyzine HCl (Atarax -) 25 mg PO Q6H PRN PRN Reason: FOR ITCHING Last Admin: 05/03/18 16:37 Dose: 25 mg Lactated Ringer's (Lactated Ringers Solution) 1,000 ml in 1,000 mls @ 100 mls/ hr IV ASDIR [facility] Last Admin: 05/04/18 14:51 Dose: 100 mls/hr Methadone HCl 40 mg/ Methadone (HCl 30 mg) 70 mg PO DAILY@0600 [facility] Last Admin: 05/05/18 06:04 Dose: 70 mg Nicotine (Nicoderm Patch -) 14 mg TD DAILY [facility] Last Admin: 05/04/18 09:53 Dose: 14 mg Bsxhm-7-Pzxd Ethyl Esters (Lovaza -) 2 gm PO BID [facility] Last Admin: 05/04/18 22:36 Dose: 2 gm Pantoprazole Sodium (Protonix -) 40 mg PO BID [facility] Last Admin: 05/04/18 22:36 Dose: 40 mg Triamcinolone Acetonide (Aristocort 0.1% Lotion -) 1 applic TP QID PRN PRN Reason: itching Venlafaxine HCl (Effexor -) 25 mg PO BID [facility] Last Admin: 05/04/18 22:37 Dose: 25 mg Zinc Acetate/Diphenhydramine (Benadryl 2% Cream) 1 applic TP TID [facility] Last Admin: 05/05/18 05:59 Dose: Not Given - Objective Vital Signs: Vital Signs Temperature 98.8 F 05/05/18 09:26 Pulse Rate 93 H 05/05/18 09:26 Respiratory Rate 20 05/05/18 09:26 Blood Pressure 118/72 05/05/18 09:26 O2 Sat by Pulse Oximetry (%) 95 05/04/18 20:43 Vital Signs Period Temp Pulse Resp BP Sys/Jones Pulse Ox Last 24 Hr 97.6 F-98.8 F 77-93 20-20 98-119/60-72 95 Constitutional: Yes: Well Nourished, No Distress, Calm, Obese Eyes: Yes: Conjunctiva Clear, EOM Intact HENT: Yes: Atraumatic, Normocephalic Neck: Yes: Supple, Trachea Midline Cardiovascular: Yes: Regular Rate and Rhythm, S1, S2 Respiratory: Yes: Regular, CTA Bilaterally Gastrointestinal: Yes: Normal Bowel Sounds, Soft, Abdomen, Obese, Tenderness ( incisonal). No: Splenomegaly, Tenderness, Epigastrium ...Rectal Exam: Yes: Deferred Genitourinary: No: CVA Tenderness - Left, CVA Tenderness - Right, Incontinence Breast(s): No: Breast Implants, Gynecomastia Musculoskeletal: No: Muscle Pain, Muscle Weakness Extremities: No: Cool, Cyanosis Edema: No Peripheral Pulses WNL: Yes Peripheral Pulses: Left Radial: 2+, Right Radial: 2+, Left Doralis Pedis: 2+, Right Dorsalis Pedis: 2+, Left Femoral: 2+, Right Femoral: 2+ Integumentary: No: Incision, Jaundice Wound/Incision: Yes: Clean/Dry, Well Approximated, Dressing Dry and Intact Neurological: Yes: Alert, Oriented Psychiatric: Yes: Alert, Oriented Labs: CBC, BMP 05/04/18 12:53 05/04/18 12:53 Problem List - Problems (1) Calculus of gallbladder without cholecystitis without obstruction Assessment/Plan: 57 yo with MMP including CAD s/p PCI with chronic biliary colic and cholecystitis POD#2 s/p lap Cholecystectomy Advance diet as tolerted OOB and ambulate resume anticoagulation adequate analgesia Remove surface dressings tomorrow Discharge at the discretion of the primary team Code(s): K80.20 - CALCULUS OF GALLBLADDER W/O CHOLECYSTITIS W/O OBSTRUCTION (2) Anxiety Code(s): F41.9 - ANXIETY DISORDER, UNSPECIFIED (3) HLD (hyperlipidemia) Code(s): E78.5 - HYPERLIPIDEMIA, UNSPECIFIED Qualifiers: Hyperlipidemia type: pure hypercholesterolemia Qualified Code(s): E78.00 - Pure hypercholesterolemia, unspecified; E78.0 - Pure hypercholesterolemia (4) S/P drug eluting coronary stent placement Code(s): Z95.5 - PRESENCE OF CORONARY ANGIOPLASTY IMPLANT AND GRAFT (5) CAD (coronary artery disease) Code(s): I25.10 - ATHSCL HEART DISEASE OF [place] CORONARY ARTERY W/O ANG PCTRS Qualifiers: Coronary Disease-Associated Artery/Lesion type: [place] artery [place] vs. transplanted heart: [place] heart Associated angina: with other forms of angina Qualified Code(s): I25.118 - Atherosclerotic heart disease of [place] coronary artery with other forms of angina pectoris (6) Chronic use of opiate drugs therapeutic purposes Code(s): Z79.899 - OTHER DIRECTOR OF [employer]SH[employer] (CURRENT) DRUG THERAPY (7) Depression Code(s): F32.9 - MAJOR DEPRESSIVE DISORDER, SINGLE EPISODE, UNSPECIFIED (8) Nicotine dependence Code(s): F17.200 - NICOTINE DEPENDENCE, UNSPECIFIED, UNCOMPLICATED Qualifiers: Nicotine product type: cigarettes
[2018-05-05] MEDS: VENLAFAXINE HCL 25 MG TABLET PO SCH ×2 (10:56→22:50)
[2018-05-05] MEDS: ASPIRIN 81 MG CHEWABLE TABLETS PO SCH (10:56)
[2018-05-05] MEDS: HEPARIN NA (PORCINE) 5,000 UNITS/ML 1ML VIAL SQ SCH ×2 (10:58→22:50)
[2018-05-05] MEDS: CLOPIDOGREL BISULFATE 75 MG TABLET (FP) PO SCH (10:59)
[2018-05-05] MEDS: PANTOPRAZOLE 40 MG TABLET (FP) PO SCH ×2 (10:59→22:50)
[2018-05-05] MEDS: NICOTINE 14 MG/24 HOURS TOPICAL PATCH TD SCH (10:59)
[2018-05-05] MEDS: OMEGA-3 ACID ETHYL ESTERS (FATTY-ACIDS) 1 GM CAPSULE (FP) PO SCH ×2 (10:59→22:50)
[2018-05-05] MEDS: ALPRAZolam 2 MG TABLET PO PRN ×2 (11:02→22:53)
--- NOTE | 2018-05-05 13:29 | CONSULT ---
- Consultation REQUESTING PROVIDER: CONSULT REQUEST: We have been asked to surgically evaluate this patient for thrombophlebitis PCP:Yvon Isabel HISTORY OF PRESENT ILLNESS: 57yo F was consulted to vascular for evaluation of LUE thrombophlebitis. Pt had IV in place in her Left antecubital 2 days ago, which was when the swelling appeared. Pt at this time denies any pain in the area, said it is a little swollen. Pt denies numbness or weakness in her Lt hand. PMHx: HLD, asthma Home Medications Medication Instructions Recorded Alprazolam [Xanax] 2 mg PO BID PRN 05/11/17 Methadone [Dolophine -] 40 mg PO DAILY 05/11/17 Albuterol 2.5/Ipratropium 0.5 1 amp NEB Q6H PRN amp 05/12/17 [Duoneb -] Aspirin [ASA -] 81 mg PO DAILY tab.chew 05/12/17 Atorvastatin Ca [Lipitor] 80 mg PO HS tablet 05/12/17 Clopidogrel Bisulfate [Plavix -] 75 mg PO DAILY tablet 05/12/17 Oxycodone HCl/Acetaminophen 1 each PO QID PRN 11/05/17 [Endocet 10-325 mg Tablet] Polyethylene Glycol 3350 [Miralax 17 gm PO BID #1 bottle 11/07/17 119 gm Btl -] Pantoprazole Sodium [Protonix -] 40 mg PO BID #60 tablet.ec 01/13/18 Venlafaxine HCl [Effexor -] 25 mg PO BID 03/30/18 Allergies Allergy/AdvReac Type Severity Reaction Status Date / Time No Known Allergies Allergy Verified 04/30/18 02:30 REVIEW OF SYSTEMS: CONSTITUTIONAL: Absent: fever, chills, diaphoresis, generalized weakness, malaise, loss of appetite, weight change CARDIOVASCULAR: Absent: chest pain, syncope, palpitations, irregular heart rate, lightheadedness RESPIRATORY: Absent: cough, shortness of breath, dyspnea with exertion, wheezing, stridor, hemoptysis SKIN: Absent: rash, itching, pallor HEMATOLOGIC/IMMUNOLOGIC: Absent: easy bleeding, easy bruising PHYSICAL EXAM: GENERAL: Awake, alert, and fully oriented, in no acute distress. HEAD: Normal with no signs of trauma. EYES: sclera anicteric, conjunctiva clear. NECK: Normal ROM LUNGS: Clear to auscultation bilat anteriorly. No wheezes, and no crackles. No accessory muscle use. HEART: Regular rate and rhythm. No murmurs MUSCULOSKELETAL: Normal ROM at all joints. No bony deformities or tenderness. No CVA tenderness. UPPER EXTREMITIES: 2+ pulses, warm, well-perfused. No cyanosis. Cap refill <2 seconds. Mild swelling medial upper arm, nontender NEUROLOGICAL: Normal speech, gait not observed. PSYCH: Cooperative. Good eye contact. Appropriate mood and affect. SKIN: Warm, dry, normal turgor, no rashes or lesions noted. Vital Signs Temperature 98.8 F 05/05/18 09:26 Pulse Rate 93 H 05/05/18 09:26 Respiratory Rate 20 05/05/18 09:26 Blood Pressure 118/72 05/05/18 09:26 O2 Sat by Pulse Oximetry (%) 96 05/05/18 09:00 Lab Results WBC 19.0 K/mm3 (4.0-10.0) H 05/04/18 12:53 RBC 4.06 M/mm3 (3.60-5.2) 05/04/18 12:53 Hgb 12.7 GM/dL (10.7-15.3) 05/04/18 12:53 Hct 37.6 % (32.4-45.2) 05/04/18 12:53 MCV 92.6 fl (80-96) 05/04/18 12:53 MCHC 33.8 g/dl (32.0-36.0) 05/04/18 12:53 RDW 14.1 % (11.6-15.6) 05/04/18 12:53 Plt Count 173 K/MM3 (134-434) 05/04/18 12:53 Sodium 137 mmol/L (136-145) 05/04/18 12:53 Potassium 4.1 mmol/L (3.5-5.1) 05/04/18 12:53 Chloride 103 mmol/L (98-107) 05/04/18 12:53 Carbon Dioxide 31 mmol/L (21-32) 05/04/18 12:53 Anion Gap 3 MMOL/L (8-16) L 05/04/18 12:53 BUN 11 mg/dL (7-18) 05/04/18 12:53 Creatinine 0.6 mg/dL (0.55-1.3) 05/04/18 12:53 Random Glucose 135 mg/dL (74-106) H 05/04/18 12:53 Calcium 8.3 mg/dL (8.5-10.1) L 05/04/18 12:53 Duplex: shows superficial phlebitis in LUE Problem List - Problems (1) Phlebitis Assessment/Plan: Plan -phlebitis is mostly resolved at this time, can use warm compresses and NSAIDS if ok by cardiology, if it continues to bother her. -no surgical intervention at this time -case discussed with Dr. Mederos who agrees with plan Code(s): I80.9 - PHLEBITIS AND THROMBOPHLEBITIS OF UNSPECIFIED SITE
--- NOTE | 2018-05-05 14:41 | PN ---
Progress Note, Physician Chief Complaint: Abdominal pain S/p Lap appendectomy History of Present Illness: Previous notes and events reviewed awake and alert NAD c/o abdominal cramping and constipation WBC 19.0 - Current Medication List Current Medications: Active Medications Alprazolam (Xanax -) 2 mg PO Q12H PRN PRN Reason: ANXIETY Last Admin: 05/05/18 11:02 Dose: 2 mg Aspirin (Asa -) 81 mg PO DAILY [facility] Last Admin: 05/05/18 10:56 Dose: 81 mg Atorvastatin Calcium (Lipitor -) 80 mg PO HS [facility] Last Admin: 05/04/18 22:36 Dose: 80 mg Clopidogrel Bisulfate (Plavix -) 75 mg PO DAILY [facility] Last Admin: 05/05/18 10:59 Dose: 75 mg Heparin Sodium (Porcine) (Heparin -) 5,000 unit SQ BID [facility] Last Admin: 05/05/18 10:58 Dose: 5,000 unit Hydroxyzine HCl (Atarax -) 25 mg PO Q6H PRN PRN Reason: FOR ITCHING Last Admin: 05/03/18 16:37 Dose: 25 mg Methadone HCl 40 mg/ Methadone (HCl 30 mg) 70 mg PO DAILY@0600 [facility] Last Admin: 05/05/18 06:04 Dose: 70 mg Nicotine (Nicoderm Patch -) 14 mg TD DAILY [facility] Last Admin: 05/05/18 10:59 Dose: 14 mg [id number] Ethyl Esters (Lovaza -) 2 gm PO BID [facility] Last Admin: 05/05/18 10:59 Dose: 2 gm Pantoprazole Sodium (Protonix -) 40 mg PO BID [facility] Last Admin: 05/05/18 10:59 Dose: 40 mg Triamcinolone Acetonide (Aristocort 0.1% Lotion -) 1 applic TP QID PRN PRN Reason: itching Venlafaxine HCl (Effexor -) 25 mg PO BID [facility] Last Admin: 05/05/18 10:56 Dose: 25 mg Zinc Acetate/Diphenhydramine (Benadryl 2% Cream) 1 applic TP TID [facility] Last Admin: 05/05/18 14:22 Dose: Not Given - Objective Vital Signs: Vital Signs Temperature 98.2 F 05/05/18 14:09 Pulse Rate 94 H 05/05/18 14:09 Respiratory Rate 20 05/05/18 14:13 Blood Pressure 113/64 05/05/18 14:09 O2 Sat by Pulse Oximetry (%) 9 L 05/05/18 14:13 Constitutional: Yes: Calm, Mild Distress, Obese Eyes: Yes: Conjunctiva Clear HENT: Yes: Atraumatic Neck: Yes: Supple Cardiovascular: Yes: Regular Rate and Rhythm Respiratory: Yes: Regular, CTA Bilaterally Gastrointestinal: Yes: Soft, Abdomen, Obese, Other (diffuse tenderness) Musculoskeletal: Yes: WNL Extremities: Yes: WNL Edema: No Neurological: Yes: Alert, Oriented Psychiatric: Yes: Alert, Oriented Labs: CBC, BMP 05/04/18 12:53 05/04/18 12:53 Microbiology 05/03/18 21:10 Blood - Arterial Blood Culture - Preliminary NO GROWTH OBTAINED AFTER 24 HOURS, INCUBATION TO CONTINUE FOR 4 DAYS. 05/03/18 21:10 Blood - Arterial Blood Culture - Preliminary NO GROWTH OBTAINED AFTER 24 HOURS, INCUBATION TO CONTINUE FOR 4 DAYS. Problem List - Problems (1) Chest pain Assessment/Plan: -cardiology on board -troponin neg x 3 -echo show LV systolic function is normal Code(s): R07.9 - CHEST PAIN, UNSPECIFIED Qualifiers: Chest pain type: other chest pain Qualified Code(s): R07.89 - Other chest pain; R07.8 - Other chest pain (2) Abdominal pain Assessment/Plan: -GI and surgery on board -pain management Code(s): R10.9 - UNSPECIFIED ABDOMINAL PAIN Qualifiers: Abdominal location: epigastric Qualified Code(s): R10.13 - Epigastric pain (3) Calculus of gallbladder without cholecystitis without obstruction Assessment/Plan: -GI and surgery on board -s/p lap appendectomy Code(s): K80.20 - CALCULUS OF GALLBLADDER W/O CHOLECYSTITIS W/O OBSTRUCTION (4) Leukocytosis Assessment/Plan: -WBC 19.0 -ID consult -BC neg Code(s): D72.829 - ELEVATED WHITE BLOOD CELL COUNT, UNSPECIFIED (5) HLD (hyperlipidemia) Assessment/Plan: -continue with atorvastatin and fish oil Code(s): E78.5 - HYPERLIPIDEMIA, UNSPECIFIED Qualifiers: Hyperlipidemia type: pure hypercholesterolemia Qualified Code(s): E78.00 - Pure hypercholesterolemia, unspecified; E78.0 - Pure hypercholesterolemia Assessment/Plan see problem list dvt ppx
[2018-05-05] MEDS ORDERED: POLYETHYLENE GLYCOL 3350 119 GM BTL PO ONE (15:12)
--- NOTE | 2018-05-05 16:26 | PN ---
Progress Note (short form) - Note Progress Note: ID CONSULT DICTATED LEUKOCYTOSIS ? SOURCE POD #2 LAP FISH SUPERFICIAL THROMBOPHLEBITIS L UE REPEAT CBC OBSERVE OFF ANTIBIOTICS HIV TEST ( GIVES CONSENT )
--- NOTE | 2018-05-05 16:38 | PATH ---
Surgical Pathology Report Patient Name: DOUG MYERS [facility]. Rec. #: [id number] /Age/Gender: 1960 (Age: 57) / F Account: [id number] Location: [facility] MED/SURG Taken: 05/02/2018 Received: 05/03/2018 Reported: 05/05/2018 Physicians: Ari Moss M.D. Specimen(s) Received GALLBLADDER Clinical History Biliary colic, symptomatic cholelithiasis Final Diagnosis GALLBLADDER, CHOLECYSTECTOMY: ACUTE SUPERIMPOSED ON CHRONIC CHOLECYSTITIS. CHOLELITHIASIS. Electronically Signed Elizabeth Willis M.D. Gross Description Received in formalin, labeled "gallbladder," is a 9.0 x 3.5 x 2.8 cm. gallbladder with a 0.2 cm. in length portion of cystic duct attached. The outer surface is freeman-calzada and varies from smooth to shaggy. The lumen contains green, tenacious bile as well as multiple black, irregular to fragmented choleliths ranging from 0.1-3.0 cm in greatest dimension. The mucosa is freeman-green and velvety. The wall of the gallbladder averages 0.1 cm. in thickness. Manager [employer] Support sections are submitted in one cassette. 05/04/201805/04/2018
--- NOTE | 2018-05-05 18:34 | CONS ---
DATE OF CONSULTATION: 05/05/2018 INFECTIOUS DISEASE CONSULTATION HISTORY OF PRESENT ILLNESS: The patient is a 57-year-old female evaluated for leukocytosis. She presented to the emergency room on April 30 with right sided chest pain syndrome. On workup she was found to have a distended gallbladder. A laparoscopic cholecystectomy was performed on May 03, 2018. Postoperative course is complicated by fever 100.8. She was noted to have a catheter related phlebitis in the left antecubital fossa. A Doppler exam was performed, was positive for superficial thrombophlebitis, no evidence of DVT. Blood cultures were obtained and are negative preliminarily. She is presently postoperative day number 2, and was noted to have a white blood cell count elevation at 19,000. She is feeling generally well. She had some abdominal discomfort postoperatively. She has been constipated. No vomiting or diarrhea. No complaints of chest pain, shortness of breath, cough. No dysuria, hematuria. No calf pain. PAST MEDICAL HISTORY: Positive for hypertension, hyperlipidemia, anxiety, coronary artery disease. PAST SURGICAL HISTORY: Status post coronary artery stent. ALLERGIES: No known allergies. SOCIAL HISTORY: Positive for tobacco use. She is on methadone for pain management. Denies risk factors for HIV, states she tested negative in the past, but was agreeable to be retested. LABORATORY DATA: White count 19 with a normal differential. Hematocrit 37.6, platelets 123, creatinine 0.6. Chest x-ray, no infiltrates. PHYSICAL EXAMINATION: General: On exam, she is awake and alert, supine in bed, morbidly obese. Vital signs: Temperature 98.2, blood pressure 113/64, pulse 94 regular, respirations 20 per minute. HEENT: Sclerae anicteric. Cardiovascular: Heart sounds S1, S2. Lungs: Clear. No rhonchi, rales, or wheezing. Abdomen: Soft, Obese. Surgical incision wounds appear clear without evidence of infection. No erythema or drainage. Extremities: Negative Homans sign. There is a palpable cord present in the left antecubital fossa; however, there is no erythema, warmth, or tenderness. No expressible pus. IMPRESSION: 1. Leukocytosis, unclear course. 2. Postoperative day number 2, laparoscopic cholecystectomy. 3. Superficial thrombophlebitis, left upper extremity. At this point, blood cultures are negative. No clear source for elevated white blood cell count. Will repeat CBC in the a.m., observe off antibiotic therapy. Should she have persistent leukocytosis, would consider a CAT scan of the abdomen and pelvis to rule out abscess. Obtain HIV test. Patient gives verbal consent. Thank you for the kind referral. VIRI DAMON M.D. AYANNA/[id number]
[2018-05-05] MEDS ORDERED: PT OWN MED DRAWER 7, Y5N ONE (20:18)
[2018-05-05] MEDS: ATORVASTATIN CA 80 MG TABLET (FP) PO SCH (22:50)
[2018-05-06] MEDS ORDERED: METHADONE HCL 40 MG DISPERSABLE TABLET ONE (05:49)
[2018-05-06] MEDS ORDERED: METHADONE HCL 10 MG TABLET ONE (05:49)
[2018-05-06] MEDS ORDERED: PT OWN MED DRAWER 7, Y5N ONE ×2 (07:05→09:12)
[2018-05-06] MEDS: METHADONE 40 MG, METHADONE 30 MG PO SCH (07:08)
[2018-05-06] MEDS: ALPRAZolam 2 MG TABLET PO PRN (07:08)
[2018-05-06 08:04] LABS: HEMOGLOBIN 12.5 GM/dL (10.7-15.3); MCH 31.2 pg (25.7-33.7); MCHC 33.7 g/dl (32.0-36.0); MEAN CELL VOLUME 92.6 fl (80-96); MEAN PLT VOLUME 8.4 fl (7.5-11.1); PLATELET COUNT 188 K/MM3 (134-434); RBC 3.99 M/mm3 (3.60-5.2); RDW 14.3 % (11.6-15.6); WHITE BLOOD COUNT 9.9 K/mm3 (4.0-10.0)
[2018-05-06 08:27] LABS: ALK PHOS 82 U/L (45-117); ANION GAP 3 MMOL/L (8-16); BILIRUBIN,TOTAL 0.6 mg/dL (0.2-1); BLOOD UREA NITROGEN 11 mg/dL (7-18); CALCIUM 8.6 mg/dL (8.5-10.1); CHLORIDE 100 mmol/L (98-107); CO2 35 mmol/L (21-32); CREATININE 0.7 mg/dL (0.55-1.3); GLUCOSE,RANDOM 80 mg/dL (74-106); SGOT/AST 11 U/L (15-37); SGPT/ALT 29 U/L (13-61); SODIUM 138 mmol/L (136-145); TOT PROT 6.3 g/dl (6.4-8.2)
--- NOTE | 2018-05-06 09:22 | PN ---
Progress Note, Physician Chief Complaint: feels well Ambulating. WBC is down. - Current Medication List Current Medications: Active Medications Alprazolam (Xanax -) 2 mg PO Q12H PRN PRN Reason: ANXIETY Last Admin: 05/06/18 07:08 Dose: 2 mg Aspirin (Asa -) 81 mg PO DAILY [facility] Last Admin: 05/05/18 10:56 Dose: 81 mg Atorvastatin Calcium (Lipitor -) 80 mg PO HS [facility] Last Admin: 05/05/18 22:50 Dose: 80 mg Clopidogrel Bisulfate (Plavix -) 75 mg PO DAILY [facility] Last Admin: 05/05/18 10:59 Dose: 75 mg Heparin Sodium (Porcine) (Heparin -) 5,000 unit SQ BID [facility] Last Admin: 05/05/18 22:50 Dose: 5,000 unit Hydroxyzine HCl (Atarax -) 25 mg PO Q6H PRN PRN Reason: FOR ITCHING Last Admin: 05/03/18 16:37 Dose: 25 mg Methadone HCl 40 mg/ Methadone (HCl 30 mg) 70 mg PO DAILY@0600 [facility] Last Admin: 05/06/18 07:08 Dose: 70 mg Nicotine (Nicoderm Patch -) 14 mg TD DAILY [facility] Last Admin: 05/05/18 10:59 Dose: 14 mg [id number] Ethyl Esters (Lovaza -) 2 gm PO BID [facility] Last Admin: 05/05/18 22:50 Dose: 2 gm Pantoprazole Sodium (Protonix -) 40 mg PO BID [facility] Last Admin: 05/05/18 22:50 Dose: 40 mg Polyethylene Glycol (Miralax (For Daily Use) -) 17 gm PO DAILY [facility] Triamcinolone Acetonide (Aristocort 0.1% Lotion -) 1 applic TP QID PRN PRN Reason: itching Venlafaxine HCl (Effexor -) 25 mg PO BID [facility] Last Admin: 05/05/18 22:50 Dose: 25 mg Zinc Acetate/Diphenhydramine (Benadryl 2% Cream) 1 applic TP TID [facility] Last Admin: 05/06/18 07:51 Dose: Not Given - Objective Vital Signs: Vital Signs Temperature 98.2 F 05/06/18 06:23 Pulse Rate 72 05/06/18 06:23 Respiratory Rate 18 05/06/18 06:23 Blood Pressure 100/45 L 05/06/18 06:23 O2 Sat by Pulse Oximetry (%) 95 05/05/18 21:00 Constitutional: Yes: No Distress, Calm Neck: Yes: Supple Cardiovascular: Yes: Regular Rate and Rhythm Respiratory: Yes: CTA Bilaterally (no wheezing or rales) Gastrointestinal: Yes: Soft, Abdomen, Obese Edema: No Neurological: Yes: Alert, Oriented ...Motor Strength: WNL Labs: CBC, BMP 05/06/18 07:27 05/06/18 07:27 Microbiology 05/03/18 21:10 Blood - Arterial Blood Culture - Preliminary NO GROWTH OBTAINED AFTER 48 HOURS, INCUBATION TO CONTINUE FOR 3 DAYS. 05/03/18 21:10 Blood - Arterial Blood Culture - Preliminary NO GROWTH OBTAINED AFTER 48 HOURS, INCUBATION TO CONTINUE FOR 3 DAYS. Laboratory Tests 05/06/18 05/06/18 07:27 07:27 WBC 9.9 Hgb 12.5 Plt Count 188 Sodium 138 Potassium 4.0 Creatinine 0.7 Problem List - Problems (1) Atypical chest pain Code(s): R07.89 - OTHER CHEST PAIN (2) CAD S/P percutaneous coronary angioplasty Code(s): I25.10 - ATHSCL HEART DISEASE OF [place] CORONARY ARTERY W/O ANG PCTRS; Z98.61 - CORONARY ANGIOPLASTY STATUS (3) Calculus of gallbladder without cholecystitis without obstruction Code(s): K80.20 - CALCULUS OF GALLBLADDER W/O CHOLECYSTITIS W/O OBSTRUCTION (4) Morbid (severe) obesity with alveolar hypoventilation Code(s): E66.2 - MORBID (SEVERE) OBESITY WITH ALVEOLAR HYPOVENTILATION (5) Patient on methadone maintenance therapy Code(s): F11.20 - OPIOID DEPENDENCE, UNCOMPLICATED Assessment/Plan IMP: CAD s/p PCI 05/2017 Atypical CP Cholelithiasis, biliary colic POD #3 lap erin *Lexican nuclear stress 01/2018 with no ischemia REC: 1. Tolerated surgery well 2. Work up of suspected superficial phlebitis upper extremity as per PMD; cultures remain negative. WBC down off Abx. Further reccs as per ID. 3. DVT prophylaxis, diet advancement as per PMD and Gen surgery Dispo planning Will sign off today. Please call again as/ if needed.
[2018-05-06] MEDS: ASPIRIN 81 MG CHEWABLE TABLETS PO SCH (09:50)
[2018-05-06] MEDS: OMEGA-3 ACID ETHYL ESTERS (FATTY-ACIDS) 1 GM CAPSULE (FP) PO SCH (09:50)
[2018-05-06] MEDS: PANTOPRAZOLE 40 MG TABLET (FP) PO SCH (09:50)
[2018-05-06] MEDS: CLOPIDOGREL BISULFATE 75 MG TABLET (FP) PO SCH (09:50)
[2018-05-06] MEDS: NICOTINE 14 MG/24 HOURS TOPICAL PATCH TD SCH (09:50)
[2018-05-06] MEDS: VENLAFAXINE HCL 25 MG TABLET PO SCH (09:51)
[2018-05-06] MEDS: HEPARIN NA (PORCINE) 5,000 UNITS/ML 1ML VIAL SQ SCH (09:52)
[2018-05-06] MEDS ORDERED: POLYETHYLENE GLYCOL 3350 119 GM BTL PO SCH ×2 (10:00→22:00)
[2018-05-06 14:20] VITALS: BP 100/62; PULSE 81; TEMP 98.7
--- NOTE | 2018-05-06 14:56 | DS ---
Physical Examination Vital Signs: Vital Signs Temperature 98.7 F 05/06/18 14:18 Pulse Rate 81 05/06/18 14:18 Respiratory Rate 20 05/06/18 14:18 Blood Pressure 100/62 05/06/18 14:18 O2 Sat by Pulse Oximetry (%) 99 05/06/18 09:00 Constitutional: Yes: Calm Cardiovascular: Yes: Regular Rate and Rhythm, S1, S2 Respiratory: Yes: CTA Bilaterally Gastrointestinal: Yes: Normal Bowel Sounds, Soft, Other (dressings) Labs: CBC, BMP 05/06/18 07:27 05/06/18 07:27 Discharge Summary Reason For Visit: RULED OUT FOR MYOCARDIAL INFARCTION Current Active Problems Anxiety (Acute) Biliary colic (Acute) Chest pain (Acute) Gallstone (Acute) HLD (hyperlipidemia) (Acute) Leukocytosis (Acute) Phlebitis (Acute) Rash (Acute) Hospital Course: Primary Care Physician PCP: Yvon Isabel - Admission Chief Complaint: Chest Pain History of Present Illness: This is a 57 y/o woman with a PMHx of CAD, [facility] s/p Stent 05/2017 ([facility]), COPD, HLD, Chronic Back Pain, Anxiety. Who presents to the ED with R- sided chest pain x yesterday. Patient reports having left arm pain x several weeks resolves with ASA. Patient reports that the chest pain started at rest which she attributed to heartburn after eating a chicken cutlet. However, she states" the pain would not go away, so I took my Asa at home". Patient denies diaphoresis, SOB, palpitations. Patient denies fever, chills, cough, dizziness, AP/N/V/D, constipation, dysuria patient had laproscopic cholecystectomy cardiology work up negative Condition: Improved - Instructions Diet, Activity, Other Instructions: Postoperative instructions: You had a laparoscopic cholecystectomy on 05/03/[address] Ari Moss of [facility]. Activity: Resume your usual activities gradually, but no heavy exertion or lifting more than 10-15 pounds for 1 month. Remove dressings 48 hours after surgery; sticky tapes underneath will fall off by themselves. You may shower daily starting then, just pat the incision areas dry. No bath or swimming until skin incisions have healed. Eat lightly at first, but advance to your usual diet as tolerated. Pain: For pain, you may use and alternate Tylenol (acetaminophen) 1-2 pills and/ or ibuprofen 200 mg (1-3 pills) every 6 hours each as needed; this means that you can take one OR the other at 3-hour intervals. If you are prescribed a Tylenol/narcotic combination for severe pain, use it instead of plain Tylenol as needed and switch back when your pain starts decreasing. Do not take more than 4000mg of acetaminophen in a day. Take medications as prescribed or indicated on the labeling. Follow-up: Call Dr. Moss' office at [phone] to make your postop appointment (Thursday in approximately 2 weeks after surgery). Clinic is held in the Diagnostic [facility] on the first floor of [facility]. Call the office if you have: * increasing pain not responsive to pain medication * fever of 101F or higher * vomiting * unusual or increasing bleeding or drainage from wounds * increasing redness or swelling at wound sites * inability to urinate Also, see your primary medical doctor within 1-2 weeks. Referrals: Yvon Isabel MD [Primary Care Provider] - Disposition: HOME - Home Medications Comprehensive Discharge Medication List: Ambulatory Orders Alprazolam [Xanax] 2 mg PO BID PRN 05/11/17 Methadone [Dolophine -] 40 mg PO DAILY 05/11/17 Albuterol 2.5/Ipratropium 0.5 [Duoneb -] 1 amp NEB Q6H PRN amp 05/12/17 Aspirin [ASA -] 81 mg PO DAILY tab.chew 05/12/17 Atorvastatin Ca [Lipitor] 80 mg PO HS tablet 05/12/17 Clopidogrel Bisulfate [Plavix -] 75 mg PO DAILY tablet 05/12/17 Oxycodone HCl/Acetaminophen [Endocet 10-325 mg Tablet] 1 each PO QID PRN Polyethylene Glycol 3350 [Miralax 119 gm Btl -] 17 gm PO BID #1 bottle 11/07/17 Pantoprazole Sodium [Protonix -] 40 mg PO BID #60 tablet.ec 01/13/18 Venlafaxine HCl [Effexor -] 25 mg PO BID 03/30/18
--- NOTE | 2018-05-06 15:29 | PN ---
GI Progress Note Subjective: Recalled for post op pain and WBC 19k. The WBC of 19K was from 10/01. She is currently sitting up eating cookies. She states feelling fine. She denies abdominal pain. She also explains that she was advised by her PMD Dr. Isabel to make an appointment appointment with Dr. Godinez to discuss repeat colonoscopy given that her last colonoscopy with Dr. Rankin was incomplete. - Objective Vital Signs: Vital Signs Temperature 98.7 F 05/06/18 14:18 Pulse Rate 81 05/06/18 14:18 Respiratory Rate 20 05/06/18 14:18 Blood Pressure 100/62 05/06/18 14:18 O2 Sat by Pulse Oximetry (%) 99 05/06/18 09:00 Constitutional: Calm Eyes: No: Sclera Icterus Cardiovascular: Yes: Regular Rate and Rhythm Respiratory: Yes: CTA Bilaterally Gastrointestinal Inspection: Yes: Other (dressed torchar sites. ecchymoses around the periumbilical trochar site.). No: Distention ...Auscultate: Yes: Normoactive Bowel Sounds ...Palpate: Yes: Tenderness (At periumbilical trochar site) ...Percussion: No: Tympanitic Edema: No (No LE edema) Neurological: Yes: Alert Labs: CBC, BMP 05/06/18 07:27 05/06/18 07:27 Problem List - Problems (1) Biliary colic Assessment/Plan: Clinically improved, leukocytosis improving and tolerating PO Surgery following Code(s): K80.50 - CALCULUS OF BILE DUCT W/O CHOLANGITIS OR CHOLECYST W/O OBST (2) Constipation Assessment/Plan: Post op and opioid induced. Continue MiraLAX. Can increase to twice per day Code(s): K59.00 - CONSTIPATION, UNSPECIFIED (3) Screening for colorectal cancer Assessment/Plan: Patient states that she will be making an appointment to see Dr. Godinez per her PMD's instructions. I advised that she call and make the appointment as she will need a screening colonoscopy. Code(s): Z12.11 - ENCOUNTER FOR SCREENING FOR MALIGNANT NEOPLASM OF COLON; Z12.12 - ENCOUNTER FOR SCREENING FOR MALIGNANT NEOPLASM OF RECTUM
[2018-05-07] MEDS ORDERED: PANTOPRAZOLE 20 MG TABLET (FP) PO SCH (10:00)
== END 2018-05-06 18:24 | disposition home or self-care (01) | DRG 988 ==
LOC: JER 02:15 → JERBED 03:55 → J4W 18:30 → OBSVTOIN 05-03 15:32 → J7W 05-05 12:50
PROVIDERS: ADMIT Family Medicine; ATTEND Family Medicine
PROC: 0FT44ZZ Resection of Gallbladder, Percutaneous Endoscopic Approach (ICD-10-PCS; principal; 2018-05-03 12:00)
DX: R07.89 Other chest pain (principal); F11.20 Opioid dependence, uncomplicated; Z68.41 Body mass index [BMI] 40.0-44.9, adult; K80.20 Calculus of gallbladder without cholecystitis without obstruction; I25.10 Atherosclerotic heart disease of native coronary artery without angina pectoris; I10 Essential (primary) hypertension; E78.5 Hyperlipidemia, unspecified; F41.9 Anxiety disorder, unspecified; I25.2 Old myocardial infarction; J44.9 Chronic obstructive pulmonary disease, unspecified; G47.30 Sleep apnea, unspecified; F41.8 Other specified anxiety disorders; R21 Rash and other nonspecific skin eruption; M54.5 Low back pain; J30.9 Allergic rhinitis, unspecified; F17.210 Nicotine dependence, cigarettes, uncomplicated; R10.13 Epigastric pain; M25.519 Pain in unspecified shoulder; K21.9 Gastro-esophageal reflux disease without esophagitis; E66.01 Morbid (severe) obesity due to excess calories; K76.0 Fatty (change of) liver, not elsewhere classified; R00.0 Tachycardia, unspecified; I80.8 Phlebitis and thrombophlebitis of other sites; K59.00 Constipation, unspecified; D72.829 Elevated white blood cell count, unspecified; Z95.5 Presence of coronary angioplasty implant and graft; Z96.651 Presence of right artificial knee joint
CPT/HCPCS: 36415; 71045-TC-FY; 76705-TC; 78226-TC; 80048; 80053; 80061; 82150; 82962; 83036; 83690; 83721; 83735; 84100; 84484; 85025; 85027; 86140; 87040; 87389; 88304-TC; 93005; 93010; 93306-TC; 93971; 94760; 99283-25; A9537; G0378; J1644

== ENCOUNTER 2018-05-16 17:28 | Emergency (ER) | payer OTHER ==
[2018-05-16 17:46] VITALS: BP 127/77; PULSE 105; TEMP 98.3; BMI 44.6
--- NOTE | 2018-05-16 18:33 | PDOC ---
History of Present Illness - General History Source: Patient Exam Limitations: No Limitations - History of Present Illness Initial Comments: 05/16/18 19:38 The patient is a 57 year old female, with a significant past medical history of asthma, HTN, HLD, anxiety, and CAD (s/p stent placement 12/2017), and opioid dependence (on methadone), who presents to the emergency department with, surgical wound drainage and constipation. As per patient, she has wound dehiscence with serosanguinous drainage just above her umbilicus. Patient also notes 3 weeks of constipation which she told her PCP about and is on stool softeners. She denies recent fevers, chills, headache or dizziness. She denies recent nausea or vomit. She denies recent dysuria, frequency, urgency or hematuria. She denies recent chest pain or shortness of breath. Allergies: NKDA Past surgical history: Cholecystectomy. Cardiac stenting. Social history: Nonsmoker. Denies EtOH use and recreational drug use. Primary Care Physician: Dr. Isabel. <Elma Aleman - Last Filed: 05/16/18 19:38> <Cat Harman - Last Filed: 05/16/18 19:46> - General Chief Complaint: Revisit,Wound Recheck Stated Complaint: BLEEDING Time Seen by Provider: 05/16/18 18:28 Past History <Elma Aleman - Last Filed: 05/16/18 19:38> - Past Medical History Anemia: No Asthma: Yes Cancer: No Cardiac Disorders: Yes (CAD; STENT 12/24) CVA: No COPD: Yes CHF: No Dementia: No Diabetes: No GI Disorders: Yes (COLON POLYPS; CONSTIPATION;GERD) Disorders: No HTN: Yes Hypercholesterolemia: Yes Liver Disease: No Seizures: No Thyroid Disease: No - Surgical History Abdominal Surgery: No Appendectomy: No Cardiac Surgery: Yes (STENT 12/24) Cholecystectomy: Yes Lung Surgery: No Neurologic Surgery: No Orthopedic Surgery: Yes ((R)KNEE REPLACEMENT;BILAT ANKLE SX) - Immunization History Immunization Up to Date: Yes - Suicide/Smoking/Psychosocial Hx Smoking Status: Yes Smoking History: Current every day smoker Have you smoked in the past 12 months: No Number of Cigarettes Smoked Daily: 10 If you are a former smoker, when did you quit?: 12/30/2017 Information on smoking cessation initiated: No 'Breaking Loose' booklet given: 08/21/14 Hx Alcohol Use: No Drug/Substance Use Hx: No Substance Use Type: None Hx Substance Use Treatment: Yes (METHADONE CHRONIC BACK PAIN) <Cat Harman - Last Filed: 05/16/18 19:46> - Past Medical History Allergies/Adverse Reactions: Allergies Allergy/AdvReac Type Severity Reaction Status Date / Time No Known Allergies Allergy Verified 05/16/18 17:46 Home Medications: Ambulatory Orders Alprazolam [Xanax] 2 mg PO BID PRN 05/11/17 Methadone [Dolophine -] 40 mg PO DAILY 05/11/17 Albuterol 2.5/Ipratropium 0.5 [Duoneb -] 1 amp NEB Q6H PRN amp 05/12/17 Aspirin [ASA -] 81 mg PO DAILY tab.chew 05/12/17 Atorvastatin Ca [Lipitor] 80 mg PO HS tablet 05/12/17 Clopidogrel Bisulfate [Plavix -] 75 mg PO DAILY tablet 05/12/17 Polyethylene Glycol 3350 [Miralax 119 gm Btl -] 17 gm PO BID #1 bottle 11/07/17 Pantoprazole Sodium [Protonix -] 40 mg PO BID #60 tablet.ec 01/13/18 Venlafaxine HCl [Effexor -] 25 mg PO BID 03/30/18 Review of Systems - Review of Systems Comments:: 05/16/18 19:38 CONSTITUTIONAL: Absent: fever, chills, diaphoresis, generalized weakness, malaise, loss of appetite HEENT: Absent: rhinorrhea, nasal congestion, throat pain, throat swelling, difficulty swallowing, mouth swelling, ear pain, eye pain, visual Changes CARDIOVASCULAR: Absent: chest pain, syncope, palpitations, irregular heart rate, lightheadedness , peripheral edema RESPIRATORY: Absent: cough, shortness of breath, dyspnea with exertion, orthopnea, wheezing, stridor, hemoptysis GASTROINTESTINAL: Absent: abdominal pain, abdominal distension, nausea, vomiting, diarrhea, constipation, melena, hematochezia GENITOURINARY: Absent: dysuria, frequency, urgency, hesitancy, hematuria, flank pain, genital pain MUSCULOSKELETAL: Absent: myalgia, arthralgia, joint swelling SKIN: Present: Umbilicus wound dehiscence. HEMATOLOGIC/IMMUNOLOGIC: Absent: easy bleeding, easy bruising, lymphadenopathy, frequent infections ENDOCRINE: Absent: unexplained weight gain, unexplained weight loss, heat intolerance, cold intolerance NEUROLOGIC: Absent: headache, focal weakness or paresthesias, dizziness, unsteady gait, seizure, mental status changes, bladder or bowel incontinence PSYCHIATRIC: Absent: anxiety, depression, suicidal or homicidal ideation, hallucinations. All Other Systems: Reviewed and Negative <Elma Aleman - Last Filed: 05/16/18 19:38> *Physical Exam - Vital Signs Last Vital Signs Temp Pulse Resp BP Pulse Ox 98.3 F 105 H 20 127/77 99 05/16/18 17:42 05/16/18 17:42 05/16/18 17:42 05/16/18 17:42 05/16/18 17:42 - Physical Exam Comments: 05/16/18 19:40 GENERAL: Well developed, well nourished. Awake and alert. No acute distress. HEENT: Normocephalic, atraumatic. PERRLA, EOMI. No conjunctival pallor. Sclera are non- icteric. Moist mucous membranes. Oropharynx is clear. NECK: Supple. Full ROM. No JVD. Carotid pulses 2+ and symmetric, without bruits. No thyromegaly. No lymphadenopathy. CARDIOVASCULAR: Regular rate and rhythm. No murmurs, rubs, or gallops. Distal pulses are 2+ and symmetric. PULMONARY: No evidence of respiratory distress. Lungs clear to auscultation bilaterally. No wheezing, rales or rhonchi. +ABDOMINAL: Protuberant. 2cm wound dehiscence with serosanguinous drainage just above her umbilicus. Soft. Non-distended. No rebound or guarding. No organomegaly. Decreased bowel sounds. MUSCULOSKELETAL Normal range of motion at all joints. No bony deformities or tenderness. No CVA tenderness. EXTREMITIES: No cyanosis. No clubbing. No edema. No calf tenderness. NEUROLOGICAL: Alert, awake, appropriate. Cranial nerves 2-12 intact. No deficits to light touch and temperature in face, upper extremities and lower extremities. No motor deficits in the in face, upper extremities and lower extremities. Normoreflexic in the upper and lower extremities. Normal speech. Toes are down- going bilaterally. PSYCHIATRIC: Cooperative. Good eye contact. Appropriate mood and affect. <Elma Aleman - Last Filed: 05/16/18 19:38> - Vital Signs Last Vital Signs Temp Pulse Resp BP Pulse Ox 98.3 F 105 H 20 127/77 99 05/16/18 17:42 05/16/18 17:42 05/16/18 17:42 05/16/18 17:42 05/16/18 17:42 <Cat Harman - Last Filed: 05/16/18 19:46> Moderate Sedation - Procedure Monitoring Vital Signs: Procedure Monitoring Vital Signs Temperature 98.3 F 05/16/18 17:42 Pulse Rate 105 H 05/16/18 17:42 Respiratory Rate 20 05/16/18 17:42 Blood Pressure 127/77 05/16/18 17:42 O2 Sat by Pulse Oximetry (%) 99 05/16/18 17:42 <Elma Aleman - Last Filed: 05/16/18 19:38> - Procedure Monitoring Vital Signs: Procedure Monitoring Vital Signs Temperature 98.3 F 05/16/18 17:42 Pulse Rate 105 H 05/16/18 17:42 Respiratory Rate 20 05/16/18 17:42 Blood Pressure 127/77 05/16/18 17:42 O2 Sat by Pulse Oximetry (%) 99 05/16/18 17:42 <Cat Harman - Last Filed: 05/16/18 19:46> ED Treatment Course - LABORATORY CBC & Chemistry Diagram: 05/16/18 18:45 05/16/18 18:45 - ADDITIONAL ORDERS Additional order review: Laboratory Results 05/16/18 05/16/18 19:00 18:45 Sodium 143 Potassium 3.7 Chloride 107 Carbon Dioxide 30 Anion Gap 6 L BUN 11 Creatinine 0.6 Creat Clearance w eGFR > 60 Random Glucose 120 H Calcium 8.6 Total Bilirubin 0.2 AST 14 L ALT 22 Alkaline Phosphatase 112 Total Protein 6.6 Albumin 3.3 L Urine Color Yellow Urine Appearance Slcloudy Urine pH 5.0 D Ur Specific [place] 1.023 Urine Protein Negative Urine Glucose (UA) Negative Urine Ketones Trace H Urine Blood Negative Urine Nitrite Negative Urine Bilirubin Negative Urine Urobilinogen 2.0 H Ur Leukocyte Esterase Negative 05/16/18 18:45 RBC 4.11 MCV 92.3 MCHC 33.9 RDW 13.9 MPV 7.6 Neutrophils % 51.3 D Lymphocytes % 34.7 D Monocytes % 6.8 Eosinophils % 6.3 H D Basophils % 0.9 <Elma Aleman - Last Filed: 05/16/18 19:38> - LABORATORY CBC & Chemistry Diagram: 05/16/18 18:45 05/16/18 18:45 <Cat Harman - Last Filed: 05/16/18 19:46> Medical Decision Making - Medical Decision Making 05/16/18 18:41 obese 57 yo female had a cholecystectomy on May 03 and has c/o constipation, drainage from surgical wound 05/16/18 18:55 there is a 2 cm wound dehiscence w serosanguinous drainage that is above her unbilicus <Cat Harman - Last Filed: 05/16/18 19:46> *DC/Admit/Observation/Transfer - Attestations Scribe Attestion: 05/16/18 19:41 Documentation prepared by Elma Aleman, acting as medical sales associate for Cat Harman MD. <Elma Aleman - Last Filed: 05/16/18 19:38> <Cat Harman - Last Filed: 05/16/18 19:46> Diagnosis at time of Disposition: Abdominal wound dehiscence Qualifiers: Encounter type: initial encounter Qualified Code(s): T81.30XA - Disruption of wound, unspecified, initial encounter - Discharge Dispostion Disposition: HOME Condition at time of disposition: Stable - Referrals Referrals: Yvon Isabel MD [Primary Care Provider] - - Patient Instructions Printed Discharge Instructions: DI for Wound Dehiscence Additional Instructions: It is very important to keep your appointmwnt this week with your surgeon. You can keep the area clean and shower as you usually do - Post Discharge Activity
[2018-05-16 18:52] LABS: BASO % 0.9 % (0-2.0); EOS % 6.3 % (0-4.5); HEMATOCRIT 37.9 % (32.4-45.2); HEMOGLOBIN 12.9 GM/dL (10.7-15.3); LYMPH % 34.7 % (8-40); MCH 31.3 pg (25.7-33.7); MCHC 33.9 g/dl (32.0-36.0); MEAN CELL VOLUME 92.3 fl (80-96); MEAN PLT VOLUME 7.6 fl (7.5-11.1); MONO % 6.8 % (3.8-10.2); NEUT % 51.3 % (42.8-82.8); PLATELET COUNT 225 K/MM3 (134-434); RBC 4.11 M/mm3 (3.60-5.2); RDW 13.9 % (11.6-15.6); WHITE BLOOD COUNT 8.6 K/mm3 (4.0-10.0)
[2018-05-16 19:23] LABS: URINE APPEARANCE SLCLOUDY; URINE BILIRUBIN NEGATIVE (<2.0 mg/dL); URINE COLOR YELLOW; URINE GLUCOSE (UA) NEGATIVE (NEGATIVE); URINE KETONE TRACE (NEGATIVE); URINE LEUK ESTERASE NEGATIVE (NEGATIVE); URINE NITRITE NEGATIVE (NEGATIVE); URINE PROTEIN NEGATIVE (NEGATIVE)
[2018-05-16 19:23] LABS: ALBUMIN 3.3 g/dl (3.4-5.0); ALK PHOS 112 U/L (45-117); ANION GAP 6 MMOL/L (8-16); BILIRUBIN,TOTAL 0.2 mg/dL (0.2-1); BLOOD UREA NITROGEN 11 mg/dL (7-18); CALCIUM 8.6 mg/dL (8.5-10.1); CHLORIDE 107 mmol/L (98-107); CO2 30 mmol/L (21-32); CREATININE 0.6 mg/dL (0.55-1.3); GLUCOSE,RANDOM 120 mg/dL (74-106); POTASSIUM 3.7 mmol/L (3.5-5.1); SGOT/AST 14 U/L (15-37); SGPT/ALT 22 U/L (13-61); SODIUM 143 mmol/L (136-145); TOT PROT 6.6 g/dl (6.4-8.2)
== END 2018-05-16 20:00 | disposition home or self-care (01) ==
LOC: JER 17:28
DX: T81.30XA Disruption of wound, unspecified, initial encounter (principal); Z90.49 Acquired absence of other specified parts of digestive tract; I25.10 Atherosclerotic heart disease of native coronary artery without angina pectoris; I10 Essential (primary) hypertension; Z95.5 Presence of coronary angioplasty implant and graft; E78.00 Pure hypercholesterolemia, unspecified; F41.9 Anxiety disorder, unspecified; F11.20 Opioid dependence, uncomplicated; J45.909 Unspecified asthma, uncomplicated; J44.9 Chronic obstructive pulmonary disease, unspecified; Z87.19 Personal history of other diseases of the digestive system
CPT/HCPCS: 36415; 80053; 81003; 85025; 99281-25

== ENCOUNTER 2018-05-19 12:56 | Emergency (ER) | payer OTHER ==
[2018-05-19 13:05] VITALS: BP 102/64; PULSE 85; TEMP 98.1; BMI 42.4
--- NOTE | 2018-05-19 14:35 | PDOC ---
History of Present Illness - General Chief Complaint: Weakness Stated Complaint: SENT BY PCP // EVAL Time Seen by Provider: 05/19/18 14:35 - History of Present Illness Initial Comments: 57yo F with PMH of CAD s/p stent, COPD, chornic back pain, asthma, HTN, HLD, Anxiety, opioid dependence on methadone presenting with weakness. Patient had a cholecystecomy on 05/03/18. She followed up with her surgeon today who noted that she was hypotensive 92/52 and lethargic. He instructed her to present to the ED. Patient states she has been feeling dizzy for the past couple days. She has had poor po intake. Patient admits to taking aprazolam about a half hour prior to arrival as well as her usual morning dose of methadone. She has not had a bowel movement since her surgery. Denies nausea or vomiting. She has had an expanding itchy rash on her trunk for about a month for which her primary care physician gave her oral steroids, benadryl, and hydrocortisone cream with minimal relief of symptoms. Denies fevers, chills, chest pain, or shortness of breath. Past History - Past Medical History Allergies/Adverse Reactions: Allergies Allergy/AdvReac Type Severity Reaction Status Date / Time No Known Allergies Allergy Verified 05/19/18 12:58 Home Medications: Ambulatory Orders Alprazolam [Xanax] 2 mg PO BID PRN 05/11/17 Methadone [Dolophine -] 40 mg PO DAILY 05/11/17 Albuterol 2.5/Ipratropium 0.5 [Duoneb -] 1 amp NEB Q6H PRN amp 05/12/17 Aspirin [ASA -] 81 mg PO DAILY tab.chew 05/12/17 Atorvastatin Ca [Lipitor] 80 mg PO HS tablet 05/12/17 Clopidogrel Bisulfate [Plavix -] 75 mg PO DAILY tablet 05/12/17 Polyethylene Glycol 3350 [Miralax 119 gm Btl -] 17 gm PO BID #1 bottle 11/07/17 Pantoprazole Sodium [Protonix -] 40 mg PO BID #60 tablet.ec 01/13/18 Venlafaxine HCl [Effexor -] 25 mg PO BID 03/30/18 Ipratropium/Albuterol Sulfate [Combivent Respimat Inhal [place]] 4 gm IH QID PRN # 1 mist.inhal 05/19/18 Anemia: No Asthma: Yes Cancer: No Cardiac Disorders: Yes (CAD; STENT 12/24) CVA: No COPD: Yes CHF: No Dementia: No Diabetes: No GI Disorders: Yes (COLON POLYPS; CONSTIPATION;GERD) Disorders: No HTN: Yes Hypercholesterolemia: Yes Liver Disease: No Seizures: No Thyroid Disease: No - Surgical History Abdominal Surgery: No Appendectomy: No Cardiac Surgery: Yes (STENT 12/24) Cholecystectomy: Yes Lung Surgery: No Neurologic Surgery: No Orthopedic Surgery: Yes ((R)KNEE REPLACEMENT;BILAT ANKLE SX) - Immunization History Immunization Up to Date: Yes - Suicide/Smoking/Psychosocial Hx Smoking Status: Yes Smoking History: Current every day smoker Have you smoked in the past 12 months: Yes Number of Cigarettes Smoked Daily: 4 If you are a former smoker, when did you quit?: 12/30/2017 Information on smoking cessation initiated: No 'Breaking Loose' booklet given: 08/21/14 Hx Alcohol Use: No Drug/Substance Use Hx: No Substance Use Type: None Hx Substance Use Treatment: Yes (METHADONE CHRONIC BACK PAIN) Review of Systems - Review of Systems Comments:: Constitutional: no fever, no chills HEENT: no throat pain, no dysphagia Cardiovascular: no chest pain, no palpitations Respiratory: no cough, no shortness of breath Gastrointestinal: no abdominal pain, no nausea Genitourinary: no dysuria, no frequency Musculoskeletal: no myalgia, no arthralgia Skin: +rash, +itching Neurologic: no headache, +lethargy *Physical Exam - Vital Signs Last Vital Signs Temp Pulse Resp BP Pulse Ox 98.1 F 85 20 102/64 92 L 05/19/18 12:59 05/19/18 12:59 05/19/18 12:59 05/19/18 12:59 05/19/18 12:59 - Physical Exam Comments: General: Awake and fully oriented, somnolent but arousable Head: No signs of trauma Eyes: EOMI, sclera anicteric ENT: Moist mucus membranes Neck: Normal ROM, supple Lungs: Wheezes present bilaterally Cardio: Regular rhythm, S1 and S2 present Abdomen: Soft, nontender. No guarding, no rebound, no masses. 1cm surgical wound present, with minor dehiscence Extremities: Normal range of motion, Distal pulses present SKIN: Palpable erthtematous rash present diffusely over abdomen with excoriations, no pus or discharge Neurologic: Cranial nerves II through XII intact. Normal speech, sensation, strength, coordination, and gait. Moderate Sedation - Procedure Monitoring Vital Signs: Procedure Monitoring Vital Signs Temperature 98.1 F 05/19/18 12:59 Pulse Rate 85 05/19/18 12:59 Respiratory Rate 20 05/19/18 12:59 Blood Pressure 102/64 05/19/18 12:59 O2 Sat by Pulse Oximetry (%) 92 L 05/19/18 12:59 ED Treatment Course - LABORATORY CBC & Chemistry Diagram: 05/19/18 16:19 05/19/18 16:19 Medical Decision Making - Medical Decision Making 57yo F with PMH of CAD s/p stent, COPD, chornic back pain, asthma, HTN, HLD, Anxiety, opioid dependence on methadone presenting with weakness. DDX including but not limited to dehydration, electrolyte imbalance, medication adverse effect, psych, PE VSS significant for hypoxia 1LNS loratadine for rash duonebs Plan for CTA given patient's hypoxia and recent surgery 05/19/18 16:15 CTA negative for PE Patient states she feels better and like her normal self Lethargy likely due to medication adverse interaction of methadone and alprazolam As she felt better with nebs, will send prescription for combivent Plan to discharge 05/19/18 20:17 *DC/Admit/Observation/Transfer Diagnosis at time of Disposition: Weakness - Prescriptions Prescriptions: Ipratropium/Albuterol Sulfate [Combivent Respimat Inhal [place]] 4 gm IH QID PRN # 1 mist.inhal PRN Reason: Shortness Of Breath - Referrals Referrals: Yvon Isabel MD [Primary Care Provider] - Amisha Little MD [Staff Physician] - Carmina Vital [Staff Physician] - Carlos Alberto Bettencourt [Non Staff, Medical] - Norberto Machuca [Non Staff, Medical] - - Patient Instructions Printed Discharge Instructions: Drug Interactions: What You Need to Know Additional Instructions: You came into the ED for weakness. Lab work and imaging did not show acute pathology. Your weakness was likely due to medications you took too close together. Prescription for inhaler sent to your pharmacy. Referrals to multiple dermatologists included with your paperwork as it is uncertain who you will be able to see. Call and make an appointment. It is important that you follow up with a primary care provider to discuss your ER visit and further management of your weakness. Call and make an appointment. Please return to the ER if you experience concerning or worsening symptoms. - Post Discharge Activity
--- NOTE | 2018-05-19 15:27 | PDOC ---
Attending Attestation - Resident Resident Name: Prema Santana - ED Attending Attestation I have performed the following: I have examined & evaluated the patient, The case was reviewed & discussed with the resident, I agree w/resident's findings & plan, Exceptions are as noted - Physicial Exam PE: 05/19/18 16:23 Patient is awake and alert, morbidly obese, resting comfortably Normocephalic, atraumatic PERRLA, EOMI, + conjunctival injection mm-dry cta rrr abd-sft, nt, nd; + incision site above the umbilicus appears partially dehisced Minimal lower extremity edema bilaterally + Diffuse rash to the trunk upper and lower back in a Gena tree-like distribution involving hypopigmented patches consistent with pityriasis rosea. - Medical Decision Making 05/19/18 16:26 Patient is morbidly obese 57-year-old female who presents with lethargy, borderline hypotension hypoxemia 3 weeks post laparoscopic cholecystectomy. Patient also complaining of diffuse pruritic rash for a month not effectively controlled by prednisone. I believe lethargies related to the interaction between Xanax and methadone which the patient takes for previous IVDA. Will rule out PE with CTA, will aggressively hydrate; we'll obtain RPR to rule out secondary syphilis. Will reassess. Likely discharge. <Catracho Merrill - Last Filed: 05/19/18 16:20> - HPI HPI: 05/19/18 16:28 The patient is a 57 year old female with a significant past medical history of CAD s/p stent, COPD, chronic back pain, asthma, HTN, HLD, Anxiety, opioid dependence on methadone, s/p cholecystectomy on 05/03/18, who presents to the ED with generalized weakness and dizziness sent to the ED after being found hypotensive (92/52) and lethargic in her surgeons office today. He instructed her to present to the ED. Secondarily, she reports a pruritic rash to her body for about a month despite use of oral steroids, benadryl, and hydrocortisone cream. <Nicky Craft - Last Filed: 05/19/18 16:29> Attestations - Attestations 05/19/18 16:28 Documentation prepared by Nicky Craft, acting as medical billing associate for Catracho Merrill MD <Nicky Craft - Last Filed: 05/19/18 16:29>
[2018-05-19] MEDS ORDERED: ALBUTEROL SO4 2.5/IPRATROPIUM 0.5 INH SOL 3 ML VIAL.NEB. NEB ONE ×2 (15:50→17:13)
[2018-05-19] MEDS ORDERED: SODIUM CHLORIDE 1,000 ML IV STA (15:50)
[2018-05-19] MEDS ORDERED: LORATADINE 10 MG TABLET PO ONE (15:55)
[2018-05-19 16:35] LABS: BASO % 0.8 % (0-2.0); EOS % 6.2 % (0-4.5); HEMATOCRIT 37.3 % (32.4-45.2); HEMOGLOBIN 12.8 GM/dL (10.7-15.3); LYMPH % 37.1 % (8-40); MCH 31.5 pg (25.7-33.7); MCHC 34.2 g/dl (32.0-36.0); MONO % 6.8 % (3.8-10.2); NEUT % 49.1 % (42.8-82.8); PLATELET COUNT 234 K/MM3 (134-434); RBC 4.05 M/mm3 (3.60-5.2); RDW 14.1 % (11.6-15.6); WHITE BLOOD COUNT 7.7 K/mm3 (4.0-10.0)
[2018-05-19 16:48] LABS: INR 0.96 (0.83-1.09); PROTHROMBIN TIME (PATIENT) 11.3 SEC (9.7-13.0)
[2018-05-19 16:51] LABS: ACTIVATED PTT 31.3 SECONDS (25.2-36.5)
[2018-05-19 17:13] LABS: ALBUMIN 3.1 g/dl (3.4-5.0); ALK PHOS 96 U/L (45-117); ANION GAP 4 MMOL/L (8-16); BILIRUBIN,TOTAL 0.2 mg/dL (0.2-1); BLOOD UREA NITROGEN 13 mg/dL (7-18); CALCIUM 8.3 mg/dL (8.5-10.1); CHLORIDE 106 mmol/L (98-107); CO2 30 mmol/L (21-32); CREATININE 0.5 mg/dL (0.55-1.3); GLUCOSE,RANDOM 118 mg/dL (74-106); SGOT/AST 16 U/L (15-37); SGPT/ALT 22 U/L (13-61); SODIUM 140 mmol/L (136-145); TOT PROT 6.3 g/dl (6.4-8.2)
[2018-05-19] MEDS ORDERED: LORATADINE 10 MG TABLET ONE (17:13)
--- NOTE | 2018-05-20 10:51 | EKG ---
Test Reason : Blood Pressure : / mmHG Vent. Rate : 085 BPM Atrial Rate : 085 BPM P-R Int : 148 ms QRS Dur : 086 ms QT Int : 386 ms P-R-T Axes : -16 004 028 degrees QTc Int : 459 ms NORMAL SINUS RHYTHM NORMAL ECG WHEN COMPARED WITH ECG OF 30-APR-2018 03:06, NONSPECIFIC T WAVE ABNORMALITY, IMPROVED IN LATERAL LEADS QT HAS LENGTHENED Confirmed by VEE GARCIA, SHAWNA ([id number]) on 05/20/2018 10:50:45 AM Referred By: Confirmed By:SHAWNA BAXTER MD
== END 2018-05-19 20:48 | disposition home or self-care (01) ==
LOC: JER 12:56
PROC: 3E0337Z Introduction of Electrolytic and Water Balance Substance into Peripheral Vein, Percutaneous Approach (ICD-10-PCS; principal; 2018-05-19)
PROC: 3E0F7GC Introduction of Other Therapeutic Substance into Respiratory Tract, Via Natural or Artificial Opening (ICD-10-PCS; 2018-05-19)
DX: R53.1 Weakness (principal); Z98.890 Other specified postprocedural states; I25.10 Atherosclerotic heart disease of native coronary artery without angina pectoris; I10 Essential (primary) hypertension; Z95.5 Presence of coronary angioplasty implant and graft; E78.5 Hyperlipidemia, unspecified; F41.9 Anxiety disorder, unspecified
CPT/HCPCS: 36415; 71045-TC-FY; 71275-TC; 80053; 85025; 85610; 85730; 86593; 93005; 93010; 99283-25; J7030

== ENCOUNTER 2018-11-20 08:04 | Inpatient (IN) | payer BC, OTHER | END 2018-11-23 11:35 | disposition left against medical advice (07) | LOC: YASAS 08:04 → Y6N 10:18 ==

== ENCOUNTER 2019-03-08 19:29 | Emergency (ER) | payer BC, OTHER ==
[2019-03-08 19:37] VITALS: BP 130/83; PULSE 83; TEMP 97.4; BMI 41.4
--- NOTE | 2019-03-08 19:58 | PDOC ---
History of Present Illness - General Chief Complaint: Chest Pain Stated Complaint: CHEST PAIN Time Seen by Provider: 03/08/19 19:57 Past History - Past Medical History Allergies/Adverse Reactions: Allergies Allergy/AdvReac Type Severity Reaction Status Date / Time latex Allergy Severe Swelling Verified 03/08/19 20:47 Home Medications: Ambulatory Orders Alprazolam [Xanax] 2 mg PO BID PRN 05/11/17 Aspirin [ASA -] 81 mg PO DAILY tab.chew 05/12/17 Atorvastatin Ca [Lipitor] 80 mg PO HS tablet 05/12/17 Oxycodone HCl/Acetaminophen [Endocet 10-325 mg Tablet] 1 each PO TID 03/08/19 Anemia: No Asthma: Yes Cancer: No Cardiac Disorders: Yes (CAD; STENT 12/24) CVA: No COPD: Yes CHF: No Dementia: No Diabetes: No GI Disorders: Yes (COLON POLYP; CONSTIPATION; GERD) Disorders: No HTN: Yes Hypercholesterolemia: Yes Kidney Stones: No Liver Disease: No Seizures: No Thyroid Disease: No - Surgical History Abdominal Surgery: No Appendectomy: No Cardiac Surgery: Yes (STENT 12/24) Cholecystectomy: Yes Lung Surgery: No Neurologic Surgery: No Orthopedic Surgery: Yes ((R)KNEE REPLACEMENT; left fot surgery (error - wrong side surgery 2016)) - Immunization History Immunization Up to Date: Yes - Psycho Social/Smoking Cessation Hx Smoking Status: Yes Smoking History: Never smoked Have you smoked in the past 12 months: Yes Number of Cigarettes Smoked Daily: 10 If you are a former smoker, when did you quit?: 12/30/2017 Information on smoking cessation initiated: No 'Breaking Loose' booklet given: 11/20/18 (give on floor) Hx Alcohol Use: No Drug/Substance Use Hx: No Substance Use Type: Heroin, Marijuana, Opiates Hx Substance Use Treatment: Yes (detox, [facility]MTP, rehab) *Physical Exam - Vital Signs Last Vital Signs Temp Pulse Resp BP Pulse Ox 97.4 F L 83 20 130/83 95 03/08/19 19:32 03/08/19 19:32 03/08/19 19:32 03/08/19 19:32 03/08/19 19:32 ED Treatment Course - LABORATORY CBC & Chemistry Diagram: 03/08/19 20:35 03/08/19 20:35 Discharge - Discharge Information Problems reviewed: Yes Clinical Impression/Diagnosis: Chest wall pain Condition: Stable Disposition: HOME - Admission No - Follow up/Referral - Patient Discharge Instructions Patient Printed Discharge Instructions: DI for Atypical Chest Pain, DI for Musculoskeletal Pain Additional Instructions: You were seen in the ER for chest pain after a fall. Your bloodwork, EKG, and chest X-ray were normal. Please take motrin and tylenol as needed for pain. Please take the motrin in place of the opiate analog that you are also prescribed as it can help reduce swelling. Please see your primary care doctor as soon as possible, in the next 2-3 days. Return to the ER if you develop worsening chest pain, shortness of breath, weakness, changes in vision, or abdominal pain. - Post Discharge Activity
[2019-03-08] MEDS ORDERED: ACETAMINOPHEN 325 MG TABLET (FP) PO ONE (20:16)
[2019-03-08] MEDS ORDERED: ACETAMINOPHEN 325 MG TABLET (FP) ONE (20:20)
[2019-03-08 21:06] LABS: BASO % 0.8 % (0-2.0); EOS % 4.1 % (0-4.5); HEMATOCRIT 44.5 % (32.4-45.2); HEMOGLOBIN 14.6 GM/dL (10.7-15.3); LYMPH % 30.5 % (8-40); MCH 29.9 pg (25.7-33.7); MCHC 32.8 g/dl (32.0-36.0); MEAN CELL VOLUME 91.2 fl (80-96); MEAN PLT VOLUME 8.5 fl (7.5-11.1); MONO % 6.8 % (3.8-10.2); NEUT % 57.8 % (42.8-82.8); PLATELET COUNT 234 K/MM3 (134-434); RBC 4.88 M/mm3 (3.60-5.2); RDW 13.8 % (11.6-15.6); WHITE BLOOD COUNT 8.9 K/mm3 (4.0-10.0)
[2019-03-08 21:23] LABS: INR 1.02 (0.83-1.09)
[2019-03-08 21:26] LABS: ACTIVATED PTT 40.6 SECONDS (25.2-36.5)
--- NOTE | 2019-03-08 21:27 | PDOC ---
Documentation entered by Vida Sanon SCRIBE, acting as scribe for Jordi Yee MD. Jordi Yee MD: This documentation has been prepared by the Talita mehta Sammi, SCRIBE, under my direction and personally reviewed by me in its entirety. I confirm that the documentation accurately reflects all work, treatment, procedures, and medical decision making performed by me. Attending Attestation - Resident Resident Name: Nagi Garcia - ED Attending Attestation I have performed the following: I have examined & evaluated the patient, The case was reviewed & discussed with the resident, I agree w/resident's findings & plan, Exceptions are as noted - HPI HPI: 03/08/19 20:52 The patient is a 58 year old female, with PMH of CAD s/p stent, COPD, HTN, HLD, COPD, who presents to the emergency department for evaluation of 4 days of constant chest discomfort, pleuritic and throbbing in quality. The patient states about 5 days ago she slipped and fell down 3 stairs. She reports the onset of mid and left sided chest pain the day following her fall. 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 The patient denies any dyspnea regurgitation, chest pain with exertion, diaphoresis, nausea, vomiting. She denies head or neck trauma. Denies LOC. She denies taking anything for her symptoms. The patient presents to the emergency department for evaluation considering her cardiac history. The patient denies any direct trauma to her chest but states that she did strike her left elbow when she went down. Denies head, neck, or back pain. Denies shortness of breath, diaphoresis, headache and dizziness. Denies fever, chills, nausea, vomiting, diarrhea and constipation. Denies dysuria, frequency, urgency and hematuria. - Physicial Exam PE: 03/08/19 21:22 GENERAL: The patient is awake, alert, and fully oriented, Nontoxic - in no acute distress. HEAD: Normocephalic, atraumatic. BACK: No focal midline tenderness in the cervical, thoracic, lumbar spine EYES: extraocular movements intact, sclera anicteric, conjunctiva clear. ENT: Normal voice, Moist mucous membranes. NECK: Normal range of motion, supple LUNGS: Breath sounds equal, clear to auscultation bilaterally. No wheezes, no rhonchi, no rales. HEART: Regular rate and rhythm, normal S1 and S2 without murmur, rub or gallop. CHEST: Mild diffuse chest wall tenderness, worse with rotation/abductin of L shoulder girdle ABDOMEN: Soft, nontender, No guarding, no rebound. No CVA tenderness EXTREMITIES: Normal range of motion, no edema. NEUROLOGICAL: No facial assymetry, Normal speech, PSYCH: Normal mood, normal affect. SKIN: Warm, Dry, normal turgor, - Medical Decision Making 03/08/19 20:43 58y F hx of cad (sp stent), htn, copd, presents with 4 day o fchest pain, sp mechanical fll 5 days ago w/o head injury, LOC. Endorses L sided chest pain that is worse with deep breaths, throbbing radiating down L chest wall. Denies any sob, leal, diaphoresis. 03/08/19 21:24 I suspect that her pain is muscular in nature will obtain a troponin x1 and screening EKG We will give Tylenol for pain control Obtain chest x-zara to rule out acute pathology If work-up is negative anticipate discharge with supportive care Heart Score/ECG Review - ECG Impressions Comment:: 03/08/19 21:24 Twelve-lead EKG was performed and reviewed by me. There is normal sinus rhythm with a normal rate. Rate of 77 The axis is normal. The intervals are normal. There is normal R wave progression There are no ST or T wave abnormalities. Impression: Normal twelve-lead EKG
[2019-03-08 21:28] LABS: PH,URINE 5.5 (5.0-8.0); URINE APPEARANCE CLEAR; URINE BILIRUBIN NEGATIVE (NEGATIVE); URINE COLOR YELLOW; URINE GLUCOSE (UA) NEGATIVE (NEGATIVE); URINE KETONE NEGATIVE (NEGATIVE); URINE LEUK ESTERASE NEGATIVE (NEGATIVE); URINE NITRITE NEGATIVE (NEGATIVE); URINE PROTEIN NEGATIVE (NEGATIVE)
[2019-03-08 21:30] LABS: ALBUMIN 3.9 g/dl (3.4-5.0); ALK PHOS 108 U/L (45-117); ANION GAP 6 MMOL/L (8-16); BILIRUBIN,TOTAL 0.4 mg/dL (0.2-1); BLOOD UREA NITROGEN 11.2 mg/dL (7-18); CALCIUM 8.9 mg/dL (8.5-10.1); CHLORIDE 104 mmol/L (98-107); CO2 29 mmol/L (21-32); CREATININE 0.6 mg/dL (0.55-1.3); GLUCOSE,RANDOM 112 mg/dL (74-106); POTASSIUM 3.7 mmol/L (3.5-5.1); SGOT/AST 16 U/L (15-37); SGPT/ALT 19 U/L (13-61); SODIUM 139 mmol/L (136-145); TOT PROT 7.2 g/dl (6.4-8.2)
--- NOTE | 2019-03-09 17:37 | EKG ---
Test Reason : Blood Pressure : / mmHG Vent. Rate : 077 BPM Atrial Rate : 077 BPM P-R Int : 152 ms QRS Dur : 086 ms QT Int : 380 ms P-R-T Axes : 064 027 048 degrees QTc Int : 430 ms POOR DATA QUALITY, INTERPRETATION MAY BE ADVERSELY AFFECTED NORMAL SINUS RHYTHM NORMAL ECG WHEN COMPARED WITH ECG OF 19-MAY-2018 17:16, NO SIGNIFICANT CHANGE WAS FOUND REPEAT EKG IF CLINICALLY INDICATED Confirmed by CLAUDINE BUSH MD ([id number]) on 03/09/2019 5:37:18 PM Referred By: Confirmed By:CLAUDINE BUSH MD
== END 2019-03-08 22:29 | disposition home or self-care (01) ==
LOC: JER 19:29
DX: R07.89 Other chest pain (principal); Z91.040 Latex allergy status; Z95.5 Presence of coronary angioplasty implant and graft; Z96.651 Presence of right artificial knee joint; I10 Essential (primary) hypertension; E78.00 Pure hypercholesterolemia, unspecified; K21.9 Gastro-esophageal reflux disease without esophagitis; K59.00 Constipation, unspecified; Z87.891 Personal history of nicotine dependence
CPT/HCPCS: 36415; 71045-TC-FY; 80053; 81003; 82550; 84484; 85025; 85610; 85730; 87086; 93005; 93010; 99283-25

== ENCOUNTER 2020-11-16 13:19 | Inpatient (IN) | payer BC, OTHER ==
[2020-11-16 13:34] VITALS: BMI 36.9
[2020-11-16] MEDS ORDERED: ASPIRIN 325 MG TABLET PO ONE (14:57)
[2020-11-16] MEDS ORDERED: ASPIRIN 325 MG ENTERIC COATED TABLET (FP) ONE (15:26)
[2020-11-16 15:51] LABS: BASO % 0.6 % (0-2.0); EOS % 0.6 % (0-4.5); HEMATOCRIT 42.2 % (32.4-45.2); HEMOGLOBIN 14.2 GM/dL (10.7-15.3); LYMPH % 18.7 % (8-40); MCHC 33.7 g/dl (32.0-36.0); MEAN CELL VOLUME 89.1 fl (80-96); MEAN PLT VOLUME 8.2 fl (7.5-11.1); MONO % 8.2 % (3.8-10.2); NEUT % 71.9 % (42.8-82.8); PLATELET COUNT 221 10^3/uL (134-434); RBC 4.73 M/mm3 (3.60-5.2); WHITE BLOOD COUNT 13.5 K/mm3 (4.0-10.0)
[2020-11-16 16:11] LABS: CHLORIDE 106 mmol/L (98-107); SODIUM 140 mmol/L (136-145)
[2020-11-16 16:13] LABS: CALCIUM 8.9 mg/dL (8.5-10.1)
[2020-11-16 16:14] LABS: ALBUMIN 3.6 g/dl (3.4-5.0); ANION GAP 5 MMOL/L (8-16); BLOOD UREA NITROGEN 14.1 mg/dL (7-18); CO2 29 mmol/L (21-32); GLUCOSE,RANDOM 85 mg/dL (74-106); LIPASE 88 U/L (73-393)
[2020-11-16 16:17] LABS: CREATININE 0.7 mg/dL (0.55-1.3); SGOT/AST 10 U/L (15-37); SGPT/ALT 19 U/L (13-61)
[2020-11-16 16:18] LABS: BILIRUBIN,TOTAL 0.6 mg/dL (0.2-1)
[2020-11-16 16:19] LABS: TOT PROT 7.3 g/dl (6.4-8.2)
[2020-11-16 16:20] LABS: ALK PHOS 101 U/L (45-117)
[2020-11-16] MEDS ORDERED: ACETAMINOPHEN 325 MG TABLET (FP) PO PRN (20:47)
[2020-11-16] MEDS: ATORVASTATIN CA 80 MG TABLET (FP) PO SCH (22:46)
[2020-11-16] MEDS ORDERED: ATORVASTATIN CA 80 MG TABLET (FP) ONE (22:47)
[2020-11-17 01:42] LABS: HEMATOCRIT 40.6 % (32.4-45.2); HEMOGLOBIN 13.9 GM/dL (10.7-15.3); MCH 30.4 pg (25.7-33.7); MCHC 34.2 g/dl (32.0-36.0); MEAN PLT VOLUME 8.5 fl (7.5-11.1); PLATELET COUNT 191 10^3/uL (134-434); RBC 4.57 M/mm3 (3.60-5.2); RDW 13.6 % (11.6-15.6); WHITE BLOOD COUNT 13.3 K/mm3 (4.0-10.0)
[2020-11-17 02:07] LABS: CHOLESTEROL 192 mg/dL (50-200)
[2020-11-17 02:08] LABS: TRIGLYCERIDES 97 mg/dL (0-150)
[2020-11-17 02:09] LABS: LDL CHOLESTEROL (ONLY SJRH) 123 mg/dL (5-100)
[2020-11-17 02:11] LABS: HDL CHOLESTEROL 47 mg/dL (40-60)
[2020-11-17] MEDS ORDERED: ACETAMINOPHEN 325 MG TABLET (FP) ONE (03:24)
[2020-11-17] MEDS ORDERED: ALBUTEROL SO4 HFA INHALER IH PRN (03:42)
[2020-11-17] MEDS ORDERED: ALBUTEROL SO4 HFA INHALER IH ONE (06:06)
[2020-11-17 08:52] LABS: BASO % 0.6 % (0-2.0); EOS % 0.8 % (0-4.5); HEMATOCRIT 41.5 % (32.4-45.2); HEMOGLOBIN 14.3 GM/dL (10.7-15.3); LYMPH % 17.3 % (8-40); MCH 30.7 pg (25.7-33.7); MCHC 34.5 g/dl (32.0-36.0); MEAN CELL VOLUME 88.9 fl (80-96); MEAN PLT VOLUME 8.3 fl (7.5-11.1); MONO % 6.6 % (3.8-10.2); NEUT % 74.7 % (42.8-82.8); PLATELET COUNT 196 10^3/uL (134-434); RBC 4.67 M/mm3 (3.60-5.2); RDW 13.4 % (11.6-15.6); WHITE BLOOD COUNT 9.9 K/mm3 (4.0-10.0)
[2020-11-17 09:22] LABS: ALBUMIN 3.6 g/dl (3.4-5.0)
[2020-11-17 09:23] LABS: BLOOD UREA NITROGEN 15.3 mg/dL (7-18); MAGNESIUM 2.1 mg/dL (1.8-2.4)
[2020-11-17 09:26] LABS: CREATININE 0.6 mg/dL (0.55-1.3); PHOSPHOROUS 3.5 mg/dL (2.5-4.9)
[2020-11-17 09:27] LABS: BILIRUBIN,TOTAL 0.7 mg/dL (0.2-1)
[2020-11-17] MEDS ORDERED: methaDONE HCL 40 MG DISPERSABLE TABLET ONE (10:04)
[2020-11-17] MEDS ORDERED: ENOXAPARIN NA (PORCINE) 80 MG/0.8 ML DISP.SYRIN SQ ONE (10:04)
[2020-11-17] MEDS ORDERED: ASPIRIN 81 MG CHEWABLE TABLETS ONE (10:04)
[2020-11-17] MEDS: ASPIRIN 81 MG CHEWABLE TABLETS PO SCH (10:20)
[2020-11-17] MEDS: ENOXAPARIN NA (PORCINE) 40 MG/0.4 ML DISP.SYRIN SQ SCH (10:20)
[2020-11-17] MEDS ORDERED: ALPRAZolam 1 MG TABLET PO PRN (14:37)
[2020-11-17] MEDS ORDERED: ALPRAZolam 1 MG TABLET ONE ×2 (14:51→21:43)
[2020-11-17] MEDS ORDERED: ATORVASTATIN CA 80 MG TABLET (FP) ONE (21:05)
[2020-11-17] MEDS ORDERED: LORazepam 1 MG TABLET ONE (21:05)
[2020-11-17] MEDS: ALPRAZolam 1 MG TABLET PO SCH ×2 (21:11→21:44)
[2020-11-17] MEDS: ATORVASTATIN CA 80 MG TABLET (FP) PO SCH (21:45)
[2020-11-17] MEDS ORDERED: ZOLPIDEM TARTRATE 5 MG TABLET PO PRN (22:00)
[2020-11-17] MEDS ORDERED: ALPRAZolam 1 MG TABLET PO SCH (22:00)
[2020-11-17 23:25] VITALS: PULSE 67
[2020-11-18] MEDS ORDERED: VENLAFAXINE HCL 37.5 MG E.R. CAPSULE PO SCH (10:00)
[2020-11-18] MEDS ORDERED: amLODIPine BESYLATE 5 MG TABLET (FP) PO SCH (10:00)
[2020-11-18 10:15] LABS: BASO % 0.6 % (0-2.0); EOS % 1.1 % (0-4.5); HEMATOCRIT 44.1 % (32.4-45.2); HEMOGLOBIN 15.2 GM/dL (10.7-15.3); LYMPH % 20.5 % (8-40); MCH 30.9 pg (25.7-33.7); MCHC 34.5 g/dl (32.0-36.0); MEAN CELL VOLUME 89.8 fl (80-96); MEAN PLT VOLUME 8.4 fl (7.5-11.1); MONO % 6.2 % (3.8-10.2); NEUT % 71.6 % (42.8-82.8); PLATELET COUNT 204 10^3/uL (134-434); RBC 4.91 M/mm3 (3.60-5.2); RDW 13.6 % (11.6-15.6); WHITE BLOOD COUNT 10.7 K/mm3 (4.0-10.0)
[2020-11-18] MEDS ORDERED: ACETAMINOPHEN 325 MG TABLET (FP) ONE (10:30)
[2020-11-18] MEDS ORDERED: ALPRAZolam 1 MG TABLET ONE (10:30)
[2020-11-18] MEDS ORDERED: ENOXAPARIN NA (PORCINE) 40 MG/0.4 ML DISP.SYRIN SQ ONE (10:31)
[2020-11-18] MEDS ORDERED: ASPIRIN 81 MG CHEWABLE TABLETS ONE (10:31)
[2020-11-18] MEDS ORDERED: amLODIPine BESYLATE 5 MG TABLET (FP) ONE (10:31)
[2020-11-18 10:35] LABS: CALCIUM 9.2 mg/dL (8.5-10.1)
[2020-11-18] MEDS: ASPIRIN 81 MG CHEWABLE TABLETS PO SCH (10:35)
[2020-11-18] MEDS: ALPRAZolam 1 MG TABLET PO SCH (10:35)
[2020-11-18] MEDS: ENOXAPARIN NA (PORCINE) 40 MG/0.4 ML DISP.SYRIN SQ SCH (10:35)
[2020-11-18 10:36] LABS: ALBUMIN 3.7 g/dl (3.4-5.0); BLOOD UREA NITROGEN 17.3 mg/dL (7-18); MAGNESIUM 2.2 mg/dL (1.8-2.4)
[2020-11-18 10:39] LABS: CREATININE 0.8 mg/dL (0.55-1.3); PHOSPHOROUS 3.7 mg/dL (2.5-4.9)
[2020-11-18 10:40] LABS: BILIRUBIN,TOTAL 0.7 mg/dL (0.2-1); TOT PROT 7.1 g/dl (6.4-8.2)
[2020-11-18 10:44] VITALS: BP 136/85; TEMP 98.7
== END 2020-11-18 15:40 | disposition left against medical advice (07) | DRG 303 ==
LOC: JER 13:19 → INTOOBSV 19:19 → JERBED 19:19 → OBSVTOIN 22:10
PROVIDERS: ADMIT Internal Medicine; ATTEND Internal Medicine
DX: I25.119 Atherosclerotic heart disease of native coronary artery with unspecified angina pectoris (principal); J45.909 Unspecified asthma, uncomplicated; I10 Essential (primary) hypertension; E66.01 Morbid (severe) obesity due to excess calories; E78.5 Hyperlipidemia, unspecified; R07.89 Other chest pain; R06.09 Other forms of dyspnea; G47.30 Sleep apnea, unspecified; D72.829 Elevated white blood cell count, unspecified; Z68.36 Body mass index [BMI] 36.0-36.9, adult; Z98.61 Coronary angioplasty status; F41.8 Other specified anxiety disorders
CPT/HCPCS: 36415; 71046-TC-FY; 80053; 80061; 83690; 83735; 84100; 84484; 85025; 85027; 93005; 93010; 99285-25; C9803; G0378; U0003; U0005

== ENCOUNTER 2021-09-05 22:09 | Inpatient (IN) | payer BC, OTHER ==
[2021-09-05] MEDS: SODIUM CHLORIDE 1,000 ML IV SCH (23:00)
[2021-09-05 23:25] LABS: BASO % 0.6 % (0-2.0); EOS % 3.1 % (0-4.5); HEMATOCRIT 42.9 % (32.4-45.2); HEMOGLOBIN 13.9 GM/dL (10.7-15.3); LYMPH % 26.9 % (8-40); MCH 29.6 pg (25.7-33.7); MCHC 32.4 g/dl (32.0-36.0); MEAN CELL VOLUME 91.6 fl (80-96); MONO % 7.1 % (3.8-10.2); NEUT % 62.3 % (42.8-82.8); PLATELET COUNT 203 10^3/uL (134-434); RBC 4.69 M/mm3 (3.60-5.2); RDW 14.5 % (11.6-15.6); WHITE BLOOD COUNT 9.1 K/mm3 (4.0-10.0)
[2021-09-05 23:53] LABS: CALCIUM 8.6 mg/dL (8.5-10.1)
[2021-09-05 23:54] LABS: ALBUMIN 3.4 g/dl (3.4-5.0)
[2021-09-05 23:55] LABS: BLOOD UREA NITROGEN 8.3 mg/dL (7-18)
[2021-09-05 23:57] LABS: CREATININE 0.7 mg/dL (0.55-1.3)
[2021-09-05 23:59] LABS: TOT PROT 6.8 g/dl (6.4-8.2)
[2021-09-06] LABS: BILIRUBIN,TOTAL 0.4 mg/dL (0.2-1)
[2021-09-06] MEDS ORDERED: ASPIRIN 81 MG CHEWABLE TABLETS PO ONE (01:08)
[2021-09-06] MEDS ORDERED: ASPIRIN 81 MG CHEWABLE TABLETS ONE (01:27)
[2021-09-06] MEDS ORDERED: POLYETHYLENE GLYCOL (HEALTHYLAX) 3350 17 GM PACKET PO PRN (01:52)
[2021-09-06] MEDS ORDERED: ACETAMINOPHEN 325 MG TABLET (FP) PO PRN (01:52)
[2021-09-06] MEDS ORDERED: ALBUTEROL SO4 2.5/IPRATROPIUM 0.5 INH SOL 3 ML VIAL.NEB. NEB ONE ×2 (01:54→02:20)
[2021-09-06 02:20] LABS: ARTERIAL BLD GAS O2 SATURATION 90.9 % (95-98); ARTERIAL BLOOD GAS BASE EXCESS 1.1 mmol/L (-2-2); ARTERIAL BLOOD GAS PO2 71.1 mmHg (80-100); ARTERIAL BLOOD GAS pH 7.245 (7.350-7.450)
[2021-09-06 02:54] LABS: INR 1.15 (0.83-1.09); PROTHROMBIN TIME (PATIENT) 13.2 SEC (9.7-13.0)
[2021-09-06 02:56] LABS: ACTIVATED PTT 35.4 SECONDS (25.2-36.5)
[2021-09-06 04:12] LABS: N-TERMINAL BNP 282.4 pg/ml (5-125)
[2021-09-06] MEDS ORDERED: ALBUTEROL SO4 2.5/IPRATROPIUM 0.5 INH SOL 3 ML VIAL.NEB. NEB PRN (04:51)
[2021-09-06 06:11] LABS: URINE APPEARANCE CLEAR; URINE BILIRUBIN NEGATIVE (NEGATIVE); URINE COLOR YELLOW; URINE GLUCOSE (UA) NEGATIVE (NEGATIVE); URINE KETONE NEGATIVE (NEGATIVE); URINE LEUK ESTERASE NEGATIVE (NEGATIVE); URINE NITRITE NEGATIVE (NEGATIVE); URINE PROTEIN NEGATIVE (NEGATIVE)
[2021-09-06 06:16] LABS: PHENCYCLIDINE,URINE NEGATIVE (NEGATIVE); URINE AMPHETAMINES NEGATIVE (NEGATIVE); URINE BARBITURATES NEGATIVE (NEGATIVE)
[2021-09-06 06:21] LABS: COCAINE, UR POSITIVE (NEGATIVE); METHADONE, UR POSITIVE (NEGATIVE); OPIATES, URI POSITIVE (NEGATIVE); URINE BENZODIAZEPINES POSITIVE (NEGATIVE)
[2021-09-06 07:51] LABS: BASO % 0.6 % (0-2.0); EOS % 3.4 % (0-4.5); HEMATOCRIT 40.9 % (32.4-45.2); HEMOGLOBIN 13.1 GM/dL (10.7-15.3); MCH 29.8 pg (25.7-33.7); MCHC 32.1 g/dl (32.0-36.0); MEAN CELL VOLUME 92.8 fl (80-96); MEAN PLT VOLUME 8.6 fl (7.5-11.1); MONO % 8.4 % (3.8-10.2); NEUT % 56.6 % (42.8-82.8); PLATELET COUNT 186 10^3/uL (134-434); RBC 4.41 M/mm3 (3.60-5.2); RDW 14.2 % (11.6-15.6); WHITE BLOOD COUNT 7.8 K/mm3 (4.0-10.0)
[2021-09-06 07:53] LABS: INR 1.09 (0.83-1.09); PROTHROMBIN TIME (PATIENT) 12.5 SEC (9.7-13.0)
[2021-09-06 07:56] LABS: ACTIVATED PTT 31.3 SECONDS (25.2-36.5)
[2021-09-06 08:09] LABS: CALCIUM 8.7 mg/dL (8.5-10.1)
[2021-09-06 08:10] LABS: BLOOD UREA NITROGEN 11.4 mg/dL (7-18); MAGNESIUM 2.6 mg/dL (1.8-2.4)
[2021-09-06 08:13] LABS: CREATININE 0.6 mg/dL (0.55-1.3); PHOSPHOROUS 4.5 mg/dL (2.5-4.9)
[2021-09-06 08:18] LABS: N-TERMINAL BNP 157.1 pg/ml (5-125)
[2021-09-06] MEDS: ASPIRIN COATED 81 MG TABLET.EC PO SCH (11:23)
[2021-09-06] MEDS: ENOXAPARIN NA (PORCINE) 40 MG/0.4 ML DISP.SYRIN SQ SCH (11:23)
[2021-09-06 12:19] VITALS: BMI 35.6
[2021-09-06] MEDS: VENLAFAXINE HCL 37.5 MG E.R. CAPSULE PO SCH (12:26)
[2021-09-06] MEDS ORDERED: METHADONE 50 MG PO SCH (17:30)
[2021-09-06] MEDS ORDERED: methaDONE HCL 40 MG DISPERSABLE TABLET ONE (17:33)
[2021-09-06] MEDS ORDERED: methaDONE HCL 10 MG TABLET ONE (17:33)
[2021-09-06] MEDS: methaDONE 40 MG, methaDONE 10 MG PO SCH (17:51)
[2021-09-06] MEDS: ALPRAZolam 0.25 MG TABLET PO PRN (18:36)
[2021-09-06] MEDS: SODIUM CHLORIDE 1,000 ML IV SCH (20:40)
[2021-09-06] MEDS ORDERED: ATORVASTATIN CA 80 MG TABLET (FP) PO SCH (22:00)
[2021-09-06] MEDS ORDERED: DEXTROSE 5%-WATER - 1,000 ML IV SCH (22:30)
[2021-09-07] MEDS ORDERED: methaDONE HCL 40 MG DISPERSABLE TABLET ONE (05:57)
[2021-09-07] MEDS ORDERED: methaDONE HCL 10 MG TABLET ONE (05:57)
[2021-09-07] MEDS: methaDONE 40 MG, methaDONE 10 MG PO SCH (06:02)
[2021-09-07] MEDS: ENOXAPARIN NA (PORCINE) 40 MG/0.4 ML DISP.SYRIN SQ SCH (09:54)
[2021-09-07] MEDS: ASPIRIN COATED 81 MG TABLET.EC PO SCH (09:54)
[2021-09-07] MEDS: VENLAFAXINE HCL 37.5 MG E.R. CAPSULE PO SCH (09:59)
[2021-09-07] MEDS: ALPRAZolam 0.25 MG TABLET PO PRN (10:12)
[2021-09-07 12:25] VITALS: BP 126/75; TEMP 98
[2021-09-07 14:50] VITALS: PULSE 79
== END 2021-09-07 15:04 | disposition home or self-care (01) | DRG 189 ==
LOC: JER 22:09 → JERBED 09-06 00:26 → J4W 09-06 05:12
PROVIDERS: ADMIT Internal Medicine; ATTEND Family Medicine
DX: J96.01 Acute respiratory failure with hypoxia (principal); G45.9 Transient cerebral ischemic attack, unspecified; R29.810 Facial weakness; J44.9 Chronic obstructive pulmonary disease, unspecified; K21.9 Gastro-esophageal reflux disease without esophagitis; I10 Essential (primary) hypertension; E78.5 Hyperlipidemia, unspecified; F32.A Depression, unspecified; F41.9 Anxiety disorder, unspecified; K59.00 Constipation, unspecified; Z68.35 Body mass index [BMI] 35.0-35.9, adult; J96.02 Acute respiratory failure with hypercapnia; E66.01 Morbid (severe) obesity due to excess calories
CPT/HCPCS: 0241U-QW; 36415; 36600; 70450-TC; 71046-TC-FY; 71250-TC; 80048; 80053; 80061; 80307; 81003; 82550; 82803; 83036; 83735; 83880; 84100; 84484; 85025; 85610; 85730; 86850; 86900; 86901; 93005; 93010; 94660; 99285-25

== ENCOUNTER 2021-09-19 09:57 | Emergency (ER) | payer BC, OTHER ==
[2021-09-19 10:05] VITALS: TEMP 98.3; BMI 38.6
[2021-09-19 10:51] LABS: BASO % 0.8 % (0-2.0); HEMATOCRIT 48.5 % (32.4-45.2); HEMOGLOBIN 15.9 GM/dL (10.7-15.3); LYMPH % 20.6 % (8-40); MCH 29.6 pg (25.7-33.7); MCHC 32.9 g/dl (32.0-36.0); MEAN CELL VOLUME 89.9 fl (80-96); MEAN PLT VOLUME 8.4 fl (7.5-11.1); NEUT % 71.6 % (42.8-82.8); PLATELET COUNT 253 10^3/uL (134-434); RBC 5.39 M/mm3 (3.60-5.2); RDW 14.1 % (11.6-15.6); WHITE BLOOD COUNT 11.4 K/mm3 (4.0-10.0)
[2021-09-19 10:57] LABS: INR 1.15 (0.83-1.09); PROTHROMBIN TIME (PATIENT) 13.2 SEC (9.7-13.0)
[2021-09-19 11:00] LABS: ACTIVATED PTT 33.2 SECONDS (25.2-36.5)
[2021-09-19 11:08] LABS: CALCIUM 8.3 mg/dL (8.5-10.1)
[2021-09-19 11:09] LABS: ALBUMIN 3.5 g/dl (3.4-5.0); BLOOD UREA NITROGEN 12.8 mg/dL (7-18)
[2021-09-19 11:13] LABS: CREATININE 0.7 mg/dL (0.55-1.3)
[2021-09-19 11:15] LABS: BILIRUBIN,TOTAL 0.4 mg/dL (0.2-1); TOT PROT 6.8 g/dl (6.4-8.2)
[2021-09-19 11:38] LABS: EPI CELLS >36 /uL (0-25.1); HYALINE CASTS 16 /uL (0-3.1); PH,URINE 5.5 (5.0-8.0); URINE APPEARANCE CLOUDY; URINE BACTERIA 616 /uL (0-1359); URINE BILIRUBIN NEGATIVE (NEGATIVE); URINE COLOR YELLOW; URINE GLUCOSE (UA) NEGATIVE (NEGATIVE); URINE KETONE TRACE (NEGATIVE); URINE LEUK ESTERASE NEGATIVE (NEGATIVE); URINE NITRITE NEGATIVE (NEGATIVE); URINE PROTEIN 1+ (NEGATIVE); URINE RBC 8 /uL (0-23.9); URINE UROBILINOGEN 0.2 mg/dL (0.2-1.0); URINE WBC 38 /uL (0-25.8)
[2021-09-19 13:03] VITALS: BP 122/72; PULSE 81
[2021-09-19 13:24] LABS: URINE CRYSTALS FEW CA OXALATE /hpf
== END 2021-09-19 12:50 | disposition home or self-care (01) ==
LOC: JER 09:57
DX: R20.2 Paresthesia of skin (principal)
CPT/HCPCS: 36415; 70450-TC; 80053; 81003; 84484; 85025; 85610; 85730; 86850; 86900; 86901; 99284-25

== ENCOUNTER 2022-01-05 09:49 | Emergency (ER) | payer BC, OTHER ==
[2022-01-05 10:13] VITALS: BP 124/85; PULSE 79; RESP 18; TEMP 98; BMI 45.1
[2022-01-05] MEDS ORDERED: ACETAMINOPHEN 500 MG TABLET (FP) PO ONE (10:31)
== END 2022-01-05 12:20 | disposition home or self-care (01) ==
LOC: JER 09:49
DX: Z04.3 Encounter for examination and observation following other accident (principal); Y04.0XXA Assault by unarmed brawl or fight, initial encounter; Y92.9 Unspecified place or not applicable
CPT/HCPCS: 70450-TC; 70486-TC; 72125-TC; 72131-TC; 93005; 93010; 99284-25

== ENCOUNTER 2023-03-04 13:44 | Inpatient (IN) | payer OTHER ==
[2023-03-04 14:54] LABS: VENOUS BASE EXCESS 4.5 mmol/L (-2-2); VENOUS O2 SATURATION 61.8 % (70-80); VENOUS PCO2 61.8 mmHg (38-52); VENOUS PH 7.339 (7.310-7.410)
[2023-03-04 14:55] LABS: BASO % 0.9 % (0-2.0); EOS % 3.4 % (0-4.5); HEMATOCRIT 46.2 % (32.4-45.2); HEMOGLOBIN 14.7 GM/dL (10.7-15.3); LYMPH % 25.4 % (8-40); MCH 29.4 pg (25.7-33.7); MCHC 31.9 g/dl (32.0-36.0); MEAN PLT VOLUME 8.1 fl (7.5-11.1); MONO % 6.6 % (3.8-10.2); NEUT % 63.7 % (42.8-82.8); PLATELET COUNT 238 10^3/uL (134-434); RBC 5.02 M/mm3 (3.60-5.2); RDW 15.2 % (11.6-15.6); WHITE BLOOD COUNT 9.2 K/mm3 (4.0-10.0)
[2023-03-04 15:02] LABS: INR 1.03 (0.83-1.09); PROTHROMBIN TIME (PATIENT) 11.9 SEC (9.7-13.0)
[2023-03-04 15:04] LABS: ACTIVATED PTT 36.1 SECONDS (25.2-36.5)
[2023-03-04 15:14] LABS: CHLORIDE 103 mmol/L (98-107); SODIUM 136 mmol/L (136-145)
[2023-03-04 15:16] LABS: ALBUMIN 3.4 g/dl (3.4-5.0); CALCIUM 8.6 mg/dL (8.5-10.1); CO2 31 mmol/L (21-32); GLUCOSE,RANDOM 81 mg/dL (74-106); MAGNESIUM 2.1 mg/dL (1.8-2.4)
[2023-03-04 15:20] LABS: CREATININE 0.7 mg/dL (0.55-1.3); SGOT/AST 75 U/L (15-37)
[2023-03-04 15:21] LABS: BILIRUBIN,TOTAL 0.4 mg/dL (0.2-1)
[2023-03-04 15:22] LABS: TOT PROT 7.9 g/dl (6.4-8.2)
[2023-03-04 15:23] LABS: ALK PHOS 112 U/L (45-117)
[2023-03-04 15:24] LABS: N-TERMINAL BNP 64.1 pg/ml (5-125)
[2023-03-04 15:32] LABS: ANION GAP 2 mmol/L (4-13); POTASSIUM 7.6 mmol/L (3.5-5.1); SGPT/ALT 26 U/L (13-61)
[2023-03-04] MEDS ORDERED: FUROSEMIDE 40 MG/4 ML INJECTABLE VIAL IVPUSH ONE (15:39)
[2023-03-04] MEDS ORDERED: ALBUTEROL SO4 2.5/IPRATROPIUM 0.5 INH SOL 3 ML VIAL.NEB. NEB ONE ×2 (15:44→16:45)
[2023-03-04] MEDS ORDERED: FUROSEMIDE 40 MG/4 ML INJECTABLE VIAL ONE (15:44)
[2023-03-04] MEDS: ALBUTEROL SO4 2.5/IPRATROPIUM 0.5 INH SOL 3 ML VIAL.NEB. NEB SCH ×2 (15:54→16:46)
[2023-03-04 16:15] LABS: ALBUMIN 3.4 g/dl (3.4-5.0); BLOOD UREA NITROGEN 12.1 mg/dL (7-18)
[2023-03-04 16:17] LABS: CREATININE 0.7 mg/dL (0.55-1.3)
[2023-03-04 16:19] LABS: BILIRUBIN,TOTAL 0.4 mg/dL (0.2-1)
[2023-03-04 16:20] LABS: TOT PROT 7.1 g/dl (6.4-8.2)
[2023-03-04] MEDS ORDERED: ALPRAZolam 1 MG TABLET PO PRN (16:40)
[2023-03-04] MEDS ORDERED: ZOLPIDEM TARTRATE 5 MG TABLET PO PRN (22:00)
[2023-03-04] MEDS: ATORVASTATIN CA 80 MG TABLET (FP) PO SCH (22:13)
[2023-03-04] MEDS: HEPARIN NA (PORCINE) 5,000 UNITS/ML 1ML VIAL SQ SCH (22:13)
[2023-03-05 00:59] VITALS: BMI 48.6
[2023-03-05] MEDS: FUROSEMIDE 40 MG/4 ML INJECTABLE VIAL IVPUSH SCH ×2 (05:47→14:05)
[2023-03-05 07:23] LABS: BASO % 0.5 % (0-2.0); EOS % 3.3 % (0-4.5); HEMATOCRIT 43.1 % (32.4-45.2); HEMOGLOBIN 13.7 GM/dL (10.7-15.3); LYMPH % 23.1 % (8-40); MCH 29.5 pg (25.7-33.7); MCHC 31.9 g/dl (32.0-36.0); MEAN CELL VOLUME 92.6 fl (80-96); MEAN PLT VOLUME 8.6 fl (7.5-11.1); MONO % 7.4 % (3.8-10.2); NEUT % 65.7 % (42.8-82.8); PLATELET COUNT 201 10^3/uL (134-434); RBC 4.65 M/mm3 (3.60-5.2); RDW 15.2 % (11.6-15.6); WHITE BLOOD COUNT 9.3 K/mm3 (4.0-10.0)
[2023-03-05 07:34] LABS: POTASSIUM 4.1 mmol/L (3.5-5.1)
[2023-03-05 07:36] LABS: CALCIUM 8.8 mg/dL (8.5-10.1)
[2023-03-05 07:37] LABS: BLOOD UREA NITROGEN 15.2 mg/dL (7-18)
[2023-03-05 07:41] LABS: CREATININE 0.6 mg/dL (0.55-1.3)
[2023-03-05 08:52] LABS: N-TERMINAL BNP 33.8 pg/ml (5-125)
[2023-03-05] MEDS: amLODIPine BESYLATE 5 MG TABLET (FP) PO SCH ×2 (09:51→10:04)
[2023-03-05] MEDS: ASPIRIN 81 MG CHEWABLE TABLETS PO SCH (09:51)
[2023-03-05] MEDS: HEPARIN NA (PORCINE) 5,000 UNITS/ML 1ML VIAL SQ SCH ×2 (09:51→21:46)
[2023-03-05] MEDS: methaDONE HCL 40 MG DISPERSABLE TABLET PO SCH (09:51)
[2023-03-05] MEDS ORDERED: VENLAFAXINE HCL 37.5 MG E.R. CAPSULE PO SCH (10:00)
[2023-03-05] MEDS: ALPRAZolam 1 MG TABLET PO PRN (10:05)
[2023-03-05] MEDS ORDERED: ASPIRIN 81 MG CHEWABLE TABLETS PO ONE (11:09)
[2023-03-05] MEDS: ATORVASTATIN CA 80 MG TABLET (FP) PO SCH (21:46)
[2023-03-06] MEDS: ALPRAZolam 1 MG TABLET PO PRN (03:12)
[2023-03-06] MEDS: FUROSEMIDE 40 MG/4 ML INJECTABLE VIAL IVPUSH SCH (05:59)
[2023-03-06] MEDS: methaDONE HCL 40 MG DISPERSABLE TABLET PO SCH (05:59)
[2023-03-06 06:46] LABS: HEMATOCRIT 46.7 % (32.4-45.2); MCH 29.5 pg (25.7-33.7); MCHC 32.1 g/dl (32.0-36.0); MEAN PLT VOLUME 8.4 fl (7.5-11.1); PLATELET COUNT 201 10^3/uL (134-434); RBC 5.07 M/mm3 (3.60-5.2); RDW 14.8 % (11.6-15.6); WHITE BLOOD COUNT 7.8 K/mm3 (4.0-10.0)
[2023-03-06 07:09] LABS: POTASSIUM 3.9 mmol/L (3.5-5.1)
[2023-03-06 07:15] LABS: ALBUMIN 3.4 g/dl (3.4-5.0); BLOOD UREA NITROGEN 17.1 mg/dL (7-18); CALCIUM 9.2 mg/dL (8.5-10.1)
[2023-03-06 07:18] LABS: CREATININE 0.7 mg/dL (0.55-1.3); PHOSPHOROUS 3.4 mg/dL (2.5-4.9)
[2023-03-06 07:20] LABS: BILIRUBIN,TOTAL 0.4 mg/dL (0.2-1); TOT PROT 7.3 g/dl (6.4-8.2)
[2023-03-06 08:58] VITALS: BP 107/80; PULSE 94; RESP 18; TEMP 98
[2023-03-06] MEDS: ASPIRIN 81 MG CHEWABLE TABLETS PO SCH (09:03)
[2023-03-06] MEDS: HEPARIN NA (PORCINE) 5,000 UNITS/ML 1ML VIAL SQ SCH (09:03)
[2023-03-06] MEDS: amLODIPine BESYLATE 5 MG TABLET (FP) PO SCH ×2 (09:03→09:12)
== END 2023-03-06 13:03 | disposition home or self-care (01) | DRG 291 ==
LOC: JER 13:44 → JERBED 15:45 → OBSVTOIN 15:45 → J4W 20:31
PROVIDERS: ADMIT Internal Medicine; ATTEND Internal Medicine
DX: I11.0 Hypertensive heart disease with heart failure (principal); I50.33 Acute on chronic diastolic (congestive) heart failure; J96.01 Acute respiratory failure with hypoxia; F11.20 Opioid dependence, uncomplicated; Z68.42 Body mass index [BMI] 45.0-49.9, adult; I25.10 Atherosclerotic heart disease of native coronary artery without angina pectoris; K59.00 Constipation, unspecified; K21.9 Gastro-esophageal reflux disease without esophagitis; E78.5 Hyperlipidemia, unspecified; R73.03 Prediabetes; G47.30 Sleep apnea, unspecified; J44.9 Chronic obstructive pulmonary disease, unspecified; F41.8 Other specified anxiety disorders; M54.50 Low back pain, unspecified; E66.01 Morbid (severe) obesity due to excess calories; Z96.651 Presence of right artificial knee joint; Z95.5 Presence of coronary angioplasty implant and graft
CPT/HCPCS: 0241U-QW; 36415; 71045-TC-FY; 80048; 80053; 82803; 83735; 83880; 84100; 84484; 85025; 85027; 85610; 85730; 93005; 93010; 93306-TC; 94010; 94761; 99285-25; J1644

== ENCOUNTER 2023-03-13 17:19 | Inpatient (IN) | payer OTHER ==
[2023-03-13 17:32] VITALS: BMI 42.9
[2023-03-13] MEDS ORDERED: FUROSEMIDE 100 MG/10 ML INJECTABLE VIAL IVPB ONE (17:57)
[2023-03-13] MEDS ORDERED: FUROSEMIDE 40 MG/4 ML INJECTABLE VIAL ONE (18:24)
[2023-03-13 20:46] LABS: VENOUS BASE EXCESS 5.4 mmol/L (-2-2); VENOUS PH 7.292 (7.310-7.410)
[2023-03-13 20:49] LABS: BASO % 0.8 % (0-2.0); EOS % 3.3 % (0-4.5); HEMATOCRIT 47.5 % (32.4-45.2); HEMOGLOBIN 15.3 GM/dL (10.7-15.3); MCH 29.5 pg (25.7-33.7); MCHC 32.2 g/dl (32.0-36.0); MEAN CELL VOLUME 91.8 fl (80-96); MEAN PLT VOLUME 8.1 fl (7.5-11.1); MONO % 8.6 % (3.8-10.2); NEUT % 56.3 % (42.8-82.8); PLATELET COUNT 227 10^3/uL (134-434); RBC 5.17 M/mm3 (3.60-5.2); RDW 15.1 % (11.6-15.6); WHITE BLOOD COUNT 9.7 K/mm3 (4.0-10.0)
[2023-03-13 20:58] LABS: INR 1.12 (0.83-1.09)
[2023-03-13 21:00] LABS: ACTIVATED PTT 32.2 SECONDS (25.2-36.5)
[2023-03-13 21:14] LABS: VENOUS PCO2 74.5 mmHg (38-52)
[2023-03-13 21:24] LABS: POTASSIUM 3.5 mmol/L (3.5-5.1)
[2023-03-13 21:26] LABS: ALBUMIN 3.5 g/dl (3.4-5.0); CALCIUM 8.8 mg/dL (8.5-10.1)
[2023-03-13 21:27] LABS: BLOOD UREA NITROGEN 15.2 mg/dL (7-18)
[2023-03-13 21:30] LABS: CREATININE 0.8 mg/dL (0.55-1.3)
[2023-03-13 21:31] LABS: BILIRUBIN,TOTAL 0.5 mg/dL (0.2-1); TOT PROT 7.5 g/dl (6.4-8.2)
[2023-03-13 22:44] LABS: VENOUS BASE EXCESS 7.3 mmol/L (-2-2); VENOUS O2 SATURATION 78.2 % (70-80); VENOUS PCO2 63.8 mmHg (38-52); VENOUS PH 7.363 (7.310-7.410)
[2023-03-13] MEDS ORDERED: FUROSEMIDE 40 MG/4 ML INJECTABLE VIAL IVPUSH ONE (23:59)
[2023-03-14] MEDS ORDERED: AZITHROMYCIN IVPB 500 MG in DEXTROSE 5%-WATER - 250 ML IVPB SCH (01:03)
[2023-03-14] MEDS ORDERED: predniSONE 10 MG TABLET (UD) ONE (01:22)
[2023-03-14 02:39] LABS: N-TERMINAL BNP 349.5 pg/ml (5-125)
[2023-03-14] MEDS: methaDONE HCL 40 MG DISPERSABLE TABLET PO SCH (05:59)
[2023-03-14] MEDS: FUROSEMIDE 40 MG/4 ML INJECTABLE VIAL IVPUSH SCH ×2 (05:59→13:24)
[2023-03-14] MEDS: methylPREDNISolone NA SUCC 40 MG/1 ML VIAL IVPUSH SCH ×3 (05:59→09:06)
[2023-03-14 06:31] LABS: ARTERIAL BLD GAS O2 SATURATION 85.5 % (95-98); ARTERIAL BLOOD GAS BASE EXCESS 4.9 mmol/L (-2-2); ARTERIAL BLOOD GAS PO2 51.7 mmHg (80-100); ARTERIAL BLOOD GAS pH 7.384 (7.350-7.450)
[2023-03-14 07:20] LABS: HEMATOCRIT 48.3 % (32.4-45.2); HEMOGLOBIN 15.3 GM/dL (10.7-15.3); MCH 29.4 pg (25.7-33.7); MCHC 31.7 g/dl (32.0-36.0); MEAN CELL VOLUME 92.7 fl (80-96); MEAN PLT VOLUME 8.1 fl (7.5-11.1); PLATELET COUNT 211 10^3/uL (134-434); RBC 5.21 M/mm3 (3.60-5.2); RDW 14.9 % (11.6-15.6); WHITE BLOOD COUNT 12.8 K/mm3 (4.0-10.0)
[2023-03-14 08:05] LABS: POTASSIUM 3.9 mmol/L (3.5-5.1)
[2023-03-14 08:06] LABS: ALBUMIN 3.7 g/dl (3.4-5.0); BLOOD UREA NITROGEN 15.9 mg/dL (7-18); CALCIUM 9.2 mg/dL (8.5-10.1)
[2023-03-14 08:09] LABS: CREATININE 0.7 mg/dL (0.55-1.3); PHOSPHOROUS 3.2 mg/dL (2.5-4.9)
[2023-03-14 08:11] LABS: BILIRUBIN,TOTAL 0.6 mg/dL (0.2-1)
[2023-03-14 08:14] LABS: N-TERMINAL BNP 150.9 pg/ml (5-125); TOT PROT 7.5 g/dl (6.4-8.2)
[2023-03-14] MEDS ORDERED: ASPIRIN COATED 81 MG TABLET.EC ONE (08:59)
[2023-03-14] MEDS ORDERED: methylPREDNISolone NA SUCC 40 MG/1 ML VIAL ONE (09:00)
[2023-03-14] MEDS ORDERED: ENOXAPARIN NA (PORCINE) 40 MG/0.4 ML DISP.SYRIN SQ ONE ×2 (09:00→21:10)
[2023-03-14] MEDS: ASPIRIN COATED 81 MG TABLET.EC PO SCH (09:06)
[2023-03-14] MEDS ORDERED: ENOXAPARIN NA (PORCINE) 40 MG/0.4 ML DISP.SYRIN SQ SCH (10:00)
[2023-03-14] MEDS ORDERED: FUROSEMIDE 40 MG/4 ML INJECTABLE VIAL ONE (13:21)
[2023-03-14] MEDS ORDERED: ALPRAZolam 1 MG TABLET ONE (21:10)
[2023-03-14] MEDS: ALPRAZolam 1 MG TABLET PO PRN (21:17)
[2023-03-14] MEDS: ATORVASTATIN CA 80 MG TABLET (FP) PO SCH (21:17)
[2023-03-14] MEDS: ENOXAPARIN NA (PORCINE) 40 MG/0.4 ML DISP.SYRIN SQ SCH (21:17)
[2023-03-15] MEDS: ALBUTEROL SO4 2.5/IPRATROPIUM 0.5 INH SOL 3 ML VIAL.NEB. NEB SCH ×5 (00:49→20:00)
[2023-03-15] MEDS: FUROSEMIDE 40 MG/4 ML INJECTABLE VIAL IVPUSH SCH ×2 (06:31→14:52)
[2023-03-15 08:53] LABS: BASO % 0.4 % (0-2.0); EOS % 0.6 % (0-4.5); HEMATOCRIT 46.5 % (32.4-45.2); HEMOGLOBIN 14.9 GM/dL (10.7-15.3); LYMPH % 18.5 % (8-40); MCH 29.2 pg (25.7-33.7); MCHC 31.9 g/dl (32.0-36.0); MEAN CELL VOLUME 91.4 fl (80-96); MEAN PLT VOLUME 8.5 fl (7.5-11.1); MONO % 5.5 % (3.8-10.2); PLATELET COUNT 216 10^3/uL (134-434); RBC 5.09 M/mm3 (3.60-5.2); WHITE BLOOD COUNT 15.6 K/mm3 (4.0-10.0)
[2023-03-15] MEDS ORDERED: methaDONE HCL 40 MG DISPERSABLE TABLET ONE (08:55)
[2023-03-15] MEDS ORDERED: ALPRAZolam 1 MG TABLET ONE (08:56)
[2023-03-15] MEDS: ENOXAPARIN NA (PORCINE) 40 MG/0.4 ML DISP.SYRIN SQ SCH ×2 (09:02→21:58)
[2023-03-15] MEDS: ASPIRIN COATED 81 MG TABLET.EC PO SCH (09:02)
[2023-03-15] MEDS: methaDONE HCL 40 MG DISPERSABLE TABLET PO SCH ×2 (09:02)
[2023-03-15 09:08] LABS: POTASSIUM 3.2 mmol/L (3.5-5.1)
[2023-03-15 09:14] LABS: ALBUMIN 3.4 g/dl (3.4-5.0); BLOOD UREA NITROGEN 18.5 mg/dL (7-18); CALCIUM 8.5 mg/dL (8.5-10.1); MAGNESIUM 1.9 mg/dL (1.8-2.4)
[2023-03-15 09:25] LABS: CREATININE 0.7 mg/dL (0.55-1.3)
[2023-03-15 09:26] LABS: BILIRUBIN,TOTAL 0.4 mg/dL (0.2-1); TOT PROT 7.1 g/dl (6.4-8.2)
[2023-03-15] MEDS ORDERED: POTASSIUM CHLORIDE TABS 20 MEQ TABLET.ER (FP) PO ONE ×2 (09:31→12:14)
[2023-03-15] MEDS ORDERED: ALBUTEROL SO4 2.5/IPRATROPIUM 0.5 INH SOL 3 ML VIAL.NEB. NEB ONE (12:14)
[2023-03-15] MEDS: POTASSIUM CHLORIDE TABS 20 MEQ TABLET.ER (FP) PO SCH ×2 (18:03→21:59)
[2023-03-15] MEDS: ATORVASTATIN CA 80 MG TABLET (FP) PO SCH (21:59)
[2023-03-16] MEDS: methaDONE HCL 40 MG DISPERSABLE TABLET PO SCH (06:09)
[2023-03-16] MEDS ORDERED: ACETAMINOPHEN 325 MG TABLET (FP) PO PRN (06:39)
[2023-03-16] MEDS: ALBUTEROL SO4 2.5/IPRATROPIUM 0.5 INH SOL 3 ML VIAL.NEB. NEB SCH ×4 (07:20→21:29)
[2023-03-16 08:43] LABS: BASO % 0.8 % (0-2.0); EOS % 2.5 % (0-4.5); HEMATOCRIT 45.7 % (32.4-45.2); HEMOGLOBIN 14.6 GM/dL (10.7-15.3); LYMPH % 30.7 % (8-40); MCH 29.4 pg (25.7-33.7); MCHC 31.9 g/dl (32.0-36.0); MEAN PLT VOLUME 8.1 fl (7.5-11.1); PLATELET COUNT 217 10^3/uL (134-434); RBC 4.97 M/mm3 (3.60-5.2); RDW 15.1 % (11.6-15.6); WHITE BLOOD COUNT 8.3 K/mm3 (4.0-10.0)
[2023-03-16 09:02] LABS: POTASSIUM 4.2 mmol/L (3.5-5.1)
[2023-03-16 09:04] LABS: ALBUMIN 3.3 g/dl (3.4-5.0); BLOOD UREA NITROGEN 17.3 mg/dL (7-18); MAGNESIUM 2.2 mg/dL (1.8-2.4)
[2023-03-16 09:07] LABS: CREATININE 0.7 mg/dL (0.55-1.3)
[2023-03-16 09:09] LABS: BILIRUBIN,TOTAL 0.3 mg/dL (0.2-1); TOT PROT 6.9 g/dl (6.4-8.2)
[2023-03-16] MEDS: ENOXAPARIN NA (PORCINE) 40 MG/0.4 ML DISP.SYRIN SQ SCH ×2 (09:51→22:26)
[2023-03-16] MEDS: ASPIRIN COATED 81 MG TABLET.EC PO SCH (09:51)
[2023-03-16] MEDS: POTASSIUM CHLORIDE TABS 20 MEQ TABLET.ER (FP) PO SCH ×2 (09:56→22:27)
[2023-03-16] MEDS ORDERED: FUROSEMIDE 40 MG/4 ML INJECTABLE VIAL IVPUSH SCH (10:00)
[2023-03-16] MEDS: ALPRAZolam 1 MG TABLET PO PRN (19:16)
[2023-03-16] MEDS: ATORVASTATIN CA 80 MG TABLET (FP) PO SCH (22:26)
[2023-03-17] MEDS: methaDONE HCL 40 MG DISPERSABLE TABLET PO SCH (06:44)
[2023-03-17] MEDS ORDERED: REGADENOSON 0.4 MG/5 ML PRE-FILLED SYRINGE IVPUSH ONE ×2 (08:58→12:30)
[2023-03-17 09:04] VITALS: RESP 18
[2023-03-17 09:31] LABS: HEMATOCRIT 44.8 % (32.4-45.2); HEMOGLOBIN 14.4 GM/dL (10.7-15.3); MCH 29.7 pg (25.7-33.7); MCHC 32.2 g/dl (32.0-36.0); MEAN CELL VOLUME 92.4 fl (80-96); MEAN PLT VOLUME 8.4 fl (7.5-11.1); PLATELET COUNT 210 10^3/uL (134-434); RBC 4.85 M/mm3 (3.60-5.2); RDW 14.8 % (11.6-15.6); WHITE BLOOD COUNT 6.3 K/mm3 (4.0-10.0)
[2023-03-17 09:47] LABS: POTASSIUM 4.5 mmol/L (3.5-5.1)
[2023-03-17 10:07] LABS: CALCIUM 8.7 mg/dL (8.5-10.1)
[2023-03-17] MEDS: ALBUTEROL SO4 2.5/IPRATROPIUM 0.5 INH SOL 3 ML VIAL.NEB. NEB SCH ×4 (10:07→21:14)
[2023-03-17 10:08] LABS: ALBUMIN 3.1 g/dl (3.4-5.0); BLOOD UREA NITROGEN 16.5 mg/dL (7-18); MAGNESIUM 2.3 mg/dL (1.8-2.4)
[2023-03-17 10:11] LABS: CREATININE 0.6 mg/dL (0.55-1.3); PHOSPHOROUS 3.6 mg/dL (2.5-4.9)
[2023-03-17 10:13] LABS: BILIRUBIN,TOTAL 0.5 mg/dL (0.2-1); TOT PROT 6.4 g/dl (6.4-8.2)
[2023-03-17] MEDS: ASPIRIN COATED 81 MG TABLET.EC PO SCH (10:50)
[2023-03-17] MEDS: POTASSIUM CHLORIDE TABS 20 MEQ TABLET.ER (FP) PO SCH ×2 (10:50→21:10)
[2023-03-17] MEDS: FUROSEMIDE 40 MG TABLET (FP) PO SCH (10:50)
[2023-03-17] MEDS: ENOXAPARIN NA (PORCINE) 40 MG/0.4 ML DISP.SYRIN SQ SCH ×2 (10:50→21:10)
[2023-03-17] MEDS: ALPRAZolam 1 MG TABLET PO PRN (11:31)
[2023-03-17] MEDS: ATORVASTATIN CA 80 MG TABLET (FP) PO SCH (21:10)
[2023-03-18] MEDS: methaDONE HCL 40 MG DISPERSABLE TABLET PO SCH (06:00)
[2023-03-18 06:06] VITALS: BP 122/85; PULSE 66; TEMP 98.6
[2023-03-18] MEDS: ALBUTEROL SO4 2.5/IPRATROPIUM 0.5 INH SOL 3 ML VIAL.NEB. NEB SCH (08:20)
[2023-03-18] MEDS: ASPIRIN COATED 81 MG TABLET.EC PO SCH (09:39)
[2023-03-18] MEDS: POTASSIUM CHLORIDE TABS 20 MEQ TABLET.ER (FP) PO SCH (09:39)
[2023-03-18] MEDS: FUROSEMIDE 40 MG TABLET (FP) PO SCH (09:39)
[2023-03-18] MEDS: ENOXAPARIN NA (PORCINE) 40 MG/0.4 ML DISP.SYRIN SQ SCH (09:55)
== END 2023-03-18 10:39 | disposition home or self-care (01) | DRG 291 ==
LOC: JER 17:19 → JERBED 22:12 → J4S 03-15 14:10
PROVIDERS: ADMIT Internal Medicine; ATTEND Nurse Practitioner Acute Care
DX: I11.0 Hypertensive heart disease with heart failure (principal); I50.33 Acute on chronic diastolic (congestive) heart failure; J96.01 Acute respiratory failure with hypoxia; J96.02 Acute respiratory failure with hypercapnia; F11.20 Opioid dependence, uncomplicated; Z68.42 Body mass index [BMI] 45.0-49.9, adult; I25.10 Atherosclerotic heart disease of native coronary artery without angina pectoris; K21.9 Gastro-esophageal reflux disease without esophagitis; K59.00 Constipation, unspecified; E11.9 Type 2 diabetes mellitus without complications; M54.50 Low back pain, unspecified; E78.00 Pure hypercholesterolemia, unspecified; F41.8 Other specified anxiety disorders; G47.33 Obstructive sleep apnea (adult) (pediatric); E87.6 Hypokalemia; J44.9 Chronic obstructive pulmonary disease, unspecified; E66.01 Morbid (severe) obesity due to excess calories; Z95.5 Presence of coronary angioplasty implant and graft; Z99.81 Dependence on supplemental oxygen; Z96.651 Presence of right artificial knee joint
CPT/HCPCS: 0241U-QW; 36415; 36600; 70450-TC; 71045-TC-FY; 72125-TC; 78452-TC; 80048; 80053; 82803; 83735; 83880; 84100; 84484; 85025; 85027; 85610; 85730; 93005; 93010; 93017; 94640; 94660; 99285-25; A9502; J2785

== ENCOUNTER 2023-10-05 13:21 | Inpatient (IN) | payer OTHER ==
[2023-10-05 16:04] LABS: VENOUS BASE EXCESS 2.3 mmol/L (-2-2); VENOUS O2 SATURATION 54.9 % (70-80); VENOUS PCO2 66.9 mmHg (38-52); VENOUS PH 7.286 (7.310-7.410)
[2023-10-05 16:06] LABS: BASO % 0.6 % (0-2.0); EOS % 4.6 % (0-4.5); HEMOGLOBIN 13.9 GM/dL (10.7-15.3); LYMPH % 30.3 % (8-40); MCH 30.6 pg (25.7-33.7); MCHC 32.3 g/dl (32.0-36.0); MEAN CELL VOLUME 94.6 fl (80-96); MEAN PLT VOLUME 8.3 fl (7.5-11.1); MONO % 6.8 % (3.8-10.2); NEUT % 57.7 % (42.8-82.8); PLATELET COUNT 172 10^3/uL (134-434); RBC 4.55 M/mm3 (3.60-5.2)
[2023-10-05 16:28] LABS: POTASSIUM 4.6 mmol/L (3.5-5.1)
[2023-10-05 16:29] LABS: CALCIUM 8.3 mg/dL (8.5-10.1)
[2023-10-05 16:31] LABS: ALBUMIN 3.2 g/dl (3.4-5.0); BLOOD UREA NITROGEN 10.8 mg/dL (7-18)
[2023-10-05 16:33] LABS: CREATININE 0.7 mg/dL (0.55-1.3)
[2023-10-05 16:35] LABS: BILIRUBIN,TOTAL 0.2 mg/dL (0.2-1); TOT PROT 6.6 g/dl (6.4-8.2)
[2023-10-05 16:38] LABS: N-TERMINAL BNP 47.1 pg/ml (5-125)
[2023-10-05 16:39] LABS: INR 0.98 (0.83-1.09); PROTHROMBIN TIME (PATIENT) 11.1 SEC (9.7-13.0)
[2023-10-05 16:42] LABS: ACTIVATED PTT 33.2 SECONDS (25.2-36.5)
[2023-10-05] MEDS ORDERED: FUROSEMIDE 40 MG/4 ML INJECTABLE VIAL ONE (17:35)
[2023-10-05] MEDS: FUROSEMIDE 40 MG/4 ML INJECTABLE VIAL IVPUSH ONE (17:44)
[2023-10-05 18:11] LABS: MAGNESIUM 2.1 mg/dL (1.8-2.4)
[2023-10-05] MEDS ORDERED: ATORVASTATIN CA 80 MG TABLET (FP) ONE (23:47)
[2023-10-05] MEDS ORDERED: ASPIRIN 81 MG CHEWABLE TABLETS ONE (23:47)
[2023-10-05] MEDS ORDERED: ALPRAZolam 1 MG TABLET ONE (23:52)
[2023-10-05] MEDS: ALPRAZolam 1 MG TABLET PO PRN (23:53)
[2023-10-05] MEDS: ATORVASTATIN CA 80 MG TABLET (FP) PO SCH (23:53)
[2023-10-05] MEDS: ASPIRIN 81 MG CHEWABLE TABLETS PO ONE (23:53)
[2023-10-06 01:42] VITALS: BMI 45.9
[2023-10-06 08:35] LABS: BASO % 0.5 % (0-2.0); EOS % 4.3 % (0-4.5); LYMPH % 29.3 % (8-40); MCHC 33.3 g/dl (32.0-36.0); MEAN CELL VOLUME 93.1 fl (80-96); MEAN PLT VOLUME 8.6 fl (7.5-11.1); MONO % 7.6 % (3.8-10.2); NEUT % 58.3 % (42.8-82.8); PLATELET COUNT 165 10^3/uL (134-434); RBC 4.51 M/mm3 (3.60-5.2); RDW 14.5 % (11.6-15.6); WHITE BLOOD COUNT 7.5 K/mm3 (4.0-10.0)
[2023-10-06 08:59] LABS: CALCIUM 8.6 mg/dL (8.5-10.1)
[2023-10-06 09:00] LABS: ALBUMIN 3.2 g/dl (3.4-5.0); BLOOD UREA NITROGEN 12.5 mg/dL (7-18)
[2023-10-06 09:03] LABS: CREATININE 0.5 mg/dL (0.55-1.3)
[2023-10-06 09:05] LABS: BILIRUBIN,TOTAL 0.6 mg/dL (0.2-1); TOT PROT 6.5 g/dl (6.4-8.2)
[2023-10-06] MEDS: HEPARIN NA (PORCINE) 5,000 UNITS/ML 1ML VIAL SQ SCH (09:20)
[2023-10-06] MEDS: ASPIRIN COATED 81 MG TABLET.EC PO SCH (09:20)
[2023-10-06] MEDS: FUROSEMIDE 40 MG/4 ML INJECTABLE VIAL IVPUSH SCH (09:38)
[2023-10-06] MEDS: methaDONE HCL 10 MG TABLET PO SCH (10:50)
[2023-10-06] MEDS: ALBUTEROL SO4 2.5/IPRATROPIUM 0.5 INH SOL 3 ML VIAL.NEB. NEB SCH (17:00)
[2023-10-06 17:15] LABS: ALLENS TEST POSITIVE; ARTERIAL BLD GAS O2 SATURATION 84.5 % (95-98); ARTERIAL BLOOD GAS BASE EXCESS 6.5 mmol/L (-2-2); ARTERIAL BLOOD GAS PO2 51.7 mmHg (80-100); ARTERIAL BLOOD GAS pH 7.366 (7.350-7.450)
[2023-10-06] MEDS: ALPRAZolam 1 MG TABLET PO PRN (21:11)
[2023-10-07 09:58] VITALS: TEMP 98.4
[2023-10-07 10:10] VITALS: BP 107/59; PULSE 106; RESP 19
[2023-10-07 11:36] LABS: POTASSIUM 4.2 mmol/L (3.5-5.1)
[2023-10-07 11:39] LABS: BLOOD UREA NITROGEN 13.4 mg/dL (7-18); CALCIUM 9.6 mg/dL (8.5-10.1)
[2023-10-07 11:43] LABS: CREATININE 0.6 mg/dL (0.55-1.3)
[2023-10-08] MEDS ORDERED: FUROSEMIDE 40 MG TABLET (FP) PO SCH (10:00)
== END 2023-10-07 15:04 | disposition home or self-care (01) | DRG 291 ==
LOC: JER 13:21 → JERBED 17:29 → J4W 10-06 01:22
PROVIDERS: ADMIT Internal Medicine; ATTEND Internal Medicine
DX: I11.0 Hypertensive heart disease with heart failure (principal); I50.33 Acute on chronic diastolic (congestive) heart failure; F11.20 Opioid dependence, uncomplicated; Z68.42 Body mass index [BMI] 45.0-49.9, adult; J44.1 Chronic obstructive pulmonary disease with (acute) exacerbation; I25.10 Atherosclerotic heart disease of native coronary artery without angina pectoris; E78.5 Hyperlipidemia, unspecified; F43.10 Post-traumatic stress disorder, unspecified; G47.33 Obstructive sleep apnea (adult) (pediatric); E66.01 Morbid (severe) obesity due to excess calories; R73.03 Prediabetes; R09.02 Hypoxemia; F17.200 Nicotine dependence, unspecified, uncomplicated; K59.00 Constipation, unspecified; F41.8 Other specified anxiety disorders; M54.50 Low back pain, unspecified; Z95.5 Presence of coronary angioplasty implant and graft; Z96.651 Presence of right artificial knee joint
CPT/HCPCS: 0241U-QW; 36415; 36600; 71045-TC-FY; 71250-TC; 80048; 80053; 82803; 83735; 83880; 84484; 85025; 85379; 85610; 85730; 86850; 86900; 86901; 93005; 93010; 93971-TC; 94640; 99285-25; J1644

== ENCOUNTER 2024-02-22 18:02 | Inpatient (IN) | payer OTHER ==
[2024-02-22] MEDS ORDERED: ACETAMINOPHEN 325 MG TABLET (FP) ONE (19:55)
[2024-02-22] MEDS: ACETAMINOPHEN 500 MG TABLET (FP) PO ONE (19:58)
[2024-02-22 20:16] LABS: BASO % 0.4 % (0-2.0); EOS % 2.5 % (0-4.5); HEMATOCRIT 45.9 % (32.4-45.2); HEMOGLOBIN 15.1 GM/dL (10.7-15.3); MCH 30.6 pg (25.7-33.7); MCHC 32.9 g/dl (32.0-36.0); MEAN CELL VOLUME 93.1 fl (80-96); MEAN PLT VOLUME 8.2 fl (7.5-11.1); MONO % 6.6 % (3.8-10.2); NEUT % 71.5 % (42.8-82.8); PLATELET COUNT 185 10^3/uL (134-434); RBC 4.93 M/mm3 (3.60-5.2); RDW 14.2 % (11.6-15.6); WHITE BLOOD COUNT 10.2 K/mm3 (4.0-10.0)
[2024-02-22 20:23] LABS: INR 0.98 (0.83-1.09); PROTHROMBIN TIME (PATIENT) 11.3 SEC (9.7-13.0)
[2024-02-22 20:25] LABS: ACTIVATED PTT 34.7 SECONDS (25.2-36.5)
[2024-02-22 20:35] LABS: POTASSIUM 4.1 mmol/L (3.5-5.1)
[2024-02-22 20:38] LABS: ALBUMIN 3.4 g/dl (3.4-5.0); BLOOD UREA NITROGEN 14.7 mg/dL (7-18); MAGNESIUM 2.4 mg/dL (1.8-2.4)
[2024-02-22 20:41] LABS: CREATININE 0.8 mg/dL (0.55-1.3)
[2024-02-22 20:42] LABS: BILIRUBIN,TOTAL 0.4 mg/dL (0.2-1)
[2024-02-22 20:46] LABS: N-TERMINAL BNP 12.2 pg/ml (5-125)
[2024-02-22] MEDS ORDERED: FUROSEMIDE 40 MG/4 ML INJECTABLE VIAL ONE (22:58)
[2024-02-22] MEDS: FUROSEMIDE 40 MG/4 ML INJECTABLE VIAL IVPUSH ONE (23:01)
[2024-02-22 23:03] LABS: VENOUS BASE EXCESS 3.4 mmol/L (-2-2); VENOUS O2 SATURATION 87.9 % (70-80); VENOUS PCO2 57.6 mmHg (38-52); VENOUS PH 7.341 (7.310-7.410)
[2024-02-23 07:29] LABS: BASO % 0.2 % (0-2.0); EOS % 4.6 % (0-4.5); HEMATOCRIT 44.7 % (32.4-45.2); HEMOGLOBIN 14.7 GM/dL (10.7-15.3); LYMPH % 24.6 % (8-40); MCH 30.8 pg (25.7-33.7); MEAN CELL VOLUME 93.3 fl (80-96); MEAN PLT VOLUME 8.4 fl (7.5-11.1); MONO % 8.4 % (3.8-10.2); NEUT % 62.2 % (42.8-82.8); PLATELET COUNT 174 10^3/uL (134-434); RBC 4.79 M/mm3 (3.60-5.2); RDW 14.1 % (11.6-15.6); WHITE BLOOD COUNT 9.8 K/mm3 (4.0-10.0)
[2024-02-23] MEDS ORDERED: methaDONE HCL 40 MG DISPERSABLE TABLET ONE (07:47)
[2024-02-23] MEDS ORDERED: methaDONE HCL 10 MG TABLET ONE (07:47)
[2024-02-23 07:50] LABS: POTASSIUM 3.8 mmol/L (3.5-5.1)
[2024-02-23 07:54] LABS: ALBUMIN 3.4 g/dl (3.4-5.0); BLOOD UREA NITROGEN 13.3 mg/dL (7-18)
[2024-02-23 07:57] LABS: CREATININE 0.7 mg/dL (0.55-1.3)
[2024-02-23] MEDS: methaDONE 40 MG, methaDONE 10 MG PO ONE (07:57)
[2024-02-23 07:59] LABS: BILIRUBIN,TOTAL 0.6 mg/dL (0.2-1); TOT PROT 6.8 g/dl (6.4-8.2)
[2024-02-23] MEDS ORDERED: FUROSEMIDE 40 MG TABLET (FP) ONE (09:27)
[2024-02-23] MEDS ORDERED: ASPIRIN COATED 81 MG TABLET.EC ONE (09:28)
[2024-02-23] MEDS: FUROSEMIDE 40 MG TABLET (FP) PO SCH (09:39)
[2024-02-23] MEDS: ASPIRIN COATED 81 MG TABLET.EC PO SCH (09:39)
[2024-02-23] MEDS ORDERED: FUROSEMIDE 40 MG/4 ML INJECTABLE VIAL ONE (10:11)
[2024-02-23] MEDS: FUROSEMIDE 40 MG/4 ML INJECTABLE VIAL IVPUSH SCH (10:15)
[2024-02-23] MEDS ORDERED: ALPRAZolam 1 MG TABLET PO PRN (16:00)
[2024-02-23] MEDS ORDERED: ALPRAZolam 1 MG TABLET ONE (16:15)
[2024-02-23] MEDS ORDERED: ALBUTEROL SO4 2.5/IPRATROPIUM 0.5 INH SOL 3 ML VIAL.NEB. NEB ONE (16:17)
[2024-02-23] MEDS: ALBUTEROL SO4 2.5/IPRATROPIUM 0.5 INH SOL 3 ML VIAL.NEB. NEB SCH (16:20)
[2024-02-23] MEDS: ALPRAZolam 1 MG TABLET PO PRN (16:21)
[2024-02-23] MEDS: ATORVASTATIN CA 80 MG TABLET (FP) PO SCH (22:08)
[2024-02-23] MEDS: methylPREDNISolone NA SUCC 40 MG/1 ML VIAL IVPUSH SCH (22:08)
[2024-02-24 02:08] VITALS: BMI 18.1
[2024-02-24 08:01] LABS: BASO % 0.1 % (0-2.0); EOS % 0.1 % (0-4.5); HEMATOCRIT 41.9 % (32.4-45.2); HEMOGLOBIN 13.7 GM/dL (10.7-15.3); LYMPH % 9.9 % (8-40); MCHC 32.7 g/dl (32.0-36.0); MEAN CELL VOLUME 94.7 fl (80-96); MEAN PLT VOLUME 8.5 fl (7.5-11.1); MONO % 1.1 % (3.8-10.2); NEUT % 88.8 % (42.8-82.8); PLATELET COUNT 176 10^3/uL (134-434); RBC 4.42 M/mm3 (3.60-5.2); RDW 13.9 % (11.6-15.6); WHITE BLOOD COUNT 7.8 K/mm3 (4.0-10.0)
[2024-02-24 08:13] LABS: POTASSIUM 3.8 mmol/L (3.5-5.1)
[2024-02-24 08:25] LABS: ALBUMIN 3.3 g/dl (3.4-5.0)
[2024-02-24 08:28] LABS: CREATININE 0.9 mg/dL (0.55-1.3)
[2024-02-24 08:30] LABS: BILIRUBIN,TOTAL 0.4 mg/dL (0.2-1); TOT PROT 6.6 g/dl (6.4-8.2)
[2024-02-24] MEDS: methaDONE 40 MG, methaDONE 10 MG PO SCH (10:00)
[2024-02-24] MEDS: methaDONE HCL 10 MG TABLET PO SCH (10:20)
[2024-02-24 11:34] VITALS: BP 113/95; PULSE 103; RESP 19; TEMP 98.4
[2024-02-25] MEDS ORDERED: FUROSEMIDE 40 MG TABLET (FP) PO SCH (10:00)
== END 2024-02-24 13:03 | disposition left against medical advice (07) | DRG 291 ==
LOC: JER 18:02 → JERBED 23:08 → J4W 02-23 21:04
PROVIDERS: ADMIT Internal Medicine; ATTEND Internal Medicine
DX: I11.0 Hypertensive heart disease with heart failure (principal); I50.33 Acute on chronic diastolic (congestive) heart failure; J96.20 Acute and chronic respiratory failure, unspecified whether with hypoxia or hypercapnia; J44.1 Chronic obstructive pulmonary disease with (acute) exacerbation; I25.10 Atherosclerotic heart disease of native coronary artery without angina pectoris; E78.5 Hyperlipidemia, unspecified; G47.33 Obstructive sleep apnea (adult) (pediatric); E66.9 Obesity, unspecified; Z68.39 Body mass index [BMI] 39.0-39.9, adult; F43.10 Post-traumatic stress disorder, unspecified; F41.9 Anxiety disorder, unspecified; R73.03 Prediabetes; Z95.5 Presence of coronary angioplasty implant and graft
CPT/HCPCS: 36415; 71045-TC-FY; 71250-TC; 73562-TC-LT-FY; 80053; 82803; 82962; 83735; 83880; 84484; 85025; 85610; 85730; 93005; 93010; 93306-TC; 94640; 94660; 99285-25

== ENCOUNTER 2024-09-14 12:12 | Observation (INO) | payer OTHER ==
[2024-09-14 13:21] LABS: ABSOLUTE IMMATURE GRANULOCYTES 0.03 x10^3/uL (0.0-0.031); BASOPHILS # 0.05 x10^3/uL (0.01-0.08); EOSINOPHIL % 4.5 % (0.7-5.8); EOSINOPHILS # 0.43 x10^3/uL (0.04-0.36); MCHC 31.4 g/dl (32.2-35.5); MEAN CELL VOLUME 94.7 fl (79.4-94.8); MEAN PLT VOLUME 10.1 fl (9.4-12.3); MONOCYTE # 0.59 x10^3/uL (0.24-0.86); MONOCYTE % 6.1 % (4.7-12.5); RDW 13.2 % (12.4-16.4)
[2024-09-14 13:30] LABS: INR 1.07 (0.83-1.09); PROTHROMBIN TIME (PATIENT) 11.8 SEC (9.7-13.0)
[2024-09-14 13:32] LABS: ACTIVATED PTT 34.7 SECONDS (25.2-36.5)
[2024-09-14 13:34] LABS: BG HCT 47.0 % (32.4-45.2); VENOUS BASE EXCESS -1.5 mmol/L (-2-2); VENOUS O2 SATURATION 73.7 % (70-80); VENOUS PCO2 50.9 mmHg (38-52); VENOUS PH 7.317 (7.310-7.410)
[2024-09-14 14:06] LABS: CO2 27.0 mmol/L (21-32); GLUCOSE,RANDOM 99.0 mg/dL (74-106)
[2024-09-14 14:09] LABS: CREATININE 0.7 mg/dL (0.55-1.3); SGOT/AST 17.0 U/L (15-37); SGPT/ALT 23.0 U/L (13-61); TOT PROT 6.7 g/dl (6.4-8.2)
[2024-09-14 14:10] LABS: ALK PHOS 115.0 U/L (45-117)
[2024-09-14 15:17] LABS: HCV DIAGNOSTIC IN-HOUSE W/RFLX NON-REACTIVE (NONREACTIVE)
[2024-09-14 15:19] LABS: HIV INTERPRETATION NEGATIVE (NEGATIVE)
[2024-09-14] MEDS ORDERED: DOCUSATE SODIUM 100 MG CAPSULE (FP) PO PRN (20:47)
[2024-09-14] MEDS ORDERED: ACETAMINOPHEN 500 MG TABLET (FP) PO PRN (20:52)
[2024-09-14 21:03] VITALS: BMI 44.9
[2024-09-15] MEDS: INSULIN ASPART SLIDING SCALE (NOVOLOG) 1 VIAL SQ SCH (06:05)
[2024-09-15] MEDS ORDERED: DOCUSATE SODIUM 100 MG CAPSULE (FP) PO PRN (07:18)
[2024-09-15 08:06] LABS: ABSOLUTE IMMATURE GRANULOCYTES 0.02 x10^3/uL (0.0-0.031); BASOPHILS # 0.06 x10^3/uL (0.01-0.08); EOSINOPHIL % 5.9 % (0.7-5.8); EOSINOPHILS # 0.49 x10^3/uL (0.04-0.36); MCHC 30.8 g/dl (32.2-35.5); MEAN CELL VOLUME 94.7 fl (79.4-94.8); MEAN PLT VOLUME 9.9 fl (9.4-12.3); MONOCYTE # 0.54 x10^3/uL (0.24-0.86); MONOCYTE % 6.5 % (4.7-12.5); RDW 13.1 % (12.4-16.4)
[2024-09-15 08:24] LABS: CO2 29.0 mmol/L (21-32); GLUCOSE,RANDOM 118.0 mg/dL (74-106)
[2024-09-15 08:27] LABS: CREATININE 0.6 mg/dL (0.55-1.3)
[2024-09-15] MEDS: EMPAGLIFLOZIN (JARDIANCE) 25 MG TABLET PO SCH (09:39)
[2024-09-15] MEDS: FUROSEMIDE 40 MG TABLET (FP) PO SCH (09:39)
[2024-09-15] MEDS: ASPIRIN COATED 81 MG TABLET.EC PO SCH (09:39)
[2024-09-15] MEDS: FLUTICASONE/UMECLIDIN/VILANTER(200-62.5-25 TRELEGY ELLIPTA) INAHLER IH SCH (09:40)
[2024-09-15 20:57] LABS: COCAINE, UR NEGATIVE (NEGATIVE); PHENCYCLIDINE,URINE NEGATIVE (NEGATIVE); URINE AMPHETAMINES NEGATIVE (NEGATIVE); URINE BARBITURATES NEGATIVE (NEGATIVE)
[2024-09-15 21:08] LABS: METHADONE, UR POSITIVE (NEGATIVE); OPIATES, URI POSITIVE (NEGATIVE); URINE BENZODIAZEPINES POSITIVE (NEGATIVE)
[2024-09-15 21:43] VITALS: RESP 18
[2024-09-15] MEDS: ATORVASTATIN CA 80 MG TABLET (FP) PO SCH (21:43)
[2024-09-15 21:59] LABS: EPI CELLS 13 /uL (0-25.1); HYALINE CASTS 0 /uL (0-3.1); URINE APPEARANCE CLEAR; URINE BACTERIA >9,000 /uL (0-1359); URINE BILIRUBIN NEGATIVE (NEGATIVE); URINE COLOR YELLOW; URINE GLUCOSE (UA) 3+ (NEGATIVE); URINE KETONE NEGATIVE (NEGATIVE); URINE LEUK ESTERASE NEGATIVE (NEGATIVE); URINE NITRITE POSITIVE (NEGATIVE); URINE PROTEIN NEGATIVE (NEGATIVE); URINE RBC 16 /uL (0-23.9); URINE UROBILINOGEN 1.0 mg/dL (0.2-1.0); URINE WBC 46 /uL (0-25.8)
[2024-09-16] MEDS: traZODone HCL 50 MG TABLET (FP) PO PRN (01:42)
[2024-09-16 07:29] VITALS: BP 111/72; PULSE 83; TEMP 97.9
[2024-09-16] MEDS ORDERED: NITROFURANTOIN MONOHYD/M-CRYST 100 MG CAPSULE PO SCH (10:00)
== END 2024-09-16 08:45 | disposition home or self-care (01) ==
LOC: JER 12:12 → JERBED 17:30 → J4S 20:25
PROVIDERS: ADMIT Internal Medicine; ATTEND Family Medicine
DX: T40.3X1A Poisoning by methadone, accidental (unintentional), initial encounter (principal); X58.XXXA Exposure to other specified factors, initial encounter; R55 Syncope and collapse; J44.9 Chronic obstructive pulmonary disease, unspecified; I11.0 Hypertensive heart disease with heart failure; E78.5 Hyperlipidemia, unspecified; I25.10 Atherosclerotic heart disease of native coronary artery without angina pectoris; Z87.891 Personal history of nicotine dependence; K59.00 Constipation, unspecified; F41.8 Other specified anxiety disorders
CPT/HCPCS: 36415; 70450-TC; 71045-TC-FY; 80048; 80053; 80307; 81003; 82803; 82962; 83735; 83880; 84100; 84484; 85025; 85610; 85730; 86803; 86850; 86900; 86901; 87086; 87389; 93005; 93010; 93880-TC; 99285-25; G0378